=== PATIENT | female | born 1935 | race Caucasian/White ===

== ENCOUNTER 2016-03-05 17:10 | Inpatient (IN) | payer MEDICARE, MEDICAID ==
[2016-03-05] VITALS (7 sets, daily range): BP systolic 91–165; BP diastolic 66–89; PULSE 90–137; RESP 21–29; O2SAT 92–96
[~2016-03-05] VITALS: Ht 157.5 cm; Wt 78.2 kg
[~2016-03-05 17:10] MED LIST: ALBU8.5H2 INHALATION; ASCO125T PO; ATOR20TA PO; BIMA2.5D5 OD; BIOT1CAP3 PO; BRIM5DRO10 BOTH_EYES; BRIN10DR OP; CHOL100043 PO; CHRO200C PO; CYAN10008 PO; DILT120C83 PO; DILT60CA PO; FLUT12AE10 IH; FOLI1TAB18 PO; FURO-128 PO; MAGN400C PO; PARO40TA3 PO; PHEN100C11 PO; POTA10TA12 PO; RIVA20TA PO; Tumeric PO; UBID10CA4 PO
[2016-03-05 17:52] LABS: BASOPHILS % (AUTO) 0.2 % (0-3); EOSINOPHILS % (AUTO) 0.6 % (0-5); MONOCYTES % (AUTO) 10.9 % (4-12); Mean Corpuscular Hemoglobin 31.1 pg (27.0-35.0); Mean Corpuscular Volume 97.5 fL (81-100); NEUTROPHILS % (AUTO) 75.6 % (40-74); Platelet Count 210 bil/L (150-400)
--- NOTE | 2016-03-05 17:59 | ED.REPORT ---
HPI-Chest Pain 40 and Over Date of Service Mar 05, 2016 ED Provider: Oscar Dubose MD Patient is a 81 year old female on home O2 with a history of atrial fibrillation with RVR on Xarelto, asthma, coronary artery disease with prior [place] , prior CVA with seizure disorder, and hypertension who presents to the ED via EMS with increased shortness of breath today, found to be in atrial fibrillation by EMS. Patient was given 20mg of Diltazem by EMS, finding her in the 120-140s. The patient denies having any associated chest discomfort or feeling palpitations when her heart is racing. Her only symptoms increased shortness of breath. The patient states that she has had increased shortness of breath for several weeks and was started on home oxygen by her PCP recently. She states that they "marched her up and down the halls" and determined that her O2 sat was low. The patient reports having "miniscule" intermittent substernal chest pain, brief episodes. She last had an episode of chest pain this morning. Patient reports increased swelling in her legs. She reports a chronic runny nose but denies a cough, fever, abdominal pain, or vomiting. She takes 120mg of Diltiazem at home daily, in addition to Metoprolol. She has been taking all of her medications as prescribed. Patient reports having increased bloody noses with blood clots since starting the Xarelto. Patient is a Jehovah' s Witness. The patient has a large family reunion tomorrow morning and is motivated to return home tonight. Nursing Notes Stated Complaint: AFIB, RVR Chief Complaint: Dysrhythmia/Cardiac Nursing Notes Reviewed: Yes Allergies: Coded Allergies: ranitidine (Verified Allergy, Severe, 03/05/16) Scheduled Albuterol HFA (Proair HFA) 8.5 Gm Hfa.aer.ad 1 PUFFS INHALATION Q4H Atorvastatin (Lipitor) 20 Mg Tablet 20 MG PO HS Bimatoprost (Lumigan) 45 Drop/2.5 Ml Ophsoln 45 DROP OD HS Biotin (Biotin) 1 Mg Capsule 1 MG PO DAILY Brimonidine Tartrate (Alphagan P) 5 Ml Drops 5 ML BOTH_EYES BID Brinzolamide (Azopt 1% Ophthalmic Suspension) 10 Ml Drops.susp 1 DROP OP BID Cholecalciferol (Vitamin D3) (Vitamin D) 1,000 Unit Tablet 1,000 UNIT PO DAILY Diltiazem ER (Diltiazem ER) 60 Mg Cap.er.12h 60 MG PO BID Diltiazem ER (Cardizem CD) 120 Mg Cap.er.24h 120 MG PO BID Fluticasone Propionate (Flovent HFA 220 mcg) 12 Gm Aer.w.adap 1 PUFF IH BID Folic Acid (Folic Acid) 1 Mg Tablet 1 MG PO DAILY Furosemide (Lasix) 40 Mg Tablet 40 MG PO BID Paroxetine (Paroxetine) 40 Mg Tablet 40 MG PO DAILY Phenytoin Sodium Extended (Phenytoin Sodium Extended) 100 Mg Capsule 300 MG PO HS Potassium Chloride ER (Potassium Chloride ER) 10 Meq Tablet 10 MEQ PO DAILY TAKE WITH FOOD Scheduled PRN Rivaroxaban (Xarelto) 20 Mg Tablet 20 MG PO DAILY PRN PRN anticoagulation Miscellaneous Medications ([Tumeric]) 34 MCG PO Ascorbic Acid (Vitamin C) 125 Mg Tab.chew 1,000 MG PO Chromium Picolinate (Chromium Picolinate) 200 Mcg Capsule 167 MCG PO Cyanocobalamin (Vitamin B-12) (Vitamin B-12) 1,000 Mcg Tablet 1,000 MG PO Magnesium Oxide (Magnesium) 400 Mg Capsule 400 MG PO Ubidecarenone (Co Q-10) 10 Mg Capsule 100 MG PO General Time Seen by MD: 17:46 Chief Complaint Shortness of breath Hx Obtained From: Patient Arrived By: Ambulance Sudden in Onset?: No Onset Occurred: 3 days ago Symptom Duration: Waxes and wanes Location: : Substernal Quality: Painful, Stabbing Severity: Current: No pain currently Severity: Maximum: Moderate Recent Healthcare: No recent doctor visit, No recent hospitalization Similar Sx Previous: Yes Past Medical History Past Medical History Notes: Last stress test negative in August 2014 Past Medical History Seizures -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 Corotid artery stenosis Atrial Fibrillation with RVR on Xarelto [place] in 2009 per patient, with cardiac arrest Osteoarthritis Glaucoma Diverticula seen 08/2002 colonoscopy Reports: Asthma, Coronary artery disease, Hyperlipidemia, Hypertension, Stroke Reports: Depression Past Surgical History Finger surgery Reports: Hysterectomy Reports: Carpal tunnel Smoking History Former Smoker Social History Hx of Alcoholism "Caffine free" Alcohol Use: In recovery Other Social History: Good social support, , Local resident Ambulatory Status Independent Review of Systems Constitutional: Denies: Chills, Fever Respiratory: Reports: Shortness of breath, Denies: Non-productive cough, Pleuritic pain Cardiovascular: Reports: Chest pain, Denies: Palpitations GI: Denies: Abdominal pain, Vomiting Musculoskeletal: Reports: Extremity swelling Psychiatric: Reports: Anxiety Complete sys rev & neg: except as marked. Physical Exam Initial Vital Signs Vital Signs (First) Date Time Temp Pulse Resp B/P Pulse Ox O2 Delivery O2 Flow Rate FiO2 03/05/16 17:39 36.7 137 29 128/76 95 Nasal Cannula 2 Initial VS: Reviewed Head / Eyes: Atraumatic, Normocephalic, PERRL ENT: Conjunctiva normal, No scleral icterus Neck: Supple, Full range of motion Skin: Warm, Dry, No cyanosis Neurologic: Alert, Oriented, Nonfocal Psychiatric: Mood/affect normal, Behavior normal, Normal thought content General/Constitutional: Awake, Alert, No acute distress Respiratory / Chest: No respiratory distress, No rhonchi, No wheezing faint bibasilar crackles Heart Rate / Rhythm: Positive: Irreg irregular rhythm, Tachycardia Abdomen: Soft, Non-tender Lower Extremity / Pelvis / MS: No deformity 1+ bilateral lower extremity edema Upper Extremity / MS: No swelling, No edema Interpretation & Diagnostics Lab Results Interpretation Result Diagram: 03/05/16 1730 03/05/16 1730 Test 03/05/16 17:30 White Blood Count 9.1th/mm3 (3.8-10.1) Red Blood Count 4.08mil/mm3 (3.90-5.20) Hemoglobin 12.7g/dL (12.0-15.6) Hematocrit 39.8% (35.0-46.0) Mean Corpuscular Volume 97.5fL (81-100) Mean Corpuscular Hemoglobin 31.1pg (27.0-35.0) Mean Corpuscular Hemoglobin Concent 31.9% (32.0-37.0) Red Cell Distribution Width 13.5% (12.3-15.4) Platelet Count 210bil/L (150-400) Neutrophils (%) (Auto) 75.6% (40-74) Lymphocytes (%) (Auto) 12.5% (14-46) Monocytes (%) (Auto) 10.9% (4-12) Eosinophils (%) (Auto) 0.6% (0-5) Basophils (%) (Auto) 0.2% (0-3) Prothrombin Time 10.9sec (8.1-12.5) Prothromb Time International Ratio 1.02ratio Activated Partial Thromboplast Time 29.2sec (22.8-33.0) Sodium Level 137mEq/L (134-144) Potassium Level 4.2mEq/L (3.5-5.2) Chloride Level 93mEq/L (97-108) Carbon Dioxide Level 30mmol/L (18-29) Blood Urea Nitrogen 24mg/dL (8-27) Creatinine 0.65mg/dL (0.57-1.00) Estimat Glomerular Filtration Rate 125mL/min (>59) Glucose Level 125mg/dL (60-99) Calcium Level 9.2mg/dL (8.5-10.1) Magnesium Level 2.2mg/dL (1.6-2.6) Total Bilirubin 0.6mg/dL (0.0-1.2) Aspartate Amino Transf (AST/SGOT) 30U/L (0-50) Alanine Aminotransferase (ALT/SGPT) 36U/L (0-32) Alkaline Phosphatase 129U/L (25-165) Troponin T < 0.010ug/L (0.0-0.011) Pro-B-Type Natriuretic Peptide 2480pg/mL (0-738) Total Protein 6.8g/dL (6.4-8.4) Albumin 3.9g/dL (3.4-5.0) ECG Interpretation ECG Interpretation: Atrial fibrillation with RVR, Rate 127 Time: 18:30 Interpreted by: ED physician X-Ray Chest Interpretation Chest Xray Interpretation: IMPRESSION: Mild acute CHF pattern with small bilateral subpulmonic pleural effusions. Dictated by: Darshan Ellis M.D. on 03/05/2016 at 19:55 Approved by: Darshan Ellis M.D. on 03/05/2016 at 19:55 Interpretation / Wet Read by: Interpret - Radiologist Re-Eval/Medical Decision Source of Hx: Old records Summary of Info: 81-year-old female history of atrial fibrillation on xarelto, holiness, CAD, seizure disorder, CVA presenting with shortness of breath times weeks. On arrival she was found to be in atrial fibrillation with RVR 120s-140s. Given 20 mg of IV diltiazem by paramedics. Given additional 20 mg IV diltiazem here in the ER. He remained [id number]. Started on diltiazem drip. Admitted to [facility]. Time of Eval: 19:36 Re-Evaluation/Progress Note: Rechecked the patient. She was informed that because her heart rate is still this rapid, she will need to stay in the hospital overnight on a Diltiazem drip. Patient agrees that she cannot go home like this. Discussed the results of her labs, chest x-ray, and EKG. She also admits to feeling anxious and takes Paxil at home. Patient understands and agrees with this plan. All questions were addressed. Consultation : Referral / Consult Name: Hayley Julian MD Consulted With: Hospitalist Call Returned at: 19:51 Volleyball Player: Will see patient, Agrees with eval, Agrees with plan, Accepts admit Note: Spoke with Dr. Julian, hospitalist, who agrees to accept admit. Counseled Regarding: Diagnosis, Lab results, Need for follow-up, When/why to return to ED Discharge & Departure Primary Impression: Atrial fibrillation with RVR Additional Impression: Shortness of breath Disposition: ADMITTED TO HOSPITAL Discharge Condition All VS Reviewed: Yes Condition: Stable Referrals: Oscar Post MD (PCP) Crit Care Except Billable Proc Time Spent: 30-74 minutes Services Performed: Patient management by me, Time spent at bedside, Reviewing test results, Reviewing imaging, Discussing patient care, Documentation in record, Time with fam/surrogate Scribe Attestation Portions of this note were transcribed by Juhi Morfin. I, Dr. Dubose personally performed the history, physical exam and medical decision-making; I reviewed and confirmed the accuracy of the information in the transcribed note. Signed by: Ismael Lucio, 03/05/20162057 copies to: Oscar Post MD, Ben M MD Mar 05, 2016 17:59 Juhi Morfin Mar 05, 2016 18:12
[2016-03-05 18:07] LABS: INR 1.02 ratio
[2016-03-05] MEDS ORDERED: 0.9% Sodium Chloride 1,000 ML IV ONE (18:11)
[2016-03-05 18:15] LABS: TROPONIN T < 0.010 ug/L (0.0-0.011)
[2016-03-05] MEDS ORDERED: Diltiazem 5 mg/mL 5 mL Inj IVPUSH ONE (18:15)
[2016-03-05 18:25] LABS: Magnesium 2.2 mg/dL (1.6-2.6)
[2016-03-05] MEDS ORDERED: Alum-Mag Hydrox-Simeth 30 mL Suspension PO PRN (19:55)
[2016-03-05] MEDS ORDERED: Ondansetron 2 mg/mL 2 mL Inj IVPUSH PRN (19:55)
--- NOTE | 2016-03-05 19:57 | DRSVH ---
PROCEDURE: X-RAY CHEST ONE VIEW, PORTABLE ([id number]) INDICATIONS: dyspnea TECHNIQUE: One view of the chest was acquired. COMPARISON: None. FINDINGS: Surgical changes and devices: None. Lungs and pleura: Small subpulmonic bilateral pleural effusions but no pneumothorax. Lungs are mild ly edematous. Mediastinum: Mediastinal contours appear normal. Heart size is mildly enlarged. Bones and chest wall: No suspicious bony lesions. Overlying soft tissues appear unremarkable. IMPRESSION: Mild acute CHF pattern with small bilateral subpulmonic pleural effusions. Dictated by: Darshan Ellis M.D. on 03/05/2016 at 19:55 Approved by: Darshan Ellis M.D. on 03/05/2016 at 19:55
[2016-03-05] MEDS: Diltiazem Inj 125 MG in 0.9% Sodium Chloride 100 ML, Pharmacy To Mix 1 EA IV SCH (20:00)
--- NOTE | 2016-03-05 20:30 | NUR ---
Admission to [facility] Pt arrived at 2030 to PCC room 2008 on a gurney with daughter Bree at her side. Pt was on 4L O2 NC and the cardizem drip and NS had been stopped for the travel from the ED to PCC. Pt has A-Fib with a rate 120-140s upon arrival to the floor and the pt is hypertensive. Pt is AOx3 and very weak compared to baseline.
[2016-03-05 22:21] LABS: APPEARANCE,URINE HAZY (CLEAR,HAZY); COLOR,URINE AMBER (YELLOW); OCCULT BLOOD,URINE NEGATIVE (NEGATIVE); PH,URINE 6.5 (5.0-8.0); UROBILINOGEN,URINE NORMAL (NORMAL)
[2016-03-05 22:22] LABS: ICTOTEST,URINE POSITIVE (Negative)
[2016-03-06] VITALS (15 sets, daily range): BP systolic 99–162; BP diastolic 47–133; PULSE 66–134; RESP 15–38; O2SAT 90–99
[2016-03-06] MEDS ORDERED: Polyethylene Glycol (PEG) 17 Gm Powder PO PRN (00:05)
[2016-03-06] MEDS: Diltiazem Inj 125 MG in 0.9% Sodium Chloride 100 ML, Pharmacy To Mix 1 EA IV SCH ×2 (01:21→10:16)
[2016-03-06] MEDS: Albuterol 2.5 mg/3 mL Inhalation Solution NEB PRN ×3 (01:35→16:22)
[2016-03-06] MEDS: Furosemide 10 mg/mL 4 mL Inj IVPUSH SCH ×2 (04:24→21:06)
[2016-03-06] MEDS: Fluticasone 250 mCg Inhaler INHALATION SCH ×2 (07:34→21:06)
[2016-03-06] MEDS: Dorzolamide 2% 10 mL Ophthalmic Solution BOTH_EYES SCH ×2 (07:35→21:06)
[2016-03-06] MEDS: Brimonidine 0.2% 5 mL Ophthalmic Solution BOTH_EYES SCH ×2 (07:35→21:15)
[2016-03-06] MEDS: PARoxetine 20 mg Tablet PO SCH (07:36)
--- NOTE | 2016-03-06 07:38 | NUR ---
Respiratory/Cardiac Pt c/o being SOB and upon auscultation the pt's left lung had coarse crackles long term up and the pt's right lung had crackles through the lower third. Pt's RR range is from the 20s-40s and the respirations are labored, shallow, with accessory muscle use at this point. Pt has remained in the tri-pod position since admission at 2030 and on 4-6L NC with SpO2 88-98%. MD was made aware and ordered a dose of 40mg IV Lasix and pt received a funez catheter. Pt was started on cardizem drip on the floor at 15ml/hr to try and bring down the HR from the 120s-140s. Pt's HR has only decreased into the 110s-120s while on the cardizem drip.
--- NOTE | 2016-03-06 09:20 | HP ---
[address] [address] HISTORY AND PHYSICAL PATIENT: MARIAM BUENO : 1935 MR#: [id number] ADMIT: 03/05/2016 JOB ID: [id number] HISTORY OF PRESENT ILLNESS: This is an 81-year-old female presenting to the emergency department in atrial fibrillation with rapid ventricular response up into the 160s. She was stabilized with a diltiazem drip. She appears quite dyspneic, tripoding to breathe and apparently has CHF in addition. Her ability to give an accurate history is compromised by her disturbed breathing. In the emergency department, she was describing one day of shortness of breath. She had been started on home oxygen by her primary care doctor recently after an ambulatory hypoxic measurement. She is also experiencing increased swelling of her legs and a runny nose but no coughing. She is a [employer] and was expecting a large family reunion in the morning. MEDICINES: 1. Albuterol 1 puff q.4 p.r.n. 2. Atorvastatin 20 mg h.s. 3. Lumigan both eyes. 4. Biotin 1 mg a day. 5. Alphagan-P 5 mL both eyes b.i.d. 6. Vitamin D3 1000 units daily. 7. Diltiazem ER 60 mg q.12. 8. Diltiazem ER 120 mg q.12 also (total dose appears to be 180 mg). 9. Flovent HFA 220 mcg 1 puff b.i.d. 10. Folate 1 mg daily. 11. Furosemide 40 mg b.i.d. 12. Paroxetine 40 mg a day. 13. Phenytoin 100 mg 3 tablets at h.s. 14. Potassium chloride ER 10 mEq daily. 15. Xarelto 20 mg daily. ALLERGIES: RANITIDINE. PAST MEDICAL HISTORY: 1. CVA and resultant seizures in 2009. 2. Carotid artery stenosis. 3. Atrial fibrillation. 4. Cardiac arrest 2009 coincident with [place]. 5. Osteoarthritis. 6. Glaucoma. 7. Diverticula, diverticulosis on colonoscopy. 8. Asthma. 9. Coronary artery disease. 10. Hyperlipidemia. 11. Hypertension. 12. Depression. 13. Hysterectomy. 14. Finger surgery. 15. Carpal tunnel surgery. SOCIAL HISTORY: She is a former smoker with a history of alcoholism in recovery. She is accompanied by her daughter. She is Restorationism. Dr. Oscar Post is her primary care doctor and Dr. Pascal is her manager medical affairs, although she has not seen him yet and will be seeing him for a first appointment in two weeks. PHYSICAL EXAMINATION: General: Alert and oriented. Appears to be in quite marked respiratory distress. Vitals: Temperature is 36.8, pulse 102, respirations 24, blood pressure 128/89, O2 sat is 95% on 3 L nasal cannula. Pupils are equally round and reactive to light and accommodation. Extraocular muscle intact. Sclerae are pink. Not icteric. Throat looks normal. No lymph nodes are felt. Head and neck/supraclavicular: There is no thyromegaly. JVD is less than 6 cm. No carotid bruits are heard. Heart is irregularly irregular without murmur. Lungs have left-sided crackles. Abdomen obese. Bowel sounds positive on examination. No organomegaly. Breast, pelvic and rectal examination is referred to Dr. Post' office. Extremities: No ankle edema. Neuro: Cranial nerves 2-12 tested intact. Motor function is 3/5 throughout. There is no tremor. LABORATORIES: White count 9.1, hemoglobin 12.7, platelets 210. INR 1.02. Urinalysis 3-10 RBCs, greater than 50 WBCs, moderate epithelial cells, trace leukocyte esterase, negative nitrite. Sodium is 137, potassium 4.2, chloride 93, CO2 is 30, BUN is 24, creatinine 0.65, glucose 125. ALT 36, AST 30. BNP is 2480. Troponin I is 0.01. Urine culture is pending. Chest x-ray shows mild CHF pattern with small bilateral subpulmonic pleural effusions. ASSESSMENT AND PLAN: 1. Congestive heart failure. Begin Lasix and follow electrolytes. Continue home meds of potassium chloride, holding oral Lasix while on IV treatment. 2. Atrial fibrillation with rapid ventricular response. Continues on diltiazem drip and will be resuming her home diltiazem when appropriate. Continue Xarelto for stroke prevention. 3. Hyperlipidemia. Continue Lipitor. 4. Depression. Continue Paroxetine. 5. Seizure disorder. Continue phenytoin. MTDD
--- NOTE | 2016-03-06 10:19 | NUR ---
Tele/Breathing Patient continues to be in Afib but heart rate has slowed to 70s-80s. Diltiazem drip decreased to 10mg/hr. Patient breathing has been labored with visible accesory muscle use and audible wheezing. Patient started on BiPAP by RT. Patient seems to be tolerating BiPAP well, she is resting with eyes closed with daughter at the bedside.
[2016-03-06] MEDS: Budesonide 0.5 mg/2 mL Inhalation Solution NEB SCH ×2 (11:25→20:13)
[2016-03-06] MEDS: Arformoterol 15 mCg/2 mL Inhalation Solution NEB SCH ×2 (11:40→20:13)
[2016-03-06] MEDS ORDERED: Albuterol-Ipratropium 3 mL Inhalation Solution NEB SCH (12:30)
--- NOTE | 2016-03-06 16:42 | ABG ---
DateTimeAnalyzed 16:37:00 -_ pH ____7.396 - 7.350 7.450 pCO2 ___46.1__ -mmHg 35.0 45.0 pO2 ___69.3__ -mmHg 69.0 116 HCO3- ___27.7__ -mmol/L 22.0 26.0 ABE ____2.9__ -mmol/L -2.0 2.0 tHb ___11.1__ -g/dL O2Hb ___92.4__ -% COHb ____1.4__ -% MetHb ____0.8__ -% sO2 ___94.5__ -% FIO2 ___35.0__ -% CPAP ___12.0__ -cmH2O PEEP ____6.0__ -cmH2O Drawn By NB - Date/Time Notified____ 16:42:00 -_ Oxygen Device 1 ____BIPAP - Notified By NB - Notified Whom _Sara, RN - B 765 -mmHg tO2 ___14.4__ -Vol% Hugh test N/A -
--- NOTE | 2016-03-06 18:00 | NUR ---
Social Work: Initial assessment Electronic Game Developer met with patient and patient daughter, Bree Crews- [phone], to complete initial assessment, discuss discharge planning, and SW role explained. Patient confirmed that her insurance is Medicare and [facility] as secondary. Patient leyva not have VA or LTC benefits. Patient was home with spouse (spouse has problems with memory) in a single level home prior to admission. Patient does not have any steps to enter home. Patient daughter/DPOA Shelby Godinez is currently with patient's spouse while to patient is in the hospital. Patient's daughter provided SW with a copy of patient's DPOA and the patient DPOA was placed on the patient's chart. Patient has a [email or web address] worker, name Cj. SW will fax patient clinical to her [facility] worker. Patient does not have HH or SNF history. Patient does not have a re-admit score. Patient plans to discharge home with [email or web address]. Patient will transport home via POV. Electronic Game Developer will continue to follow. Myrna Santos LMSW, RYLEY Addendum: 03/06/16 at 1808 by MYRNA FUENTES Amended: Links added.
--- NOTE | 2016-03-06 18:22 | PCM.PNMED ---
Subjective Date of Service Mar 06, 2016 Subjective Patient is a 81 year old female on home O2 with a history of atrial fibrillation with RVR on Xarelto, asthma, coronary artery disease with prior [place] , prior CVA with seizure disorder, and hypertension who is admitted for treatment of respiratory distress, A-fib with RVR, acute on chronic heart failure. Hospital Day 1 Today patient stated that she was extremely short of breath, swelling in her legs takes home Lasix but increased compared to last week. History limited by distress breathing. She is [employer] and will not receive blood products and has a family reunion today. ROS negative except as mentioned above Exam Vital Signs Vital Sign - Last Date Time Temp Pulse Resp B/P Pulse Ox O2 Delivery O2 Flow Rate FiO2 03/06/16 06:20 118 23 95 Nasal Cannula 6.00 03/06/16 04:24 36.5 155/77 Intake and Output 03/05/16 03/05/16 03/06/16 Cumulative From/Thru 15:00 23:00 07:00 03/05/16 17:39 - 03/06/16 04:49 Intake Total 400 ml 550 ml 950 ml Output Total 300 ml 300 ml Balance 400 ml 250 ml 650 ml Intake Oral 550 ml 550 ml IV Total 400 ml 400 ml Output Urine Total 300 ml 300 ml Exam General: Alert, Oriented X3, Cooperative, moderate respiratory distress Head: Normocephalic, atraumatic. External ears normal. Eyes: PERRLA, EOMI. Anicteric sclerae. Mouth: Mouth Normal, Mucous Membranes Moist/[place] Neck: Neck supple with full range of motion. NO JVD, no bruits heard Chest & Lungs: conversational dyspnea, Faint left sided crackles, No wheezes, or rhonchi b/l Cardiovascular: Irregularly Irregular Rate, Normal S1, Normal S2, No Murmurs/ Rubs/Gallops Abdomen: Non-tender, Non-distended, No masses, Normoactive bowel tones, Soft Musculoskeletal: Normal Range of Motion Extremities: No cyanosis/clubbing/edema bilaterally Neurological: Grossly Neurologically Intact, Strength Normal 4/4 ext, Normal Gait, Sensation Intact, IVs and Medications Medications Reviewed: Medications were reviewed in detail Medications 1. Albuterol 1 puff q.4 p.r.n. 2. Atorvastatin 20 mg h.s. 3. Lumigan both eyes. 4. Biotin 1 mg a day. 5. Alphagan-P 5 mL both eyes b.i.d. 6. Vitamin D3 1000 units daily. 7. Diltiazem ER 60 mg q.12. 8. Diltiazem ER 120 mg q.12 also (total dose appears to be 180 mg). 9. Flovent HFA 220 mcg 1 puff b.i.d. 10. Folate 1 mg daily. 11. Furosemide 40 mg b.i.d. 12. Paroxetine 40 mg a day. 13. Phenytoin 100 mg 3 tablets at h.s. 14. Potassium chloride ER 10 mEq daily. 15. Xarelto 20 mg daily. Lab and Diagnostics Laboratory Tests Test 03/05/16 17:30 03/05/16 21:45 White Blood Count 9.1th/mm3 (3.8-10.1) Red Blood Count 4.08mil/mm3 (3.90-5.20) Hemoglobin 12.7g/dL (12.0-15.6) Hematocrit 39.8% (35.0-46.0) Mean Corpuscular Volume 97.5fL (81-100) Mean Corpuscular Hemoglobin 31.1pg (27.0-35.0) Mean Corpuscular Hemoglobin Concent 31.9% (32.0-37.0) Red Cell Distribution Width 13.5% (12.3-15.4) Platelet Count 210bil/L (150-400) Neutrophils (%) (Auto) 75.6% (40-74) Lymphocytes (%) (Auto) 12.5% (14-46) Monocytes (%) (Auto) 10.9% (4-12) Eosinophils (%) (Auto) 0.6% (0-5) Basophils (%) (Auto) 0.2% (0-3) Prothrombin Time 10.9sec (8.1-12.5) Prothromb Time International Ratio 1.02ratio Activated Partial Thromboplast Time 29.2sec (22.8-33.0) Sodium Level 137mEq/L (134-144) Potassium Level 4.2mEq/L (3.5-5.2) Chloride Level 93mEq/L (97-108) Carbon Dioxide Level 30mmol/L (18-29) Blood Urea Nitrogen 24mg/dL (8-27) Creatinine 0.65mg/dL (0.57-1.00) Estimat Glomerular Filtration Rate 125mL/min (>59) Glucose Level 125mg/dL (60-99) Calcium Level 9.2mg/dL (8.5-10.1) Magnesium Level 2.2mg/dL (1.6-2.6) Total Bilirubin 0.6mg/dL (0.0-1.2) Aspartate Amino Transf (AST/SGOT) 30U/L (0-50) Alanine Aminotransferase (ALT/SGPT) 36U/L (0-32) Alkaline Phosphatase 129U/L (25-165) Troponin T < 0.010ug/L (0.0-0.011) Pro-B-Type Natriuretic Peptide 2480pg/mL (0-738) Total Protein 6.8g/dL (6.4-8.4) Albumin 3.9g/dL (3.4-5.0) Urine Color Whit (YELLOW) Urine Appearance Hazy (CLEAR,HAZY) Urine pH 6.5 (5.0-8.0) Urine Specific [place] 1.025 (1.003-1.035) Urine Protein 30mg/dL (NEG,TRACE) Urine Glucose (UA) Negativemg/dL (NEGATIVE) Urine Ketones Tracemg/dL (NEGATIVE) Urine Occult Blood Negative (NEGATIVE) Urine Nitrite Negative (NEGATIVE) Urine Bilirubin Small (NEGATIVE) Urine Ictotest Positive (Negative) Urine Urobilinogen Normalmg/dL (NORMAL) Urine Leukocyte Esterase Trace (NEGATIVE) Urine RBC 3-10/hpf (0-2) Urine WBC >50/hpf (0-5) Urine Epithelial Cells Moderate/hpf (NONE-MOD) Urine Crystals None seen (NONE SEEN) Urine Bacteria None/hpf (NONE-FEW) Urine Hyaline Casts None/lpf (NONE) Urine Granular Casts None seen (NONE SEEN) Urine Waxy Casts None seen (NONE SEEN) Urine Red Blood Cell Casts None seen (NONE SEEN) Urine White Blood Cell Casts None seen (NONE SEEN) Urine Mucus Present (None Seen) Urine Trichomonas None seen (NONE SEEN) Urine Yeast None (NONE SEEN) Urine Culture Reflexed Indicated Microbiology 03/05/16 Urine Culture, Received Pending Result Diagram: 03/05/16 1730 03/05/16 1730 X-Rays, CTs and MRIs X-RAY CHEST ONE VIEW IMPRESSION: Mild acute CHF pattern with small bilateral subpulmonic pleural effusions. Dictated by: Darshan Ellis M.D. on 03/05/2016 at 19:55 Approved by: Darshan Ellis M.D. on 03/05/2016 at 19:5 Cardiac Echo Impressions ECHOCARDIOGRAM 01/04/16 Interpretation Summary 1) Normal left ventricular thickness, size, wall motion, and systolic function (EF 65-70%). 2) Normal right ventricular size and function. 3) Calcific mild to moderate stenosis and mild aortic regurgitation. 4) Calcific mitral valve with mild mitral inflow gradient and moderate mitral regurgitation. 5) Severely dilated left atrium. 6) Pulmonary hypertension present, estimated systolic pulmonary artery pressure of 51mmHg. 7) Compared to the Echo done 09/19/2014, systolic pulmonary pressure has decreased from 61mmHg to 51mmHg. Reading Physician:ALE Additional Diagnostics ABG DateTimeAnalyzed 16:37:00 -_ pH ____7.396 - 7.350 7.450 pCO2 ___46.1__ -mmHg 35.0 45.0 pO2 ___69.3__ -mmHg 69.0 116 HCO3- ___27.7__ -mmol/L 22.0 26.0 Assessment & Plan Patient is a 81 year old female on home O2 with a history of atrial fibrillation with RVR on Xarelto, asthma, coronary artery disease with prior [place] , prior CVA with seizure disorder, and hypertension who is admitted for treatment of respiratory distress, A-fib with RVR, acute on chronic heart failure. Hospital Day 1 1. Diastolic heart failure, acute, present on admission, active - Last Echocardiogram showed EF 65-70% - Continue Lasix 40 mg BID, Consider 40 mg TID - Continue oral potassium chloride - Cardiology consulted we appreciate their time and expertise. 2. Atrial fibrillation with rapid ventricular response, acute on chronic, present on admission, active -Continues on diltiazem drip, resume her home diltiazem when appropriate. -Continue Xarelto - Continue Tele -Cardiology consulted we appreciate their time and expertise. 3. Respiratory distress, acute, present on admission, active - ABG ordered, normal pH, CO2 retention 46.1 - Continue BiPAP - NEB long active albuterol, ipratropium, budesonide - Respiratory Viral PCR, pending 4. Hematuria, present on admission, active - 3-10 RBCs on UA - Urine color grossly red at bedside - Renal US ordered, pending 4. Hyperlipidemia. -Continue Lipitor. 5. Depression. -Continue Paroxetine. 6. Seizure disorder. -Continue phenytoin. Pain Evaluation: Adequate Pain Control VTE Mechanical Devices: Intermittant Pneumatic CD Resuscitation Status: CPR: Attempt Resuscitation Attending Statement The patient was seen and examined together with Dr. Li on 03/06/2016 and I agree with the history, exam and plan as outlined in the note above. . COLE LI DO Mar 06, 2016 07:11 Shiv Keene MD Mar 07, 2016 08:08
[2016-03-06] MEDS: Phenytoin 100 mg ER Capsule PO SCH (21:07)
[2016-03-07] VITALS (15 sets, daily range): BP systolic 103–127; BP diastolic 56–82; PULSE 19–128; RESP 15–30; O2SAT 94–99
[2016-03-07] MEDS: Diltiazem Inj 125 MG in 0.9% Sodium Chloride 100 ML, Pharmacy To Mix 1 EA IV SCH ×2 (00:09→15:42)
--- NOTE | 2016-03-07 03:32 | NUR ---
Respiratory/Afib HR 100-120's afib, increased HR non-sustained, on diltiazem gtt, Titrated gtt from 10mg/hr to 15 mg/hr, resting HR low 100's afib; on 8LPM via oxymask, sob on exertion, switched to bipap at noc, fio2 decreased from 0.35 to 0.30, sp02 maintained >92%; continued diuresing with lasix IV, funez drained with 850cc.
[2016-03-07 04:09] LABS: BASOPHILS % (AUTO) 0.1 % (0-3); EOSINOPHILS % (AUTO) 0.6 % (0-5); MONOCYTES % (AUTO) 13.4 % (4-12); Mean Corpuscular Hemoglobin 31.1 pg (27.0-35.0); Mean Corpuscular Volume 96.9 fL (81-100); NEUTROPHILS % (AUTO) 73.6 % (40-74); Platelet Count 182 bil/L (150-400)
[2016-03-07 04:43] LABS: Magnesium 1.9 mg/dL (1.6-2.6); TROPONIN T 0.01 ug/L (0.0-0.011)
[2016-03-07] MEDS: PARoxetine 20 mg Tablet PO SCH (07:36)
[2016-03-07] MEDS: Brimonidine 0.2% 5 mL Ophthalmic Solution BOTH_EYES SCH ×2 (07:36→22:19)
[2016-03-07] MEDS: Dorzolamide 2% 10 mL Ophthalmic Solution BOTH_EYES SCH ×2 (07:36→22:19)
[2016-03-07] MEDS: Furosemide 10 mg/mL 4 mL Inj IVPUSH SCH (07:37)
[2016-03-07] MEDS: Fluticasone 250 mCg Inhaler INHALATION SCH ×2 (07:37→22:19)
[2016-03-07] MEDS: Budesonide 0.5 mg/2 mL Inhalation Solution NEB SCH ×2 (08:30→20:20)
[2016-03-07] MEDS ORDERED: AMIODARONE IV ONE (09:25)
[2016-03-07] MEDS ORDERED: [UNRECOGNIZED DRUG - OTHER] IV ONE (09:25)
--- NOTE | 2016-03-07 10:00 | DRSVH ---
PROCEDURE: US RENAL SONOGRAM INDICATIONS: hematuria TECHNIQUE: Real-time scanning was performed of the kidneys and bladder, with image documentation. COMPARISON: None. FINDINGS: Kidneys: Kidneys are normal in size. Right kidney measures 9.9 cm long; left kidney measures 10.4 c m long. Right renal cortical thickness is 0.8 cm; left renal cortical thickness is 1.3 cm. Renal co rtical echotexture is mildly hyperechoic, renal cortical thinning appears present overall. No hydron ephrosis or nephrolithiasis. No suspicious solid mass lesions. Bladder: A Alejandro catheter empties the bladder lumen. Miscellaneous: No free pelvic fluid. IMPRESSION: Bladder lumen is emptied by Alejandro catheter in place. No urinary retention suspected, giv en this finding. Accurate assessment for presence or absence of bladder mass is not possible in this circumstance but no large bladder mass or calculus is suspected. No hydronephrosis or nephrolithias is found. Renal cortical thinning appears chronic. Dictated by: Darshan Ellis M.D. on 03/07/2016 at 9:59 Approved by: Darshan Ellis M.D. on 03/07/2016 at 9:59
[2016-03-07] MEDS: Amiodarone 360 mg/200 mL D5W 360 MG in IV Premix 1 EACH IV SCH ×2 (10:18→16:22)
[2016-03-07] MEDS: Arformoterol 15 mCg/2 mL Inhalation Solution NEB SCH ×2 (10:30→20:20)
[2016-03-07] MEDS: Albuterol 2.5 mg/3 mL Inhalation Solution NEB PRN (10:30)
--- NOTE | 2016-03-07 10:40 | NUR ---
Afib Patient continues to be in Afib with a rate in the 100s-120s. Amiodoarone drip was started and diltiazem drip stopped per MD orders. VSS. Will continue to monitor.
--- NOTE | 2016-03-07 16:29 | NUR ---
Diltiazem Diltiazem drip restarted per MD. Currently infusing at 5ml/hr. Amiodarone infusing at 17.8/hour. Patient continues to be in Afib with a rate in the 110s-120s.
--- NOTE | 2016-03-07 16:44 | CONS ---
[address] [address] CONSULTATION REPORT PATIENT: MARIAM BUENO : 1935 MR#: [id number] ADMIT: 03/05/2016 JOB ID: [id number] DATE OF SERVICE: 03/07/2016 CARDIOLOGY CONSULTATION: CHIEF COMPLAINT: I was asked by the hospital team, Dr. Keene, to consult on this patient given AFIB with rapid ventricular response. HISTORY OF PRESENT ILLNESS: The patient is an 81-year-old woman with past medical history significant for COPD. She also has a history of atrial fibrillation which was first diagnosed in December 2015. She tells me that she was sent home one diltiazem and on Xarelto as well. Apparently she was still having some problems with heart rates and her primary care doctor adjusted her diltiazem dose. There has also been concern about her lungs and she has had her medications adjusted for that, as well as I believe she was provided with oxygen. She has been monitoring her heart rates and they have been generally well controlled until recently. She alternately came to the ED with increased heart rates with rapid ventricular response of AFIB in the 160s. She was put on diltiazem drip, which did not ultimately control her heart rates. When I initially saw her, she was having and respiratory distress on a BiPAP machine. The initial chest x-ray showed mild acute CHF pattern with small bilateral pleural effusions. She was given diuretics without significant diuresis and without significant improvement as well. Today, after I found that her heart rates were somewhat controlled and, given the fact that she has been on Xarelto, an amiodarone drip has now been started, although her heart rates are still not optimally controlled. She is doing a little better. She is off BiPAP and she is able to speak in full sentences without significant breathing issues at this time. PAST MEDICAL HISTORY AND PROBLEM LIST: 1. History of COPD with PFTs in 2014 showing evidence for severe obstructive airways disease with a small though significant improvement after inhaled bronchodilators, with severe air trapping. There was a severe reduction in diffusion capacity as well. 2. History of CVA. 3. History of carotid artery stenosis. 4. History of atrial fibrillation first diagnosed by review of charts in December 2015. 5. Coronary disease. 6. Hyperlipidemia. 7. Hypertension. 8. Depression. MEDICATIONS AT HOME: included albuterol 1 puff q.4 p.r.n., Lipitor 20 mg q.h.s., Diltiazem ER 60 q.12, Diltiazem ER 120 q. 12, Flovent, furosemide 40 mg b.i.d., paroxetine 40 daily, phenytoin 100 mg three tablets q.h.s., and Xarelto 20 mg daily. ALLERGIES: RANITIDINE. SOCIAL HISTORY: She is a former smoker. Also history of alcoholism. REVIEW OF SYSTEMS: Constitutional: No fevers, chills, night sweats, or weight loss. GI: Denies problems with ulcers or blood in her stool. : No dysuria, no hematuria. Pulmonary: She has COPD and does not report any increased cough or upper respiratory symptoms prior to this admission. Musculoskeletal: No acute joint pain or swelling. Derm: No rashes or skin breakdown. Neuro: No chronic headaches. No focal neurologic deficits. Hematology: No easy bruising or bleeding. ENT: No sore throat. No difficulty swallowing. Ophtho: No vision changes. Psych: No acute issues. Endocrine: No heat or cold intolerance. cardiac: per HPI, denies chest pain All other systems on a 12-point review of system are negative. PHYSICAL EXAMINATION: Blood pressure is 109/70, heart rate is 111 and irregular. General: Appearing more comfortable. Speaking to me in full sentences. Head and neck: Normocephalic, atraumatic. Vascular: Carotids without obvious bruits appreciated. Heart: Irregular, without obvious murmurs, gallops, or rubs appreciated. Lungs: Decreased breath sounds throughout. I do not hear wheezes or crackles. Back: No CVA tenderness to palpation. Abdomen: Soft, nontender. Extremities: Mild edema, but warm. 1+ distal DP pulses appreciated. Skin: Without breakdown appreciated. Neuro: Alert and interactive. Gait is not tested. Psych: Appropriate mood and affect. ENT: mucous membranes moist, no erythema. Vision: grossly intact STUDIES: EKG shows AFIB. Imaging as noted showing mild CHF with pleural effusions. LABORATORIES: Show white count 7.1, H and H 10.9 and 34, platelets of 82,000. Chemistry shows sodium 137, potassium 2.9. Chloride and bicarb 99 and 32, respectively. BUN and creatinine 20 and 0.69. Troponins all negative. ProBNP 2480. Echocardiogram in December 2015 showed normal left ventricular wall thickness, size, and systolic function. Normal right ventricular size and systolic function. Mild to moderate aortic stenosis, with mild AI, mild mitral stenosis, and moderate mitral regurgitation. There is a severely dilated left atrium and pulmonary hypertension with an estimated right ventricular systolic pressure of 51. Echocardiogram performed today shows that she is in atrial fibrillation with rapid ventricular response. The degree of tricuspid regurgitation may appear more at this time. Other findings appear relatively stable, although she now has pleural effusions. CURRENT MEDICATIONS: Include nebulizers. She is now on amiodarone. She is on Lasix 40 IV push q.12, Xarelto, Paxil, phenytoin, atorvastatin. IMPRESSION: The patient came in with respiratory distress with atrial fibrillation with rapid ventricular response. I am not certain if the atrial fibrillation caused her symptoms or whether she had a respiratory issue that caused her heart rates to increase and led to her circumstances. She does not seem to be responding much to diuresis in terms of improvement of her breathing. I think rate control is the most important thing at this time. PLAN: 1. Will continue with amiodarone for now in an attempt to get her better rate control; however, given her severe COPD and decreased DLCO, this would not be a good long-term solution for her. I have added back some diltiazem to get improved rate control on her. 2. I am not certain if diuresis is benefitting her. I will talk to the to the hospitalist team to see if we believe there is any underlying COPD exacerbation that may need to be treated. One hour was spent reviewing the patient's old records (including pulmonary workup), current records, speaking with an examining the patient and discussing her care with the hospitalist team SONG
--- NOTE | 2016-03-07 17:42 | PCM.PNMED ---
Subjective Date of Service Mar 07, 2016 Subjective Keshia Cárdenas is an 81 year old female with history of asthma on chronic home O2 with a history of atrial fibrillation with RVR on Xarelto, coronary artery disease with prior [place], prior CVA with seizure disorder, and hypertension who is admitted for treatment of respiratory distress, A-fib with RVR, acute on chronic heart failure. Hospital Day 2. Overnight: The patient continued to have uncontrolled A fib with HRs in the 120s with her diltiazem drip titrated up from 10 to 15 mg/hr with marginal response. Today: The patient is off her BPAP and is down to a nasal cannula. She still notes shortness of breath but denies any chest pain, nausea, vomiting or cough. ROS is negative except as noted above. Exam Vital Signs Vital Sign - Last Date Time Temp Pulse Resp B/P Pulse Ox O2 Delivery O2 Flow Rate FiO2 03/07/16 12:20 37.0 128 28 109/70 95 Nasal Cannula 6.00 03/07/16 00:20 30 Intake and Output 03/06/16 03/06/16 03/07/16 Cumulative From/Thru 15:00 23:00 07:00 03/05/16 17:39 - 03/07/16 05:21 Intake Total 235 ml 869 ml 537 ml 2591 ml Output Total 400 ml 850 ml 1550 ml Balance 235 ml 469 ml -313 ml 1041 ml Intake Oral 750 ml 400 ml 1700 ml IV Total 235 ml 119 ml 137 ml 891 ml Output Urine Total 400 ml 850 ml 1550 ml # Bowel Movements 2 2 Exam General: In no acute distress, well-developed, well-nourished, appropriately interactive with nasal cannula on face. HEENT: Normocephalic, atraumatic. External ears without defect. Pupils equal, round, and reactive to light and accommodation. Anicteric sclerae, moist conjunctivae, and no lid lag. Oropharynx free of erythema and cobble stoning with moist mucosa. Neck: Supple with full range of motion. No jugular venous distension. No bruits. No lymphadenopathy or thyromegaly. Cardiovascular: Irregularly irregular with uncontrolled rate with no murmurs, rubs, or gallops appreciated Pulmonary: Diffusely reduced breath sounds with no crackles, wheezes, or rhonchi. Normal respiratory effort with no use of accessory muscles. Abdomen: Bowel tones present. Soft, nontender, nondistended. No hepatosplenomegaly or masses appreciated. Extremities: No clubbing, cyanosis, or lymphadenopathy appreciated. Edema of bilateral legs however L worse than R. Skin: Normal temperature, turgor, and texture; no rash, ulcers, or subcutaneous nodules appreciated. Neurological: Cranial nerves grossly intact. Normal muscle strength, tone, and bulk. Reflexes, coordination, and sensory function within normal limits. No known gait impairment. Psychiatric: Normal mood and affect. Alert and oriented to person, place, and time. IVs and Medications Medications Reviewed: Medications were reviewed in detail Lab and Diagnostics Result Diagram: 03/07/16 0358 03/07/16 0358 X-Rays, CTs and MRIs X-RAY CHEST ONE VIEW IMPRESSION: Mild acute CHF pattern with small bilateral subpulmonic pleural effusions. Dictated by: Darshan Ellis M.D. on 03/05/2016 at 19:55 Approved by: Darshan Ellis M.D. on 03/05/2016 at 19:5 Cardiac Echo Impressions ECHOCARDIOGRAM 01/04/16 Interpretation Summary 1) Normal left ventricular thickness, size, wall motion, and systolic function (EF 65-70%). 2) Normal right ventricular size and function. 3) Calcific mild to moderate stenosis and mild aortic regurgitation. 4) Calcific mitral valve with mild mitral inflow gradient and moderate mitral regurgitation. 5) Severely dilated left atrium. 6) Pulmonary hypertension present, estimated systolic pulmonary artery pressure of 51mmHg. 7) Compared to the Echo done 09/19/2014, systolic pulmonary pressure has decreased from 61mmHg to 51mmHg. Reading Physician:PM Additional Diagnostics ABG DateTimeAnalyzed 16:37:00 -_ pH ____7.396 - 7.350 7.450 pCO2 ___46.1__ -mmHg 35.0 45.0 pO2 ___69.3__ -mmHg 69.0 116 HCO3- ___27.7__ -mmol/L 22.0 26.0 Assessment & Plan Keshia Cárdenas is an 81 year old female with history of asthma on chronic home O2 with a history of atrial fibrillation with RVR on Xarelto, coronary artery disease with prior [place], prior CVA with seizure disorder, and hypertension who is admitted for treatment of respiratory distress, A-fib with RVR, acute on chronic heart failure. Hospital Day 2. 1. Diastolic heart failure, acute, present on admission, active - Last Echocardiogram showed EF 65-70% - Labs this morning notable for contraction alkalosis. On exam her lower extremities are mildly edematous but overall she is intravascularly depleted. At this point it is uncertain that any further diuresis would benefit her. Will stop Lasix for now and reassess tomorrow with plan possibly restart based on urine output and BMP. - Hold potassium chloride - Cardiology consulted we appreciate their time and expertise. 2. Atrial fibrillation with rapid ventricular response, acute on chronic, present on admission, active -Diltiazem drip not adequate to control the ventricular response, per Dr. Peoples' s recommendation stopped and changed to amiodarone this AM. -Continue Xarelto -Continue Tele -Cardiology consulted we appreciate their time and expertise. 3. Respiratory distress, acute, present on admission, active - ABG ordered, normal pH, CO2 retention 46.1 - Continue BPAP as needed - NEB long active albuterol, ipratropium, budesonide - Respiratory Viral PCR negative - In reviewing the patient's old chest x ray from 2016 she has radiographic signs of COPD with hyperinflation, flattened diaphragms, unfortunately this was only an AP film and no lateral is available. - Likely the patient has COPD but has not been officially diagnosed, which may be due to past history of smoking or the natural progression of her asthma - Would recommend spirometry outpatient - For now will treat her as a COPD exacerbation as there does not appear to be cardiac etiology to her poor rate control and thus is likely pulmonary - Will add prednisone 40 mg x 5 days - Will add azithromycin 4. Hematuria, present on admission, active - 3-10 RBCs on UA - Urine color grossly red at bedside - Renal US ordered, pending 4. Hyperlipidemia, chronic, present on admission. -Continue Lipitor. 5. Depression, chronic, present on admission. -Continue Paroxetine. 6. Seizure disorder, chronic, present on admission. -Continue phenytoin. Disposition: Unclear of time of D/C give patient's poor rate control at this time, however she would VTE Mechanical Devices: Intermittant Pneumatic CD Resuscitation Status: CPR: Attempt Resuscitation Attending Statement The patient was seen and examined together with Dr. Merino on 03/07/2016 and I agree with the history, exam and plan as outlined in the note above. . Raya Merino DO Mar 07, 2016 15:17 Shiv Keene MD Mar 07, 2016 18:09
[2016-03-07] MEDS: predniSONE 20 mg Tablet PO SCH (19:50)
[2016-03-07] MEDS: Phenytoin 100 mg ER Capsule PO SCH (22:21)
[2016-03-08] VITALS (15 sets, daily range): BP systolic 104–138; BP diastolic 59–97; PULSE 94–128; RESP 16–28; O2SAT 94–97
[2016-03-08] MEDS: Albuterol 2.5 mg/3 mL Inhalation Solution NEB PRN ×2 (04:52→10:59)
[2016-03-08] MEDS: Amiodarone 360 mg/200 mL D5W 360 MG in IV Premix 1 EACH IV SCH (05:02)
[2016-03-08] MEDS: Diltiazem Inj 125 MG in 0.9% Sodium Chloride 100 ML, Pharmacy To Mix 1 EA IV SCH ×4 (05:34→23:03)
--- NOTE | 2016-03-08 06:22 | NUR ---
resp: pt. on oxymask 6 L sats mid 90's, resp 20's. pt. required bipap at night due to rapid, shallow breathing.
[2016-03-08] MEDS: Brimonidine 0.2% 5 mL Ophthalmic Solution BOTH_EYES SCH ×2 (09:07→21:37)
[2016-03-08] MEDS: Dorzolamide 2% 10 mL Ophthalmic Solution BOTH_EYES SCH ×2 (09:07→21:36)
[2016-03-08] MEDS: predniSONE 20 mg Tablet PO SCH (09:08)
[2016-03-08] MEDS: Fluticasone 250 mCg Inhaler INHALATION SCH ×2 (09:08→21:15)
[2016-03-08] MEDS: PARoxetine 20 mg Tablet PO SCH (09:08)
--- NOTE | 2016-03-08 09:59 | NUR ---
[facility] Signed
--- NOTE | 2016-03-08 09:59 | NUR ---
Granddaughter in room this morning and is wanting to speak with EDI PROGRAMMER ANALYST concerning discharge planning and aftercare. Updated EDI PROGRAMMER ANALYST
[2016-03-08] MEDS: Budesonide 0.5 mg/2 mL Inhalation Solution NEB SCH ×2 (10:59→21:13)
[2016-03-08] MEDS: Arformoterol 15 mCg/2 mL Inhalation Solution NEB SCH ×2 (10:59→21:13)
--- NOTE | 2016-03-08 11:13 | CONS ---
[address] [address] CONSULTATION REPORT PATIENT: MARIAM BUENO : 1935 MR#: [id number] ADMIT: 03/05/2016 JOB ID: [id number] DATE OF SERVICE: 03/08/2016 CHIEF COMPLAINT: Shortness of breath. HISTORY OF PRESENT ILLNESS: This 81-year-old lady was admitted to the hospital with atrial fibrillation as well as exacerbation of her underlying COPD. She is normally sees Dr. Pascal, and has been referred to Dr. Vogel for Pulmonology care. Dr. Peoples saw her in consultation and started her on IV amiodarone for heart rate control. According to the chart, she has severe COPD with decreased DLCO too. Dr. Peoples's impression was that long-term amiodarone might not be an appropriate drug for her. Currently, the patient is complaining mainly of shortness of breath. She is denying any chest discomfort or chest pressure. She states at home she sleeps fairly flat, though at times she ends up sleeping on a recliner. I could not elucidate a history of true orthopnea or PND. Apparently, she is quite limited. She uses a walker to walk. She gets short of breath fairly easily. She can barely walk from her house to her mailbox without getting short of breath. This has been a chronic problem. PAST MEDICAL HISTORY: Significant for CVA, carotid restenosis, atrial fibrillation which was first diagnosed in December when she was started on blood thinners, depression, hypertension, dyslipidemia. There is also a history of severe COPD. There might be a reversible component because there was response to inhaled bronchodilators. In questioning her, the patient quit smoking over 40 years ago. The patient also states that she is a survivor of cardiac arrest, but she is unsure as to where she was admitted. She does not remember if she was ever advised an angiogram or if she was ever advised a defibrillator. PHYSICAL EXAMINATION: Pulse 106, blood pressure 111/68. Neck: Supple. No JVD. Chest: Left-sided crackles. Heart sounds S1, S2 are irregularly irregular, 2/6 ejection systolic murmur. No gallops. Abdomen is soft. Extremities: 2+ edema. Distal pulses are palpable. PLATE EMBOSSER: Alert and oriented. LABORATORY DATA: Was reviewed. White count is normal. Hemoglobin is around 10.9, fell from 12.7 yesterday. Creatinine is normal. Two sets of enzymes were negative. BNP was mildly elevated at 2480. Chest x-ray suggestive of mild CHF with pleural effusions. ASSESSMENT AND PLAN: This lady presents with rapid atrial fibrillation and exacerbation of chronic obstructive pulmonary disease. It is not uncommon for patients with exacerbation of underlying chronic obstructive pulmonary disease to get tachycardic. Part of her tachycardia might be physiological. The treatment for this is to aggressively treat her underlying chronic obstructive pulmonary disease. I am discontinuing her amiodarone. I have increased her diltiazem drip. Consideration can be given to treating her with IV steroids. I will leave that decision up to the hospitalist. Currently, she is getting p.o. prednisone. Continue with Xarelto. At some point, I feel she would require a stress test as well. I will try to obtain her clinic records as well from Dr. Pascal.
--- NOTE | 2016-03-08 11:18 | DRSVH ---
[facility] [address] [place] [address] Echocardiogram Report Name: MARIAM BUENO Study Date: 03/07/2016 Height: 62 in Hospital Exam Location: [facility] Weight: 177 lb Gender: Female BSA: 1.8 m2 : 1935 Age: 81 yrs BP: 128/81 mm Hg Reason For Study: Arrhythmia Ordering Physician: HOSPITALIST SVerformed By: Iesha Tabares Referring Physician: Dr. Oscar Post Interpretation Summary 1. Normal left ventricular size, wall thickness and systolic function with an estimated EF of 60-65% 2. Upper limits of normal to mildly dilated right ventricle with normal systolic function. The estimated RVSP is 52 mm Hg. 3. Moderate to severe tricuspid regurgitation. 4. Moderate mitral regurgitation Compared to the previous study of 01/04/16, the rhythm is now rapid atrial fibrillation. The tricuspid regurgitation appears more significant. The estimated RVSP is similar. Pleural effusions are present Procedure: A two-dimensional transthoracic echocardiogram with color flow and Doppler was performed. The study quality was technically adequate. Comparison is made with the echocardiogram of 01-04-16. The heart rate ranged between 102-122 bpm during the study. Left Ventricle: The left ventricle is normal in size. There is normal left ventricular wall thickness. The ejection fraction is estimated to be 60-65%. There are no obvious focal wall motion abnormalities noted but poor endocardial definition reduces the sensitivity for the detection of such. Diastolic function could not be accurately assessed due to atrial fibrillation. Right Ventricle: Upper limits of normal to mildly dilated right ventricle. The right ventricular systolic function is normal. Atria: The left atrium is severely dilated. The interatrial septum is intact with no evidence for an atrial septal defect. Mitral Valve: The mitral valve leaflets appear mildly thickened, but open well. There is moderate calcification extending into the subvalvular apparatus. There is moderate to severe mitral annular calcification. Mean gradient is 4.1 mm Hg suggestive of mild valvular stenosis. There is moderate mitral regurgitation. Aortic Valve: The aortic valve is moderately calcified. The valve is not optimally visualized. There is no hemodynamically significant valvular aortic stenosis. There is trace aortic regurgitation. Tricuspid Valve: The tricuspid valve leaflets are thin and pliable. There is moderate to severe tricuspid regurgitation. The right ventricular systolic pressure is estimated at 52 mmHg assuming a right atrial pressure of 15 mm Hg. Pulmonic Valve: The pulmonic valve is not well seen, but is grossly normal. There is trace pulmonic regurgitation. Great Vessels: The aortic root is normal size. The ascending aorta is mildly dilated at 3.6 cm. The IVC is dilated (diameter is greater than 2.1 cm) and it collapses less than 50% with a sniff. This suggests a high right atrial pressure of 15 mm Hg. Pericardium/ Pleura There is no pericardial effusion. Bilateral pleural effusions. MMode/2D Measurements & Calculations LVIDd: 4.4 cm LA dimension AoV Opening LV wilkerson. diameter/BSA LVIDs: 3.0 cm (cm/m^2): 2.4 FS: 31.9 % LA A2 area Ao root diam EPSS: 0.63 cm IVSd: 1.1 cm Aortic Jxn LVPWd: 0.92 cm LA A4 area asc Aorta LA length (vol) Diam: 3.6 cm LA vol: 108.3 ml LA vol index IVC diam: 2.3 cm LV sys. diameter/BSA (cm/m^2): 1.7 Doppler Measurements & Calculations Ao V2 max MV P1/2t TR max navid MV V2 mean : 180.6 cm/sec : 79.5 msec : 302.3 cm/sec : 83.6 cm/sec Ao max P.1 mmHg TR max PG MV mean PG Ao mean P.8 mmHg : 36.5 mmHg LVOT Max Navid PA V2 max MV V2 VTI : 86.5 cm/sec : 97.4 cm/sec : 34.1 cm sev ratio: 0.52 PA mean PG PA Accel Time MV P1/2t max navid Ao V2 mean LV V1 max PG PA V2 mean : 118.7 cm/sec : 64.0 cm/sec Ao V2 VTI: 33.7 cmLV V1 VTI: 17.4 cm MVA(P1/2t): 2.8 cm2 Reading Physician:02:41 PM
--- NOTE | 2016-03-08 14:43 | NUR ---
P: Respiratory Distress I: Pt on 6L/OM and bipap for napping. When on bipap a-fib 80-90's and respiratory rate 18 with sats stable. Taking po well. Alejandro patent and draining yellow urine. Turns self. Family at bedside. Sats 97% on bipap and 96% on 6L/OM. Pt states she still feels short of breath. Amiodarone gtt dcd and Cardizem gtt increased to 15mg/hr. VSS. E: Stable. S: Pt alert and oriented. Uses call light appropriately. Frequent rounding. Family at bedside.
--- NOTE | 2016-03-08 15:32 | PCM.CHPMED ---
Subjective Date of Service: Mar 08, 2016 Provider requesting consult: COLE LI DO Primary Physician: Admitting Physician: Hayley Julian MD Primary Care Physician: Oscar Post MD Attending Physician: Hayley Julian MD Chief Complaint: Chief Complaint: Continued oxygen requirements and SOB History of Present Illness: Ms. Cárdenas is a pleasant 81 year old woman with history of chronic respiratory failure secondary to COPD and asthma, and distant tobacco use, that presented to [facility] with symptomatic AF with RVR. Continued use of OxyMask and BPAP have been needed to maintain oxygen saturations. Pulmonary was consulted to evaluate for her acute on chronic respiratory failure. Ms. Cárdenas states that her home oxygen requirement is approx 2L continuous use. She states she completed a sleep study in December 2015, but has yet to receive the results. She admits to a distant tobacco use history, quitting approximately 40 years ago. She also reports a distant EtOH use. 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 She claims her asthma developed at this time, and that the asbestos or shipyard exposure were not the culprits, but the lack of ventilation and high heat and humidity of her work environment. 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 Denies any direct contact with asbestos, silicone, shipyard/manufacturing. She denies any recent travel history, denies any known exposure to TB. No reported travel to [place]. She notes that she was exposed to second-hand smoke throughout her childhood, and started smoking herself at a young age. She quit approximately 40 years ago, when she was diagnosed with asthma secondary to her occupational exposure. She can link the increase in heart rate to her increased SOB, which is usually accompanied with anxiety. Review of Systems: Constitutional: Reports: Weakness, Denies: Chills, Fever, Sweats ENT: Denies: Dysphagia, Membranes Dry Cardiovascular: Reports: Irregular Heart Rate, Palpitations, Rapid Heart Rate, SOB on Exertion Respiratory: Reports: SOB with Exertion, Shortness of Breath, Sputum, Wake up SOB Gastrointestinal: Denies: Abdominal Pain Neurological: Denies: Confusion, Dizziness Psychologic: Reports: Anxiety, Denies: Agitation PMH Past Medical History 1. CVA and resultant seizures in 2009. 2. Carotid artery stenosis. 3. Atrial fibrillation. 4. Cardiac arrest 2010 coincident with AL. 5. Osteoarthritis. 6. Glaucoma. 7. Diverticula, diverticulosis on colonoscopy. 8. Asthma. 9. Coronary artery disease. 10. Hyperlipidemia. 11. Hypertension. 12. Depression. 13. Hysterectomy. 14. Finger surgery. 15. Carpal tunnel surgery. Allergies: Coded Allergies: ranitidine (Verified Allergy, Severe, 03/05/16) Social History Hx Alcohol Use: NoHx Substance Use: NoHx Tobacco Use: No Smoking Status: Never Smoker Exam Vital Signs Vital Sign - Last Date Time Temp Pulse Resp B/P Pulse Ox O2 Delivery O2 Flow Rate FiO2 03/08/16 11:06 108 03/08/16 10:30 22 97 OxyMask 6.00 03/08/16 08:30 36.7 111/68 03/07/16 13:00 30 Intake and Output 03/07/16 03/07/16 03/08/16 Cumulative From/Thru 15:00 23:00 07:00 03/05/16 17:39 - 03/08/16 06:49 Intake Total 715 ml 583 ml 3889 ml Output Total 1500 ml 400 ml 3450 ml Balance -785 ml 183 ml 439 ml Intake Oral 320 ml 300 ml 2320 ml IV Total 395 ml 283 ml 1569 ml Output Urine Total 1500 ml 400 ml 3450 ml # Bowel Movements 2 General: Alert, Oriented X3, Cooperative, No Acute Distress Head: Normal, Facial Expression & Appearance (Appropriate) Eyes: EOMI, Scleral Anicteric Mouth: Mucous Membr Moist/[place] Chest & Lungs: Diminished breath sounds, Coarse breath sounds (Bases, L > R), Crackles (L > R; faint) Cardiovascular: Other (Irregular rate and rhythm) Extremities: Warm Neurological: Grossly Neurologically Intact, Cranial Nerves 2-12 Intact, Normal Speech Lab and Diagnostics Result Diagram: 03/07/16 0358 03/08/16 0307 Assessment & Plan Assessment Ms. Cárdenas is a pleasant 81 year old woman with history of chronic respiratory failure secondary to COPD and asthma, and distant tobacco use, that presented to [facility] with symptomatic AF with RVR. Continued use of OxyMask and BPAP have been needed to maintain oxygen saturations. Pulmonary was consulted to evaluate for her acute on chronic respiratory failure, and suspected acute exacerbation of COPD. At this time, based on imaging and history provided from patient, symptoms likely exacerbated by fluid overload. Recommend additional diuretics per primary team. Assessments: - Acute on chronic respiratory failure - Chronic respiratory failure secondary to COPD with asthma - COPD with asthma - Distant tobacco use - Asthma secondary to occupational exposures Plan: - Continue budesonide 0.5mg BID, fluticasone BID, arformoterol BID, Accunebs prn - Agree with addition of azithromycin 500mg x5 days; although unlikely COPD or asthma exacerbation - Agree with addition of prednisone 40mg daily x5 days; although unlikely COPD or asthma exacerbation - Recommend additional diuresis; defer order to primary team - Repeat CXR in am Thank you for this consult, we will happily follow along with you at this time. Total time: 30 minutes Problems: Pain Evaluation: Adequate Pain Control VTE Mechanical Devices: Intermittant Pneumatic CD Resuscitation Status: CPR: Attempt Resuscitation Yoli Sherwood DO Mar 08, 2016 11:41
--- NOTE | 2016-03-08 15:43 | NUR ---
took over pt care at 3pm
--- NOTE | 2016-03-08 16:06 | PCM.PNMED ---
Subjective Date of Service Mar 08, 2016 Subjective Patient seen and examined, data reviewed personally with Dr. Sherwood on and I agree with her examination and plan. 81 yo woman with advanced COPD / Asthma admitted from [facility] after presenting with A. fib/ RVR, She reported worsening LE edema and orthopnea. HR is now controlled with CCB, BNP was elevated to 2500. Her CXR shows small lung volumes with small bilat effusions and cephalization of pulm vessels Lungs Decreased BS, scattered crackles, no wheezes CV IIR, II/ MOISÉS at LLSB. No g/r Ext 2+ bilat ankle edema IMP While she has advanced chronic lung disease there is little history or clinical data to support an acute exacerbation of her COPD as the main cause for her admission. She denies increased cough, sputum, wheezing or symptoms of a URI. Rather, in addition to her dyspnea and palpitations, she has noted worsening edema and orthopnea and her echo shows mild-moderate MR and along with LVH. Evidence for a relaxation abnormality is lacking given her A. fib. REC Resume trial of diuresis while maintaining rate control. Hold on systemic steroids for now. We will follow Exam Vital Signs Vital Sign - Last Date Time Temp Pulse Resp B/P Pulse Ox O2 Delivery O2 Flow Rate FiO2 03/08/16 12:30 36.6 103 26 104/63 94 OxyMask 6.00 03/08/16 11:34 30 Intake and Output 03/07/16 03/07/16 03/08/16 Cumulative From/Thru 15:00 23:00 07:00 03/05/16 17:39 - 03/08/16 06:49 Intake Total 715 ml 583 ml 3889 ml Output Total 1500 ml 400 ml 3450 ml Balance -785 ml 183 ml 439 ml Intake Oral 320 ml 300 ml 2320 ml IV Total 395 ml 283 ml 1569 ml Output Urine Total 1500 ml 400 ml 3450 ml # Bowel Movements 2 Lab and Diagnostics Result Diagram: 03/07/16 0358 03/08/16 0307 X-Rays, CTs and MRIs X-RAY CHEST ONE VIEW IMPRESSION: Mild acute CHF pattern with small bilateral subpulmonic pleural effusions. Dictated by: Darshan Ellis M.D. on 03/05/2016 at 19:55 Approved by: Darshan Ellis M.D. on 03/05/2016 at 19:5 Cardiac Echo Impressions ECHOCARDIOGRAM 01/04/16 Interpretation Summary 1) Normal left ventricular thickness, size, wall motion, and systolic function (EF 65-70%). 2) Normal right ventricular size and function. 3) Calcific mild to moderate stenosis and mild aortic regurgitation. 4) Calcific mitral valve with mild mitral inflow gradient and moderate mitral regurgitation. 5) Severely dilated left atrium. 6) Pulmonary hypertension present, estimated systolic pulmonary artery pressure of 51mmHg. 7) Compared to the Echo done 09/19/2014, systolic pulmonary pressure has decreased from 61mmHg to 51mmHg. Reading Physician:ALE Additional Diagnostics ABG DateTimeAnalyzed 16:37:00 -_ pH ____7.396 - 7.350 7.450 pCO2 ___46.1__ -mmHg 35.0 45.0 pO2 ___69.3__ -mmHg 69.0 116 HCO3- ___27.7__ -mmol/L 22.0 26.0 Assessment & Plan Keshia MedranoJuanitaGuzman is an 81 year old female with history of asthma on chronic home O2 with a history of atrial fibrillation with RVR on Xarelto, coronary artery disease with prior MD, prior CVA with seizure disorder, and hypertension who is admitted for treatment of respiratory distress, A-fib with RVR, acute on chronic heart failure. Hospital Day 2. 1. Diastolic heart failure, acute, present on admission, active - Last Echocardiogram showed EF 65-70% - Labs this morning notable for contraction alkalosis. On exam her lower extremities are mildly edematous but overall she is intravascularly depleted. At this point it is uncertain that any further diuresis would benefit her. Will stop Lasix for now and reassess tomorrow with plan possibly restart based on urine output and BMP. - Hold potassium chloride - Cardiology consulted we appreciate their time and expertise. 2. Atrial fibrillation with rapid ventricular response, acute on chronic, present on admission, active -Diltiazem drip not adequate to control the ventricular response, per Dr. Peoples' s recommendation stopped and changed to amiodarone this AM. -Continue Xarelto -Continue Tele -Cardiology consulted we appreciate their time and expertise. 3. Respiratory distress, acute, present on admission, active - ABG ordered, normal pH, CO2 retention 46.1 - Continue BPAP as needed - NEB long active albuterol, ipratropium, budesonide - Respiratory Viral PCR negative - In reviewing the patient's old chest x ray from 2016 she has radiographic signs of COPD with hyperinflation, flattened diaphragms, unfortunately this was only an AP film and no lateral is available. - Likely the patient has COPD but has not been officially diagnosed, which may be due to past history of smoking or the natural progression of her asthma - Would recommend spirometry outpatient - For now will treat her as a COPD exacerbation as there does not appear to be cardiac etiology to her poor rate control and thus is likely pulmonary - Will add prednisone 40 mg x 5 days - Will add azithromycin 4. Hematuria, present on admission, active - 3-10 RBCs on UA - Urine color grossly red at bedside - Renal US ordered, pending 4. Hyperlipidemia, chronic, present on admission. -Continue Lipitor. 5. Depression, chronic, present on admission. -Continue Paroxetine. 6. Seizure disorder, chronic, present on admission. -Continue phenytoin. Disposition: Unclear of time of D/C give patient's poor rate control at this time, however she would VTE Mechanical Devices: Intermittant Pneumatic CD Resuscitation Status: CPR: Attempt Resuscitation Lucas Braxton MD Mar 08, 2016 16:06
--- NOTE | 2016-03-08 16:27 | PCM.PNMED ---
Subjective Date of Service Mar 08, 2016 Subjective Keshia Cárdenas is an 81 year old female with history of asthma on chronic home O2 with a history of atrial fibrillation with RVR on Xarelto, coronary artery disease with prior UT, prior CVA with seizure disorder, and hypertension who is admitted for treatment of respiratory distress, A-fib with RVR, acute on chronic heart failure. Hospital Day 3. Overnight: Per nursing note "pt. on oxymask 6 L sats mid 90's, resp 20's. pt. required bipap at night due to rapid, shallow breathing." Today: Patient is awake sitting on bed on 6 L oxymask with granddaughter at bedside. Patient stated she continues to feel short of breath, ROS is negative except as noted above. Exam Vital Signs Vital Sign - Last Date Time Temp Pulse Resp B/P Pulse Ox O2 Delivery O2 Flow Rate FiO2 03/08/16 05:24 Supplement Oxygen CPAP/BIPAP 03/08/16 04:54 36.9 111 24 138/79 97 6.00 03/07/16 13:00 30 Intake and Output 03/07/16 03/07/16 03/08/16 Cumulative From/Thru 15:00 23:00 07:00 03/05/16 17:39 - 03/08/16 05:37 Intake Total 715 ml 283 ml 3589 ml Output Total 1500 ml 3050 ml Balance -785 ml 283 ml 539 ml Intake Oral 320 ml 2020 ml IV Total 395 ml 283 ml 1569 ml Output Urine Total 1500 ml 3050 ml # Bowel Movements 2 Exam General: In no acute distress, well-developed, well-nourished, appropriately interactive with nasal cannula on face. HEENT: Normocephalic, atraumatic. External ears without defect. Pupils equal, round, and reactive to light and accommodation. Anicteric sclerae, moist conjunctivae, and no lid lag. Oropharynx free of erythema and cobble stoning with moist mucosa. Neck: Supple with full range of motion. No jugular venous distension. No bruits. No lymphadenopathy or thyromegaly. Cardiovascular: Irregularly irregular with uncontrolled rate with no murmurs, rubs, or gallops appreciated Pulmonary: Diffusely reduced breath sounds bilaterally, crackles at bases (L>R) , no wheezes, or rhonchi. Normal respiratory effort with no use of accessory muscles. Abdomen: Bowel tones present. Soft, nontender, nondistended. No hepatosplenomegaly or masses appreciated. Extremities: No clubbing, cyanosis, or lymphadenopathy appreciated. Edema of bilateral legs however L worse than R. Skin: Normal temperature, turgor, and texture; no rash, ulcers, or subcutaneous nodules appreciated. Neurological: Cranial nerves grossly intact. Normal muscle strength, tone, and bulk. Reflexes, coordination, and sensory function within normal limits. No known gait impairment. Psychiatric: Normal mood and affect. Alert and oriented to person, place, and time. IVs and Medications Medications Reviewed: Medications were reviewed in detail Lab and Diagnostics Result Diagram: 03/07/16 0358 03/08/16 0307 X-Rays, CTs and MRIs X-RAY CHEST ONE VIEW IMPRESSION: Mild acute CHF pattern with small bilateral subpulmonic pleural effusions. Dictated by: Darshan Ellis M.D. on 03/05/2016 at 19:55 Approved by: Darshan Ellis M.D. on 03/05/2016 at 19:5 Cardiac Echo Impressions ECHOCARDIOGRAM 01/04/16 Interpretation Summary 1) Normal left ventricular thickness, size, wall motion, and systolic function (EF 65-70%). 2) Normal right ventricular size and function. 3) Calcific mild to moderate stenosis and mild aortic regurgitation. 4) Calcific mitral valve with mild mitral inflow gradient and moderate mitral regurgitation. 5) Severely dilated left atrium. 6) Pulmonary hypertension present, estimated systolic pulmonary artery pressure of 51mmHg. 7) Compared to the Echo done 09/19/2014, systolic pulmonary pressure has decreased from 61mmHg to 51mmHg. Reading Physician:PM Additional Diagnostics ABG DateTimeAnalyzed 16:37:00 -_ pH ____7.396 - 7.350 7.450 pCO2 ___46.1__ -mmHg 35.0 45.0 pO2 ___69.3__ -mmHg 69.0 116 HCO3- ___27.7__ -mmol/L 22.0 26.0 US RENAL SONOGRAM IMPRESSION: Bladder lumen is emptied by Alejandro catheter in place. No urinary retention suspected, given this finding. Accurate assessment for presence or absence of bladder mass is not possible in this circumstance but no large bladder mass or calculus is suspected. No hydronephrosis or nephrolithiasis found. Renal cortical thinning appears chronic. Dictated by: Darshan Ellis M.D. on 03/07/2016 at 9:59 Approved by: Darshan Ellis M.D. on 03/07/2016 at 9:59 Assessment & Plan Keshia Cárdenas is an 81 year old female with history of asthma on chronic home O2 with a history of atrial fibrillation with RVR on Xarelto, coronary artery disease with prior UT, prior CVA with seizure disorder, and hypertension who is admitted for treatment of respiratory distress, A-fib with RVR, acute on chronic heart failure. Hospital Day 3. 1. Diastolic heart failure, acute on chronic, present on admission, active - Last Echocardiogram showed EF 65-70% - Restart Lasix 20 mg BID - Restart potassium chloride - Cardiology consulted we appreciate their time and expertise. 2. Atrial fibrillation with rapid ventricular response, acute on chronic, present on admission, active - Amiodarone drip dc'd and Cardizem gtt increased to 15mg/hr. -Continue Xarelto -Continue Tele -Cardiology consulted we appreciate their time and expertise. 3. Hypercapnic Respiratory distress, acute, present on admission, active - ABG , normal pH, CO2 retention 46.1 - Continue BPAP as needed - NEB long active albuterol, ipratropium, budesonide - Respiratory Viral PCR negative - In reviewing the patient's old chest x ray from 2016 she has radiographic signs of COPD with hyperinflation, flattened diaphragms, unfortunately this was only an AP film and no lateral is available. - Likely the patient has COPD but has not been officially diagnosed, which may be due to past history of smoking or the natural progression of her asthma - Would recommend spirometry outpatient - For now will treat her as a COPD exacerbation as there does not appear to be cardiac etiology to her poor rate control and thus is likely pulmonary - Continue prednisone 40 mg x 4/5 days - Continue azithromycin 4. Hematuria, present on admission, resolved - 3-10 RBCs on UA, likely due to catheter insertion - Urine color yellow at beside today - Renal US ordered, negative - Continue to monitor 4. Hyperlipidemia, chronic, present on admission. -Continue Lipitor. 5. Depression, chronic, present on admission. -Continue Paroxetine. 6. Seizure disorder, chronic, present on admission. -Continue phenytoin. Disposition: Unclear of time of D/C give patient's poor rate control at this time, however she would VTE Mechanical Devices: Intermittant Pneumatic CD Resuscitation Status: CPR: Attempt Resuscitation Attending Statement The patient was seen and examined together with Dr. Li on 03-08-16 and I agree with the history, exam and plan as outlined in the note above. COLE LI DO Mar 08, 2016 06:47 Marcus Gates MD Mar 09, 2016 14:20
--- NOTE | 2016-03-08 16:34 | NUR ---
Social Work: Continued discharge Planning: SW met with patient's grand daughter, Christy Livingston, at bedside to discuss discharge planning. Christy Livingston was provided with a Home Health Choice list. Christy Livingston stated that she needed to speak with the patient's DPOA and other daughter and that they would notify SW once there was a decision for home health. SW will follow up with patient and family for decision. SW will continue to follow. Plan: Grand-daughter will speak with the patient's DPOA and other daughter and that they would notify SW once there is a decision for home health. SW will follow up with patient and family for decision. SW will continue to follow. Vivien Santos LMSW, RYLEY
--- NOTE | 2016-03-08 16:35 | NUR ---
Social work Note: Continued discharge Planning Data& Assessment: SW met with pt and pt daughter at bedside to discuss discharge planning. list provided for preferences. Pt and pt daughter do not have a preference for HH agency and agreed to refer to the rotating calender. Referral sent to [facility] for PT for strengthening to help pt get back to her baseline as she is currently a 1PA, DICE SPOTTER for safe showering, and an RN for vitals and medication management. Pt and pt daughters deny any other needs at this time. SW to continue to follow if any needs arise. Plan: Anticipated discharge home via POV with [facility] RN, PT and DICE SPOTTER with resume [facility] caregiving. Pt and pt daughters deny any other needs at this time. SW to continue to follow if any needs arise. GREGORY Alba
[2016-03-08] MEDS: Furosemide 10 mg/mL 2 mL Inj IVPUSH SCH ×2 (16:55→20:30)
[2016-03-08] MEDS: Phenytoin 100 mg ER Capsule PO SCH (21:59)
[2016-03-09] VITALS (12 sets, daily range): BP systolic 106–143; BP diastolic 53–88; PULSE 81–132; RESP 17–28; O2SAT 90–98
[2016-03-09 04:11] LABS: BASOPHILS % (AUTO) 0.1 % (0-3); EOSINOPHILS % (AUTO) 0.3 % (0-5); Mean Corpuscular Hemoglobin 30.5 pg (27.0-35.0); Mean Corpuscular Volume 96.3 fL (81-100); NEUTROPHILS % (AUTO) 73.5 % (40-74); Platelet Count 208 bil/L (150-400)
[2016-03-09] MEDS: Brimonidine 0.2% 5 mL Ophthalmic Solution BOTH_EYES SCH ×2 (08:46→20:38)
[2016-03-09] MEDS: Dorzolamide 2% 10 mL Ophthalmic Solution BOTH_EYES SCH ×2 (08:47→20:38)
[2016-03-09] MEDS: Fluticasone 250 mCg Inhaler INHALATION SCH ×2 (08:49→20:37)
[2016-03-09] MEDS: Furosemide 10 mg/mL 2 mL Inj IVPUSH SCH (08:50)
[2016-03-09] MEDS: Diltiazem Inj 125 MG in 0.9% Sodium Chloride 100 ML, Pharmacy To Mix 1 EA IV SCH (08:50)
--- NOTE | 2016-03-09 10:03 | DRSVH ---
PROCEDURE: X-RAY CHEST ONE VIEW, PORTABLE ([id number]) INDICATIONS: SHORT OF BREATH TECHNIQUE: One view of the chest was acquired. COMPARISON: [facility], CR, XR CHEST 1VW (PORTABLE), 03/05/2016, 18:54. FINDINGS: Surgical changes and devices: None. Lungs and pleura: Mild edema persist and mid/basilar airspace opacities. Small pleural effusions unc hanged. No pneumothorax. Mediastinum: Mediastinal contours appear normal. Heart size is normal. Prominent mitral annular ca lcification redemonstrated. Bones and chest wall: No suspicious bony lesions. Overlying soft tissues appear unremarkable. IMPRESSION: Pulmonary edema and/or pneumonia versus atelectasis involving the lung bases and persistent small sub pulmonic effusions unchanged. Dictated by: Faustino CONTRERAS Interpreted: Claudia Jane MD on 03/09/2016 at 10:02 Transcribed by: CLARITA on 03/09/2016 at 10:02 Approved by: Claudia Jane M.D. on 03/09/2016 at 16:15
[2016-03-09] MEDS: PARoxetine 20 mg Tablet PO SCH (10:48)
[2016-03-09] MEDS ORDERED: Diltiazem CD 120 mg ER24 Capsule PO SCH (11:05)
--- NOTE | 2016-03-09 11:15 | PCM.PNMED ---
Subjective Date of Service Mar 09, 2016 Subjective Keshia Cárdenas is an 81 year old female with history of asthma on chronic home O2 with a history of atrial fibrillation with RVR on Xarelto, coronary artery disease with prior DC, prior CVA with seizure disorder, and hypertension who is admitted for treatment of respiratory distress, A-fib with RVR, acute on chronic heart failure. Hospital Day 3. Overnight: Nursing reported patient had difficulty breathing and placed patient on BiPAP and SOB resolved. Today: Resting comfortably in bed on 5 L O2 NC, denies cough, fever, chills, reports SOB with movement. ROS is negative except as noted above. Exam Vital Signs Vital Sign - Last Date Time Temp Pulse Resp B/P Pulse Ox O2 Delivery O2 Flow Rate FiO2 03/09/16 04:30 Supplement Oxygen CPAP/BIPAP 03/09/16 03:39 36.9 97 28 119/53 94 5.00 03/08/16 11:34 30 Intake and Output 03/08/16 03/08/16 03/09/16 Cumulative From/Thru 15:00 23:00 07:00 03/05/16 17:39 - 03/09/16 06:06 Intake Total 1022 ml 385 ml 5296 ml Output Total 300 ml 850 ml 4600 ml Balance 722 ml -465 ml 696 ml Intake Oral 840 ml 200 ml 3360 ml IV Total 182 ml 185 ml 1936 ml Output Urine Total 300 ml 850 ml 4600 ml # Bowel Movements 2 Exam General: In no acute distress, well-developed, well-nourished, appropriately interactive with nasal cannula on face. HEENT: Normocephalic, atraumatic. External ears without defect. Pupils equal, round, and reactive to light and accommodation. Anicteric sclerae, moist conjunctivae, and no lid lag. Oropharynx free of erythema and cobble stoning with moist mucosa. Neck: Supple with full range of motion. No jugular venous distension. No bruits. No lymphadenopathy or thyromegaly. Cardiovascular: Irregularly irregular with uncontrolled rate with no murmurs, rubs, or gallops appreciated Pulmonary: Clear to auscultation Bilaterally, no crackles, no wheezes, or rhonchi. Normal respiratory effort with no use of accessory muscles. Abdomen: Bowel tones present. Soft, nontender, nondistended. No hepatosplenomegaly or masses appreciated. Extremities: No clubbing, cyanosis, or lymphadenopathy appreciated. Trace Edema of bilateral legs, improved from yesterday Skin: Normal temperature, turgor, and texture; no rash, ulcers, or subcutaneous nodules appreciated. Neurological: Cranial nerves grossly intact. Normal muscle strength, tone, and bulk. Reflexes, coordination, and sensory function within normal limits. No known gait impairment. Psychiatric: Normal mood and affect. Alert and oriented to person, place, and time. IVs and Medications Medications Reviewed: Medications were reviewed in detail Lab and Diagnostics Result Diagram: 03/09/16 0325 03/09/16 0325 X-Rays, CTs and MRIs X-RAY CHEST ONE VIEW IMPRESSION: Mild acute CHF pattern with small bilateral subpulmonic pleural effusions. Dictated by: Darshan Ellis M.D. on 03/05/2016 at 19:55 Approved by: Darshan Ellis M.D. on 03/05/2016 at 19:5 Cardiac Echo Impressions ECHOCARDIOGRAM 01/04/16 Interpretation Summary 1) Normal left ventricular thickness, size, wall motion, and systolic function (EF 65-70%). 2) Normal right ventricular size and function. 3) Calcific mild to moderate stenosis and mild aortic regurgitation. 4) Calcific mitral valve with mild mitral inflow gradient and moderate mitral regurgitation. 5) Severely dilated left atrium. 6) Pulmonary hypertension present, estimated systolic pulmonary artery pressure of 51mmHg. 7) Compared to the Echo done 09/19/2014, systolic pulmonary pressure has decreased from 61mmHg to 51mmHg. Reading Physician:PM Additional Diagnostics ABG DateTimeAnalyzed 16:37:00 -_ pH ____7.396 - 7.350 7.450 pCO2 ___46.1__ -mmHg 35.0 45.0 pO2 ___69.3__ -mmHg 69.0 116 HCO3- ___27.7__ -mmol/L 22.0 26.0 US RENAL SONOGRAM IMPRESSION: Bladder lumen is emptied by Alejandro catheter in place. No urinary retention suspected, given this finding. Accurate assessment for presence or absence of bladder mass is not possible in this circumstance but no large bladder mass or calculus is suspected. No hydronephrosis or nephrolithiasis found. Renal cortical thinning appears chronic. Dictated by: Darshan Ellis M.D. on 03/07/2016 at 9:59 Approved by: Darshan Ellis M.D. on 03/07/2016 at 9:59 Assessment & Plan Keshia Cárdenas is an 81 year old female with history of asthma on chronic home O2 with a history of atrial fibrillation with RVR on Xarelto, coronary artery disease with prior DC, prior CVA with seizure disorder, and hypertension who is admitted for treatment of respiratory distress, A-fib with RVR, acute on chronic heart failure. Hospital Day 4. 1. Diastolic heart failure, acute on chronic, present on admission, active - Last Echocardiogram showed EF 65-70% - Restart home Lasix 20 mg BID PO - Continue home potassium chloride - Cardiology consulted we appreciate their time and expertise. 2. Atrial fibrillation with rapid ventricular response, acute on chronic, present on admission, active - D/C Cardizem gtt increased to 15mg/hr. - Start Home Diltazem ER 120 mg PO QD - Continue Xarelto - Continue Tele - Cardiology consulted we appreciate their time and expertise. 3. Hypercapnic Respiratory distress, acute, present on admission, improving - Likely the patient has COPD but has not been officially diagnosed, which may be due to past history of smoking or the natural progression of her asthma. For now will treat her as a COPD exacerbation as there does not appear to be cardiac etiology to her poor rate control and thus is likely pulmonary. In reviewing the patient's old chest x ray from 2016 she has radiographic signs of COPD with hyperinflation, flattened diaphragms, unfortunately this was only an AP film and no lateral is available. - ABG , normal pH, CO2 retention 46.1 - Continue BiPAP as needed, Taper O2 down to home dose of 2 L and monitor O2 saturation - Recommend Home CPAP for nighttime use - NEB long active albuterol, ipratropium, budesonide - Respiratory Viral PCR negative - Would recommend spirometry outpatient - Continue prednisone 40 mg x 3/5 days - Continue azithromycin Day 4/7 - PT consulted to have patient up and out of bed 4. Hematuria, present on admission, resolved - 3-10 RBCs on UA, likely due to catheter insertion - Urine color yellow at beside today - Renal US ordered, negative - Continue to monitor 4. Hyperlipidemia, chronic, present on admission. -Continue Lipitor. 5. Depression, chronic, present on admission. -Continue Paroxetine. 6. Seizure disorder, chronic, present on admission. -Continue phenytoin. Disposition: Unclear of time of D/C give patient's poor rate control at this time, however she would VTE Mechanical Devices: Intermittant Pneumatic CD Resuscitation Status: CPR: Attempt Resuscitation Attending Statement The patient was seen and examined together with Dr. Li on 03-09-16 and I agree with the history, exam and plan as outlined in the note above. COLE IL DO Mar 09, 2016 06:51 Marcus Gates MD Mar 10, 2016 14:32
[2016-03-09] MEDS: Budesonide 0.5 mg/2 mL Inhalation Solution NEB SCH ×2 (11:35→20:30)
[2016-03-09] MEDS: Arformoterol 15 mCg/2 mL Inhalation Solution NEB SCH ×2 (11:35→21:38)
--- NOTE | 2016-03-09 11:41 | PCM.PNMED ---
Subjective Date of Service Mar 09, 2016 Subjective PULMONARY PROGRESS NOTE Overnight: No acute events reported; tolerated BPAP overnight Today: Nursing reported that pt became very tachypneic and increasing SOB when attempting to eat and converse; BPAP was applied. Upon entering the room, pt requested that the BPAP be removed as she wished to visit with her friends. It was recommended she tolerate the BPAP longer to improve her respirations, but she declined, and utilized the NC instead. Admitted to SOB. Exam Vital Signs Vital Sign - Last Date Time Temp Pulse Resp B/P Pulse Ox O2 Delivery O2 Flow Rate FiO2 03/09/16 10:21 Supplement Oxygen 03/09/16 08:43 36.7 90 17 143/59 90 5.00 03/08/16 11:34 30 Intake and Output 03/08/16 03/08/16 03/09/16 Cumulative From/Thru 15:00 23:00 07:00 03/05/16 17:39 - 03/09/16 06:06 Intake Total 1022 ml 385 ml 5296 ml Output Total 300 ml 850 ml 4600 ml Balance 722 ml -465 ml 696 ml Intake Oral 840 ml 200 ml 3360 ml IV Total 182 ml 185 ml 1936 ml Output Urine Total 300 ml 850 ml 4600 ml # Bowel Movements 0 2 Exam General: Resting in bed, resting comfortably, mild distress with BPAP in place HENT: Atraumatic, sclera anicteric, mucus membranes dry Neck: Soft, trachea midline Cardiac: Regular rate/rhythm; no murmurs appreciated at time of examination Respiratory: Adequate air flow all [place], faint crackles noted L >R at bases Extremities: Mild edema noted BLLE from dorsum to mid-calf Pulses: Radial equal and bilateral Skin: Warm and dry Neuro: CNII-XII grossly intact; Facial expressions symmetric; speech normal Psych: Appropriate mood, affect, and responses to questioning; alert and oriented; agitated with BPAP Lab and Diagnostics Result Diagram: 03/09/16 0325 03/09/16 032 X-Rays, CTs and MRIs X-RAY CHEST ONE VIEW IMPRESSION: Mild acute CHF pattern with small bilateral subpulmonic pleural effusions. Dictated by: Darshan Ellis M.D. on 03/05/2016 at 19:55 Approved by: Darshan Ellis M.D. on 03/05/2016 at 19:5 Cardiac Echo Impressions ECHOCARDIOGRAM 01/04/16 Interpretation Summary 1) Normal left ventricular thickness, size, wall motion, and systolic function (EF 65-70%). 2) Normal right ventricular size and function. 3) Calcific mild to moderate stenosis and mild aortic regurgitation. 4) Calcific mitral valve with mild mitral inflow gradient and moderate mitral regurgitation. 5) Severely dilated left atrium. 6) Pulmonary hypertension present, estimated systolic pulmonary artery pressure of 51mmHg. 7) Compared to the Echo done 09/19/2014, systolic pulmonary pressure has decreased from 61mmHg to 51mmHg. Reading Physician:ALE Additional Diagnostics ABG DateTimeAnalyzed 16:37:00 -_ pH ____7.396 - 7.350 7.450 pCO2 ___46.1__ -mmHg 35.0 45.0 pO2 ___69.3__ -mmHg 69.0 116 HCO3- ___27.7__ -mmol/L 22.0 26.0 US RENAL SONOGRAM IMPRESSION: Bladder lumen is emptied by Alejandro catheter in place. No urinary retention suspected, given this finding. Accurate assessment for presence or absence of bladder mass is not possible in this circumstance but no large bladder mass or calculus is suspected. No hydronephrosis or nephrolithiasis found. Renal cortical thinning appears chronic. Dictated by: Darshan Ellis M.D. on 03/07/2016 at 9:59 Approved by: Darshan Ellis M.D. on 03/07/2016 at 9:59 Assessment & Plan PULMONARY PROGRESS NOTE Ms. Cárdenas is a pleasant 81 year old woman with history of chronic respiratory failure secondary to COPD and asthma, and distant tobacco use, that presented to [facility] with symptomatic AF with RVR. Continued use of OxyMask and BPAP have been needed to maintain oxygen saturations. Pulmonary was consulted to evaluate for her acute on chronic respiratory failure, and suspected acute exacerbation of COPD. At this time, based on imaging and history provided from patient, symptoms likely exacerbated by fluid overload. Recommend additional diuretics per primary team. Assessments: - Acute on chronic respiratory failure - Chronic respiratory failure secondary to COPD with asthma - COPD with asthma - Distant tobacco use - Asthma secondary to occupational exposures Plan: - Continue budesonide 0.5mg BID, fluticasone BID, arformoterol BID, Accunebs prn - Agree with addition of azithromycin 500mg x5 days; although unlikely COPD or asthma exacerbation - Discontinued prednisone at this time - Recommend additional diuresis; defer order to primary team - Repeat CXR in am - Continue use of BPAP prn to maintain O2 sats Thank you for this consult, we will happily follow along with you at this time. Total time: 30 minutes Pain Evaluation: Adequate Pain Control VTE Mechanical Devices: Intermittant Pneumatic CD Resuscitation Status: CPR: Attempt Resuscitation Yoli Sherwood DO Mar 09, 2016 11:41
--- NOTE | 2016-03-09 12:41 | PROG NOTE ---
[address] [address] PROGRESS NOTE PATIENT: MARIAM BUENO : 1935 MR#: [id number] ADMIT: 03/05/2016 JOB ID: [id number] CARDIOLOGY PROGRESS NOTE -- FOLLOWUP INPATIENT CONSULTATION: DATE: Wednesday, March 09, 2016. CONSULTING PHYSICIAN: Cardiology-- Derek Lake MD. PROBLEMS: 1. COPD--Chronic Obstructive Pulmonary Disease: a. Severe COPD. b. Admitted with acute exacerbation of dyspnea attributed primarily to pulmonary decompensation. 2. Atrial fibrillation. a. Chronic Atrial Fibrillation. Known since December 2015. b. RVR -- rapid ventricular response to 120-130 bpm in the setting of acute comorbidity. 3. Consider component of diastolic heart failure. SUBJECTIVE: Hospital Day-Five. HOSPITAL COURSE: I met this 81-year-old woman along with her Daughter on Cardiology rounds this morning. She was seen in Cardiology consultation yesterday regarding atrial fibrillation with rapid ventricular response. She has been in the hospital since March 05 with dyspnea. I reviewed the hospital record. She was admitted having dyspnea for several weeks; and the clinical impression is that this is primarily a COPD exacerbation, and that this is the most likely factor driving her rapid ventricular response. In the hospital she has been receiving uptitrated care for her pulmonary disease. She has also received diuresis that has resolved her edema. Amiodarone was tried but not intended to be used custodial, given her lung disease; and has now been stopped. I reviewed her symptoms with her today. She does not have chest discomfort or ischemic symptoms. In terms of symptoms suggestive of heart failure she noted significant edema that has resolved with hospital diuresis but otherwise, it is difficult to assess COPD vs. CHF. She can never sleep flat chronically, which she attributes to her lung disease. In terms of symptoms of COPD exacerbation, she did not have an acute URI, fever, chills, or sputum production. MEDICATIONS: At home, she takes diltiazem and metoprolol and Lasix "probably" 20 mg a day. OBJECTIVE: EXAMINATION: Vital signs overall stable with blood pressure 143/59 this morning, pulse oximetry 90% on 5 L nasal cannula. She is on BiPAP intermittently when she needs it because of trouble breathing. Heart rate 87, and atrial fibrillation with controlled ventricular response on bedside monitoring. Neck: Difficult to assess jugular venous pressure; but not overtly elevated. Lungs: Severely diffusely abnormal lung exam with expiratory wheezes but no rales. Cardiac: Irregularly irregular rhythm with no loud murmur. Extremities: No edema currently. DIAGNOSTIC STUDIES: CHEST X-RAY: I reviewed her chest x-ray film from admission on March 05, and on follow-up on March 09. She has cardiomegaly. She does not appear to have overt pulmonary edema or heart failure as far as pulmonary venous hypertension but there are bibasilar infiltrates that appear to have increased. These are suggestive of effusions, although atelectasis; and even pneumonia are not excluded. LABORATORY: Note troponin was not elevated twice. Creatinine 0.6, BUN 23. ASSESSMENT: I discussed the findings, impressions and management considerations with the patient, as well as with her Daughter, the Nursing staff, and with the Hospitalist Team including Dr. Gates includin. Chronic obstructive pulmonary disease exacerbation: The clinical impression is that this is primarily a chronic obstructive pulmonary disease exacerbation. Overall, it is very difficult to assess, and there may be components also of cardiac decompensation. I certainly agrees with strong efforts to maximize and optimize her pulmonary status, which appears to be the main driving factor of her symptoms of dyspnea, and her recent poor rate control of atrial fibrillation. Note, she has not had formal pulmonary care in the past, and this is her first severe pulmonary decompensation requiring hospitalization despite the severity of her chronic underlying chronic obstructive pulmonary disease. 2. Atrial fibrillation plus rapid ventricular response: This morning her rates are better controlled on diltiazem 15 mg/hour IV, and this may reflect progress in her overall status including in control of her chronic obstructive pulmonary disease. Agree with withholding beta-agatha in as much as it may exacerbate bronchospasm as we discussed. Plan now can be to re-ambulate her and transition to oral diltiazem. Goal for heart rate is under 100 BPM at rest, and under 120 (or at least well tolerated) with modest exertion. 3. Consider congestive heart failure: She has intact left ventricular function but may have diastolic dysfunction. She also has valvular heart disease including moderate mitral regurgitation or more; and tricuspid regurgitation, with moderate pulmonary hypertension including PASP of 50. Overall, there may be a factor of heart failure and it will be helpful to monitor her fluid status and achieve a net diuresis including with standing doses of Lasix. COMMENT: Although the history and physical do not suggest overt heart failure, the chest x-ray really is suggestive of pleural effusions and appears to have worsened since admission. Would continue to evaluate--including decubitus chest films; andultrasound or CT. If they demonstrate substantial pleural effusions these can be treated more aggressively with ongoing diuresis, and even thoracentesis, if needed. RECOMMENDATIONS: 1. Your plan for aggressive optimal pulmonary care including pulmonary consultation for dopeman management; and optimization of medical therapy. 2. Re-ambulate and monitor heart rate control, including during a clements walk. 3. Switch to oral diltiazem from IV. 4. Ongoing diuresis. 5. Monitor chest x-ray including for pleural effusions that may be contributing as noted above. MTDD
--- NOTE | 2016-03-09 16:05 | NUR ---
O2/Alejandro Patient up to BSC and up with PT and able to maintain SPO2 in the mid-upper 90s on 5L NC. Alejandro DC'd and patient urinated small amount immediately afterward.
[2016-03-09] MEDS: Phenytoin 100 mg ER Capsule PO SCH (20:39)
[2016-03-09] MEDS: Diltiazem CD 120 mg ER24 Capsule PO SCH (20:40)
[2016-03-10] VITALS (11 sets, daily range): BP systolic 99–134; BP diastolic 52–91; PULSE 102–132; RESP 17–31; O2SAT 93–97
--- NOTE | 2016-03-10 04:43 | NUR ---
Afib Pt remains in Afib RVR with rate of 120-140. Resident MD paged during change of shift time and order received to give Diltiazem XR dose 1 hour earlier than scheduled and to not restarted Diltiazem gtt and that the DAY MD team will adjust her PO dose in the morning.
[2016-03-10 04:44] LABS: BASOPHILS % (AUTO) 0.2 % (0-3); EOSINOPHILS % (AUTO) 0.7 % (0-5); MONOCYTES % (AUTO) 12.4 % (4-12); Mean Corpuscular Hemoglobin 31.2 pg (27.0-35.0); Platelet Count 254 bil/L (150-400)
[2016-03-10] MEDS: PARoxetine 20 mg Tablet PO SCH (08:37)
[2016-03-10] MEDS: Diltiazem CD 120 mg ER24 Capsule PO SCH (08:37)
[2016-03-10] MEDS: Brimonidine 0.2% 5 mL Ophthalmic Solution BOTH_EYES SCH ×2 (08:38→21:39)
[2016-03-10] MEDS: Fluticasone 250 mCg Inhaler INHALATION SCH ×2 (08:38→21:39)
[2016-03-10] MEDS: Dorzolamide 2% 10 mL Ophthalmic Solution BOTH_EYES SCH ×2 (08:39→21:41)
[2016-03-10] MEDS: Budesonide 0.5 mg/2 mL Inhalation Solution NEB SCH (09:23)
[2016-03-10] MEDS: Arformoterol 15 mCg/2 mL Inhalation Solution NEB SCH ×2 (09:23→22:44)
--- NOTE | 2016-03-10 09:48 | DRSVH ---
PROCEDURE: X-RAY CHEST ONE VIEW, PORTABLE ([id number]) INDICATIONS: SHORT OF BREATH TECHNIQUE: One view of the chest was acquired. COMPARISON: [facility], CR, XR CHEST 1VW (PORTABLE), 03/09/2016, 5:25. FINDINGS: Surgical changes and devices: None. Lungs and pleura: Mild edema persist and mid/basilar airspace opacities. Small pleural effusions unc hanged. No pneumothorax. Mediastinum: Mediastinal contours appear normal. Heart size is normal. Prominent mitral annular ca lcification redemonstrated. Bones and chest wall: No suspicious bony lesions. Overlying soft tissues appear unremarkable. IMPRESSION: Pulmonary edema and/or pneumonia versus atelectasis involving the lung bases similar to prior examina tion. Small basilar pleural effusions redemonstrated Dictated by: Faustino Prater RRA Interpreted: Terrie Venegas MD on 03/10/2016 at 9:47 Transcribed by: ALEC on 03/10/2016 at 9:47 Approved by: Terrie Venegas MD, PhD on 03/10/2016 at 16:56
--- NOTE | 2016-03-10 09:56 | PCM.PNMED ---
Subjective Date of Service Mar 10, 2016 Subjective PULMONARY PROGRESS NOTE Overnight: Patient states that she had a good night, tolerated BPAP. Increased HR, maintained 100s-130s. Dilt gtt not initiated. No acute events reported. Today: HR remained elevated in room at 130bpm. Denied any associated SOB, was tolerating 5LNC well at time of interview. States she feels less 'swollen,' and has no other complaints. Reported no difficulties with ambulation, but does note a mild increase in mobility, likely secondary to increased work of breathing and hospital-stay associated deconditioning. Exam Vital Signs Vital Sign - Last Date Time Temp Pulse Resp B/P Pulse Ox O2 Delivery O2 Flow Rate FiO2 03/10/16 08:15 Supplement Oxygen 03/10/16 08:15 36.6 123 18 132/91 95 5.00 03/10/16 01:05 30 Intake and Output 03/09/16 03/09/16 03/10/16 Cumulative From/Thru 15:00 23:00 07:00 03/05/16 17:39 - 03/10/16 06:20 Intake Total 1325 ml 770 ml 7391 ml Output Total 800 ml 1250 ml 6650 ml Balance 525 ml -480 ml 741 ml Intake Oral 1200 ml 770 ml 5330 ml IV Total 125 ml 2061 ml Output Urine Total 800 ml 1250 ml 6650 ml # Bowel Movements 0 2 Exam General: Resting in bed, resting comfortably, no acute distress; tolerating 5L NC well with sats 96 HENT: Atraumatic, sclera anicteric, mucus membranes moist Neck: Soft, trachea midline Cardiac: Irregular rate/rhythm; no murmurs appreciated at time of examination Respiratory: Adequate air flow all [place], faint crackles noted L >R at bases Extremities: No edema BLLE Pulses: Radial equal and bilateral Skin: Warm and dry Neuro: CNII-XII grossly intact; Facial expressions symmetric; speech normal Psych: Appropriate mood, affect, and responses to questioning; alert and oriented Lab and Diagnostics Result Diagram: 03/10/16 0336 03/10/16 033 X-Rays, CTs and MRIs X-RAY CHEST ONE VIEW IMPRESSION: Mild acute CHF pattern with small bilateral subpulmonic pleural effusions. Dictated by: Darshan Ellis M.D. on 03/05/2016 at 19:55 Approved by: Darshan Ellis M.D. on 03/05/2016 at 19:5 Cardiac Echo Impressions ECHOCARDIOGRAM 01/04/16 Interpretation Summary 1) Normal left ventricular thickness, size, wall motion, and systolic function (EF 65-70%). 2) Normal right ventricular size and function. 3) Calcific mild to moderate stenosis and mild aortic regurgitation. 4) Calcific mitral valve with mild mitral inflow gradient and moderate mitral regurgitation. 5) Severely dilated left atrium. 6) Pulmonary hypertension present, estimated systolic pulmonary artery pressure of 51mmHg. 7) Compared to the Echo done 09/19/2014, systolic pulmonary pressure has decreased from 61mmHg to 51mmHg. Reading Physician:ALE Additional Diagnostics ABG DateTimeAnalyzed 16:37:00 -_ pH ____7.396 - 7.350 7.450 pCO2 ___46.1__ -mmHg 35.0 45.0 pO2 ___69.3__ -mmHg 69.0 116 HCO3- ___27.7__ -mmol/L 22.0 26.0 US RENAL SONOGRAM IMPRESSION: Bladder lumen is emptied by Alejandro catheter in place. No urinary retention suspected, given this finding. Accurate assessment for presence or absence of bladder mass is not possible in this circumstance but no large bladder mass or calculus is suspected. No hydronephrosis or nephrolithiasis found. Renal cortical thinning appears chronic. Dictated by: Darshan Ellis M.D. on 03/07/2016 at 9:59 Approved by: Darshan Ellis M.D. on 03/07/2016 at 9:59 Assessment & Plan PULMONARY PROGRESS NOTE Ms. Cárdenas is a pleasant 81 year old woman with history of chronic respiratory failure secondary to COPD and asthma, and distant tobacco use, that presented to [facility] with symptomatic AF with RVR. Initially, continued use of OxyMask and BPAP were needed to maintain oxygen saturations. Pulmonary was consulted to evaluate for her acute on chronic respiratory failure, and suspected acute exacerbation of COPD. At this time, based on imaging and history provided from patient, symptoms likely exacerbated by fluid overload. Recommend additional diuretics per primary team. 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 Please do not hesitate to contact us with any questions or concerns if at any time you feel as if the patient is decompensating. Total time: 30 minutes Pain Evaluation: Adequate Pain Control VTE Mechanical Devices: Intermittant Pneumatic CD Resuscitation Status: CPR: Attempt Resuscitation Yoli Sherwood DO Mar 10, 2016 09:02
[2016-03-10] MEDS ORDERED: Diltiazem CD 120 mg ER24 Capsule PO ONE (10:20)
--- NOTE | 2016-03-10 10:27 | PROG NOTE ---
[address] [address] PROGRESS NOTE PATIENT: MARIAM BUENO : 1935 MR#: [id number] ADMIT: 03/05/2016 JOB ID: [id number] DATE: 03/10/2016 SUBJECTIVE: The patient feels much better. Her shortness of breath has improved. Her edema has improved as well. She denies any chest discomfort. Her heart rate has been running anywhere from 100-130. She is not complaining of any palpitations. OBJECTIVE: Pulse 114, blood pressure 130/91. Chest: A few basilar crackles. Heart sounds: S1, S2 irregularly irregular. No gallops. Abdomen: Soft. Extremities: Negative for CCE. Telemetry shows heart rate at times goes up to 136. Chest x-ray was reviewed. Labs reviewed. ASSESSMENT AND PLAN: The patient is improving from a COPD exacerbation. I would wait for a few days before introducing any beta blockers for her underlying cardiac disease. For now I would recommend increasing her Cardizem from 360-480 mg a day. She can be stopped up with some short-acting Cardizem as well. If her heart rate is not controlled, consider adding digoxin as well. Once she is stable from the viewpoint of her COPD exacerbation, beta blockers at small doses can be reintroduced. The plan was discussed with Dr. Gates and his team.
--- NOTE | 2016-03-10 13:35 | NUR ---
Increased heart rate Heart rate at rest at 120s and A-fib. With activity heart rate increased to 140-150 ranges. Patient felt tired following activity- transfer from bed to bedside commode- oxygen saturation remained 93-94% on 5l NC at the time. Walked in the room when patient was sleeping following her activity and heart rate was 95-115 and continued a-fib. MD aware about increased heart rate- will consult with attending frozen pie maker regarding medication changes to control heart rate- continue assessment.
--- NOTE | 2016-03-10 17:35 | NUR ---
Social Work Note: Readiness for Discharge Data& Assessment: Per MD in morning rounds. Pt is getting closer to being medically ready to discharge home with [facility], RN, and PUFF IRON OPERATOR via POV with resume [facility] caregiving. SW met with pt and pt daughter at bedside to confirm discharge plan and assess for any unmet needs. Pt daughter confirmed discharge plan and denies any other needs at this time. SW to continue to follow if any other needs arise. Plan: Anticipated discharge home with [facility] PT, RN, and PUFF IRON OPERATOR via POV with resume [facility] caregiving. Pt daughter confirmed discharge plan and denies any other needs at this time.SW to continue to follow if any other needs arise. GREGORY Alba
--- NOTE | 2016-03-10 18:31 | PCM.PNMED ---
Subjective Date of Service Mar 10, 2016 Subjective Keshia Cárdenas is an 81 year old female with history of asthma on chronic home O2 with a history of atrial fibrillation with RVR on Xarelto, coronary artery disease with prior ME, prior CVA with seizure disorder, and hypertension who is admitted for treatment of respiratory distress, A-fib with RVR, acute on chronic heart failure. Hospital Day 5. Overnight: Patient stated that she had anxiety and shortness of breath overnight , improved with BPAP Today: Patient stated that her heart rate increases with stress and movement up and out of bed. Patient denies dizziness, nausea, vomiting, chest pain, diarrhea , vomiting. ROS is negative except as noted above. Exam Vital Signs Vital Sign - Last Date Time Temp Pulse Resp B/P Pulse Ox O2 Delivery O2 Flow Rate FiO2 03/10/16 06:31 125 03/10/16 02:55 36.6 26 115/70 97 BiPAP 03/10/16 01:05 30 03/09/16 21:38 5.00 Intake and Output 03/09/16 03/09/16 03/10/16 Cumulative From/Thru 15:00 23:00 07:00 03/05/16 17:39 - 03/10/16 06:20 Intake Total 1325 ml 770 ml 7391 ml Output Total 800 ml 1250 ml 6650 ml Balance 525 ml -480 ml 741 ml Intake Oral 1200 ml 770 ml 5330 ml IV Total 125 ml 2061 ml Output Urine Total 800 ml 1250 ml 6650 ml # Bowel Movements 0 2 Exam General: In no acute distress, well-developed, well-nourished, appropriately interactive with nasal cannula on face. HEENT: Normocephalic, atraumatic. External ears without defect. Pupils equal, round, and reactive to light and accommodation. Anicteric sclerae, moist conjunctivae, and no lid lag. Oropharynx free of erythema and cobble stoning with moist mucosa. Neck: Supple with full range of motion. No jugular venous distension. No bruits. No lymphadenopathy or thyromegaly. Cardiovascular: Irregularly irregular with uncontrolled rate with no murmurs, rubs, or gallops appreciated Pulmonary: Clear to auscultation Bilaterally, no crackles, no wheezes, or rhonchi. Normal respiratory effort with no use of accessory muscles. Abdomen: Bowel tones present. Soft, nontender, nondistended. No hepatosplenomegaly or masses appreciated. Extremities: No clubbing, cyanosis, or lymphadenopathy appreciated. No Edema of bilateral legs, improved from yesterday Skin: Normal temperature, turgor, and texture; no rash, ulcers, or subcutaneous nodules appreciated. Neurological: Cranial nerves grossly intact. Normal muscle strength, tone, and bulk. Reflexes, coordination, and sensory function within normal limits. No known gait impairment. Psychiatric: Normal mood and affect. Alert and oriented to person, place, and time. IVs and Medications Medications Reviewed: Medications were reviewed in detail Lab and Diagnostics Result Diagram: 03/10/16 0336 03/10/16 0336 X-Rays, CTs and MRIs X-RAY CHEST ONE VIEW IMPRESSION: Mild acute CHF pattern with small bilateral subpulmonic pleural effusions. Dictated by: Darshan Ellis M.D. on 03/05/2016 at 19:55 Approved by: Darshan Ellis M.D. on 03/05/2016 at 19:5 Cardiac Echo Impressions ECHOCARDIOGRAM 01/04/16 Interpretation Summary 1) Normal left ventricular thickness, size, wall motion, and systolic function (EF 65-70%). 2) Normal right ventricular size and function. 3) Calcific mild to moderate stenosis and mild aortic regurgitation. 4) Calcific mitral valve with mild mitral inflow gradient and moderate mitral regurgitation. 5) Severely dilated left atrium. 6) Pulmonary hypertension present, estimated systolic pulmonary artery pressure of 51mmHg. 7) Compared to the Echo done 09/19/2014, systolic pulmonary pressure has decreased from 61mmHg to 51mmHg. Reading Physician:PM Additional Diagnostics ABG DateTimeAnalyzed 16:37:00 -_ pH ____7.396 - 7.350 7.450 pCO2 ___46.1__ -mmHg 35.0 45.0 pO2 ___69.3__ -mmHg 69.0 116 HCO3- ___27.7__ -mmol/L 22.0 26.0 US RENAL SONOGRAM IMPRESSION: Bladder lumen is emptied by Alejandro catheter in place. No urinary retention suspected, given this finding. Accurate assessment for presence or absence of bladder mass is not possible in this circumstance but no large bladder mass or calculus is suspected. No hydronephrosis or nephrolithiasis found. Renal cortical thinning appears chronic. Dictated by: Darshan Ellis M.D. on 03/07/2016 at 9:59 Approved by: Darshan Ellis M.D. on 03/07/2016 at 9:59 Assessment & Plan eKshia Cárdenas is an 81 year old female with history of asthma on chronic home O2 with a history of atrial fibrillation with RVR on Xarelto, coronary artery disease with prior ME, prior CVA with seizure disorder, and hypertension who is admitted for treatment of respiratory distress, A-fib with RVR, acute on chronic heart failure. Hospital Day 5. 1. Diastolic heart failure, acute on chronic, present on admission, improving - Last Echocardiogram showed EF 65-70% - Continue Lasix 40 mg increase to from BID to TID PO - Continue home potassium chloride - Cardiology consulted we appreciate their time and expertise. 2. Atrial fibrillation with rapid ventricular response, acute on chronic, present on admission, active - D/C Cardizem gtt increased to 15mg/hr. - Continue Home Diltazem ER 180 mg PO BID - Start Digoxin low dose for uncontrolled heart rate - Continue Xarelto - Continue Tele - Cardiology consulted we appreciate their time and expertise. 3. Hypercapnic Respiratory distress, acute, present on admission, Resolved - Likely the patient has COPD but has not been officially diagnosed, which may be due to past history of smoking or the natural progression of her asthma. For now will treat her as a COPD exacerbation as there does not appear to be cardiac etiology to her poor rate control and thus is likely pulmonary. In reviewing the patient's old chest x ray from 2016 she has radiographic signs of COPD with hyperinflation, flattened diaphragms, unfortunately this was only an AP film and no lateral is available. - ABG , normal pH, CO2 retention 46.1 - Continue BiPAP as needed, Taper O2 down to home dose of 2 L and monitor O2 saturation - Recommend Home CPAP for nighttime use - NEB long active albuterol, ipratropium, budesonide - Respiratory Viral PCR negative - Would recommend spirometry outpatient - Continue prednisone 40 mg x 3/5 days - Continue azithromycin, discontinue tomorrow - PT consulted to have patient up and out of bed 4. Hematuria, present on admission, resolved - 3-10 RBCs on UA, likely due to catheter insertion - Urine color yellow at beside today - Renal US ordered, negative - Continue to monitor 4. Hyperlipidemia, chronic, present on admission. -Continue Lipitor. 5. Depression, chronic, present on admission. -Continue Paroxetine. 6. Seizure disorder, chronic, present on admission. -Continue phenytoin. CODE STATUS: FULL CODE discussed with patient and family Disposition: likely discharge to home tomorrow upon adequate rate control of heart rate. VTE Mechanical Devices: Intermittant Pneumatic CD Resuscitation Status: CPR: Attempt Resuscitation Attending Statement The patient was seen and examined together with Dr. Li on 03-10-16 and I agree with the history, exam and plan as outlined in the note above. COLE LI DO Mar 10, 2016 07:42 Marcus Gates MD Mar 11, 2016 13:45
[2016-03-10] MEDS: Phenytoin 100 mg ER Capsule PO SCH (21:40)
[2016-03-10] MEDS ORDERED: Budesonide 0.5 mg/2 mL Inhalation Solution ONE (22:39)
[2016-03-11] VITALS (12 sets, daily range): BP systolic 95–122; BP diastolic 52–83; PULSE 100–153; RESP 18–23; O2SAT 95–98
--- NOTE | 2016-03-11 02:58 | NUR ---
Cardiac/Activity Resting HR from 100-120's afib, with any activity HR upto 130-140s afib nonsustained, given diltiazem as ordered, BP stable; on 5LPM via oxymask, sp02 >92%, some exertional dyspnea at times, up to BSC with SBA, fairly tolerated transfers.
[2016-03-11] MEDS: PARoxetine 20 mg Tablet PO SCH (08:53)
[2016-03-11] MEDS: Diltiazem CD 180 mg ER24 Capsule PO SCH ×2 (08:55→20:47)
[2016-03-11] MEDS: Dorzolamide 2% 10 mL Ophthalmic Solution BOTH_EYES SCH ×2 (08:56→21:16)
[2016-03-11] MEDS: Fluticasone 250 mCg Inhaler INHALATION SCH ×2 (08:56→20:47)
[2016-03-11] MEDS: Brimonidine 0.2% 5 mL Ophthalmic Solution BOTH_EYES SCH ×2 (08:56→20:47)
[2016-03-11] MEDS: Arformoterol 15 mCg/2 mL Inhalation Solution NEB SCH ×2 (10:48→23:33)
--- NOTE | 2016-03-11 15:40 | NUR ---
Social Work: Readiness for Discharge D: Pt discussed in am rounds. Pt is not medically stable for discharge at this time but is anticipate to discharge home possibly tomorrow pending rate control. Pt lives at home with her spouse. Pt has dementia. Pt has in-home caregiving and [facility] for RN, PT, PRECISION LENS CENTERER AND EDGER. t/c to pt's [facility] ([phone]) to discuss caregiver coverage for pt at time of discharge; no answer. Left message notifying of anticipated discharge and request to confirm caregivers availability. EMR reviewed; pt has been up to [facility] and appears to tolerate this much activity. PT evaluated pt on the with recommendations for discharge home with resumed HH. Pt has not been since since due to rate control issues. A: Pt who lives at home with spouse and caregivers. P: Anticipate pt to discharge home via POV and resume in-home caregiving and [facility]: RN, PT. BACK ROLL LATHE OPERATOR to continue to follow and assist if needs arise. GREGORY Hastings
--- NOTE | 2016-03-11 16:49 | PCM.PNMED ---
Subjective Date of Service Mar 11, 2016 Subjective Keshia Cárdenas is an 81 year old female with history of asthma on chronic home O2 with a history of atrial fibrillation with RVR on Xarelto, coronary artery disease with prior ND, prior CVA with seizure disorder, and hypertension who is admitted for treatment of respiratory distress, A-fib with RVR, acute on chronic heart failure. Hospital Day 5. Overnight: Nursing reported "resting HR from 100-120's afib, with any activity HR upto 130-140s afib nonsustained, given diltiazem as ordered, BP stable; on 5LPM via oxymask, sp02 >92%, some exertional dyspnea at times, up to BSC with SBA, fairly tolerated transfers." Jacque Veras RN Date: 02:58 Today: Patient reported that she is feeling better, she continues to have shortness of breath and rapid heart rate with moving. Patient denies productive cough, fever, chills, dizziness, change in vision, diarrhea, nausea, vomiting. ROS is negative except as noted above. Exam Vital Signs Vital Sign - Last Date Time Temp Pulse Resp B/P Pulse Ox O2 Delivery O2 Flow Rate FiO2 03/11/16 05:38 119 03/11/16 04:17 36.7 19 108/75 98 Nasal Cannula 4.00 03/10/16 01:05 30 Intake and Output 03/10/16 03/10/16 03/11/16 Cumulative From/Thru 15:00 23:00 07:00 03/05/16 17:39 - 03/11/16 04:23 Intake Total 1450 ml 8842 ml Output Total 1175 ml 7825 ml Balance 275 ml 1017 ml Intake Oral 1450 ml 6780 ml IV Total 2062 ml Output Urine Total 1175 ml 7825 ml # Voids 5 5 # Bowel Movements 1 3 Exam General: In no acute distress, sitting in chair eating breakfast, well-developed , well-nourished, appropriately interactive with nasal cannula on face. HEENT: Normocephalic, atraumatic. External ears without defect. Pupils equal, round, and reactive to light and accommodation. Anicteric sclerae, moist conjunctivae, and no lid lag. Oropharynx free of erythema and cobble stoning with moist mucosa. Neck: Supple with full range of motion. No jugular venous distension. No bruits. No lymphadenopathy or thyromegaly. Cardiovascular: Irregularly irregular with control rate with no murmurs, rubs, or gallops appreciated Pulmonary: Clear to auscultation Bilaterally, no crackles, no wheezes, or rhonchi. Normal respiratory effort with no use of accessory muscles. Abdomen: Bowel tones present. Soft, nontender, nondistended. No hepatosplenomegaly or masses appreciated. Extremities: No clubbing, cyanosis, or lymphadenopathy appreciated. No Edema of bilateral legs, improved from yesterday Skin: Normal temperature, turgor, and texture; no rash, ulcers, or subcutaneous nodules appreciated. Neurological: Cranial nerves grossly intact. Normal muscle strength, tone, and bulk. Reflexes, coordination, and sensory function within normal limits. No known gait impairment. Psychiatric: Normal mood and affect. Alert and oriented to person, place, and time. IVs and Medications Medications Reviewed: Medications were reviewed in detail Lab and Diagnostics Result Diagram: 03/10/16 0336 03/10/16 0336 X-Rays, CTs and MRIs X-RAY CHEST ONE VIEW IMPRESSION: Mild acute CHF pattern with small bilateral subpulmonic pleural effusions. Dictated by: Darshan Ellis M.D. on 03/05/2016 at 19:55 Approved by: Darshan Ellis M.D. on 03/05/2016 at 19:5 Cardiac Echo Impressions ECHOCARDIOGRAM 01/04/16 Interpretation Summary 1) Normal left ventricular thickness, size, wall motion, and systolic function (EF 65-70%). 2) Normal right ventricular size and function. 3) Calcific mild to moderate stenosis and mild aortic regurgitation. 4) Calcific mitral valve with mild mitral inflow gradient and moderate mitral regurgitation. 5) Severely dilated left atrium. 6) Pulmonary hypertension present, estimated systolic pulmonary artery pressure of 51mmHg. 7) Compared to the Echo done 09/19/2014, systolic pulmonary pressure has decreased from 61mmHg to 51mmHg. Reading Physician:PM Additional Diagnostics ABG DateTimeAnalyzed 16:37:00 -_ pH ____7.396 - 7.350 7.450 pCO2 ___46.1__ -mmHg 35.0 45.0 pO2 ___69.3__ -mmHg 69.0 116 HCO3- ___27.7__ -mmol/L 22.0 26.0 US RENAL SONOGRAM IMPRESSION: Bladder lumen is emptied by Alejandro catheter in place. No urinary retention suspected, given this finding. Accurate assessment for presence or absence of bladder mass is not possible in this circumstance but no large bladder mass or calculus is suspected. No hydronephrosis or nephrolithiasis found. Renal cortical thinning appears chronic. Dictated by: Darshan Ellis M.D. on 03/07/2016 at 9:59 Approved by: Darshan Ellis M.D. on 03/07/2016 at 9:59 Assessment & Plan /Keshia Cárdenas is an 81 year old female with history of asthma on chronic home O2 with a history of atrial fibrillation with RVR on Xarelto, coronary artery disease with prior ND, prior CVA with seizure disorder, and hypertension who is admitted for treatment of respiratory distress, A-fib with RVR, acute on chronic heart failure. Hospital Day 5. 1. Atrial fibrillation with rapid ventricular response, acute on chronic, present on admission, active - Continue Diltazem ER 180 mg PO BID, increased to 210 mg BID today - Continue Digoxin low dose for uncontrolled heart rate, consider titrating if Diltiazem reaches maximal dose of 480 mg - Continue Xarelto - Continue Tele - Cardiology consulted we appreciate their time and expertise. 2. Diastolic heart failure, acute on chronic, present on admission, improving - Last Echocardiogram showed EF 65-70% - Continue Lasix 40 mg TID PO - Continue home potassium chloride - Cardiology consulted we appreciate their time and expertise. 3. Hypercapnic Respiratory distress, acute, present on admission, Resolved - Likely the patient has COPD but has not been officially diagnosed, which may be due to past history of smoking or the natural progression of her asthma. For now will treat her as a COPD exacerbation as there does not appear to be cardiac etiology to her poor rate control and thus is likely pulmonary. In reviewing the patient's old chest x ray from 2016 she has radiographic signs of COPD with hyperinflation, flattened diaphragms, unfortunately this was only an AP film and no lateral is available. - ABG , normal pH, CO2 retention 46.1 - Continue BiPAP as needed, Taper O2 down to home dose of 2 L and monitor O2 saturation - NEB long active albuterol, ipratropium, budesonide - Respiratory Viral PCR negative - Would recommend spirometry outpatient - Continue prednisone 40 mg x 3/5 days - discontinued azithromycin - PT consulted to have patient up and out of bed 4. Hematuria, present on admission, resolved - 3-10 RBCs on UA, likely due to catheter insertion - Urine color yellow at beside today - Renal US ordered, negative - Continue to monitor 4. Hyperlipidemia, chronic, present on admission. -Continue Lipitor. 5. Depression, chronic, present on admission. -Continue Paroxetine. 6. Seizure disorder, chronic, present on admission. -Continue phenytoin. PRN: Senna Tums chew CODE STATUS: FULL CODE discussed with patient and family Disposition: likely discharge to home tomorrow upon adequate rate control of heart rate. VTE Mechanical Devices: Intermittant Pneumatic CD Resuscitation Status: CPR: Attempt Resuscitation Attending Statement The patient was seen and examined together with Resident/House-staff on 03/11/16 and I agree with the history, exam and plan as outlined in the note above. COLE LI DO Mar 11, 2016 06:27 Tito Bauer Mar 12, 2016 17:17
--- NOTE | 2016-03-11 18:14 | NUR ---
SOB pt stating being SOB and her lungs feel heavy. Pt SpO2 95%, RR 26, HR 110s-120s. Per daughter pt needing to be back on bibap when that happens. Respiratory therapist called for pt to be put back on Bipap. After being on Bibap for about 30min pt stating feeling better and wanting bibap off. Pt back on 2.5L NC SpO2 95%. Ongoing care.
[2016-03-11] MEDS: Phenytoin 100 mg ER Capsule PO SCH (20:48)
[2016-03-12] VITALS (11 sets, daily range): BP systolic 111–151; BP diastolic 70–89; PULSE 96–121; RESP 18–24; O2SAT 92–99
[2016-03-12 02:52] LABS: BASOPHILS % (AUTO) 0.2 % (0-3); EOSINOPHILS % (AUTO) 1.3 % (0-5); Mean Corpuscular Volume 96.3 fL (81-100); NEUTROPHILS % (AUTO) 74.4 % (40-74); Platelet Count 237 bil/L (150-400)
[2016-03-12 03:08] LABS: INR 1.03 ratio
[2016-03-12] MEDS ORDERED: Diltiazem CD 240 mg ER24 Capsule PO SCH (08:30)
[2016-03-12] MEDS: PARoxetine 20 mg Tablet PO SCH (09:52)
[2016-03-12] MEDS: Dorzolamide 2% 10 mL Ophthalmic Solution BOTH_EYES SCH ×2 (09:53→21:58)
[2016-03-12] MEDS: Brimonidine 0.2% 5 mL Ophthalmic Solution BOTH_EYES SCH ×2 (09:54→21:41)
[2016-03-12] MEDS: Fluticasone 250 mCg Inhaler INHALATION SCH ×2 (09:54→21:41)
[2016-03-12] MEDS: Arformoterol 15 mCg/2 mL Inhalation Solution NEB SCH (10:16)
--- NOTE | 2016-03-12 12:43 | PROG NOTE ---
[address] [address] PROGRESS NOTE PATIENT: MARIAM BUENO : 1935 MR#: [id number] ADMIT: 03/05/2016 JOB ID: [id number] DATE: 03/12/2016 SUBJECTIVE: The patient is a very pleasant 81-year-old female with a long history of COPD who developed symptoms of atrial fibrillation in December of this year. Ever since that time she has been aware of significant worsening in her symptoms of exertional dyspnea and orthopnea. She has been in the hospital now for one week and is on a combination of high dose diltiazem and digoxin without adequate rate control and, as I am talking with her, her resting heart rate is in the 110-130 range persistently. She also presented with pronounced lower extremity edema, which was a new symptom for her, and has evidence of bilateral pleural effusions, which she has had previously. She has diuresed fairly aggressively since she has been in the hospital and her edema has resolved, though she continues to be on oxygen and her dyspnea and orthopnea are only modestly improved. She has had no complaints of anginal chest discomfort. PHYSICAL EXAMINATION: She is sitting in a chair, wearing oxygen, in no acute distress. The jugular veins are not identified in the sitting position. Her lower extremities show some wrinkling consistent with resolution of recent edema. Currently there is no significant dependent leg edema noted. Lung monroy demonstrate decreased breath sounds at both lung bases with evidence of egophony and her expiratory pattern in her mid and upper lung monroy is notable for the absence of wheezing. Cardiac auscultation is notable for an irregular rapid rhythm. Interestingly I do not hear a significant murmur either of aortic stenosis or mitral regurgitation, which we know she has. LABORATORY: Her laboratory evaluation shows a fairly unremarkable CBC. Chemistries are fairly unremarkable as well, with a normal creatinine and BUN, fairly normal electrolytes, blood sugar borderline elevated. Troponin levels have been normal. BNP elevated at 2480 on admission. Her chest x-ray shows a prominent mitral annular calcification on her cardiac silhouette. She also has evidence of significant atrial enlargement and bilateral pleural effusions. This patient's echocardiograms are reviewed. In reviewing her echocardiogram from the and comparing it with her previous echocardiograms, there is clear evidence that the patient has 3 to 4+ mitral regurgitation in addition to mild nonrheumatic mitral stenosis. She also has mild aortic stenosis noted. Left ventricle is relatively small and hyperdynamic and she has evidence of moderate pulmonary hypertension and elevated central venous pressure as well. ASSESSMENT: The patient is significantly symptomatic with atrial fibrillation. Given her valvular heart disease and severe atrial enlargement the likelihood of her getting back to and maintaining normal sinus rhythm is remote. Her valvular heart disease is complex and given her lung disease she is not likely a candidate for any type of valvular intervention. It is most reasonable to continue to be aggressive with managing her rate control. It is apparent to me that she seemed to tolerate metoprolol as an outpatient, which was started in December; but, given her history of wheezing, I think it is also reasonable to continue to avoid adding beta agatha therapy and instead I have recommended that we change her diltiazem medication to verapamil which can sometimes be a bit more effective at AV ranjan blockade than diltiazem. I will have her diltiazem discontinued after her dose tonight and will start her up on verapamil at a dose of 120 mg every 8 hours tomorrow morning. This can be increased again to 480 mg a day if necessary. She will need to have her digoxin level watched closely. I appreciate the opportunity of seeing her and will follow up with her clinical course over the weekend.
--- NOTE | 2016-03-12 18:01 | NUR ---
Afib/activity/incontinent Cardiac: Pt denies CP, Tele afib 110-130 Resp: Pt denies SOB at this time, SpO2 high 90s on 2.5L nc. GI/: Pt denies n/v. Pt has been incontinent of urine multiple times today, although does get up to the BSC at times. Neuro: A&OX3, [place]. Pt worked with PT and got up to chair for lunch.
--- NOTE | 2016-03-12 19:44 | PCM.PNMED ---
Subjective Date of Service Mar 12, 2016 Subjective Keshia Cárdenas is an 81 year old female with history of asthma on chronic home O2 with a history of atrial fibrillation with RVR on Xarelto, coronary artery disease with prior ID, prior CVA with seizure disorder, and hypertension who is admitted for treatment of respiratory distress, A-fib with RVR, acute on chronic heart failure. Hospital Day 6. Overnight: patient reported she continued to feel short of breath BIPAP used PRN for SOB one time, patient reported she slept the rest of the night Today: Patient reports that she is feeling well, denies cough, fever, chills, dizziness. Patient stated that every time she sat up her heart rate went up. ROS is negative except as noted above. Exam Vital Signs Vital Sign - Last Date Time Temp Pulse Resp B/P Pulse Ox O2 Delivery O2 Flow Rate FiO2 03/12/16 05:54 119 03/12/16 03:30 36.9 22 151/89 96 Nasal Cannula 2.50 03/11/16 17:43 30 Intake and Output 03/11/16 03/11/16 03/12/16 Cumulative From/Thru 15:00 23:00 07:00 03/05/16 17:39 - 03/12/16 06:37 Intake Total 480 ml 625 ml 19085 ml Output Total 975 ml 9300 ml Balance -495 ml 625 ml 1307 ml Intake Oral 480 ml 625 ml 8545 ml IV Total 2062 ml Output Urine Total 975 ml 9300 ml # Voids 2 7 # Bowel Movements 1 4 Exam General: In no acute distress, sitting in chair eating breakfast, well-developed , well-nourished, appropriately interactive with nasal cannula on face. HEENT: Normocephalic, atraumatic. External ears without defect. Pupils equal, round, and reactive to light and accommodation. Anicteric sclerae, moist conjunctivae, and no lid lag. Oropharynx free of erythema and cobble stoning with moist mucosa. Neck: Supple with full range of motion. No jugular venous distension. No bruits. No lymphadenopathy or thyromegaly. Cardiovascular: Irregularly irregular with control rate with no murmurs, rubs, or gallops appreciated, Pulmonary: Clear to auscultation Bilaterally, no crackles, no wheezes, or rhonchi. Normal respiratory effort with no use of accessory muscles. Abdomen: Bowel tones present. Soft, nontender, nondistended. No hepatosplenomegaly or masses appreciated. Extremities: No clubbing, cyanosis, or lymphadenopathy appreciated. No Edema of bilateral legs, improved from yesterday Skin: Normal temperature, turgor, and texture; no rash, ulcers, or subcutaneous nodules appreciated. Neurological: Cranial nerves grossly intact. Normal muscle strength, tone, and bulk. Reflexes, coordination, and sensory function within normal limits. No known gait impairment. Psychiatric: Normal mood and affect. Alert and oriented to person, place, and time. IVs and Medications Medications Reviewed: Medications were reviewed in detail Lab and Diagnostics Result Diagram: 03/12/16 0230 03/12/16 0230 X-Rays, CTs and MRIs X-RAY CHEST ONE VIEW IMPRESSION: Mild acute CHF pattern with small bilateral subpulmonic pleural effusions. Dictated by: Darshan Ellis M.D. on 03/05/2016 at 19:55 Approved by: Darshan Ellis M.D. on 03/05/2016 at 19:5 Cardiac Echo Impressions ECHOCARDIOGRAM 01/04/16 Interpretation Summary 1) Normal left ventricular thickness, size, wall motion, and systolic function (EF 65-70%). 2) Normal right ventricular size and function. 3) Calcific mild to moderate stenosis and mild aortic regurgitation. 4) Calcific mitral valve with mild mitral inflow gradient and moderate mitral regurgitation. 5) Severely dilated left atrium. 6) Pulmonary hypertension present, estimated systolic pulmonary artery pressure of 51mmHg. 7) Compared to the Echo done 09/19/2014, systolic pulmonary pressure has decreased from 61mmHg to 51mmHg. Reading Physician:PM Additional Diagnostics ABG DateTimeAnalyzed 16:37:00 -_ pH ____7.396 - 7.350 7.450 pCO2 ___46.1__ -mmHg 35.0 45.0 pO2 ___69.3__ -mmHg 69.0 116 HCO3- ___27.7__ -mmol/L 22.0 26.0 US RENAL SONOGRAM IMPRESSION: Bladder lumen is emptied by Alejandro catheter in place. No urinary retention suspected, given this finding. Accurate assessment for presence or absence of bladder mass is not possible in this circumstance but no large bladder mass or calculus is suspected. No hydronephrosis or nephrolithiasis found. Renal cortical thinning appears chronic. Dictated by: Darshan Ellis M.D. on 03/07/2016 at 9:59 Approved by: Darshan Ellis M.D. on 03/07/2016 at 9:59 Assessment & Plan Keshia Cárdenas is an 81 year old female with history of asthma on chronic home O2 with a history of atrial fibrillation with RVR on Xarelto, coronary artery disease with prior ID, prior CVA with seizure disorder, and hypertension who is admitted for treatment of respiratory distress, A-fib with RVR, acute on chronic heart failure. Hospital Day 6. 1. Atrial fibrillation with rapid ventricular response, acute on chronic, present on admission, active - Continue Diltazem ER 180 mg PO BID, increased to 210 mg BID today, patient reached maximal therapy on Diltiazem, case discussed with cardiology, patient will need alternate medication, per cardiology this will likely be Verapamil once diltiazem has been stopped for greater than 24 hours, we will reassess tomorrow and await Cardiology recommendations before changing/starting rate control medication. - Continue Digoxin low dose for uncontrolled heart rate - Digoxin level ordered, 0.6 - Continue Xarelto - Continue Tele - Cardiology consulted we appreciate their time and expertise. 2. Diastolic heart failure, acute on chronic, present on admission, improving - Last Echocardiogram showed EF 65-70% - Continue Lasix 40 mg TID PO - Continue home potassium chloride - Cardiology consulted we appreciate their time and expertise. 3. Hypercapnic Respiratory distress, acute, present on admission, Resolved - Likely the patient has COPD but has not been officially diagnosed, which may be due to past history of smoking or the natural progression of her asthma. For now will treat her as a COPD exacerbation as there does not appear to be cardiac etiology to her poor rate control and thus is likely pulmonary. In reviewing the patient's old chest x ray from 2016 she has radiographic signs of COPD with hyperinflation, flattened diaphragms, unfortunately this was only an AP film and no lateral is available. - ABG , normal pH, CO2 retention 46.1 - Continue BiPAP as needed, Taper O2 down to home dose of 2 L and monitor O2 saturation - D/C NEB long active albuterol, ipratropium, budesonide - Respiratory Viral PCR negative - Would recommend spirometry outpatient - Continue prednisone 40 mg stop at 5/5 days - discontinued azithromycin - PT consulted to have patient up and out of bed 4. Hematuria, present on admission, resolved - 3-10 RBCs on UA, likely due to catheter insertion - Urine color yellow at beside today - Renal US ordered, negative - Continue to monitor 4. Hyperlipidemia, chronic, present on admission. -Continue Lipitor. 5. Depression, chronic, present on admission. -Continue Paroxetine. 6. Seizure disorder, chronic, present on admission. -Continue phenytoin. PRN: Tawana baird CODE STATUS: FULL CODE discussed with patient and family Disposition: Patient will likely need 24-48 hours to reassess rate control, likely discharge to home once rate controlled VTE Mechanical Devices: Intermittant Pneumatic CD Resuscitation Status: CPR: Attempt Resuscitation Attending Statement The patient was seen and examined together with Resident/House-staff on 03/12/16 and I agree with the history, exam and plan as outlined in the note above. COLE LI DO Mar 12, 2016 06:54 Tito Bauer Mar 13, 2016 17:14
[2016-03-12] MEDS: Albuterol 2.5 mg/3 mL Inhalation Solution NEB PRN (19:47)
[2016-03-12] MEDS: Phenytoin 100 mg ER Capsule PO SCH (21:42)
[2016-03-13] VITALS (8 sets, daily range): BP systolic 113–128; BP diastolic 64–89; PULSE 106–124; RESP 20–31; O2SAT 95–97
[2016-03-13 03:21] LABS: BASOPHILS % (AUTO) 0.2 % (0-3); EOSINOPHILS % (AUTO) 1.5 % (0-5); MONOCYTES % (AUTO) 11.3 % (4-12); Mean Corpuscular Hemoglobin 30.9 pg (27.0-35.0); Mean Corpuscular Volume 96.2 fL (81-100); NEUTROPHILS % (AUTO) 73.7 % (40-74); Platelet Count 243 bil/L (150-400)
[2016-03-13 03:32] LABS: INR 1.06 ratio
--- NOTE | 2016-03-13 06:20 | NUR ---
Cardiac Patient remains in afib, bp stable, MP30 in place for close monitoring. Patient denies any chest discomfort. PO Lasix administered. Plan for Verapamil administration today. Addendum: 03/13/16 at 0630 by HUONG ESCOBEDO RN K 3.2 on AM labs, notified. No Mg draw since 03/07, notified.
[2016-03-13] MEDS ORDERED: Ipratropium 0.02% 0.5 mg/2.5 mL Inhalation Solution NEB PRN (06:35)
[2016-03-13] MEDS ORDERED: Potassium Chloride Inj 20 MEQ in Dextrose 5% 250 ML IV ONE (06:35)
[2016-03-13] MEDS ORDERED: Potassium Chloride 20 mEq/15 mL 15mL Oral Soln PO ONE (06:35)
[2016-03-13] MEDS: Verapamil SR 180 mg ER12 Tablet PO SCH ×2 (08:03→21:55)
[2016-03-13] MEDS: PARoxetine 20 mg Tablet PO SCH (08:03)
[2016-03-13] MEDS: Brimonidine 0.2% 5 mL Ophthalmic Solution BOTH_EYES SCH ×2 (08:04→21:56)
[2016-03-13] MEDS: Dorzolamide 2% 10 mL Ophthalmic Solution BOTH_EYES SCH ×2 (08:05→21:56)
[2016-03-13] MEDS: Fluticasone 250 mCg Inhaler INHALATION SCH ×2 (08:05→21:56)
--- NOTE | 2016-03-13 11:58 | PROG NOTE ---
[address] [address] PROGRESS NOTE PATIENT: MARIAM BUENO : 1935 MR#: [id number] ADMIT: 03/05/2016 JOB ID: [id number] DATE: 03/13/2016 SUBJECTIVE: The patient is resting comfortably in bed today. She had a reasonable night, without significant problems. She continues to be in moderately rapid atrial fibrillation with heart rates in the 120 range at rest and increasing promptly with any activity. I had ordered 120 mg of immediate release verapamil q.8 hours yesterday but this morning find that somehow that has been changed to 180 mg of long-acting verapamil b.i.d. I had wanted to use immediate-acting verapamil in case the combination of verapamil and her previous diltiazem would be additive and cause problems. At this point, however, she seems to be getting along fine with heart rates in the 100-110 range. She is not having any anginal chest discomfort or dyspnea. OBJECTIVE: Her examination is notable for the absence of significant jugular venous distention. Heart rate is moderately rapid and irregular, without significant murmurs. She has diminished breath sounds diffusely without obvious wheezing on exam. Distal extremities are warm and well perfused. IMPRESSION: It will take probably three or four doses of the verapamil before we have a good understanding of how well her rate will be controlled. She is clinically doing well at this point in time and I anticipate she will require another 48 hours of hospitalization to optimize her medical care. I will plan to see her back again tomorrow for followup.
--- NOTE | 2016-03-13 18:43 | NUR ---
AFib/Anxiety over discharge Cardiac: Pt denies CP, Tele afib 110-130s. Pt reports she had some chest tightness last night before falling asleep, resolved as of AM assessment. HR up to 130s-140 when up with PT. pt reports she feels SOB when her HR is elevated. Pt also expressed reluctance to be discharged tomorrow due to worries about her heart rate control. 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 Resp: Pt denies SOB, SpO2 high 90s on 2L nc. GI/: Pt denies n/v. No stool yesterday, discussed bowel meds with pt, pt declined. Neuro: A&OX3, [place]
--- NOTE | 2016-03-13 19:43 | PCM.PNMED ---
Subjective Date of Service Mar 13, 2016 Subjective Keshia Cárdenas is an 81 year old female with history of asthma on chronic home O2 with a history of atrial fibrillation with RVR on Xarelto, coronary artery disease with prior [place], prior CVA with seizure disorder, and hypertension who is admitted for treatment of respiratory distress, A-fib with RVR, acute on chronic heart failure. Hospital Day 7. Overnight: no events reported Today: Patient reports that she is feeling well, denies cough, fever, chills, dizziness. Patient stated that she still experiences high heart rate. ROS is negative except as noted above. Exam Vital Signs Vital Sign - Last Date Time Temp Pulse Resp B/P Pulse Ox O2 Delivery O2 Flow Rate FiO2 03/13/16 04:55 108 03/13/16 04:13 36.7 20 128/68 97 Nasal Cannula 2.00 03/11/16 17:43 30 Intake and Output 03/12/16 03/12/16 03/13/16 Cumulative From/Thru 15:00 23:00 07:00 03/05/16 17:39 - 03/13/16 06:24 Intake Total 640 ml 300 ml 91907 ml Output Total 300 ml 9600 ml Balance 340 ml 300 ml 1947 ml Intake Oral 640 ml 300 ml 9485 ml IV Total 2062 ml Output Urine Total 300 ml 9600 ml # Voids 4 3 14 # Bowel Movements 4 Lab and Diagnostics Result Diagram: 03/13/16 0255 03/13/16 0255 X-Rays, CTs and MRIs X-RAY CHEST ONE VIEW IMPRESSION: Mild acute CHF pattern with small bilateral subpulmonic pleural effusions. Dictated by: Darshan Ellis M.D. on 03/05/2016 at 19:55 Approved by: Darshan Ellis M.D. on 03/05/2016 at 19:5 Cardiac Echo Impressions ECHOCARDIOGRAM 01/04/16 Interpretation Summary 1) Normal left ventricular thickness, size, wall motion, and systolic function (EF 65-70%). 2) Normal right ventricular size and function. 3) Calcific mild to moderate stenosis and mild aortic regurgitation. 4) Calcific mitral valve with mild mitral inflow gradient and moderate mitral regurgitation. 5) Severely dilated left atrium. 6) Pulmonary hypertension present, estimated systolic pulmonary artery pressure of 51mmHg. 7) Compared to the Echo done 09/19/2014, systolic pulmonary pressure has decreased from 61mmHg to 51mmHg. Reading Physician:ALE Additional Diagnostics ABG DateTimeAnalyzed 16:37:00 -_ pH ____7.396 - 7.350 7.450 pCO2 ___46.1__ -mmHg 35.0 45.0 pO2 ___69.3__ -mmHg 69.0 116 HCO3- ___27.7__ -mmol/L 22.0 26.0 US RENAL SONOGRAM IMPRESSION: Bladder lumen is emptied by Alejandro catheter in place. No urinary retention suspected, given this finding. Accurate assessment for presence or absence of bladder mass is not possible in this circumstance but no large bladder mass or calculus is suspected. No hydronephrosis or nephrolithiasis found. Renal cortical thinning appears chronic. Dictated by: Darshan Ellis M.D. on 03/07/2016 at 9:59 Approved by: Darshan Ellis M.D. on 03/07/2016 at 9:59 Assessment & Plan Keshia MedranoSariThomas is an 81 year old female with history of asthma on chronic home O2 with a history of atrial fibrillation with RVR on Xarelto, coronary artery disease with prior [place], prior CVA with seizure disorder, and hypertension who is admitted for treatment of respiratory distress, A-fib with RVR, acute on chronic heart failure. Hospital Day 7. 1. Atrial fibrillation with rapid ventricular response, acute on chronic, present on admission, active - Continue Diltazem ER 180 mg PO BID, increased to 210 mg BID today, patient reached maximal therapy on Diltiazem, case discussed with cardiology, patient will need alternate medication, per cardiology titration of Verapamil will require and additional 48 hours - Continue Digoxin low dose for uncontrolled heart rate - Digoxin level ordered, 0.6 - Continue Xarelto - Continue Tele - Cardiology consulted we appreciate their time and expertise. 2. Diastolic heart failure, acute on chronic, present on admission, improving - Last Echocardiogram showed EF 65-70% - Continue Lasix 40 mg TID PO - Continue home potassium chloride - Cardiology consulted we appreciate their time and expertise. 3. Hypercapnic Respiratory distress, acute, present on admission, Resolved - Likely the patient has COPD but has not been officially diagnosed, which may be due to past history of smoking or the natural progression of her asthma. For now will treat her as a COPD exacerbation as there does not appear to be cardiac etiology to her poor rate control and thus is likely pulmonary. In reviewing the patient's old chest x ray from 2016 she has radiographic signs of COPD with hyperinflation, flattened diaphragms, unfortunately this was only an AP film and no lateral is available. - ABG , normal pH, CO2 retention 46.1 - Continue BiPAP as needed, Taper O2 down to home dose of 2 L and monitor O2 saturation - D/C NEB long active albuterol, ipratropium, budesonide - Respiratory Viral PCR negative - Would recommend spirometry outpatient - Continue prednisone 40 mg stop at 5/5 days - discontinued azithromycin - PT consulted to have patient up and out of bed 4. Hematuria, present on admission, resolved - 3-10 RBCs on UA, likely due to catheter insertion - Urine color yellow at beside today - Renal US ordered, negative - Continue to monitor 4. Hyperlipidemia, chronic, present on admission. -Continue Lipitor. 5. Depression, chronic, present on admission. -Continue Paroxetine. 6. Seizure disorder, chronic, present on admission. -Continue phenytoin. PRN: Senna Tums chew CODE STATUS: FULL CODE discussed with patient and family Disposition: Patient will likely need 24-48 hours to reassess rate control, likely discharge to home once rate controlled VTE Mechanical Devices: Intermittant Pneumatic CD Resuscitation Status: CPR: Attempt Resuscitation Attending Statement The patient was seen and examined together with Resident/House-staff on 03/13/16 and I agree with the history, exam and plan as outlined in the note above. COLE LI DO Mar 13, 2016 06:42 Tito Bauer Mar 14, 2016 17:00
[2016-03-13] MEDS: Phenytoin 100 mg ER Capsule PO SCH (21:55)
[2016-03-14] VITALS (9 sets, daily range): BP systolic 95–120; BP diastolic 65–92; PULSE 97–132; RESP 20–24; O2SAT 95–97
[2016-03-14 03:03] LABS: Mean Corpuscular Hemoglobin 30.9 pg (27.0-35.0); Mean Corpuscular Volume 95.9 fL (81-100)
[2016-03-14 03:11] LABS: INR 1.02 ratio
--- NOTE | 2016-03-14 06:31 | NUR ---
Cardiac Rhythm Pt's cardiac rhythm continues to be A-Fib 100s-130s. Pt's Verapamil SR was increased 03/13/2016 to 180mg BID. Will continue to monitor pt's cardiac rhythm.
[2016-03-14] MEDS: Verapamil SR 180 mg ER12 Tablet PO SCH (07:52)
[2016-03-14] MEDS: Fluticasone 250 mCg Inhaler INHALATION SCH ×2 (07:53→20:26)
[2016-03-14] MEDS: PARoxetine 20 mg Tablet PO SCH (07:53)
[2016-03-14] MEDS: Dorzolamide 2% 10 mL Ophthalmic Solution BOTH_EYES SCH ×2 (07:53→20:27)
[2016-03-14] MEDS: Brimonidine 0.2% 5 mL Ophthalmic Solution BOTH_EYES SCH ×2 (07:55→20:27)
--- NOTE | 2016-03-14 10:20 | PROG NOTE ---
[address] [address] PROGRESS NOTE PATIENT: MARIAM BUENO : 1935 MR#: [id number] ADMIT: 03/05/2016 JOB ID: [id number] DATE: 03/14/2016 The patient's telemetry continues to show fairly rapid tachycardia though her heart rate this morning while at rest is slightly improved. Her clinical history and exam was otherwise unchanged. I am going to recommend that we increase her verapamil to 240 mg b.i.d. She needs to remain in the hospital an additional 24 hours at least to review her clinical response. She also needs to be ambulatory and stable before she is discharged home.
--- NOTE | 2016-03-14 12:12 | NUR ---
[facility] signed
--- NOTE | 2016-03-14 12:27 | PCM.PNMED ---
Subjective Date of Service Mar 14, 2016 Subjective denies any new issues/complaints Exam Vital Signs Vital Sign - Last Date Time Temp Pulse Resp B/P Pulse Ox O2 Delivery O2 Flow Rate FiO2 03/14/16 12:18 103 03/14/16 12:12 36.7 20 120/74 96 Nasal Cannula 2.00 03/11/16 17:43 30 Intake and Output 03/13/16 03/13/16 03/14/16 Cumulative From/Thru 15:00 23:00 07:00 03/05/16 17:39 - 03/14/16 05:36 Intake Total 400 ml 100 ml 09942 ml Output Total 9600 ml Balance 400 ml 100 ml 2447 ml Intake Oral 400 ml 100 ml 9985 ml IV Total 2062 ml Output Urine Total 9600 ml # Voids 5 1 20 # Bowel Movements 0 0 4 General: Alert, Cooperative, No Acute Distress Eyes: Scleral Anicteric Mouth: Mucous Membr Moist/[place] Neck: Supple Chest & Lungs: Chest Wall Normal, Clear to auscultation & percussion Cardiovascular: Other (tachy, irreg) Abdomen: Non-tender, Non-distended, Normoactive bowel tones, Soft Extremities: No cyanosis/clubbing/edma bilat Neurological: Grossly Neurologically Intact, Normal Speech IVs and Medications Medications Reviewed: Medications were reviewed in detail Lab and Diagnostics Result Diagram: 03/14/1622403/14/16 022 X-Rays, CTs and MRIs X-RAY CHEST ONE VIEW IMPRESSION: Mild acute CHF pattern with small bilateral subpulmonic pleural effusions. Dictated by: Darshan Ellis M.D. on 03/05/2016 at 19:55 Approved by: Darshan Ellis M.D. on 03/05/2016 at 19:5 Cardiac Echo Impressions ECHOCARDIOGRAM 01/04/16 Interpretation Summary 1) Normal left ventricular thickness, size, wall motion, and systolic function (EF 65-70%). 2) Normal right ventricular size and function. 3) Calcific mild to moderate stenosis and mild aortic regurgitation. 4) Calcific mitral valve with mild mitral inflow gradient and moderate mitral regurgitation. 5) Severely dilated left atrium. 6) Pulmonary hypertension present, estimated systolic pulmonary artery pressure of 51mmHg. 7) Compared to the Echo done 09/19/2014, systolic pulmonary pressure has decreased from 61mmHg to 51mmHg. Reading Physician:PM Additional Diagnostics ABG DateTimeAnalyzed 16:37:00 -_ pH ____7.396 - 7.350 7.450 pCO2 ___46.1__ -mmHg 35.0 45.0 pO2 ___69.3__ -mmHg 69.0 116 HCO3- ___27.7__ -mmol/L 22.0 26.0 US RENAL SONOGRAM IMPRESSION: Bladder lumen is emptied by Alejandro catheter in place. No urinary retention suspected, given this finding. Accurate assessment for presence or absence of bladder mass is not possible in this circumstance but no large bladder mass or calculus is suspected. No hydronephrosis or nephrolithiasis found. Renal cortical thinning appears chronic. Dictated by: Darshan Ellis M.D. on 03/07/2016 at 9:59 Approved by: Darshan Ellis M.D. on 03/07/2016 at 9:59 Assessment & Plan 81 year old female with history of asthma on chronic home O2 with a history of atrial fibrillation with RVR on Xarelto, coronary artery disease with prior [place], prior CVA with seizure disorder, and hypertension who is admitted for treatment of respiratory distress, A-fib with RVR, acute on chronic heart failure. 1. Atrial fibrillation with rapid ventricular response, acute on chronic, present on admission, ongoing - appreciate cardiology consult. will f/u w/ recs - increase verapamil to 240 mg b.i.d - Continue Digoxin - Continue Xarelto - Continue Tele 2. Diastolic heart failure, acute on chronic, present on admission, improving - Last Echocardiogram showed EF 65-70% - Continue Lasix 40 mg TID PO - Continue home potassium chloride 3. Hypercapnic Respiratory distress, acute, present on admission, Resolved - Likely the patient has COPD but has not been officially diagnosed, which may be due to past history of smoking or the natural progression of her asthma. - Continue BiPAP as needed - Respiratory Viral PCR negative - discontinued azithromycin 03/11/16 4. Hematuria, present on admission, resolved - 3-10 RBCs on UA, likely due to catheter insertion - Renal US ordered, negativ 4. Hyperlipidemia, chronic, present on admission. - Continue Lipitor. 5. Depression, chronic, present on admission. stable - Continue Paroxetine. 6. Seizure disorder, chronic, present on admission. stable - Continue phenytoin. Disposition: Patient will likely need 24-48 hours to reassess rate control. discharge to home once rate controlled VTE Mechanical Devices: Intermittant Pneumatic CD Resuscitation Status: CPR: Attempt Resuscitation Time spent 35 min Tito Bauer Mar 14, 2016 12:27
--- NOTE | 2016-03-14 16:45 | NUR ---
Afib/Anxiety Cardiac: pt denies CP. Tele: A-Fib 100s-130s Resp: pt denies SOB at rest, reports that she feels she has to breath "shallow and fast", SPO2 97% on 2L NC. Pt remains anxious about her heart rate and whether it will get controlled or not. Spent time discussing pt condition and concerns with her and family at bedside. GI/: pt denies N/V/D. pt is incontinent of urine at times Neuro: AOx3, [place], pt is mildly anxious r/t heart rate.
[2016-03-14] MEDS: Verapamil SR 240 mg ER12 Tablet PO SCH (20:26)
[2016-03-14] MEDS: Phenytoin 100 mg ER Capsule PO SCH (20:26)
[2016-03-15] VITALS (8 sets, daily range): BP systolic 110–137; BP diastolic 60–86; PULSE 94–120; RESP 18–25; O2SAT 96–98
[2016-03-15 03:53] LABS: INR 1.05 ratio
--- NOTE | 2016-03-15 05:09 | NUR ---
Cardiac Rhythm/Respiratory Pt's cardiac rhythm continues to be A-Fib with the new dose of verapamil 240mg BID. Per report from day shift pt's Tele was A-Fib 90s-120s. This evening the pt's Tele was A-Fib 100s-150s. Pt still on baseline O2 2L NC with SpO2 95%-98%.
[2016-03-15] MEDS: Verapamil SR 240 mg ER12 Tablet PO SCH ×2 (08:34→22:51)
[2016-03-15] MEDS: PARoxetine 20 mg Tablet PO SCH (08:34)
[2016-03-15] MEDS: Brimonidine 0.2% 5 mL Ophthalmic Solution BOTH_EYES SCH ×2 (08:35→22:11)
[2016-03-15] MEDS: Fluticasone 250 mCg Inhaler INHALATION SCH ×2 (08:35→22:51)
[2016-03-15] MEDS: Dorzolamide 2% 10 mL Ophthalmic Solution BOTH_EYES SCH ×2 (08:35→22:50)
--- NOTE | 2016-03-15 09:38 | PCM.PNCARD ---
Subjective Date of service Mar 15, 2016 Chief Complaint SOB Constitutional: Denies: Fever Cardiovascular: Denies: Chest Pain Respiratory: Reports: SOB with Exertion, Shortness of Breath Neurological: Denies: Confusion Exam Vital Signs Vital Sign - Last Date Time Temp Pulse Resp B/P Pulse Ox O2 Delivery O2 Flow Rate FiO2 03/15/16 07:58 36.8 106 20 137/70 98 Nasal Cannula 2.00 03/11/16 17:43 30 Intake and Output 03/14/16 03/14/16 03/15/16 Cumulative From/Thru 15:00 23:00 07:00 03/05/16 17:39 - 03/15/16 05:26 Intake Total 1150 ml 670 ml 80014 ml Output Total 450 ml 91395 ml Balance 1150 ml 220 ml 3817 ml Intake Oral 1150 ml 670 ml 71002 ml IV Total 2062 ml Output Urine Total 450 ml 38513 ml # Voids 6 2 28 # Bowel Movements 0 4 General: Pleasant Cooperative Chest: Hyperresonant to percussion End exp wheeze w/ forced expiration Increased A-P diameter Cardiac: Irregularly irregular rhythm Abdomen: Soft, non-distended, non-tender Extremities: Warm w/o deformities,erythema noted Psychological: Affect & interaction appropriate Lab and Diagnostics Labs CBC Test 03/13/16 02:55 03/14/16 02:25 Neutrophils (%) (Auto) 73.7% (40-74) Lymphocytes (%) (Auto) 12.9% (14-46) Monocytes (%) (Auto) 11.3% (4-12) Eosinophils (%) (Auto) 1.5% (0-5) Basophils (%) (Auto) 0.2% (0-3) White Blood Count 8.5th/mm3 (3.8-10.1) Red Blood Count 3.92mil/mm3 (3.90-5.20) Hemoglobin 12.1g/dL (12.0-15.6) Hematocrit 37.6% (35.0-46.0) Mean Corpuscular Volume 95.9fL (81-100) Mean Corpuscular Hemoglobin 30.9pg (27.0-35.0) Mean Corpuscular Hemoglobin Concent 32.2% (32.0-37.0) Red Cell Distribution Width 13.3% (12.3-15.4) Platelet Count 246bil/L (150-400) CMP Test 03/05/16 17:30 03/07/16 03:58 03/13/16 02:55 03/14/16 02:25 Pro-B-Type Natriuretic Peptide 2480pg/mL Troponin T 0.010ug/L Total Bilirubin 0.4mg/dL Aspartate Amino Transf (AST/SGOT) 13U/L Alanine Aminotransferase (ALT/SGPT) 18U/L Alkaline Phosphatase 89U/L Total Protein 5.4g/dL Albumin 3.1g/dL Sodium Level 140mEq/L Potassium Level 4.0mEq/L Chloride Level 99mEq/L Carbon Dioxide Level 30mmol/L Blood Urea Nitrogen 12mg/dL Creatinine 0.56mg/dL Estimat Glomerular Filtration Rate 149mL/min Glucose Level 107mg/dL Calcium Level 8.7mg/dL Test 03/15/16 03:20 Magnesium Level 1.4mg/dL Result Diagram: 03/14/1622403/14/16224 Assessment & Plan Problems: (1) Atrial fibrillation with RVR Plan: Her HR is still not adequately controlled although he just received her 2nd dose of Verapamil. We will continue to monitor this and consider adding metoprolol tartrate 25 mg BID for additional rate control. I have discussed the case with the resident. Status: Acute ICD Code: I48.91 Pain Evaluation: Adequate Pain Control VTE Mechanical Devices: Intermittant Pneumatic CD Resuscitation Status: CPR: Attempt Resuscitation Time spent 20 minutes Leo Maya MD Mar 15, 2016 09:38
--- NOTE | 2016-03-15 10:12 | NUR ---
Magnesium 1.4 Magnesium 1.4 this morning. Notified doctors about hypomagnesemia during multi-disciplinary meeting. Pt. in A. Fib RVR 100 to 130s. Doctors are aware of this as well. Addendum: 03/15/16 at 1817 by JESSICA KUHN RN 2 g IV Magnesium was given as ordered. Pt. was pain free. She denied palpitation.
[2016-03-15] MEDS ORDERED: Magnesium Chloride SR 64 mg ER24 Tablet PO ONE (11:00)
[2016-03-15] MEDS ORDERED: Magnesium Sulf 2 Gm/50mL Water 2 GM in IV Premix 1 EACH IV ONE (11:05)
--- NOTE | 2016-03-15 11:30 | NUR ---
NUTRITION ASSESSMENT Assess: 81 YO F admitted for afib with RVR, diastolic HF. Pt with good PO intake. PMHX: Glaucoma, diverticulosis, asthma, CAD, HLD, HTN, depression, CVA, seizures, cartoid artery stenosis, afib, cardiac arrest, OA. DIET: General. PO intake: mostly 50-100%. LABS: Cr 0.56, Glu 107, Mg 1.4, (03/13): Alb 3.1 MEDICATIONS: Reviewed. Folic acid, D3, Lasix, Xarelto. GI: 1 BM 03/11. SKIN: No issues noted. WEIGHT: 82.0 kg, BMI 33.1 kg/mg2, Admit wt: 78.4 kg. ESTIMATED NEEDS: BMI Calories: 0560-0358 kcal/day (20-22 kcal/kg BW) Protein: 60-75 g/day (1.2-1.5 g/kg IBW) NUTRITION DIAGNOSIS: 1) No diagnosis at this time. INTERVENTION: 1) No intervention at this time. MONITOR/EVALUATE: PO intake, labs, diet tolerance, GI/nutrition status. Follow per low nutrition risk guidelines.
--- NOTE | 2016-03-15 11:31 | PCM.PNMED ---
Subjective Date of Service Mar 15, 2016 Subjective Keshia Cárdenas is an 81 year old female with history of asthma on chronic home O2 with a history of atrial fibrillation with RVR on Xarelto, coronary artery disease with prior [place], prior CVA with seizure disorder, and hypertension who is admitted for treatment of respiratory distress, A-fib with RVR, acute on chronic heart failure. Hospital Day 7. Overnight: no events reported Today: Patient reports that she is feeling well, denies cough, fever, chills, dizziness. Patient stated that she still experiences high heart rate, but feels like it is better than yesterday. ROS is negative except as noted above. Exam Vital Signs Vital Sign - Last Date Time Temp Pulse Resp B/P Pulse Ox O2 Delivery O2 Flow Rate FiO2 03/15/16 04:08 37.2 94 24 110/72 97 Nasal Cannula 2.00 03/11/16 17:43 30 Intake and Output 03/14/16 03/14/16 03/15/16 Cumulative From/Thru 15:00 23:00 07:00 03/05/16 17:39 - 03/15/16 05:26 Intake Total 1150 ml 670 ml 79123 ml Output Total 450 ml 73649 ml Balance 1150 ml 220 ml 3817 ml Intake Oral 1150 ml 670 ml 77986 ml IV Total 2062 ml Output Urine Total 450 ml 69626 ml # Voids 6 2 28 # Bowel Movements 0 4 Exam General: In no acute distress, sitting in chair eating breakfast, well-developed , well-nourished, appropriately interactive with nasal cannula on face. HEENT: Normocephalic, atraumatic. External ears without defect. Pupils equal, round, and reactive to light and accommodation. Anicteric sclerae, moist conjunctivae, and no lid lag. Oropharynx free of erythema and cobble stoning with moist mucosa. Neck: Supple with full range of motion. No jugular venous distension. No bruits. No lymphadenopathy or thyromegaly. Cardiovascular: Irregularly irregular with control rate with no murmurs, rubs, or gallops appreciated, Pulmonary: Clear to auscultation Bilaterally, no crackles, no wheezes, or rhonchi. Normal respiratory effort with no use of accessory muscles. Abdomen: Bowel tones present. Soft, nontender, nondistended. No hepatosplenomegaly or masses appreciated. Extremities: No clubbing, cyanosis, or lymphadenopathy appreciated. No Edema of bilateral legs, improved from yesterday Skin: Normal temperature, turgor, and texture; no rash, ulcers, or subcutaneous nodules appreciated. Neurological: Cranial nerves grossly intact. Normal muscle strength, tone, and bulk. Reflexes, coordination, and sensory function within normal limits. No known gait impairment. Psychiatric: Normal mood and affect. Alert and oriented to person, place, and time. Lab and Diagnostics Result Diagram: 03/14/1622403/14/16224 X-Rays, CTs and MRIs X-RAY CHEST ONE VIEW IMPRESSION: Mild acute CHF pattern with small bilateral subpulmonic pleural effusions. Dictated by: Darshan Ellis M.D. on 03/05/2016 at 19:55 Approved by: Darshan Ellis M.D. on 03/05/2016 at 19:5 Cardiac Echo Impressions ECHOCARDIOGRAM 01/04/16 Interpretation Summary 1) Normal left ventricular thickness, size, wall motion, and systolic function (EF 65-70%). 2) Normal right ventricular size and function. 3) Calcific mild to moderate stenosis and mild aortic regurgitation. 4) Calcific mitral valve with mild mitral inflow gradient and moderate mitral regurgitation. 5) Severely dilated left atrium. 6) Pulmonary hypertension present, estimated systolic pulmonary artery pressure of 51mmHg. 7) Compared to the Echo done 09/19/2014, systolic pulmonary pressure has decreased from 61mmHg to 51mmHg. Reading Physician:PM Additional Diagnostics ABG DateTimeAnalyzed 16:37:00 -_ pH ____7.396 - 7.350 7.450 pCO2 ___46.1__ -mmHg 35.0 45.0 pO2 ___69.3__ -mmHg 69.0 116 HCO3- ___27.7__ -mmol/L 22.0 26.0 US RENAL SONOGRAM IMPRESSION: Bladder lumen is emptied by Alejandro catheter in place. No urinary retention suspected, given this finding. Accurate assessment for presence or absence of bladder mass is not possible in this circumstance but no large bladder mass or calculus is suspected. No hydronephrosis or nephrolithiasis found. Renal cortical thinning appears chronic. Dictated by: Darsahn Ellis M.D. on 03/07/2016 at 9:59 Approved by: Darshan Ellis M.D. on 03/07/2016 at 9:59 Assessment & Plan 81 year old female with history of asthma on chronic home O2 with a history of atrial fibrillation with RVR on Xarelto, coronary artery disease with prior [place], prior CVA with seizure disorder, and hypertension who is admitted for treatment of respiratory distress, A-fib with RVR, acute on chronic heart failure. 1. Atrial fibrillation with rapid ventricular response, acute on chronic, present on admission, improving - appreciate cardiology consult. will f/u w/ recs - increase verapamil to 240 mg b.i.d, monitor response today -Per cardiology if patient HR still uncontrolled consider reintroducing metoprolol at low dose - Continue Digoxin - Continue Xarelto - Continue Tele 2. Diastolic heart failure, acute on chronic, present on admission, improving - Last Echocardiogram showed EF 65-70% - Continue Lasix 40 mg TID PO - Continue home potassium chloride 3. Hypercapnic Respiratory distress, acute, present on admission, Resolved - Likely the patient has COPD but has not been officially diagnosed, which may be due to past history of smoking or the natural progression of her asthma. - Continue BiPAP as needed - Respiratory Viral PCR negative - discontinued azithromycin 03/11/16 4. Hematuria, present on admission, resolved - 3-10 RBCs on UA, likely due to catheter insertion - Renal US ordered, negative 5. Hyperlipidemia, chronic, present on admission. - Continue Lipitor. 6. Depression, chronic, present on admission. stable - Continue Paroxetine. 7. Seizure disorder, chronic, present on admission. stable - Continue phenytoin. Disposition: Patient will likely need 24-48 hours to reassess rate control. discharge to home once rate controlled VTE Mechanical Devices: Intermittant Pneumatic CD Resuscitation Status: CPR: Attempt Resuscitation Attending Statement The patient was seen and examined together with Dr. Li on and I agree with the history, exam and plan as outlined in the note above. . COLE LI DO Mar 15, 2016 06:54 Shiv Keene MD Mar 18, 2016 07:48
[2016-03-15] MEDS: Phenytoin 100 mg ER Capsule PO SCH (22:52)
[2016-03-16] VITALS (8 sets, daily range): BP systolic 102–118; BP diastolic 46–68; PULSE 78–121; RESP 16–26; O2SAT 95–96
[2016-03-16 03:28] LABS: Mean Corpuscular Hemoglobin 30.5 pg (27.0-35.0); Mean Corpuscular Volume 95.8 fL (81-100)
--- NOTE | 2016-03-16 06:05 | NUR ---
Respiratory/Telemetry Patient repositioned q2hrs for comfort and skin integrity with the inability to lie flat. Tele: AFIB HR 114. Denies chest pain, resp distress, and discomfort. No n/v/d or gi upset reported or observed. SPO2 96% on 1L/min via nasal cannula.
--- NOTE | 2016-03-16 09:17 | NUR ---
[facility] Signed 9AM
[2016-03-16] MEDS: Fluticasone 250 mCg Inhaler INHALATION SCH ×2 (09:38→20:39)
[2016-03-16] MEDS: PARoxetine 20 mg Tablet PO SCH (09:39)
[2016-03-16] MEDS: Dorzolamide 2% 10 mL Ophthalmic Solution BOTH_EYES SCH ×2 (09:41→20:39)
[2016-03-16] MEDS: Verapamil SR 240 mg ER12 Tablet PO SCH ×2 (09:41→20:39)
[2016-03-16] MEDS: Brimonidine 0.2% 5 mL Ophthalmic Solution BOTH_EYES SCH ×2 (09:42→20:39)
--- NOTE | 2016-03-16 09:43 | PCM.PNCARD ---
Subjective Date of service Mar 16, 2016 Chief Complaint SOB Cardiovascular: Reports: Irregular Heart Rate, Rapid Heart Rate Exam Vital Signs Vital Sign - Last Date Time Temp Pulse Resp B/P Pulse Ox O2 Delivery O2 Flow Rate FiO2 03/16/16 09:32 36.5 117 26 102/59 96 Nasal Cannula 1.00 03/11/16 17:43 30 Intake and Output 03/15/16 03/15/16 03/16/16 Cumulative From/Thru 15:00 23:00 07:00 03/05/16 17:39 - 03/16/16 04:50 Intake Total 668 ml 1120 ml 60146 ml Output Total 60474 ml Balance 668 ml 1120 ml 5605 ml Intake Oral 618 ml 1120 ml 20854 ml IV Total 50 ml 2112 ml Output Urine Total 36811 ml # Voids 3 3 34 # Bowel Movements 4 General: Pleasant Cooperative Neurological: Alert & oriented Psychological: Affect & interaction appropriate Lab and Diagnostics Result Diagram: 03/16/16 0300 03/16/16 0300 Assessment & Plan Problems: (1) Atrial fibrillation with RVR Plan: HR is still elevated. Will start metoprolol tartrate 25 mg BID today. Continue to monitor. Status: Acute ICD Code: I48.91 Pain Evaluation: Adequate Pain Control VTE Mechanical Devices: Intermittant Pneumatic CD Resuscitation Status: CPR: Attempt Resuscitation Time spent 15 min. Leo Maya MD Mar 16, 2016 09:43
--- NOTE | 2016-03-16 18:07 | PCM.PNMED ---
Subjective Date of Service Mar 16, 2016 Subjective Keshia Cárdenas is an 81 year old female with history of asthma on chronic home O2 with a history of atrial fibrillation with RVR on Xarelto, coronary artery disease with prior VT, prior CVA with seizure disorder, and hypertension who is admitted for treatment of respiratory distress, A-fib with RVR, acute on chronic heart failure. Hospital Day 9. Overnight: no events reported Today: Patient reports that she is feeling well, denies cough, fever, chills, dizziness. Patient stated that she still experiences high heart rate, but feels like it is better than yesterday. ROS is negative except as noted above. Exam Vital Signs Vital Sign - Last Date Time Temp Pulse Resp B/P Pulse Ox O2 Delivery O2 Flow Rate FiO2 03/16/16 03:55 36.8 106 20 118/68 95 Nasal Cannula 1.00 03/11/16 17:43 30 Intake and Output 03/15/16 03/15/16 03/16/16 Cumulative From/Thru 15:00 23:00 07:00 03/05/16 17:39 - 03/16/16 04:50 Intake Total 668 ml 1120 ml 63751 ml Output Total 10363 ml Balance 668 ml 1120 ml 5605 ml Intake Oral 618 ml 1120 ml 46293 ml IV Total 50 ml 2112 ml Output Urine Total 64856 ml # Voids 3 3 34 # Bowel Movements 4 Exam General: In no acute distress, sitting in chair eating breakfast, well-developed , well-nourished, appropriately interactive with nasal cannula on face. HEENT: Normocephalic, atraumatic. External ears without defect. Pupils equal, round, and reactive to light and accommodation. Anicteric sclerae, moist conjunctivae, and no lid lag. Oropharynx free of erythema and cobble stoning with moist mucosa. Neck: Supple with full range of motion. No jugular venous distension. No bruits. No lymphadenopathy or thyromegaly. Cardiovascular: Irregularly irregular with control rate with no murmurs, rubs, or gallops appreciated, Pulmonary: Clear to auscultation Bilaterally, no crackles, no wheezes, or rhonchi. Normal respiratory effort with no use of accessory muscles. Abdomen: Bowel tones present. Soft, nontender, nondistended. No hepatosplenomegaly or masses appreciated. Extremities: No clubbing, cyanosis, or lymphadenopathy appreciated. No Edema of bilateral legs, improved from yesterday Skin: Normal temperature, turgor, and texture; no rash, ulcers, or subcutaneous nodules appreciated. Neurological: Cranial nerves grossly intact. Normal muscle strength, tone, and bulk. Reflexes, coordination, and sensory function within normal limits. No known gait impairment. Psychiatric: Normal mood and affect. Alert and oriented to person, place, and time. IVs and Medications Medications Reviewed: Medications were reviewed in detail Lab and Diagnostics Result Diagram: 03/16/16 0300 03/16/16 0300 X-Rays, CTs and MRIs X-RAY CHEST ONE VIEW IMPRESSION: Mild acute CHF pattern with small bilateral subpulmonic pleural effusions. Dictated by: Darshan Ellis M.D. on 03/05/2016 at 19:55 Approved by: Darshan Ellis M.D. on 03/05/2016 at 19:5 Cardiac Echo Impressions ECHOCARDIOGRAM 01/04/16 Interpretation Summary 1) Normal left ventricular thickness, size, wall motion, and systolic function (EF 65-70%). 2) Normal right ventricular size and function. 3) Calcific mild to moderate stenosis and mild aortic regurgitation. 4) Calcific mitral valve with mild mitral inflow gradient and moderate mitral regurgitation. 5) Severely dilated left atrium. 6) Pulmonary hypertension present, estimated systolic pulmonary artery pressure of 51mmHg. 7) Compared to the Echo done 09/19/2014, systolic pulmonary pressure has decreased from 61mmHg to 51mmHg. Reading Physician:PM Additional Diagnostics ABG DateTimeAnalyzed 16:37:00 -_ pH ____7.396 - 7.350 7.450 pCO2 ___46.1__ -mmHg 35.0 45.0 pO2 ___69.3__ -mmHg 69.0 116 HCO3- ___27.7__ -mmol/L 22.0 26.0 US RENAL SONOGRAM IMPRESSION: Bladder lumen is emptied by Alejandro catheter in place. No urinary retention suspected, given this finding. Accurate assessment for presence or absence of bladder mass is not possible in this circumstance but no large bladder mass or calculus is suspected. No hydronephrosis or nephrolithiasis found. Renal cortical thinning appears chronic. Dictated by: Darshan Ellis M.D. on 03/07/2016 at 9:59 Approved by: Darshan Ellis M.D. on 03/07/2016 at 9:59 Assessment & Plan 81 year old female with history of asthma on chronic home O2 with a history of atrial fibrillation with RVR on Xarelto, coronary artery disease with prior VT, prior CVA with seizure disorder, and hypertension who is admitted for treatment of respiratory distress, A-fib with RVR, acute on chronic heart failure. Hospital Day 9 1. Atrial fibrillation with rapid ventricular response, acute on chronic, present on admission, improving - appreciate cardiology consult. will f/u w/ recs - increase verapamil to 240 mg b.i.d, HR remains tachycardic with rate of - Per cardiology started 25 mg Metoprolol in the morning - Patient HR controlled with metoprolol, however her blood pressure remained 110 -115 / 40-50, patient may need cardioversion, she has been anticoagulated on Xarelto for 2-3 months prior to hospitalization,we will await recommendations of cardiology - Continue Digoxin - Continue Xarelto - Continue Tele 2. Diastolic heart failure, acute on chronic, present on admission, improving - Last Echocardiogram showed EF 65-70% - Continue Lasix 40 mg TID PO - Continue home potassium chloride 3. Hypercapnic Respiratory distress, acute, present on admission, Resolved - Likely the patient has COPD but has not been officially diagnosed, which may be due to past history of smoking or the natural progression of her asthma. - Continue BiPAP as needed - Respiratory Viral PCR negative - discontinued azithromycin 03/11/16 4. Hematuria, present on admission, resolved - 3-10 RBCs on UA, likely due to catheter insertion - Renal US ordered, negative 4. Hyperlipidemia, chronic, present on admission. - Continue Lipitor. 5. Depression, chronic, present on admission. stable - Continue Paroxetine. 6. Seizure disorder, chronic, present on admission. stable - Continue phenytoin. GI: Scheduled bowel regimen Resp: Incentive spirometry DVT prophylaxis: SCD's CODE STATUS: FULL CODE Disposition: Patient will likely need 24-48 hours to reassess rate control. discharge to home once rate controlled VTE Mechanical Devices: Intermittant Pneumatic CD Resuscitation Status: CPR: Attempt Resuscitation Attending Statement The patient was seen and examined together with Dr. Li on 03/16/2016 and I agree with the history, exam and plan as outlined in the note above. . COLE LI DO Mar 16, 2016 06:41 Shiv Keene MD Mar 18, 2016 07:48
--- NOTE | 2016-03-16 19:20 | NUR ---
Shift Notation Patient HR decreased to Afib 70-90. Pt denies chest pain, SOB, N/V. Pt on bedrest until HR is controlled and she can work with PT. Pt SaO2 mid 90's on 1L O2 NC. She has been pleasant and cooperative with cares, Alert and oriented x 3. Moves all extremities.
[2016-03-16] MEDS: Phenytoin 100 mg ER Capsule PO SCH (20:41)
[2016-03-17 03:04] VITALS: BP 99/56; PULSE 96; RESP 20; O2SAT 95
[2016-03-17 03:29] LABS: Mean Corpuscular Hemoglobin 30.7 pg (27.0-35.0); Mean Corpuscular Volume 97.5 fL (81-100)
[2016-03-17 03:45] LABS: INR 1.01 ratio
--- NOTE | 2016-03-17 05:39 | NUR ---
Tele Tele: A-Fib, 1 L O2 per NC, A&O x3 . Using call light appropriately, Saline Lock Slight reddening medial rt buttock . NO C/O Pain
[2016-03-17 09:30] VITALS: PULSE 99
[2016-03-17] MEDS: Fluticasone 250 mCg Inhaler INHALATION SCH (09:47)
[2016-03-17] MEDS: Verapamil SR 240 mg ER12 Tablet PO SCH (09:47)
[2016-03-17] MEDS: PARoxetine 20 mg Tablet PO SCH (09:47)
[2016-03-17] MEDS: Brimonidine 0.2% 5 mL Ophthalmic Solution BOTH_EYES SCH (09:48)
[2016-03-17] MEDS: Dorzolamide 2% 10 mL Ophthalmic Solution BOTH_EYES SCH (09:48)
[2016-03-17 09:55] VITALS: BP 105/74; PULSE 89; RESP 16; O2SAT 95
[2016-03-17 10:01] VITALS: PULSE 92; RESP 16; O2SAT 96
--- NOTE | 2016-03-17 10:38 | PCM.PNCARD ---
Subjective Date of service Mar 17, 2016 Chief Complaint SOB Constitutional: Denies: Fever, Sweats Cardiovascular: Reports: Irregular Heart Rate Neurological: Denies: Confusion, Dizziness Exam Vital Signs Vital Sign - Last Date Time Temp Pulse Resp B/P Pulse Ox O2 Delivery O2 Flow Rate FiO2 03/17/16 10:01 92 16 96 Nasal Cannula 1.00 03/17/16 09:55 36.4 105/74 03/11/16 17:43 30 Intake and Output 03/16/16 03/16/16 03/17/16 Cumulative From/Thru 15:00 23:00 07:00 03/05/16 17:39 - 03/17/16 04:45 Intake Total 400 ml 700 ml 80460 ml Output Total 2 ml 66995 ml Balance 400 ml 698 ml 6703 ml Intake Oral 400 ml 700 ml 35298 ml IV Total 2112 ml Output Urine Total 2 ml 05476 ml # Voids 3 37 # Bowel Movements 0 4 General: Pleasant Cooperative Cardiac: Irregularly irregular rhythm Neurological: Alert & oriented Psychological: Affect & interaction appropriate Lab and Diagnostics Result Diagram: 03/17/1631403/17/16314 Assessment & Plan Problems: (1) Atrial fibrillation with RVR Plan: Afib with RVR is improving. I will go ahead and increase her metoprolol to 50 mg BID. If it stays the same or improves, then she may go home from a cardiology perspective. 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 (within 2 weeks). I have messaged our office to arrange follow up with Dr. Pascal. Status: Acute ICD Code: I48.91 Pain Evaluation: Adequate Pain Control VTE Mechanical Devices: Intermittant Pneumatic CD Resuscitation Status: CPR: Attempt Resuscitation Time spent 15 minutes copies to: Lolita Pascal MD, Oscar J MD Mar 17, 2016 10:38
[2016-03-17 12:24] VITALS: BP 101/66; PULSE 75; RESP 16; O2SAT 94
[2016-03-17 13:16] VITALS: PULSE 75
--- NOTE | 2016-03-17 13:44 | PCM.DIMED ---
COLE LI DO 03/17/16 1344: Discharge Instructions Date of Service Mar 17, 2016 Dates of Hospitalization Mar 05, 2016 at 20:02 Discharge Diagnosis Discharge Diagnosis 1. Atrial fibrillation with rapid ventricular response, acute on chronic, present on admission, improving 2. Diastolic heart failure, acute on chronic, present on admission, improving 3. Hypercapnic Respiratory distress, acute, present on admission, Resolved 4. Hematuria, present on admission, resolved 4. Hyperlipidemia, chronic, present on admission. 5. Depression, chronic, present on admission. stable 6. Seizure disorder, chronic, present on admission. stable Activity Limited until seen by PCP, Home Health Phyical Therapy Call your provider Fever or Chills, Shortness of breath, Bleeding, Chest pain, Vomitting, Excessive diarrhea, Weakness (unilateral), Other Patient Instructions 1. Atrial fibrillation with rapid ventricular response, acute on chronic, present on admission, improving -Continue verapamil to 240 mg b.i.d, NSR - Continue 50 mg Metoprolol in the morning - Continue Digoxin - Continue Xarelto - Continue Tele 2. Diastolic heart failure, acute on chronic, present on admission, improving - Last Echocardiogram showed EF 65-70% - Resume home Lasix dose 40 once daily - Continue home potassium chloride 3. Hypercapnic Respiratory distress, acute, present on admission, Resolved - Continue BiPAP as needed - Respiratory Viral PCR negative - discontinued azithromycin 03/11/16 4. Hematuria, present on admission, resolved - 3-10 RBCs on UA, likely due to catheter insertion - Renal US ordered, negative 4. Hyperlipidemia, chronic, present on admission. - Continue Lipitor. 5. Depression, chronic, present on admission. stable - Continue Paroxetine. 6. Seizure disorder, chronic, present on admission. stable - Continue phenytoin. Follow-up plan Follow up with Dr. Vargas at next scheduled appointment Follow up with PCP in one week Follow-up with PCP in: 1 week Shiv Keene MD 03/18/16 0749: Discharge Instructions Attending's Statement The patient was seen and examined together with Dr. Li on 03/17/2016 and I agree with the history, exam and plan as outlined in the note above. . COLE LI DO Mar 17, 2016 13:44 Shiv Keene MD Mar 18, 2016 07:49
[2016-03-17] MEDS ORDERED: VERA240T PO (13:48)
[2016-03-17] MEDS ORDERED: METO50TA3 PO (13:48)
[2016-03-17] MEDS ORDERED: LAN125 PO (13:48)
[2016-03-17] MEDS ORDERED: RIVA20TA PO (13:48)
[2016-03-17] MEDS ORDERED: ATRINH INH (13:50)
--- NOTE | 2016-03-17 15:20 | NUR ---
Social Work Note: Discharge Data& Assessment: Per pt is medically ready for discharge. Keshia Cárdenas is a 81 year old female admitted on 03/05/2016 for AFIB with RVR. Per pt is medically improved and ready to discharge home via POV with [facility], RN and [employer]ENOVATOR MACHINE [employer]PERATOR. PT has cleared pt to go home with . AURELIO spoke with Iesha at [facility] regarding pt discharge home. AUREILO also faxed clinicals and F2F to Iesha, [facility]ia[facility] per her request. AURELIO also faxed DC paperwork to her [facility] CM Cj Cash. AURELIO met with pt at bedside to confirm discharge plan and assess for any unmet needs. Pt son in law is transporting pt home today. Pt denies any other needs. No other discharge needs identified. Plan: Per pt is medically improved and ready to discharge home via POV with [facility], RN and RENOVATOR MACHINE OPERATOR and resume [facility] caregiving. Pt son in law is transporting pt home today. Pt denies any other needs. No other discharge needs identified. GREGORY Alba
--- NOTE | 2016-03-17 15:59 | NUR ---
Discharge Pt discharged to her home, for transportation via POV by her son-in-law. Pt's IV's dc'd intact. Telemetry removed and tech notified. Pt's belongings were gathered for transport home. Pt's discharge instructions, follow up appointments and new medications were reviewed. All questions answered and pt voiced understanding. Pt was escorted off unit to vehicle by [facility].
--- NOTE | 2016-03-17 19:25 | PCM.DC.MED ---
Discharge Summary Date of Service Mar 17, 2016 Dates of Hospitalization Date of Hospital Admission Mar 05, 2016 at 20:02 Date of Discharge: Mar 17, 2016 Providers: Admitting Physician: Hayley Julian MD Primary Care Physician: Oscar Post MD Attending Physician: Hayley Julian MD Diagnosis at Time of Discharge Diagnosis at Time of Discharge 1. Atrial fibrillation with rapid ventricular response, acute on chronic, present on admission, improving 2. Diastolic heart failure, acute on chronic, present on admission, improving 3. Hypercapnic Respiratory distress, acute, present on admission, Resolved 4. Hematuria, present on admission, resolved 4. Hyperlipidemia, chronic, present on admission. 5. Depression, chronic, present on admission. stable 6. Seizure disorder, chronic, present on admission. stable Consultations cardiology Procedures XRay, CTs & MRIs X-RAY CHEST ONE VIEW IMPRESSION: Mild acute CHF pattern with small bilateral subpulmonic pleural effusions. Dictated by: Darshan Ellis M.D. on 03/05/2016 at 19:55 Approved by: Darshan Ellis M.D. on 03/05/2016 at 19:5 Cardiac Echo Impression ECHOCARDIOGRAM 01/04/16 Interpretation Summary 1) Normal left ventricular thickness, size, wall motion, and systolic function (EF 65-70%). 2) Normal right ventricular size and function. 3) Calcific mild to moderate stenosis and mild aortic regurgitation. 4) Calcific mitral valve with mild mitral inflow gradient and moderate mitral regurgitation. 5) Severely dilated left atrium. 6) Pulmonary hypertension present, estimated systolic pulmonary artery pressure of 51mmHg. 7) Compared to the Echo done 09/19/2014, systolic pulmonary pressure has decreased from 61mmHg to 51mmHg. Reading Physician:ALE Other Diagnostics ABG DateTimeAnalyzed 16:37:00 -_ pH ____7.396 - 7.350 7.450 pCO2 ___46.1__ -mmHg 35.0 45.0 pO2 ___69.3__ -mmHg 69.0 116 HCO3- ___27.7__ -mmol/L 22.0 26.0 US RENAL SONOGRAM IMPRESSION: Bladder lumen is emptied by Alejandro catheter in place. No urinary retention suspected, given this finding. Accurate assessment for presence or absence of bladder mass is not possible in this circumstance but no large bladder mass or calculus is suspected. No hydronephrosis or nephrolithiasis found. Renal cortical thinning appears chronic. Dictated by: Darshan Ellis M.D. on 03/07/2016 at 9:59 Approved by: Darshan Ellis M.D. on 03/07/2016 at 9:59 Brief History Copied from H&P "Ms. Cárdenas is a pleasant 81 year old woman with history of chronic respiratory failure secondary to COPD and asthma, and distant tobacco use, that presented to [facility] with symptomatic AF with RVR. Continued use of OxyMask and BPAP have been needed to maintain oxygen saturations. Pulmonary was consulted to evaluate for her acute on chronic respiratory failure. Ms. Gloria Guzman states that her home oxygen requirement is approx 2L continuous use. She states she completed a sleep study in December 2015, but has yet to receive the results. She admits to a distant tobacco use history, quitting approximately 40 years ago. She also reports a distant EtOH use. 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 She claims her asthma developed at this time, and that the asbestos or shipyard exposure were not the culprits, but the lack of ventilation and high heat and humidity of her work environment. 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 Denies any direct contact with asbestos, silicone, shipyard/manufacturing. She denies any recent travel history , denies any known exposure to TB. No reported travel to [place]. She notes that she was exposed to second-hand smoke throughout her childhood, and started smoking herself at a young age. She quit approximately 40 years ago, when she was diagnosed with asthma secondary to her occupational exposure." Hospital Course 1. Atrial fibrillation with rapid ventricular response, acute on chronic, present on admission, improving - appreciate cardiology consult. will f/u w/ recs - Initially rate controlled on Diltiazem drip maximum does 15 ml/min. Dose convened to oral dose. Patient A-fib with RVR refractory to oral Diltazem. Decision was made by cardiology to discontinue Diltiazem and titrate Verapamil over 24-48 hours - Titrated verapamil to 240 mg b.i.d, HR remained tachycardic with rate of 115- 130 - Per cardiology started 50 mg Metoprolol in the morning, Patient converted to NSR and remained so during PT. Continue at discharge - Patient HR controlled with metoprolol, however her blood pressure remained 110 -115 / 40-50, decreased lasix dose to 40 in morning, blood pressure improved at time of discharge 101/66 - Continue Digoxin - Continue Xarelto - Continue Tele 2. Diastolic heart failure, acute on chronic, present on admission, improving - Last Echocardiogram showed EF 65-70% - Continue Lasix 40 mg QD - Continue home potassium chloride 3. Hypercapnic Respiratory distress, acute, present on admission, Resolved - Likely the patient has COPD but has not been officially diagnosed, which may be due to past history of smoking or the natural progression of her asthma. - Continue BiPAP as needed - Respiratory Viral PCR negative - discontinued azithromycin 03/11/16 4. Hematuria, present on admission, resolved - 3-10 RBCs on UA, likely due to catheter insertion - Renal US ordered, negative 4. Hyperlipidemia, chronic, present on admission. - Continue Lipitor. 5. Depression, chronic, present on admission. stable - Continue Paroxetine. 6. Seizure disorder, chronic, present on admission. stable - Continue phenytoin. Exam Vital Signs (Last) Date Time Temp Pulse Resp B/P Pulse Ox O2 Delivery O2 Flow Rate FiO2 03/17/16 13:16 75 03/17/16 12:24 36.8 16 101/66 94 Nasal Cannula 1.00 03/11/16 17:43 30 Test 03/05/16 17:30 03/05/16 21:45 03/07/16 03:58 03/12/16 16:44 Activated Partial Thromboplast Time 29.2sec (22.8-33.0) Pro-B-Type Natriuretic Peptide 2480pg/mL (0-738) Urine Color Whit (YELLOW) Urine Appearance Hazy (CLEAR,HAZY) Urine pH 6.5 (5.0-8.0) Urine Specific [place] 1.025 (1.003-1.035) Urine Protein 30mg/dL (NEG,TRACE) Urine Glucose (UA) Negativemg/dL (NEGATIVE) Urine Ketones Tracemg/dL (NEGATIVE) Urine Occult Blood Negative (NEGATIVE) Urine Nitrite Negative (NEGATIVE) Urine Bilirubin Small (NEGATIVE) Urine Ictotest Positive (Negative) Urine Urobilinogen Normalmg/dL (NORMAL) Urine Leukocyte Esterase Trace (NEGATIVE) Urine RBC 3-10/hpf (0-2) Urine WBC >50/hpf (0-5) Urine Epithelial Cells Moderate/hpf (NONE-MOD) Urine Crystals None seen (NONE SEEN) Urine Bacteria None/hpf (NONE-FEW) Urine Hyaline Casts None/lpf (NONE) Urine Granular Casts None seen (NONE SEEN) Urine Waxy Casts None seen (NONE SEEN) Urine Red Blood Cell Casts None seen (NONE SEEN) Urine White Blood Cell Casts None seen (NONE SEEN) Urine Mucus Present (None Seen) Urine Trichomonas None seen (NONE SEEN) Urine Yeast None (NONE SEEN) Urine Culture Reflexed Indicated Troponin T 0.010ug/L (0.0-0.011) Digoxin Level 0.6nG/mL (0.9-2.0) Test 03/13/16 02:55 03/16/16 08:05 03/17/16 03:15 Neutrophils (%) (Auto) 73.7% (40-74) Lymphocytes (%) (Auto) 12.9% (14-46) Monocytes (%) (Auto) 11.3% (4-12) Eosinophils (%) (Auto) 1.5% (0-5) Basophils (%) (Auto) 0.2% (0-3) Total Bilirubin 0.4mg/dL (0.0-1.2) Aspartate Amino Transf (AST/SGOT) 13U/L (0-50) Alanine Aminotransferase (ALT/SGPT) 18U/L (0-32) Alkaline Phosphatase 89U/L (25-165) Total Protein 5.4g/dL (6.4-8.4) Albumin 3.1g/dL (3.4-5.0) Magnesium Level 1.8mg/dL (1.6-2.6) White Blood Count 7.1th/mm3 (3.8-10.1) Red Blood Count 3.94mil/mm3 (3.90-5.20) Hemoglobin 12.1g/dL (12.0-15.6) Hematocrit 38.4% (35.0-46.0) Mean Corpuscular Volume 97.5fL (81-100) Mean Corpuscular Hemoglobin 30.7pg (27.0-35.0) Mean Corpuscular Hemoglobin Concent 31.5% (32.0-37.0) Red Cell Distribution Width 13.3% (12.3-15.4) Platelet Count 234bil/L (150-400) Prothrombin Time 10.8sec (8.1-12.5) Prothromb Time International Ratio 1.01ratio Sodium Level 137mEq/L (134-144) Potassium Level 3.7mEq/L (3.5-5.2) Chloride Level 96mEq/L (97-108) Carbon Dioxide Level 31mmol/L (18-29) Blood Urea Nitrogen 18mg/dL (8-27) Creatinine 0.67mg/dL (0.57-1.00) Estimat Glomerular Filtration Rate 121mL/min (>59) Glucose Level 159mg/dL (60-99) Calcium Level 8.7mg/dL (8.5-10.1) Discharge Medications Discharge Medications Atorvastatin (Lipitor) 20 Mg Tablet 20 MG PO HS (Reported) Bimatoprost (Lumigan) 45 Drop/2.5 Ml Ophsoln 45 DROP OD HS (Reported) Biotin (Biotin) 1 Mg Capsule 1 MG PO DAILY (Reported) Brimonidine Tartrate (Alphagan P) 5 Ml Drops 5 ML BOTH_EYES BID (Reported) Brinzolamide (Azopt 1% Ophthalmic Suspension) 10 Ml Drops.susp 1 DROP OP BID ( Reported) Cholecalciferol (Vitamin D3) (Vitamin D) 1,000 Unit Tablet 1,000 UNIT PO DAILY ( Reported) Digoxin (Lanoxin) 0.125 Mg Tablet 0.125 MG PO DAILY@12 Prescribed by: COLE BALDERRAMA DO Fluticasone Propionate (Flovent HFA 220 mcg) 12 Gm Aer.w.adap 1 PUFF IH BID ( Reported) Folic Acid (Folic Acid) 1 Mg Tablet 1 MG PO DAILY (Reported) Furosemide (Lasix) 40 Mg Tablet 40 MG PO BID (Reported) Ipratropium [place] (Atrovent HFA) 200 Puff/12.9 Gm Inhaler 2 PUFF INH QID Prescribed by: COLE BALDERRAMA, Metoprolol Tartrate (Metoprolol Tartrate) 50 Mg Tablet 50 MG PO BID Prescribed by: COLE BALDERRAMA, Paroxetine (Paroxetine) 40 Mg Tablet 40 MG PO DAILY (Reported) Phenytoin Sodium Extended (Phenytoin Sodium Extended) 100 Mg Capsule 300 MG PO HS Prescribed by: STEPHAN ROSENBERG, Potassium Chloride ER (Potassium Chloride ER) 10 Meq Tablet 10 MEQ PO DAILY ( Reported) TAKE WITH FOOD Verapamil ER (Calan SR) 240 Mg Tablet 240 MG PO BID Prescribed by: COLE BALDERRAMA, As needed Rivaroxaban (Xarelto) 20 Mg Tablet 20 MG PO DAILY PRN PRN anticoagulation Prescribed by: COLE BALDERRAMA DO Miscellaneous Medications ([Tumeric]) 34 MCG PO (Reported) Ascorbic Acid (Vitamin C) 125 Mg Tab.chew 1,000 MG PO (Reported) Chromium Picolinate (Chromium Picolinate) 200 Mcg Capsule 167 MCG PO (Reported) Cyanocobalamin (Vitamin B-12) (Vitamin B-12) 1,000 Mcg Tablet 1,000 MG PO ( Reported) Magnesium Oxide (Magnesium) 400 Mg Capsule 400 MG PO (Reported) Ubidecarenone (Co Q-10) 10 Mg Capsule 100 MG PO (Reported) Followup Plan Follow-up plan Follow up with Dr. Vargas at next scheduled appointment Follow up with PCP in one week Discharge Activity: Limited until seen by PCP, Home Health Phyical Therapy Patient Instructions 1. Atrial fibrillation with rapid ventricular response, acute on chronic, present on admission, improving -Continue verapamil to 240 mg b.i.d, NSR - Continue 50 mg Metoprolol in the morning - Continue Digoxin - Continue Xarelto - Continue Tele 2. Diastolic heart failure, acute on chronic, present on admission, improving - Last Echocardiogram showed EF 65-70% - Resume home Lasix dose 40 once daily - Continue home potassium chloride 3. Hypercapnic Respiratory distress, acute, present on admission, Resolved - Continue BiPAP as needed - Respiratory Viral PCR negative - discontinued azithromycin 03/11/16 4. Hematuria, present on admission, resolved - 3-10 RBCs on UA, likely due to catheter insertion - Renal US ordered, negative 4. Hyperlipidemia, chronic, present on admission. - Continue Lipitor. 5. Depression, chronic, present on admission. stable - Continue Paroxetine. 6. Seizure disorder, chronic, present on admission. stable - Continue phenytoin. Follow-up with PCP in: 1 week Time spent Greater than 30 minutes was spent in preparation of discharge with greater than 50% of that time dedicated to patient counseling and coordination of care. . Attending Statement The patient was seen and examined together with Dr. Balderrama on 03/17/2016 and I agree with the history, exam and plan as outlined in the note above. . copies to: Oscar Post MD, AARON J DO Mar 17, 2016 19:25 Shiv Keene MD Mar 18, 2016 07:50
[2016-04-13] MEDS ORDERED: UBID1CAP52 PO (14:56)
[2016-04-13] MEDS ORDERED: ALBU8.5H2 INHALATION (14:56)
[2016-04-13] MEDS ORDERED: FLUT12AE8 IH (14:56)
[2016-04-30] MEDS ORDERED: VERA240T97 PO (19:40)
[2016-04-30] MEDS ORDERED: FURO40TA4 PO (19:40)
[2016-04-30] MEDS ORDERED: BUDE90AE IH (19:40)
== END 2016-03-17 14:50 | disposition home health service (06) | DRG 308 ==
LOC: EDUNIT# 17:10 → SED 17:10 → EDBD 17:10 → PCC 20:02
PROVIDERS: ADMIT Urology; ATTEND Family Medicine
PROC: 4A033R1 Measurement of Arterial Saturation, Peripheral, Percutaneous Approach (ICD-10-PCS; principal; 2016-03-06)
PROC: 5A09357 Assistance with Respiratory Ventilation, Less than 24 Consecutive Hours, Continuous Positive Airway Pressure (ICD-10-PCS; 2016-03-06)
DX: I48.2 Chronic atrial fibrillation (principal); J96.22 Acute and chronic respiratory failure with hypercapnia; I50.33 Acute on chronic diastolic (congestive) heart failure; J44.1 Chronic obstructive pulmonary disease with (acute) exacerbation; Z79.01 Long term (current) use of anticoagulants; I25.2 Old myocardial infarction; I25.10 Atherosclerotic heart disease of native coronary artery without angina pectoris; I10 Essential (primary) hypertension; G40.909 Epilepsy, unspecified, not intractable, without status epilepticus; Z87.891 Personal history of nicotine dependence; F10.21 Alcohol dependence, in remission; R31.9 Hematuria, unspecified; F32.9 Major depressive disorder, single episode, unspecified; E78.5 Hyperlipidemia, unspecified; Z57.5 Occupational exposure to toxic agents in other industries; Z86.73 Personal history of transient ischemic attack (TIA), and cerebral infarction without residual deficits; J68.3 Other acute and subacute respiratory conditions due to chemicals, gases, fumes and vapors

== ENCOUNTER 2016-03-22 11:31 | Inpatient (IN) | payer MEDICARE, MEDICAID ==
[2016-03-22] VITALS (13 sets, daily range): BP systolic 119–138; BP diastolic 43–93; PULSE 59–130; RESP 19–29; O2SAT 90–99
[~2016-03-22] VITALS: Ht 157.5 cm; Wt 74.9 kg
[~2016-03-22 11:31] MED LIST changes: -ALBU8.5H2 INHALATION; +ATRINH INH; -DILT120C83 PO; -DILT60CA PO; +LAN125 PO; +METO50TA3 PO; +VERA240T PO
--- NOTE | 2016-03-22 11:57 | ED.REPORT ---
HPI-General Illness Date of Service Mar 22, 2016 ED Provider: Yohan Parker MD This is an 81 year old female with a history of atrial fibrillation with RVR on Xarelto, asthma, CHF, coronary artery disease with prior MT, prior CVA with seizure disorder, and hypertension brought to the ED by EMS complaining of shortness of breath that worsened 2 days ago. Reports bilateral lower extremity swelling. Denies nausea, vomiting, abdominal pain, constipation, diarrhea, numbness, weakness, or dizziness. Pt recently admitted to the hospital on 03/05- with atrial fibrillation, CHF, and hypercapnic respiratory distress. During hospitalization she had an echo with ejection fraction fo 65-70%. Nursing Notes Stated Complaint: SHORTNESS OF BREATH Nursing Notes Reviewed: Yes Allergies: Coded Allergies: ranitidine (Verified Allergy, Severe, 03/22/16) Scheduled Atorvastatin (Lipitor) 20 Mg Tablet 20 MG PO HS Bimatoprost (Lumigan) 45 Drop/2.5 Ml Ophsoln 45 DROP OD HS Biotin (Biotin) 1 Mg Capsule 1 MG PO DAILY Brimonidine Tartrate (Alphagan P) 5 Ml Drops 5 ML BOTH_EYES BID Brinzolamide (Azopt 1% Ophthalmic Suspension) 10 Ml Drops.susp 1 DROP OP BID Cholecalciferol (Vitamin D3) (Vitamin D) 1,000 Unit Tablet 1,000 UNIT PO DAILY Chromium Picolinate (Chromium Picolinate) 200 Mcg Capsule 200 MCG PO DAILY Digoxin (Lanoxin) 0.125 Mg Tablet 0.125 MG PO DAILY@12 Folic Acid (Folic Acid) 1 Mg Tablet 1 MG PO DAILY Furosemide (Lasix) 40 Mg Tablet 40 MG PO BID Ipratropium [place] (Atrovent HFA) 200 Puff/12.9 Gm Inhaler 2 PUFF INH BID Metoprolol Tartrate (Metoprolol Tartrate) 50 Mg Tablet 50 MG PO BID Paroxetine (Paroxetine) 40 Mg Tablet 40 MG PO DAILY Phenytoin Sodium Extended (Phenytoin Sodium Extended) 100 Mg Capsule 300 MG PO HS Potassium Chloride ER (Potassium Chloride ER) 10 Meq Tablet 10 MEQ PO DAILY TAKE WITH FOOD Rivaroxaban (Xarelto) 20 Mg Tablet 20 MG PO DAILY Verapamil ER (Calan SR) 240 Mg Tablet 240 MG PO BID Miscellaneous Medications Cyanocobalamin (Vitamin B-12) (B-12) 1,000 Mcg/Ml Drops 1,000 MCG SL Magnesium Oxide (Magnesium) 400 Mg Capsule 400 MG PO General Time Seen by MD: 11:57 Chief Complaint Other Hx Obtained From: Patient Arrived By: Ambulance Sudden in Onset?: Yes Onset Occurred: 2 days ago Symptom Duration: Since onset Pertinent Negative: Pt denies other symptoms Recent Healthcare: No recent doctor visit, No recent hospitalization Similar Sx Previous: No Past Medical History Past Medical History Notes: Last stress test negative in August 2014 Past Medical History Seizures -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 Corotid artery stenosis Atrial Fibrillation with RVR on Xarelto MT in 2009 per patient, with cardiac arrest Osteoarthritis Glaucoma Diverticula seen 08/2002 colonoscopy Reports: Asthma, Coronary artery disease, Hyperlipidemia, Hypertension, Stroke Reports: Depression Past Surgical History Finger surgery Reports: Hysterectomy Reports: Carpal tunnel Smoking History Never Smoker Social History Hx of 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 Physical Exam Vital Signs Vital Signs Date Time Temp Pulse Resp B/P Pulse Ox O2 Delivery O2 Flow Rate FiO2 03/22/16 13:52 97 21 95 Nasal Cannula 3 03/22/16 13:43 101 20 135/66 96 Nasal Cannula 3 03/22/16 12:47 23 120/76 95 Nasal Cannula 3 03/22/16 12:00 37.2 114 19 137/62 99 Room Air Initial VS: Reviewed General/Constitutional: Well-developed, Well-nourished Head / Eyes: Atraumatic, Normocephalic, PERRL ENT: Mucous membranes moist, Conjunctiva normal, No scleral icterus Neck: Supple, Non-tender, Full range of motion Skin: Warm, Dry, No cyanosis Neurologic: Alert, Oriented, Nonfocal Psychiatric: Mood/affect normal, Behavior normal, Normal thought content Diminished Breath Sounds: Positive: Decreased bilateral Wheezing / Retractions: Positive: Wheezing expiratory O2 sats 95% on baseline requirement of 2 liters Cardiovascular: Regular rhythm Heart Rate / Rhythm: Positive: Tachycardia (borderline ) Lower Ext Edema: Positive: Bilateral 1+, Knee, Pitting Interpretation & Diagnostics Lab Results Interpretation Result Diagram: 03/22/16 1213 03/22/16 1213 Test 03/22/16 12:13 03/22/16 14:00 White Blood Count 6.5th/mm3 (3.8-10.1) Red Blood Count 4.38mil/mm3 (3.90-5.20) Hemoglobin 13.5g/dL (12.0-15.6) Hematocrit 41.7% (35.0-46.0) Mean Corpuscular Volume 95.2fL (81-100) Mean Corpuscular Hemoglobin 30.8pg (27.0-35.0) Mean Corpuscular Hemoglobin Concent 32.4% (32.0-37.0) Red Cell Distribution Width 13.2% (12.3-15.4) Platelet Count 165bil/L (150-400) Neutrophils (%) (Auto) 73.0% (40-74) Lymphocytes (%) (Auto) 11.6% (14-46) Monocytes (%) (Auto) 14.7% (4-12) Eosinophils (%) (Auto) 0.2% (0-5) Basophils (%) (Auto) 0.2% (0-3) Sodium Level 137mEq/L (134-144) Potassium Level 3.6mEq/L (3.5-5.2) Chloride Level 91mEq/L (97-108) Carbon Dioxide Level 30mmol/L (18-29) Blood Urea Nitrogen 19mg/dL (8-27) Creatinine 0.62mg/dL (0.57-1.00) Estimat Glomerular Filtration Rate 132mL/min (>59) Glucose Level 113mg/dL (60-99) Calcium Level 9.3mg/dL (8.5-10.1) Magnesium Level 1.5mg/dL (1.6-2.6) Total Bilirubin 0.4mg/dL (0.0-1.2) Aspartate Amino Transf (AST/SGOT) 25U/L (0-50) Alanine Aminotransferase (ALT/SGPT) 21U/L (0-32) Alkaline Phosphatase 127U/L (25-165) Troponin T 0.010ug/L (0.0-0.011) Pro-B-Type Natriuretic Peptide 4759pg/mL (0-738) Total Protein 7.4g/dL (6.4-8.4) Albumin 4.4g/dL (3.4-5.0) Urine Color Straw (YELLOW) Urine Appearance Hazy (CLEAR,HAZY) Urine pH 7.0 (5.0-8.0) Urine Specific [place] 1.015 (1.003-1.035) Urine Protein Negativemg/dL (NEG,TRACE) Urine Glucose (UA) Negativemg/dL (NEGATIVE) Urine Ketones Negativemg/dL (NEGATIVE) Urine Occult Blood Trace (NEGATIVE) Urine Nitrite Negative (NEGATIVE) Urine Bilirubin Negative (NEGATIVE) Urine Urobilinogen Normalmg/dL (NORMAL) Urine Leukocyte Esterase Negative (NEGATIVE) Urine RBC 0-2/hpf (0-2) Urine WBC 0-5/hpf (0-5) Urine Epithelial Cells Occasional/hpf (NONE-MOD) Urine Crystals None seen (NONE SEEN) Urine Bacteria None/hpf (NONE-FEW) Urine Hyaline Casts None/lpf (NONE) Urine Granular Casts None seen (NONE SEEN) Urine Waxy Casts None seen (NONE SEEN) Urine Red Blood Cell Casts None seen (NONE SEEN) Urine White Blood Cell Casts None seen (NONE SEEN) Urine Mucus None seen (None Seen) Urine Trichomonas None seen (NONE SEEN) Urine Yeast None (NONE SEEN) Urinalysis Comment None Urine Culture Reflexed Not indicated ECG Interpretation Time: 14:44 Rhythm Strip Interpretation : Rhythm Strip Interpretation: A-FIB at a rate of 107 Re-Eval/Medical Decision Med Decision/Clinical Course This is an 81 year old female with a history of atrial fibrillation with RVR on Xarelto, asthma, CHF, coronary artery disease with prior MT, prior CVA with seizure disorder, and hypertension brought to the ED by EMS complaining of shortness of breath that worsened 2 days ago. Reports bilateral lower extremity swelling and wheezing. On examination the patient has prolonged expiratory phase and scattered wheezing as well as mild bibasilar crackles and pitting edema of the bilateral lower extremities. EKG was obtained and repeated by myself as documented above. Chest x-ray demonstrated resolving bibasilar pleural effusions and/or pneumonia versus atelectasis. CBC unremarkable CO2 30 Renal fxn normal Troponin negative BNP 4759 Given DuoNeb 125 mg methylprednisolone 40 IV Lasix Overall presentation most consistent with simultaneous exacerbation of underlying COPD as well as exacerbation of congestive heart failure given lower extremity edema and chest x-rays above demonstrating bilateral pleural effusions setting of elevated BNP. I am reassured against acute coronary ischemia at this time given EKG findings and negative troponin. Given presentation consistent with COPD exacerbation the patient was treated with DuoNeb as well as 125 mg of methylprednisolone. The patient reported symptom improvement. Additionally we administered 40 mg of IV Lasix. The patient will require admission for further management. Of note the patient was intermittently in atrial fibrillation with RVR rates up into the 130s spell often improving back into the 80s. Rate control agents were not immediately administered. Patient was transferred in stable condition. Consultation : Consulted With: Hospitalist Call Returned at: 14:44 Counseled Regarding: Diagnosis, Lab results, Need for follow-up, Need for admission Discharge & Departure Primary Impression: CHF exacerbation Additional Impressions: COPD exacerbation Hypercapnia Atrial fibrillation with rapid ventricular response Elevated brain natriuretic peptide (BNP) level Respiratory distress Disposition: ADMITTED TO HOSPITAL Discharge Condition All VS Reviewed: Yes Condition: Stable Referrals: Oscar Post MD (PCP) Crit Care Except Billable Proc Time Spent: 105-134 minutes Services Performed: Patient management by me, Time spent at bedside, Reviewing test results, Reviewing imaging, Discussing patient care, Documentation in record Scribe Attestation Portions of this note were transcribed by Chente Reyes. I, Dr. Parker personally performed the history, physical exam and medical decision-making; I reviewed and confirmed the accuracy of the information in the transcribed note. Signed by: ricci Villafuerte. 03/22/2016, 13:30. Yohan Parker MD Mar 22, 2016 11:57 CHENTE REYES Mar 22, 2016 12:37
[2016-03-22 12:18] LABS: BASOPHILS % (AUTO) 0.2 % (0-3); EOSINOPHILS % (AUTO) 0.2 % (0-5); MONOCYTES % (AUTO) 14.7 % (4-12); Mean Corpuscular Hemoglobin 30.8 pg (27.0-35.0); Mean Corpuscular Volume 95.2 fL (81-100); Platelet Count 165 bil/L (150-400)
[2016-03-22 12:31] LABS: TROPONIN T 0.01 ug/L (0.0-0.011)
[2016-03-22] MEDS ORDERED: Ondansetron 2 mg/mL 2 mL Inj IVPUSH PRN ×2 (13:15→14:50)
[2016-03-22] MEDS ORDERED: Furosemide 10 mg/mL 4 mL Inj IVPUSH ONE (13:15)
[2016-03-22] MEDS ORDERED: MethylprednisoLONE Sodium Succinate 62.5 mg/mL 2 mL Inj IVPUSH ONE (13:15)
[2016-03-22] MEDS ORDERED: Albuterol-Ipratropium 3 mL Inhalation Solution NEB ONE (13:15)
[2016-03-22] MEDS ORDERED: Alum-Mag Hydrox-Simeth 30 mL Suspension PO PRN ×2 (13:15→14:50)
--- NOTE | 2016-03-22 13:52 | DRSVH ---
PROCEDURE: X-RAY CHEST ONE VIEW, PORTABLE ([id number]) INDICATIONS: SOB TECHNIQUE: One view of the chest was acquired. COMPARISON: [facility], CR, XR CHEST 1VW (PORTABLE), 03/10/2016, 5:35. FINDINGS: Surgical changes and devices: None. Lungs and pleura: Resolving pleural effusions and mid/basilar airspace opacities. No pneumothorax. Mediastinum: Mediastinal contours appear normal. Heart size is normal. Mitral annular calcificatio n redemonstrated. Bones and chest wall: No suspicious bony lesions. Overlying soft tissues appear unremarkable. IMPRESSION: Resolving bibasilar pleural effusions and/or pneumonia versus atelectasis. Dictated by: Faustino Prater RRA Interpreted: Griselda Howell MD on 03/22/2016 at 13:51 Transcribed by: JAXSON on 03/22/2016 at 13:52 Approved by: Griselda Howell M.D. on 03/22/2016 at 16:26
[2016-03-22 14:18] LABS: APPEARANCE,URINE HAZY (CLEAR,HAZY); COLOR,URINE STRAW (YELLOW)
[2016-03-22 14:19] LABS: OCCULT BLOOD,URINE TRACE (NEGATIVE); UROBILINOGEN,URINE NORMAL (NORMAL)
[2016-03-22] MEDS ORDERED: Polyethylene Glycol (PEG) 17 Gm Powder PO PRN (14:50)
[2016-03-22] MEDS ORDERED: Magnesium Sulf 2 Gm/50mL Water 2 GM in IV Premix 1 EACH IV ONE ×2 (15:30→19:30)
[2016-03-22] MEDS ORDERED: Diltiazem Inj 125 MG in 0.9% Sodium Chloride 100 ML, Pharmacy To Mix 1 EA IV SCH (15:45)
--- NOTE | 2016-03-22 16:17 | PCM.HPMED ---
Subjective Date of Service Mar 22, 2016 Primary Provider: Admitting Physician: Kenn Domingo MD Primary Care Physician: Oscar Post MD Attending Physician: Kenn Domingo MD Admit Status: From the Emergency Department Chief Complaint: Shortness of breath Tachycardia History of Present Illness: Ms. Cárdenas is a pleasant 81 year old woman with history of chronic respiratory failure secondary to COPD and asthma, and distant tobacco use, that presented to [facility] with shortness of breath and symptomatic AF with RVR. Patient recently discharge from [facility] after treatment of similar symptoms . Patient stated that once she got home symptoms quickly returned and have not gotten any better. Patient stated that she picked up her prescriptions after discharge but has not been able to obtain a nebulizer, and has not yet procured a CPAP machine. She stated that her granddaughter has been taking care of her and noticed that her leg edema, shortness of breath, and productive cough has worsened over the past two days, culminating in increased shorteners of breath prompting a call for EMS. Upon arrival of EMS gave patient a treatment of DuoNeb. Ms. Cárdenas states that her home oxygen requirement is approx 2L continuous use. She stated that She needs to sleep in a lounge chair because she cannot tolerate laying flat. She reports recent sick contacts in her family who became ill shortly after she was discharged from the hospital.She admits to a distant tobacco use history, quitting approximately 40 years ago. She also reports a distant EtOH use. 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 She claims her asthma developed at this time, and that the asbestos or shipyard exposure were not the culprits, but the lack of ventilation and high heat and humidity of her work environment. 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 Denies any direct contact with asbestos, silicone, shipyard/manufacturing. She states she completed a sleep study in December 2015 , but has yet to receive the results. In ED patient given 125 mg Methylprednisone, Duoneb treatment, 40 mg Lasix IV, CXR showed increased cephalization of flow compared to CXR at last discharged and resolving bibasilar pleural effusions Dr. 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 Review of Systems: Negative except for mentioned above Allergies Coded Allergies: ranitidine (Verified Allergy, Severe, 03/22/16) Home Medications Atorvastatin (Lipitor) 20 Mg Tablet 20 MG PO HS Bimatoprost (Lumigan) 45 Drop/2.5 Ml Ophsoln 45 DROP OD HS Biotin (Biotin) 1 Mg Capsule 1 MG PO DAILY Brimonidine Tartrate (Alphagan P) 5 Ml Drops 5 ML BOTH_EYES BID Brinzolamide (Azopt 1% Ophthalmic Suspension) 10 Ml Drops.susp 1 DROP OP BID Cholecalciferol (Vitamin D3) (Vitamin D) 1,000 Unit Tablet 1,000 UNIT PO DAILY Digoxin (Lanoxin) 0.125 Mg Tablet 0.125 MG PO DAILY@12 Folic Acid (Folic Acid) 1 Mg Tablet 1 MG PO DAILY Furosemide (Lasix) 40 Mg Tablet 40 MG PO BID Ipratropium [place] (Atrovent HFA) 200 Puff/12.9 Gm Inhaler 2 PUFF INH QID Metoprolol Tartrate (Metoprolol Tartrate) 50 Mg Tablet 50 MG PO BID Paroxetine (Paroxetine) 40 Mg Tablet 40 MG PO DAILY Phenytoin Sodium Extended (Phenytoin Sodium Extended) 100 Mg Capsule 300 MG PO HS Potassium Chloride ER (Potassium Chloride ER) 10 Meq Tablet 10 MEQ PO DAILY TAKE WITH FOOD Verapamil ER (Calan SR) 240 Mg Tablet 240 MG PO BID Rivaroxaban (Xarelto) 20 Mg Tablet 20 MG PO DAILY PRN PRN anticoagulation Ascorbic Acid (Vitamin C) 125 Mg Tab.chew 1,000 MG PO Magnesium Oxide (Magnesium) 400 Mg Capsule 400 MG PO PMH Last stress test negative in August 2014 Seizures -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 Corotid artery stenosis Atrial Fibrillation with RVR on Xarelto DE in 2009 per patient, with cardiac arrest Osteoarthritis Glaucoma Diverticula seen 08/2002 colonoscopy Asthma Coronary artery disease Hyperlipidemia Hypertension Stroke Depression Surgical History Finger surgery Hysterectomy Carpal tunnel Family History Daughter alive and well No reported family history of cancer Social History Hx Alcohol Use: No Hx Substance Use: No Hx Tobacco Use: No Smoking Status: Never Smoker Exam Vital Signs Vital Sign - Last Date Time Temp Pulse Resp B/P Pulse Ox O2 Delivery O2 Flow Rate FiO2 03/22/16 15:23 114 22 126/92 90 Nasal Cannula 1 03/22/16 12:00 37.2 Exam General: Alert, Oriented X3, Cooperative, respiratory distress Head: Normocephalic, atraumatic. External ears normal. Eyes: PERRLA, EOMI. Anicteric sclerae. Mouth: Mouth Normal, Mucous Membranes Moist/[place] Neck: Neck supple with full range of motion. NO JVD, no bruits heard Chest & Lungs: conversational dyspnea, crackles at bases, end expiratory wheezes all lung monroy b/l, or no rhonchi b/l Cardiovascular: Irregularly Irregular rhythm, Rate 90-130, Normal S1, Normal S2, No Murmurs/Rubs/Gallops Abdomen: Non-tender, Non-distended, No masses, Normoactive bowel tones, Soft Musculoskeletal: Normal Range of Motion, strength 4/4 all extremities Extremities: mild pitting edema bilaterally to ankles, no cyanosis/clubbing Neurological: Grossly Neurologically Intact, Strength Normal 4/4 ext, Normal Gait, Sensation Intact, PSYCH: Normal mood and affect, good insight and judgement Lab and Diagnostics Result Diagram: 03/22/16 1213 03/22/16 1213 X-Rays, CTs and MRIs CHEST X-RAY IMPRESSION: Resolving bibasilar pleural effusions and/or pneumonia versus atelectasis. Dictated by: Faustino Prater RRA Interpreted: Griselda Howell MD on 03/22/2016 at 13:51 Transcribed by: JAXSON on 03/22/2016 at 13:52 Assessment & Plan Keshia MedranoThomas is an 81 year old female with history of asthma on chronic home O2 with a history of atrial fibrillation with RVR on Xarelto, coronary artery disease with prior [place], prior CVA with seizure disorder, and hypertension who is admitted for treatment of acute on chronic heart failure due to A-fib with RVR, Acute on chronic COPD exacerbation. 1. Diastolic heart failure, acute on chronic, present on admission, active - Likely related to uncontrolled atrial fibrillation. - Last Echocardiogram showed EF 65-70% - CXR on admit shows increased cephalization of flow compared to last CXR at discharge, with improved pleural bibasilar effusions - Start Lasix 40 mg BID PO - Start potassium chloride PO QD - Cardiology consulted we appreciate their time and expertise. 2. Atrial fibrillation with rapid ventricular response, acute on chronic, present on admission, active - per last hospitalization patient required max dose of diltiazem, reasoned poorly to oral Diltiazem with Metoprolol and required Verapamil, Metoprolol, Digoxin to control HR which patient has appeared to fail on outpatient basis, patient may require ablation. - Start Diltiazem drip @ 5 mg/kg/hr titrate to heart rate less than 110 - Replete Magnesium, recheck mag level in AM, replete with goal of >2 - Due to COPD Amiodarone is contraindicated - Continue Home dose of Verapamil -Continue home dose of Digoxin -Continue Metoprolol tartrate 50 mg TID -Continue Xarelto -Continue Tele -Cardiology consulted we appreciate their time and expertise. 3. Acute on chronic COPD exacerbation, present on admission, active - Patient has long standing history of COPD, she has been afebrile at this time antibiotics are not indicated. - Continue 2-5 L O2 via NC as needed - NEB ipratropium, budesonide - Respiratory Viral PCR ordered - Sputum cultures ordered - Would recommend spirometry outpatient - Procalcitonin and lactic ordered r/o infectious etiology 4. Hypertension, chronic, stable -Continue Metoprolol tartrate 50 mg TID -Continue to monitor 5. Hyperlipidemia, chronic, present on admission. -Continue Lipitor. 6. Depression, chronic, present on admission. -Continue Paroxetine. 7. Seizure disorder, chronic, present on admission. -Continue phenytoin. DVT prophylaxis: Xarelto 20 mg GI prophylaxis: not indicated CODE STATUS: FULL CODE, PATIENT WILL NOT RECEIVE BLOOD PRODUCTS DUE TO [employer] Patient admitted under inpatient status with stay likely greater than two nights to control symptoms of acute on chronic diastolic heart failure and A-fib Pain Evaluation: Adequate Pain Control Resuscitation Status: CPR: Attempt Resuscitation Time spent 60 minutes Attending Statement patient seen and examined with Dr Balderrama .I agree with the history,exam, impression and plan as outlined above copies to: Oscar Post MD, AARON J DO Mar 22, 2016 16:17 Aurelio Reid MD Mar 22, 2016 18:57
[2016-03-22] MEDS ORDERED: ATRINH INH (16:38)
[2016-03-22] MEDS ORDERED: RIVA20TA PO (16:44)
--- NOTE | 2016-03-22 16:47 | NUR ---
Admit Pt admitted to floor at 1610. Per tele, pt afib 113-130s. RR 28. Placed on 2LNC (on 2-3L at home per pt). BP and temp stable. Son in law at bedside. Per son and law, pt can be forgetful and unable to sometimes advocate for herself. A&Ox3. paged at 1640. Addendum: 03/22/16 at 1835 by LEANDRO SOLIZ RN 1700 states that pt will need cardizem drip. To transfer to [facility]. Report called to [facility] nurse Sravan Velasquez. Pt placed on droplet precautions pending PCR respiratory results. Pt transferred to [facility] by ELDER at 1820. PCR respiratory and sputum sent to lab. Pt stable on transfer.
[2016-03-22] MEDS ORDERED: CHRO200C PO (17:02)
[2016-03-22] MEDS ORDERED: CYAN-2 SL (17:06)
[2016-03-22] MEDS ORDERED: Glucose 40% Oral Gel 15 Gm Tube PO PRN (18:05)
--- NOTE | 2016-03-22 18:37 | NUR ---
Transfer to PCC Pt transferred to PCC from [facility] at 18:30. Report received from Philippe FRIEDMAN. Vitals stable and pt's tray delivered to room.
[2016-03-22] MEDS ORDERED: 0.9% Sodium Chloride 250 ML ONE (20:16)
[2016-03-22] MEDS: Budesonide 0.5 mg/2 mL Inhalation Solution NEB SCH ×2 (20:30→21:58)
[2016-03-22] MEDS ORDERED: Verapamil SR 240 mg ER12 Tablet PO SCH (20:30)
[2016-03-22] MEDS: Phenytoin 100 mg ER Capsule PO SCH (21:39)
[2016-03-22] MEDS: Ipratropium 0.02% 0.5 mg/2.5 mL Inhalation Solution NEB SCH (21:58)
[2016-03-22] MEDS: Insulin LISPRO 300 Unit/3 mL Inj SUBQ SCH (22:00)
[2016-03-23] VITALS (13 sets, daily range): BP systolic 126–143; BP diastolic 56–86; PULSE 56–122; RESP 21–26; O2SAT 91–99
[2016-03-23 03:04] LABS: BASOPHILS % (AUTO) 0.3 % (0-3); EOSINOPHILS % (AUTO) 0 % (0-5); MONOCYTES % (AUTO) 12.7 % (4-12); Mean Corpuscular Hemoglobin 30.8 pg (27.0-35.0); NEUTROPHILS % (AUTO) 71.6 % (40-74); Platelet Count 159 bil/L (150-400)
--- NOTE | 2016-03-23 05:36 | NUR ---
Admit Note Pt transferred from MOC unit to [facility] via wheelchair around 1829. No c/o chest pain, Tele Afib with RVR with HR 110-130s. IV Cardizem drip started at 2028. IV Cardizem drip stopped around 2329, HR decreased to the 50-60s. IV Mag Jay 2 GMs administered. Tele Afib with PVCs HR at rest now with IV Cardizem off maintaining around 80-90s. HR jumps up to the 120-140s with activity, like standing at bedside to use BSC, returns back to baseline at rest. Pt A&O X3, moves all extremities, up with SBA to BSC. Pt c/o SOB with activity, O2 sats on 3L 94-96%, Pt will desat with activity or talking down to 87-88%, O2 increased to 4L NC, sats 97-98%. Pt oriented to room, bed, TV, Telephone and call light system. VS stable and afebrile.
[2016-03-23] MEDS: Ipratropium 0.02% 0.5 mg/2.5 mL Inhalation Solution NEB SCH ×4 (05:41→20:31)
--- NOTE | 2016-03-23 07:01 | NUR ---
Cardizem IV Drip Tele AFib with occ PVCs, HR trending back up to 100 to low 110s at rest. 0700 IV Cardizem drip restarted at 5mg/hour.
[2016-03-23] MEDS: Insulin LISPRO 300 Unit/3 mL Inj SUBQ SCH ×4 (08:00→23:25)
[2016-03-23] MEDS: PARoxetine 20 mg Tablet PO SCH (08:09)
[2016-03-23] MEDS ORDERED: Influenza (Adult) Vaccine 0.5 mL Syringe IM ONE (08:30)
[2016-03-23] MEDS: Polyethylene Glycol (PEG) 17 Gm Powder PO SCH (10:00)
--- NOTE | 2016-03-23 11:44 | NUR ---
Case Management: [facility] delivered and signed. Original placed in chart. Copy left at bedside. Elida Jay RN
--- NOTE | 2016-03-23 11:47 | PCM.PNMED ---
Subjective Date of Service Mar 23, 2016 Subjective Keshia Cárdenas is an 81 year old female with history of asthma on chronic home O2 with a history of atrial fibrillation with RVR on Xarelto, coronary artery disease with prior [place], prior CVA with seizure disorder, and hypertension who is admitted for treatment of acute on chronic heart failure,A- fib with RVR. Hospital Day 2 Overnight: no events reported Today: Patient stated that she is feeling a bit better and she has been told that she has "the common cold." Patient noted that she has been constipated for a few days and feels short of breath. Patient denies fever, chills, diarrhea, dysuria, syncope. ROS is negative except as noted above. Exam Vital Signs Vital Sign - Last Date Time Temp Pulse Resp B/P Pulse Ox O2 Delivery O2 Flow Rate FiO2 03/23/16 05:41 96 21 99 Nasal Cannula 4.00 03/23/16 03:18 36.4 138/67 Intake and Output 03/22/16 03/22/16 03/23/16 Cumulative From/Thru 15:00 23:00 07:00 03/22/16 12:00 - 03/23/16 06:19 Intake Total 326 ml 326 ml Output Total 300 ml 325 ml 600 ml 1225 ml Balance -300 ml -325 ml -274 ml -899 ml Intake Oral 300 ml 300 ml IV Total 26 ml 26 ml Output Urine Total 300 ml 325 ml 600 ml 1225 ml # Voids 3 3 Exam General: Alert, Oriented X3, Cooperative, respiratory distress Head: Normocephalic, atraumatic. External ears normal. Eyes: PERRLA, EOMI. Anicteric sclerae. Mouth: Mouth Normal, Mucous Membranes Moist/[place] Neck: Neck supple with full range of motion. NO JVD, no bruits heard Chest & Lungs: scant crackles at bases, end expiratory wheezes all lung monroy b/l improved from yesterday, or no rhonchi b/l Cardiovascular: Irregularly Irregular rhythm, Rate 90-115, Normal S1, Normal S2, No Murmurs/Rubs/Gallops Abdomen: Non-tender, Non-distended, No masses, Normoactive bowel tones, Soft Musculoskeletal: Normal Range of Motion, strength 4/4 all extremities Extremities: mild pitting edema bilaterally to ankles, no cyanosis/clubbing Neurological: Grossly Neurologically Intact, Strength Normal 4/4 ext, Normal Gait, Sensation Intact, PSYCH: Normal mood and affect, good insight and judgement IVs and Medications Medications Reviewed: Medications were reviewed in detail Lab and Diagnostics Result Diagram: 03/23/1621903/23/16219 X-Rays, CTs and MRIs CHEST X-RAY IMPRESSION: Resolving bibasilar pleural effusions and/or pneumonia versus atelectasis. Dictated by: Faustino Prater RRA Interpreted: Griselda Howell MD on 03/22/2016 at 13:51 Transcribed by: JAXSON on 03/22/2016 at 13:52 Assessment & Plan Keshia Cárdenas is an 81 year old female with history of asthma on chronic home O2 with a history of atrial fibrillation with RVR on Xarelto, coronary artery disease with prior [place], prior CVA with seizure disorder, and hypertension who is admitted for treatment of acute on chronic heart failure,A- fib with RVR. Hospital Day 2 1. Atrial fibrillation with rapid ventricular response, acute on chronic, present on admission, active -RVR precipitated by RSV infection - per last hospitalization patient required max dose of diltiazem, home medications Metoprolol and required Verapamil, Metoprolol, Digoxin to control HR , exacerbation of A-fib likely due to RSV+ - Continue Diltiazem drip @ 10 mg/kg/hr titrate to heart rate less than 110, Discontinue 03/23/16 restart home medications - Due to COPD Amiodarone is contraindicated -Restart home dose of Verapamil 03/23/16 -Continue home dose of Digoxin -Continue Metoprolol tartrate 50 mg TID -Continue Xarelto -Continue Tele -Cardiology consulted we appreciate their time and expertise. 2. RSV+ pulmonary infection -Treatment as below 3.Acute on chronic COPD exacerbation due to RSV +, present on admission, active - Patient has long standing history of COPD, she has been afebrile at this time antibiotics are not indicated. - Respiratory Viral PCR ordered, RSV + - Continue 2-5 L O2 via NC as needed - NEB ipratropium, budesonide - Sputum cultures ordered, pending - Would recommend spirometry outpatient - Procalcitonin and lactic ordered, negative 4.Hypomagnesemia, acute, present on admission, stable - Replete magnesium, replete with goal of >2 - Continue home magnesium replacement - Magnesium 2.2 03/23/16 -Continue to monitor 5.Diastolic heart failure, acute on chronic, present on admission, stable - Likely related to rapid atrial fibrillation - Last Echocardiogram showed EF 65-70% - CXR on admit shows increased cephalization of flow compared to last CXR at discharge, with improved pleural bibasilar effusions - Continue Lasix 40 mg BID PO - Continue potassium chloride PO QD - Cardiology consulted we appreciate their time and expertise. 6. Hypertension, chronic, stable -Continue Metoprolol tartrate 50 mg TID -Continue to monitor 7. Hyperlipidemia, chronic, present on admission. -Continue Lipitor. 8. Depression, chronic, present on admission. -Continue Paroxetine. 9. Seizure disorder, chronic, present on admission. -Continue phenytoin. DVT prophylaxis: Xarelto 20 mg GI prophylaxis: not indicated CODE STATUS: FULL CODE, PATIENT WILL NOT RECEIVE BLOOD PRODUCTS DUE TO [employer] BELIEFS Patient admitted under inpatient status with stay likely greater than two nights to control symptoms of acute on chronic diastolic heart failure and A-fib Resuscitation Status: CPR: Attempt Resuscitation Attending Statement patient seen and examined with Dr Li .I agree with the history,exam, impression and plan as outlined above COLE LI DO Mar 23, 2016 06:41 Aurelio Reid MD Mar 23, 2016 18:09
[2016-03-23] MEDS: Budesonide 0.5 mg/2 mL Inhalation Solution NEB SCH ×2 (12:35→20:31)
--- NOTE | 2016-03-23 16:49 | NUR ---
Blood Glucose Checked her BG this AM before breakfast and it was 103. No insulin was given per sliding scale orders. Around lunch time went to take her BG and she questioned why it needed to be checked again since she was not a diabetic. Explained that even though she is not a diabetic one of her blood sugars was high the other day and per protocol an insulin sliding scale was ordered. She requested that this information be confirmed with Dr. Balderrama who ordered it as she said, "This makes me nervous." Checked with him and he said the same thing. Notified him that she didn't want her BG checked or insulin administered. He said that was fine and he would make a note of it. Notified her of this info and her BG was not taken per her request. Care continue.
--- NOTE | 2016-03-23 17:14 | NUR ---
spiritual care: pt request pt received visit from [facility] visitor and requested contact with . relayed
[2016-03-23] MEDS: Verapamil SR 240 mg ER12 Tablet PO SCH (21:34)
[2016-03-23] MEDS: Phenytoin 100 mg ER Capsule PO SCH (21:36)
[2016-03-23] MEDS: Brimonidine 0.1% 5 mL Ophthalmic Solution BOTH_EYES SCH (23:27)
[2016-03-23] MEDS: Dorzolamide 2% 10 mL Ophthalmic Solution BOTH_EYES SCH (23:50)
[2016-03-24] VITALS (11 sets, daily range): BP systolic 122–166; BP diastolic 67–90; PULSE 77–112; RESP 18–24; O2SAT 91–98
[2016-03-24 02:43] LABS: BASOPHILS % (AUTO) 0.3 % (0-3); EOSINOPHILS % (AUTO) 0.6 % (0-5); MONOCYTES % (AUTO) 11.8 % (4-12); Mean Corpuscular Hemoglobin 30.3 pg (27.0-35.0); Mean Corpuscular Volume 94.9 fL (81-100); NEUTROPHILS % (AUTO) 76.9 % (40-74); Platelet Count 153 bil/L (150-400)
[2016-03-24] MEDS: Ipratropium 0.02% 0.5 mg/2.5 mL Inhalation Solution NEB SCH ×4 (05:13→21:06)
--- NOTE | 2016-03-24 05:38 | NUR ---
Afib/HR: P: Upon initial assessment, the pt was on 5 mg/hour of Cardizem in AFib with a HR in the 110s-130s; occasionally hitting the 140s. I: Dr. Evans notified that the 80 mg dose of Verapamil was not administered. MD instructed to proceed with the 240 mg dose as scheduled and to continue with the Cardizem gtt for 4 hours. E: HR improved to the 90s-100s. Blood pressure remained stable. Cardizem gtt was turned off approximately 2.5 hours after Verapamil dose secondary to completion of bag. Pt has remained stable this am, however, HR is noted to be in the 110-120s while awake and moving this am.
[2016-03-24] MEDS ORDERED: KCl 40 mEq/D5W 500 mL 40 MEQ in IV Premix 500 EACH IV ONE (06:50)
[2016-03-24] MEDS ORDERED: Potassium Chloride 20 mEq SR Tablet PO ONE (07:25)
[2016-03-24] MEDS: Insulin LISPRO 300 Unit/3 mL Inj SUBQ SCH ×4 (08:00→22:00)
[2016-03-24] MEDS: Brimonidine 0.1% 5 mL Ophthalmic Solution BOTH_EYES SCH ×2 (08:25→21:55)
[2016-03-24] MEDS: Dorzolamide 2% 10 mL Ophthalmic Solution BOTH_EYES SCH ×2 (08:26→21:58)
[2016-03-24] MEDS: Verapamil SR 240 mg ER12 Tablet PO SCH ×2 (08:28→21:56)
[2016-03-24] MEDS: PARoxetine 20 mg Tablet PO SCH (08:29)
[2016-03-24] MEDS: Polyethylene Glycol (PEG) 17 Gm Powder PO SCH (08:29)
[2016-03-24] MEDS: Budesonide 0.5 mg/2 mL Inhalation Solution NEB SCH ×2 (08:30→21:07)
[2016-03-24] MEDS ORDERED: Magnesium Sulf 2 Gm/50mL Water 2 GM in IV Premix 1 EACH IV ONE ×2 (10:50→12:05)
[2016-03-24] MEDS ORDERED: Influenza (Adult) Vaccine 0.5 mL Syringe IM ONE (11:20)
--- NOTE | 2016-03-24 12:40 | NUR ---
Social Work Note/DCP Assessment: D&A: Reviewed chart. Pt. is a 81yr old female admitted to [facility] with CHF/COPD exacerbation. Pt. resides at home with her spouse in [place]. PRIVACY ATTORNEY received phone call from pt.'s NADIYA/AFSANEH Corona Jeffery ph# [phone]. Cj reports that he is very concerned about pt. discharging home when medically cleared. Cj reports that pt. has been in the hospital approximately 3x in last 45dys. Cj was in process of accessing caregiver hours and then again pt. hospitalized. Per Cj, family would like to see pt. go to SNF if she meets criteria for short stay after this hospitalization. Cj reports both family and himself concerned about pt. "bouncing" right back to hospital. PRIVACY ATTORNEY paged MD for PT evaluation. Cj aware pt. will need to qualify under Medicare guidelines or get accepted under [facility] which is often difficult. Pt. uses 2liters 02 at baseline. PCP listed is Dr. Oscar Post. P: PRIVACY ATTORNEY will attempt to visit pt. today to find out if she is agreeable to short SNF stay. If so will get first/second choice. Pt.most likely would benefit from short SNF stay under Medicare given he readmits to acute care. GREGORY Jessica
--- NOTE | 2016-03-24 13:45 | NUR ---
SOB/Weak/Daughter called Patient stating SOB and weak while transferring from BSC to bed, has to sit on edge of bed to catch breath. HR now in the 60's per MP30 and monitor car operator still Afib. Notified Patient's daughter Bree phoned. Called back, concerned for Mom would like to talk to SW regarding care after hospital. Notified SW
--- NOTE | 2016-03-24 14:20 | PCM.PNMED ---
Subjective Date of Service Mar 24, 2016 Subjective Keshia Cárdenas is an 81 year old female with history of asthma on chronic home O2 with a history of atrial fibrillation with RVR on Xarelto, coronary artery disease with prior [place], prior CVA with seizure disorder, and hypertension who is admitted for treatment of acute on chronic heart failure,A- fib with RVR. Hospital Day 2 Overnight: no acute events reported overnight. Today: Patient stated that she has been sleeping poorly and is having low energy. Patient stated that this afternoon she is feeling short of breath. Patient denies dizziness, chest pain, chest pressure, fever, chills. ROS is negative except as noted above. Exam Vital Signs Vital Sign - Last Date Time Temp Pulse Resp B/P Pulse Ox O2 Delivery O2 Flow Rate FiO2 03/24/16 05:14 102 24 91 Nasal Cannula 4.00 03/24/16 02:26 37.1 135/87 Intake and Output 03/23/16 03/23/16 03/24/16 Cumulative From/Thru 15:00 23:00 07:00 03/22/16 12:00 - 03/24/16 05:12 Intake Total 647 ml 494 ml 1608 ml Output Total 550 ml 375 ml 2150 ml Balance 97 ml 119 ml -542 ml Intake Oral 490 ml 400 ml 1190 ml IV Total 157 ml 94 ml 418 ml Output Urine Total 550 ml 375 ml 2150 ml # Voids 1 4 # Bowel Movements 0 0 Exam General: Alert, Oriented X3, Cooperative, respiratory distress Head: Normocephalic, atraumatic. External ears normal. Eyes: PERRLA, EOMI. Anicteric sclerae. Mouth: Mouth Normal, Mucous Membranes Moist/[place] Neck: Neck supple with full range of motion. NO JVD, no bruits heard Chest & Lungs: scant crackles at bases improved, end expiratory wheezes all lung [place] b/l improved from yesterday, or no rhonchi b/l Cardiovascular: Irregularly Irregular rhythm, Rate 75-100, Normal S1, Normal S2, No Murmurs/Rubs/Gallops Abdomen: Non-tender, Non-distended, No masses, Normoactive bowel tones, Soft Musculoskeletal: Normal Range of Motion, strength 4/4 all extremities Extremities: mild pitting edema bilaterally to ankles, no cyanosis/clubbing Neurological: Grossly Neurologically Intact, Strength Normal 4/4 ext, Normal Gait, Sensation Intact, PSYCH: Normal mood and affect, good insight and judgment IVs and Medications Medications Reviewed: Medications were reviewed in detail Lab and Diagnostics Result Diagram: 03/24/1621903/24/16219 X-Rays, CTs and MRIs CHEST X-RAY IMPRESSION: Small effusions and bibasilar space opacities redemonstrated similar to the last examination. Dictated by: Faustino Prater RRA Interpreted: Griselda Howell MD on 03/24/2016 at 14:40 Transcribed by: JAXSON on 03/24/2016 at 14:42 Approved by: Griselda Howell M.D. on 03/24/2016 at 15:23 Assessment & Plan Keshia Cárdenas is an 81 year old female with history of asthma on chronic home O2 with a history of atrial fibrillation with RVR on Xarelto, coronary artery disease with prior [place], prior CVA with seizure disorder, and hypertension who is admitted for treatment of acute on chronic heart failure,A- fib with RVR. Hospital Day 3 1. Atrial fibrillation with rapid ventricular response, acute on chronic, present on admission, active -RVR precipitated by RSV infection - per last hospitalization patient required max dose of diltiazem, home medications Metoprolol and required Verapamil, Metoprolol, Digoxin to control HR , exacerbation of A-fib likely due to RSV+ - Continue Diltiazem drip @ 10 mg/kg/hr titrate to heart rate less than 110, Discontinue 03/23/16 restart home medications - Due to COPD Amiodarone is contraindicated - Continue home dose of Verapamil 03/23/16 -Continue home dose of Digoxin -Continue Metoprolol tartrate 75 mg TID, increased from 50 mg TID for better HR control -Continue Xarelto -Continue Tele -Cardiology consulted we appreciate their time and expertise. 2. RSV+ pulmonary infection -Treatment as below 3.Acute on chronic COPD exacerbation due to RSV +, present on admission, active - Patient has long standing history of COPD, she has been afebrile at this time antibiotics are not indicated. - Respiratory Viral PCR ordered, RSV + - Continue 2-5 L O2 via NC as needed - NEB ipratropium, budesonide - Start Prednisone 40 mg PO QD for 5 days 03/24/16 - Sputum cultures ordered, pending - Would recommend spirometry outpatient - Procalcitonin and lactic ordered, negative - Repeat CXR ordered, pending 4.Hypomagnesemia, acute, present on admission, stable - Replete magnesium, replete with goal of >2 - Continue home magnesium replacement - Magnesium 1.6 03/24/16 2 g Magnesium IV given x1 -Continue to monitor 5. Hypokalemia, not present on admission, acute - potassium 3.3 03/24/16 - 40 meq IV K riders given - 40 meq PO potassium riders given - Recheck BMP in AM 5.Diastolic heart failure, acute on chronic, present on admission, stable - Likely related to rapid atrial fibrillation - Last Echocardiogram showed EF 65-70% - CXR on admit shows increased cephalization of flow compared to last CXR at discharge, with improved pleural bibasilar effusions - Continue Lasix 40 mg BID PO - Continue potassium chloride PO QD - Cardiology consulted we appreciate their time and expertise. 6. Hypertension, chronic, stable -Continue Metoprolol tartrate 50 mg TID -Continue to monitor 7. Hyperlipidemia, chronic, present on admission. -Continue Lipitor. 8. Depression, chronic, present on admission. -Continue Paroxetine. 9. Seizure disorder, chronic, present on admission. -Continue phenytoin. DVT prophylaxis: Xarelto 20 mg GI prophylaxis: not indicated CODE STATUS: FULL CODE, PATIENT WILL NOT RECEIVE BLOOD PRODUCTS DUE TO ORTHODOX BELIEFS disposition:possible discharge in 1-2 days , PT eval requested Resuscitation Status: CPR: Attempt Resuscitation Attending Statement patient seen and examined with Dr Li .I agree with the history,exam, impression and plan as outlined above COLE LI DO Mar 24, 2016 06:49 Aurelio Reid MD Mar 24, 2016 20:09
--- NOTE | 2016-03-24 14:43 | DRSVH ---
PROCEDURE: X-RAY CHEST ONE VIEW ([id number]) INDICATIONS: dyspnea TECHNIQUE: One view of the chest was acquired. COMPARISON: [facility], CR, XR CHEST 1VW (PORTABLE), 03/10/2016, 5:35. [facility], CR, XR CHEST 1VW (PORTABLE), 03/09/2016, 5:25. [facility], CR, XR CHEST 1VW (MANJULA BLE), 03/22/2016, 12:07. FINDINGS: Surgical changes and devices: None. Lungs and pleura: Small bibasilar pleural effusions present and persistent bibasilar airspace opaciti es. Lungs otherwise are clear. No pneumothorax. Mediastinum: Mediastinal contours appear normal. Heart size is normal. Prominent mitral annular ca lcification redemonstrated. Bones and chest wall: No suspicious bony lesions. Overlying soft tissues appear unremarkable. IMPRESSION: Small effusions and bibasilar space opacities redemonstrated similar to the last examina tion. Dictated by: Faustino Prater A Interpreted: Griselda Howell MD on 03/24/2016 at 14:40 Transcribed by: JAXSON on 03/24/2016 at 14:42 Approved by: Griselda Howell M.D. on 03/24/2016 at 15:23
[2016-03-24] MEDS: predniSONE 20 mg Tablet PO SCH (15:46)
[2016-03-24 18:50] LABS: Magnesium 2.2 mg/dL (1.6-2.6)
[2016-03-24] MEDS: Phenytoin 100 mg ER Capsule PO SCH (21:57)
[2016-03-25] VITALS (9 sets, daily range): BP systolic 116–143; BP diastolic 47–72; PULSE 64–104; RESP 16–26; O2SAT 92–98
--- NOTE | 2016-03-25 00:13 | NUR ---
Insulin refusal Pt refused HS Sub Q sliding scale insulin stated, "I've never taken insulin and I will not start now." No s/sx of hypo/hyperglycemia noted at this time. Educated on risks and benefits. VSS.
[2016-03-25 03:35] LABS: Mean Corpuscular Hemoglobin 30.4 pg (27.0-35.0); Mean Corpuscular Volume 94.2 fL (81-100)
--- NOTE | 2016-03-25 06:32 | NUR ---
Incont Pt voided only in brief, which saturated the pad and allowed the staff to only change her once. Will continue to encourage BSC usage to prevent skin breakdown.
[2016-03-25] MEDS: Insulin LISPRO 300 Unit/3 mL Inj SUBQ SCH ×4 (08:00→22:00)
[2016-03-25] MEDS: Polyethylene Glycol (PEG) 17 Gm Powder PO SCH (08:30)
[2016-03-25] MEDS: Ipratropium 0.02% 0.5 mg/2.5 mL Inhalation Solution NEB SCH ×3 (08:30→20:40)
--- NOTE | 2016-03-25 09:24 | NUR ---
NAWAF Signed verbal consent active precautions [id number]
[2016-03-25] MEDS: PARoxetine 20 mg Tablet PO SCH (09:27)
[2016-03-25] MEDS: Verapamil SR 240 mg ER12 Tablet PO SCH ×2 (09:27→20:28)
[2016-03-25] MEDS: predniSONE 20 mg Tablet PO SCH (09:56)
[2016-03-25] MEDS: Dorzolamide 2% 10 mL Ophthalmic Solution BOTH_EYES SCH ×2 (09:57→20:00)
[2016-03-25] MEDS: Brimonidine 0.1% 5 mL Ophthalmic Solution BOTH_EYES SCH ×2 (09:57→19:59)
[2016-03-25] MEDS ORDERED: Furosemide 10 mg/mL 2 mL Inj IVPUSH ONE (10:20)
[2016-03-25] MEDS: Budesonide 0.5 mg/2 mL Inhalation Solution NEB SCH ×2 (10:47→20:40)
--- NOTE | 2016-03-25 11:53 | NUR ---
Faxed H&P to Cj @ [facility] per [facility]
--- NOTE | 2016-03-25 13:11 | PCM.PNMED ---
Subjective Date of Service Mar 25, 2016 Subjective Keshia Cárdenas is an 81 year old female with history of asthma on chronic home O2 with a history of atrial fibrillation with RVR on Xarelto, coronary artery disease with prior [place], prior CVA with seizure disorder, and hypertension who is admitted for treatment of acute on chronic heart failure,A- fib with RVR. Hospital Day 3 Overnight: No acute events reported overnight. Today: Patient stated that she was not sleeping well overnight and is extremely tired. She stated that she is coughing but less so than yesterday. Patient denies fever, chills, diarrhea, dysuria. ROS is negative except as noted above. Exam Vital Signs Vital Sign - Last Date Time Temp Pulse Resp B/P Pulse Ox O2 Delivery O2 Flow Rate FiO2 03/25/16 03:30 36.5 64 24 116/53 95 Nasal Cannula 3.00 Intake and Output 03/24/16 03/24/16 03/25/16 Cumulative From/Thru 15:00 23:00 07:00 03/22/16 12:00 - 03/25/16 06:31 Intake Total 480 ml 960 ml 500 ml 3548 ml Output Total 1375 ml 3525 ml Balance 480 ml -415 ml 500 ml 23 ml Intake Oral 960 ml 500 ml 2650 ml IV Total 480 ml 898 ml Output Urine Total 1375 ml 3525 ml # Voids 1 5 # Bowel Movements 2 2 Exam General: Alert, Oriented X3, Cooperative, fatigued Head: Normocephalic, atraumatic. External ears normal. Eyes: PERRLA, EOMI. Anicteric sclerae. Mouth: Mouth Normal, Mucous Membranes Moist/[place] Neck: Neck supple with full range of motion. NO JVD, no bruits heard Chest & Lungs: scant crackles at bases improved, end expiratory wheezes all lung [place] b/l, or no rhonchi b/l Cardiovascular: Irregularly Irregular rhythm, Rate 75-100, Normal S1, Normal S2, No Murmurs/Rubs/Gallops Abdomen: Non-tender, Non-distended, No masses, Normoactive bowel tones, Soft Musculoskeletal: Normal Range of Motion, strength 4/4 all extremities Extremities: trace edema of ankles bilaterally, no cyanosis/clubbing Neurological: Grossly Neurologically Intact, Strength Normal 4/4 ext, Normal Gait, Sensation Intact, PSYCH: Normal mood and affect, good insight and judgment IVs and Medications Medications Reviewed: Medications were reviewed in detail Lab and Diagnostics Result Diagram: 03/25/16 0300 03/25/16 0300 X-Rays, CTs and MRIs CHEST X-RAY IMPRESSION: Small effusions and bibasilar space opacities redemonstrated similar to the last examination. Dictated by: Faustino Prater RRA Interpreted: Griselda Howell MD on 03/24/2016 at 14:40 Transcribed by: JAXSON on 03/24/2016 at 14:42 Approved by: Griselda Howell M.D. on 03/24/2016 at 15:23 Assessment & Plan Keshia Cárdenas is an 81 year old female with history of asthma on chronic home O2 with a history of atrial fibrillation with RVR on Xarelto, coronary artery disease with prior [place], prior CVA with seizure disorder, and hypertension who is admitted for treatment of acute on chronic heart failure,A- fib with RVR. Hospital Day 3 1.Acute on chronic COPD exacerbation due to RSV +, present on admission, active - Patient has long standing history of COPD, she has been afebrile at this time antibiotics are not indicated. - Respiratory Viral PCR ordered, RSV + - Continue 2-5 L O2 via NC as needed - NEB ipratropium, budesonide - Start Prednisone 40 mg PO QD for 5 days 03/24/16 - Sputum cultures ordered, pending - Would recommend spirometry outpatient - Procalcitonin and lactic ordered, negative - Repeat CXR ordered, no interval change - Consider trilogy consult. 2. Atrial fibrillation with rapid ventricular response, acute on chronic, present on admission, rate controlled now -RVR precipitated by RSV infection - per last hospitalization patient required max dose of diltiazem, home medications Metoprolol and required Verapamil, Metoprolol, Digoxin to control HR , exacerbation of A-fib likely due to RSV+ - Continue Diltiazem drip @ 10 mg/kg/hr titrate to heart rate less than 110, Discontinue 03/23/16 restart home medications - Due to COPD Amiodarone is contraindicated - Continue home dose of Verapamil 03/23/16 -Continue home dose of Digoxin -Continue Metoprolol tartrate 75 mg TID, increased from 50 mg TID for better HR control -Continue Xarelto -Continue Tele -Cardiology consulted we appreciate their time and expertise. 3. RSV+ pulmonary infection -Treatment as above 4.Hypomagnesemia, acute, present on admission, stable - Replete magnesium, replete with goal of >2 - Continue home magnesium replacement - Magnesium 1.6 03/24/16 2 g Magnesium IV given x1 -Continue to monitor 5. Hypokalemia, not present on admission, acute - potassium 3.3 03/24/16 - 40 meq IV K riders given - 40 meq PO potassium riders given - Recheck BMP in AM 5.Diastolic heart failure, acute on chronic, present on admission, stable - Likely related to rapid atrial fibrillation - Last Echocardiogram showed EF 65-70% - CXR on admit shows increased cephalization of flow compared to last CXR at discharge, with improved pleural bibasilar effusions - Continue Lasix 40 mg BID PO, given one time 20 mg IV lasix 03/25/16 - Continue potassium chloride PO QD - Cardiology consulted we appreciate their time and expertise. AV ranjan ablation was discussed with cardiology due to patient recurrent uncontrolled atrial fibrillation. Etiology mostly likley related to decompensated pulmonary status inducing atrial tachycardia. At this time patient is likely not a good candidate for AV ranjan ablation. Continue with medical management. 6. Hypertension, chronic, stable -Continue Metoprolol tartrate 50 mg TID -Continue to monitor 7. Hyperlipidemia, chronic, present on admission. -Continue Lipitor. 8. Depression, chronic, present on admission. -Continue Paroxetine. 9. Seizure disorder, chronic, present on admission. -Continue phenytoin. DVT prophylaxis: Xarelto 20 mg GI prophylaxis: not indicated PRN: Tessalon PRN CODE STATUS: FULL CODE, PATIENT WILL NOT RECEIVE BLOOD PRODUCTS DUE TO JEHOVAH'S WITNESS BELIEFS disposition: Possible discharge tomorrow to SNF Resuscitation Status: CPR: Attempt Resuscitation Attending Statement patient seen and examined with Dr Li .I agree with the history,exam, impression and plan as outlined above COLE LI DO Mar 25, 2016 06:52 Aurelio Reid MD Mar 25, 2016 18:27
--- NOTE | 2016-03-25 13:13 | CONS ---
[address] [address] CONSULTATION REPORT PATIENT: MARIAM BUENO : 1935 MR#: [id number] ADMIT: 03/22/2016 JOB ID: [id number] DATE OF SERVICE: 03/25/2016 I was asked by the hospital team to consult on this patient given the repeat admission with atrial fibrillation with right rapid ventricular response. HISTORY OF PRESENT ILLNESS: The patient is an 81-year-old woman who has a history of significant COPD. She was recently admitted. She has had a number of admissions actually with atrial fibrillation with rapid ventricular response. Her most recent admission was in February. At that time she was she was treated for a COPD exacerbation and she was treated initially with calcium channel agatha and a beta agatha was ultimately added. There is a report of possible cardioversion, although I do not really see any nursing notes or EKGs to support that. She was discharged home and was apparently doing relatively well, but did not feel well at home and returned with increased shortness of breath. When she was seen in the ER she was found to be in atrial fibrillation with rapid ventricular response. She said she was taking her medications. She was brought into the hospital and put initially on a diltiazem drip, but has now been transitioned back to oral medications. Respiratory syncytial virus has been identified by PCR and therefore she is being monitored here with droplet protection given this finding. Her heart rates have shown better control with the current medications. SUBJECTIVE: Today when I speak with her she denies any acute symptoms but says she is very fatigued and she is falling asleep sitting up. I asked if she wanted to lie back but she said no. She denies any other specific symptoms other than fatigue. PAST MEDICAL HISTORY/PROBLEM LIST: 1. History of COPD with evidence of severe obstructive findings, as well as severe reduction in DLCO on PFT in 2014. 2. History of CVA. 3. History of carotid artery stenosis. 4. History of atrial fibrillation. 5. Coronary disease. 6. History of hyperlipidemia and hypertension. CURRENT MEDICATIONS: In-house include digoxin 0.125 daily, Pulmicort, ipratropium, brimonidine, Trusopt ophthalmic solution, prednisone 40 daily, potassium 10 mEq a day, Lasix 40 mg b.i.d., magnesium oxide, verapamil HCl 240 b.i.d., Paxil 40 mg daily, metoprolol tartrate 50 b.i.d., Xarelto, Lipitor. ALLERGIES: RANITIDINE. SOCIAL HISTORY: Former smoker. Also history of alcoholism. REVIEW OF SYSTEMS: Overall health: She does report significant fatigue. Cardiac: No chest pain. Cannot discern if she is having orthopnea. No presyncope or syncope. Pulmonary: History of lung disease with increased shortness of breath, her reason for coming in. She is being treated for this. Ophtho: No vision changes. ENT: Difficulty swallowing, sore throat. Endocrine: No heat or cold intolerance. Derm: No skin rash or skin breakdown. Heme: No easy bruising or bleeding. Endocrine: No heat or cold intolerance. GI: No blood in her stool. : No dysuria or hematuria. Psych: No acute issues. All other review of systems on a 12-point review of systems are negative. PHYSICAL EXAMINATION: Blood pressure 118/47, heart rate 68, sats are 98% on 6 L. General: Appearing very fatigued but able to speak to me in full sentences. Head and neck: Normocephalic, atraumatic. Neck: grossly normal. Vascular: No carotid bruits appreciated. Heart: Irregular. Somewhat distant sounds. No obvious murmurs, gallops, or rubs appreciated. Lungs: Somewhat decreased breath sounds throughout. No obvious crackles appreciated. Abdomen: Soft, nontender, nondistended. Back: No CVA tenderness to palpation. Extremities: Warm. I do not appreciate significant edema; 1 to 2+ distal pulses. Skin: Without breakdown appreciated. Neuro: Fatigued, but interactive when woken up. Gait not tested. Psych: Appropriate mood and affect. ENT: mucous membranes moist. Vision: grossly intact Telemetry showed atrial fibrillation. The rate has certainly come down with the current medications. IMAGING: Shows a chest x-ray yesterday showing small effusions and bibasilar space opacities. LABORATORY: Show white count 3.7, H and H 3.82, and 11.6, platelets 174,000. Chemistry: Sodium 134, potassium 4, BUN and creatinine 18 and 0.45. IMPRESSION: The patient is an 81-year-old woman who has significant chronic obstructive pulmonary disease. She has had a number of admissions with increased shortness of breath and associated atrial fibrillation. It was felt the last time that she was having a chronic obstructive pulmonary disease exacerbation. Currently she is also being treated for respiratory syncytial virus. Her heart rates have come down with the current medications. Of course increased heart rates in her might be physiologic as well given her known lung disease. PLAN/RECOMMENDATION: 1. I would continue current medications as we seem to have a better handle on her heart rates at this time. Continue with Xarelto as well. 2. Should things become a significant problem with her in terms of rate control she could be considered for other measures such as AV node ablation and pacing, but this would be a more extreme option, and only if she is refractory to medical management. I spent 55 minutes reviewing her records, speaking with an examining the patient SONG
[2016-03-25] MEDS ORDERED: Furosemide 10 mg/mL 2 mL Inj IVPUSH SCH (16:05)
--- NOTE | 2016-03-25 16:09 | NUR ---
Activity Pt tolerating activity from BSC to bed without SOB or weakness. Family at bedside with pt. Care continues.
--- NOTE | 2016-03-25 20:21 | NUR ---
Blood sugar evening/Xeralto Unable to get blood sugar for dinner, patient already eating. Pt stated she did not need or want her blood sugar checked. Stated she is not diabetic. Educated patient on prednisone increasing blood sugars. Pt understands, stated she eats healthy. Care continues. Unable to give Xarelto dose as medication had not arrived from pharmacy in time before shift report. This RN did call pharmacy to notify of missing tablet for order. Pharmacy to send up to [facility].
[2016-03-25] MEDS: Phenytoin 100 mg ER Capsule PO SCH (20:28)
[2016-03-26] VITALS (13 sets, daily range): BP systolic 113–134; BP diastolic 53–80; PULSE 68–111; RESP 18–22; O2SAT 94–100
[2016-03-26 02:39] LABS: Mean Corpuscular Hemoglobin 30.9 pg (27.0-35.0); Mean Corpuscular Volume 94.6 fL (81-100)
[2016-03-26] MEDS: Ipratropium 0.02% 0.5 mg/2.5 mL Inhalation Solution NEB SCH ×3 (05:39→21:18)
--- NOTE | 2016-03-26 06:07 | NUR ---
Tele Tele Afib 90s to 110s baseline HR at the beginning of the shift, after HS meds administered, HR slowly decreased to the 60-80s. HR increases to the 90s with activity this morning, then back down to baseline 60-80s at rest. VS stable and afebrile. Pt declined her HS Melatonin tonight.
[2016-03-26] MEDS: Insulin LISPRO 300 Unit/3 mL Inj SUBQ SCH ×4 (08:00→22:00)
[2016-03-26] MEDS: Polyethylene Glycol (PEG) 17 Gm Powder PO SCH (08:30)
[2016-03-26] MEDS: Verapamil SR 240 mg ER12 Tablet PO SCH (09:51)
[2016-03-26] MEDS: PARoxetine 20 mg Tablet PO SCH (09:52)
[2016-03-26] MEDS: Dorzolamide 2% 10 mL Ophthalmic Solution BOTH_EYES SCH (09:55)
[2016-03-26] MEDS: predniSONE 20 mg Tablet PO SCH (09:55)
[2016-03-26] MEDS: Brimonidine 0.1% 5 mL Ophthalmic Solution BOTH_EYES SCH (09:55)
--- NOTE | 2016-03-26 11:00 | NUR ---
Gave access and faxed facesheet to [facility] and Stacey Tierney in hopes of finding a [facility] bed. Physical Therapy is recommending home with home health.
[2016-03-26] MEDS: Budesonide 0.5 mg/2 mL Inhalation Solution NEB SCH ×2 (11:15→21:18)
--- NOTE | 2016-03-26 11:49 | PCM.DIMED ---
Discharge Instructions Date of Service Mar 26, 2016 Dates of Hospitalization Mar 22, 2016 at 14:55 Discharge Diagnosis Discharge Diagnosis Keshia Cárdenas is an 81 year old female with history of asthma on chronic home O2 with a history of atrial fibrillation with RVR on Xarelto, coronary artery disease with prior [place], prior CVA with seizure disorder, and hypertension who is admitted for treatment of acute on chronic heart failure,A- fib with RVR. 1.Acute on chronic COPD exacerbation due to RSV +, present on admission, active 2. Atrial fibrillation with rapid ventricular response, acute on chronic, present on admission, rate controlled now 3. RSV+ pulmonary infection 5. Hypokalemia, not present on admission, acute 5.Diastolic heart failure, acute on chronic, present on admission, stable 6. Hypertension, chronic, stable 7. Hyperlipidemia, chronic, present on admission. 8. Depression, chronic, present on admission. 9. Seizure disorder, chronic, present on admission. Diet Heart Healthy Activity Limited until seen by PCP, Home Health Phyical Therapy Call your provider Fever or Chills, Shortness of breath, Bleeding, Chest pain, Vomitting, Excessive diarrhea, Weakness (unilateral) Patient Instructions Keshia Cárdenas is an 81 year old female with history of asthma on chronic home O2 with a history of atrial fibrillation with RVR on Xarelto, coronary artery disease with prior [place], prior CVA with seizure disorder, and hypertension who is admitted for treatment of acute on chronic heart failure,A- fib with RVR. 1.Acute on chronic COPD exacerbation due to RSV +, present on admission, active - Continue 2-5 L O2 via NC as needed - NEB ipratropium, budesonide - Start Prednisone 40 mg PO QD for 5 days stop 03/28/16 2. Atrial fibrillation with rapid ventricular response, acute on chronic, present on admission, rate controlled now -Continue home dose of Verapamil 03/23/16 -Continue home dose of Digoxin -Continue Metoprolol tartrate 75 mg TID -Continue Xarelto 3.Hypomagnesemia, acute, present on admission, stable - Continue home magnesium replacement 4. Hypokalemia, not present on admission, acute - continue home potassium replace 5.Diastolic heart failure, acute on chronic, present on admission, stable - Last Echocardiogram showed EF 65-70% - Continue Lasix 40 mg BID PO, given one time 20 mg IV lasix 03/25/16 - Continue potassium chloride PO QD 6. Hypertension, chronic, stable -Continue Metoprolol tartrate 75 mg TID 7. Hyperlipidemia, chronic, present on admission. -Continue Lipitor. 8. Depression, chronic, present on admission. -Continue Paroxetine. 9. Seizure disorder, chronic, present on admission. -Continue phenytoin. Follow-up plan Follow up with PCP in one week Follow-up Provider: Myla Post MD Follow-up with PCP in: 1 week COLE LI DO Mar 26, 2016 11:49
[2016-03-26] MEDS ORDERED: BUDE90AE IH (11:53)
--- NOTE | 2016-03-26 11:53 | NUR ---
Activity Pt tolerating movement from bed to BSC, with slight increase in heart rate. Pt maintained SPO2 at 92% with movement on 3.5L NC. Pt able to get up from BSC without help and ambulate back to bed unassisted. This RN was SBA as needed, none needed. Care continues.
--- NOTE | 2016-03-26 12:48 | NUR ---
Social Work: Discharge D: Pt discussed in am rounds. Pt is medically stable for discharge home today with HH. Pt was able to ambulate 90 feet SBA; pt is not skillable for rehab stay under Medicare. PHARMACY TECHNOLOGIST met with pt at bedside to discuss this. 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 Pt states she would feel better going to a skilled rehab to stay for a short period of time. Pt has [facility] medicaid. PHARMACY TECHNOLOGIST is inquiring with local facilities ([facility], [facility], and [facility]) if they have a [facility] bed available and what the pt's share of cost would be. PHARMACY TECHNOLOGIST reviewed this option with the pt who states that she probably doesn't have the financial ability to pay her share of cost but would like to know what this amount would be if a facility can accept her. Pt states that she will not be leaving tonight if a facility cannot be located and has chosen to appeal her discharge. UR RN has been notified. [facility] provided referrals to [facility], [facility], and [facility]. A: Pt who is ambulating I P: Pt currently appealing discharge and hoping a SNF is able to accept her under her [facility] and that share of cost is something that she can afford. PHARMACY TECHNOLOGIST to continue to work on locating placement for pt under DSHS. GREGORY Hastings
--- NOTE | 2016-03-26 13:04 | NUR ---
Blood sugar Patient refused blood sugar check this am. Pt eating breakfast, stated she did not have diabetes, did not need her blood sugar checked this morning.
--- NOTE | 2016-03-26 14:20 | NUR ---
Tele DC'd Tele DC'd at approximately 1440 per MD order, eyewear manufacturing tech notified. Care continues.
--- NOTE | 2016-03-26 14:24 | PCM.PNMED ---
Subjective Date of Service Mar 26, 2016 Subjective Keshia Cárdenas is an 81 year old female with history of asthma on chronic home O2 with a history of atrial fibrillation with RVR on Xarelto, coronary artery disease with prior [place], prior CVA with seizure disorder, and hypertension who is admitted for treatment of acute on chronic heart failure,A- fib with RVR. Hospital Day 4 Overnight: No acute events reported overnight. Today: Patient stated she is feeling weak today and does not want to return home with home health and has a dry cough. Patient denies fever, chills, nausea , vomiting, diarrhea, chest pain, chest pressure. ROS is negative except as noted above. Exam Vital Signs Vital Sign - Last Date Time Temp Pulse Resp B/P Pulse Ox O2 Delivery O2 Flow Rate FiO2 03/26/16 05:39 95 Nasal Cannula 3.00 03/26/16 04:45 70 03/26/16 03:54 36.7 21 124/53 Intake and Output 03/25/16 03/25/16 03/26/16 Cumulative From/Thru 15:00 23:00 07:00 03/22/16 12:00 - 03/26/16 06:33 Intake Total 880 ml 368 ml 4796 ml Output Total 1300 ml 600 ml 5425 ml Balance -420 ml -232 ml -629 ml Intake Oral 880 ml 368 ml 3898 ml IV Total 898 ml Output Urine Total 900 ml 600 ml 5025 ml Urine/Stool Mix 400 ml 400 ml # Voids 1 6 # Bowel Movements 2 4 Exam General: Alert, Oriented X3, Cooperative, fatigued Head: Normocephalic, atraumatic. External ears normal. Eyes: PERRLA, EOMI. Anicteric sclerae. Mouth: Mouth Normal, Mucous Membranes Moist/[place] Neck: Neck supple with full range of motion. NO JVD, no bruits heard, no lymph node palpable Chest & Lungs: scant coarse breath sounds at bases improved, no rhonchi, wheezes b/l Cardiovascular: Irregularly Irregular rhythm, Rate 70-98, Normal S1, Normal S2 , No Murmurs/Rubs/Gallops Abdomen: Non-tender, Non-distended, No masses, Normoactive bowel tones, Soft Musculoskeletal: Normal Range of Motion, strength 4/4 all extremities Extremities no cyanosis/clubbing, no edema Neurological: Grossly Neurologically Intact, Strength Normal 4/4 ext, Normal Gait, Sensation Intact, PSYCH: Normal mood and affect, good insight and judgment IVs and Medications Medications Reviewed: Medications were reviewed in detail Lab and Diagnostics Result Diagram: 03/26/1621403/26/16214 X-Rays, CTs and MRIs CHEST X-RAY IMPRESSION: Small effusions and bibasilar space opacities redemonstrated similar to the last examination. Dictated by: Faustino Prater RRA Interpreted: Griselda Howell MD on 03/24/2016 at 14:40 Transcribed by: JAXSON on 03/24/2016 at 14:42 Approved by: Griselda Howell M.D. on 03/24/2016 at 15:23 Assessment & Plan Keshia Cárdenas is an 81 year old female with history of asthma on chronic home O2 with a history of atrial fibrillation with RVR on Xarelto, coronary artery disease with prior TN, prior CVA with seizure disorder, and hypertension who is admitted for treatment of acute on chronic heart failure,A- fib with RVR. Hospital Day 4 1.Acute on chronic COPD exacerbation due to RSV +, present on admission, active - Patient has long standing history of COPD, she has been afebrile at this time antibiotics are not indicated. - Respiratory Viral PCR ordered, RSV + - Continue 2-5 L O2 via NC as needed - NEB ipratropium, budesonide - Start Prednisone 40 mg PO QD for 5 days stop on 03/28/16 - Sputum cultures ordered, pending - Procalcitonin and lactic ordered, negative - Repeat CXR ordered, no interval change - Would recommend PFT outpatient 2. Atrial fibrillation with rapid ventricular response, acute on chronic, present on admission, rate controlled now -RVR precipitated by RSV infection - per last hospitalization patient required max dose of diltiazem, home medications Metoprolol and required Verapamil, Metoprolol, Digoxin to control HR , exacerbation of A-fib likely due to RSV+ - Due to COPD Amiodarone is contraindicated - Continue home dose of Verapamil 03/23/16 - Continue home dose of Digoxin - Continue Metoprolol tartrate 50 mg TID - Continue Xarelto - Discontinue Tele - Cardiology consulted we appreciate their time and expertise. 3. RSV+ pulmonary infection -Treatment as above 4.Hypomagnesemia, acute, present on admission, stable - Replete magnesium, replete with goal of >2 - Continue home magnesium replacement - Magnesium 1.6 03/24/16 2 g Magnesium IV given x1 -Continue to monitor 5. Hypokalemia, not present on admission, acute - potassium 3.6 03/26/16 - continue to monitor 5.Diastolic heart failure, acute on chronic, present on admission, stable - Likely related to rapid atrial fibrillation - Last Echocardiogram showed EF 65-70% - CXR on admit shows increased cephalization of flow compared to last CXR at discharge, with improved pleural bibasilar effusions - Continue Lasix 40 mg BID PO, - Continue potassium chloride PO QD - Cardiology consulted we appreciate their time and expertise. AV ranjan ablation was discussed with cardiology due to patient recurrent uncontrolled atrial fibrillation. Etiology mostly likley related to decompensated pulmonary status inducing atrial tachycardia. At this time patient is likely not a good candidate for AV ranjan ablation. Continue with medical management. 6. Hypertension, chronic, stable -Continue Metoprolol tartrate 50 mg TID -Continue to monitor 7. Hyperlipidemia, chronic, present on admission. -Continue Lipitor. 8. Depression, chronic, present on admission. -Continue Paroxetine. 9. Seizure disorder, chronic, present on admission. -Continue phenytoin. DVT prophylaxis: Xarelto 20 mg GI prophylaxis: not indicated PRN: Tessalon PRN CODE STATUS: FULL CODE, PATIENT WILL NOT RECEIVE BLOOD PRODUCTS DUE TO UATSDIN BELIEFS disposition: Patient has appealed discharge and is requesting a review. Patient will likely stay 24-48 hours pending review of discharge planning Resuscitation Status: CPR: Attempt Resuscitation Attending Statement patient seen and examined with Dr Li .I agree with the history,exam, impression and plan as outlined above COLE LI DO Mar 26, 2016 06:46 Aurelio Reid MD Mar 26, 2016 14:44
--- NOTE | 2016-03-26 15:32 | NUR ---
faxed clinicals to [facility] ref# [id number],
--- NOTE | 2016-03-26 16:43 | PCM.DC.MED ---
Discharge Summary Date of Service Mar 26, 2016 Dates of Hospitalization Date of Hospital Admission Mar 22, 2016 at 14:55 Date of Discharge: Mar 26, 2016 Providers: Admitting Physician: Kenn Domingo MD Primary Care Physician: Oscar Post MD Attending Physician: Kenn Domingo MD Diagnosis at Time of Discharge Diagnosis at Time of Discharge Keshia Cárdenas is an 81 year old female with history of asthma on chronic home O2 with a history of atrial fibrillation with RVR on Xarelto, coronary artery disease with prior [place], prior CVA with seizure disorder, and hypertension who is admitted for treatment of acute on chronic heart failure,A- fib with RVR. 1.Acute on chronic COPD exacerbation due to RSV +, present on admission, active 2. Atrial fibrillation with rapid ventricular response, acute on chronic, present on admission, rate controlled now 3. RSV+ pulmonary infection 5. Hypokalemia, not present on admission, acute 5.Diastolic heart failure, acute on chronic, present on admission, stable 6. Hypertension, chronic, stable 7. Hyperlipidemia, chronic, present on admission. 8. Depression, chronic, present on admission. 9. Seizure disorder, chronic, present on admission. Consultations cardiology Procedures XRay, CTs & MRIs CHEST X-RAY IMPRESSION: Small effusions and bibasilar space opacities redemonstrated similar to the last examination. Dictated by: Faustino Prater RRA Interpreted: Griselda Howell MD on 03/24/2016 at 14:40 Transcribed by: JAXSON on 03/24/2016 at 14:42 Approved by: Griselad Howell M.D. on 03/24/2016 at 15:23 Brief History Copied from Admit H&P "Ms. Cárdenas is a pleasant 81 year old woman with history of chronic respiratory failure secondary to COPD and asthma, and distant tobacco use, that presented to [facility] with shortness of breath and symptomatic AF with RVR. Patient recently discharge from [facility] after treatment of similar symptoms . Patient stated that once she got home symptoms quickly returned and have not gotten any better. Patient stated that she picked up her prescriptions after discharge but has not been able to obtain a nebulizer, and has not yet procured a CPAP machine. She stated that her granddaughter has been taking care of her and noticed that her leg edema, shortness of breath, and productive cough has worsened over the past two days, culminating in increased shorteners of breath prompting a call for EMS. Upon arrival of EMS gave patient a treatment of [place]. Ms. Cárdenas states that her home oxygen requirement is approx 2L continuous use. She stated that She needs to sleep in a lounge chair because she cannot tolerate laying flat. She reports recent sick contacts in her family who became ill shortly after she was discharged from the hospital.She admits to a distant tobacco use history, quitting approximately 40 years ago. She also reports a distant EtOH use. 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 She claims her asthma developed at this time, and that the asbestos or shipyard exposure were not the culprits, but the lack of ventilation and high heat and humidity of her work environment. 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 Denies any direct contact with asbestos, silicone, shipyard/manufacturing. She states she completed a sleep study in December 2015 , but has yet to receive the results." Hospital Course Keshia Cárdenas is an 81 year old female with history of asthma on chronic home O2 with a history of atrial fibrillation with RVR on Xarelto, coronary artery disease with prior [place], prior CVA with seizure disorder, and hypertension who is admitted for treatment of acute on chronic heart failure,A- fib with RVR. 1.Acute on chronic COPD exacerbation due to RSV +, present on admission, active, improved - Patient has long standing history of COPD, - Respiratory Viral PCR ordered, RSV + - Continued 2-5 L O2 via NC as needed - Continued Neb ipratropium and budesonide - Started Prednisone 40 mg PO QD for 5 days stop on 03/28/16, patient will need two more days of treatment - Sputum cultures ordered, negative - Procalcitonin and lactic ordered, negative - Repeat CXR ordered, no interval change - Recommend PFT outpatient 2. Atrial fibrillation with rapid ventricular response, acute on chronic, present on admission, rate controlled now -RVR precipitated by RSV infection - Continued home dose of Verapamil 03/23/16 - Continued home dose of Digoxin - Continued Metoprolol tartrate 50 mg TID - Continued Xarelto - Discontinue Tele at discharge 3. RSV+ pulmonary infection -Treatment as above 4.Hypomagnesemia, acute, present on admission, stable - Repleted magnesium, replete with goal of >2 - Continued home magnesium replacement 5. Hypokalemia, not present on admission, acute - potassium 3.6 03/26/16 6.Diastolic heart failure, acute on chronic, present on admission, stable - Likely related to rapid atrial fibrillation - Last Echocardiogram showed EF 65-70% - CXR on admit shows increased cephalization of flow compared to last CXR at discharge, with improved pleural bibasilar effusions - Continued Lasix 40 mg BID PO, - Continued potassium chloride PO QD 6. Hypertension, chronic, stable7 -Continued Metoprolol tartrate 50 mg TID 8. Hyperlipidemia, chronic, present on admission. -Continued Lipitor. 9. Depression, chronic, present on admission. -Continued Paroxetine. 10. Seizure disorder, chronic, present on admission. -Continued phenytoin. Disposition: Likely discharge to home with home health per PT recommendations, patient medically ready for discharge, will need to follow up in one week with PCP and continue two more days of steroid therapy. Exam Vital Signs (Last) Date Time Temp Pulse Resp B/P Pulse Ox O2 Delivery O2 Flow Rate FiO2 03/26/16 16:11 36.6 75 18 113/59 96 Nasal Cannula 3.00 Exam General: Alert, Oriented X3, Cooperative, fatigued Head: Normocephalic, atraumatic. External ears normal. Eyes: PERRLA, EOMI. Anicteric sclerae. Mouth: Mouth Normal, Mucous Membranes Moist/[place] Neck: Neck supple with full range of motion. NO JVD, no bruits heard, no lymph node palpable Chest & Lungs: scant coarse breath sounds at bases improved, no rhonchi, wheezes b/l Cardiovascular: Irregularly Irregular rhythm, Rate 70-98, Normal S1, Normal S2 , No Murmurs/Rubs/Gallops Abdomen: Non-tender, Non-distended, No masses, Normoactive bowel tones, Soft Musculoskeletal: Normal Range of Motion, strength 4/4 all extremities Extremities no cyanosis/clubbing, no edema Neurological: Grossly Neurologically Intact, Strength Normal 4/4 ext, Normal Gait, Sensation Intact, PSYCH: Normal mood and affect, good insight and judgment Test 03/22/16 12:13 03/22/16 14:00 03/22/16 16:45 03/24/16 02:20 Total Bilirubin 0.4mg/dL (0.0-1.2) Aspartate Amino Transf (AST/SGOT) 25U/L (0-50) Alanine Aminotransferase (ALT/SGPT) 21U/L (0-32) Alkaline Phosphatase 127U/L (25-165) Troponin T 0.010ug/L (0.0-0.011) Pro-B-Type Natriuretic Peptide 4759pg/mL (0-738) Total Protein 7.4g/dL (6.4-8.4) Albumin 4.4g/dL (3.4-5.0) Urine Color Straw (YELLOW) Urine Appearance Hazy (CLEAR,HAZY) Urine pH 7.0 (5.0-8.0) Urine Specific [place] 1.015 (1.003-1.035) Urine Protein Negativemg/dL (NEG,TRACE) Urine Glucose (UA) Negativemg/dL (NEGATIVE) Urine Ketones Negativemg/dL (NEGATIVE) Urine Occult Blood Trace (NEGATIVE) Urine Nitrite Negative (NEGATIVE) Urine Bilirubin Negative (NEGATIVE) Urine Urobilinogen Normalmg/dL (NORMAL) Urine Leukocyte Esterase Negative (NEGATIVE) Urine RBC 0-2/hpf (0-2) Urine WBC 0-5/hpf (0-5) Urine Epithelial Cells Occasional/hpf (NONE-MOD) Urine Crystals None seen (NONE SEEN) Urine Bacteria None/hpf (NONE-FEW) Urine Hyaline Casts None/lpf (NONE) Urine Granular Casts None seen (NONE SEEN) Urine Waxy Casts None seen (NONE SEEN) Urine Red Blood Cell Casts None seen (NONE SEEN) Urine White Blood Cell Casts None seen (NONE SEEN) Urine Mucus None seen (None Seen) Urine Trichomonas None seen (NONE SEEN) Urine Yeast None (NONE SEEN) Urinalysis Comment None Urine Culture Reflexed Not indicated Lactic Acid Level 1.2mmol/L (0.4-2.0) Procalcitonin < 0.05ng/mL (See Comment) Neutrophils (%) (Auto) 76.9% (40-74) Lymphocytes (%) (Auto) 10.2% (14-46) Monocytes (%) (Auto) 11.8% (4-12) Eosinophils (%) (Auto) 0.6% (0-5) Basophils (%) (Auto) 0.3% (0-3) Test 03/25/16 03:00 03/26/16 02:15 Magnesium Level 2.0mg/dL (1.6-2.6) White Blood Count 4.6th/mm3 (3.8-10.1) Red Blood Count 3.72mil/mm3 (3.90-5.20) Hemoglobin 11.5g/dL (12.0-15.6) Hematocrit 35.2% (35.0-46.0) Mean Corpuscular Volume 94.6fL (81-100) Mean Corpuscular Hemoglobin 30.9pg (27.0-35.0) Mean Corpuscular Hemoglobin Concent 32.7% (32.0-37.0) Red Cell Distribution Width 12.8% (12.3-15.4) Platelet Count 170bil/L (150-400) Sodium Level 136mEq/L (134-144) Potassium Level 3.6mEq/L (3.5-5.2) Chloride Level 92mEq/L (97-108) Carbon Dioxide Level 32mmol/L (18-29) Blood Urea Nitrogen 20mg/dL (8-27) Creatinine 0.53mg/dL (0.57-1.00) Estimat Glomerular Filtration Rate 159mL/min (>59) Glucose Level 135mg/dL (60-99) Calcium Level 8.3mg/dL (8.5-10.1) Discharge Medications Discharge Medications Atorvastatin (Lipitor) 20 Mg Tablet 20 MG PO HS (Reported) Bimatoprost (Lumigan) 45 Drop/2.5 Ml Ophsoln 45 DROP OD HS (Reported) Biotin (Biotin) 1 Mg Capsule 1 MG PO DAILY (Reported) Brimonidine Tartrate (Alphagan P) 5 Ml Drops 5 ML BOTH_EYES BID (Reported) Brinzolamide (Azopt 1% Ophthalmic Suspension) 10 Ml Drops.susp 1 DROP OP BID ( Reported) Budesonide (Pulmicort Flexhaler) 1 Puff/90 Mcg Aerp 1 PUFF IH BID Prescribed by: COLE BALDERRAMA DO Cholecalciferol (Vitamin D3) (Vitamin D) 1,000 Unit Tablet 1,000 UNIT PO DAILY ( Reported) Chromium Picolinate (Chromium Picolinate) 200 Mcg Capsule 200 MCG PO DAILY ( Reported) Digoxin (Lanoxin) 0.125 Mg Tablet 0.125 MG PO DAILY@12 Prescribed by: COLE BALDERRAMA DO Folic Acid (Folic Acid) 1 Mg Tablet 1 MG PO DAILY (Reported) Furosemide (Lasix) 40 Mg Tablet 40 MG PO BID (Reported) Ipratropium [place] (Atrovent HFA) 200 Puff/12.9 Gm Inhaler 2 PUFF INH BID ( Reported) Metoprolol Tartrate (Metoprolol Tartrate) 50 Mg Tablet 50 MG PO BID Prescribed by: COLE BALDERRAMA DO Paroxetine (Paroxetine) 40 Mg Tablet 40 MG PO DAILY (Reported) Phenytoin Sodium Extended (Phenytoin Sodium Extended) 100 Mg Capsule 300 MG PO HS Prescribed by: STEPHAN ROSENBERG DO Potassium Chloride ER (Potassium Chloride ER) 10 Meq Tablet 10 MEQ PO DAILY ( Reported) TAKE WITH FOOD Rivaroxaban (Xarelto) 20 Mg Tablet 20 MG PO DAILY (Reported) Verapamil ER (Calan SR) 240 Mg Tablet 240 MG PO BID Prescribed by: COLE BALDERRAMA DO Miscellaneous Medications Cyanocobalamin (Vitamin B-12) (B-12) 1,000 Mcg/Ml Drops 1,000 MCG SL (Reported) Magnesium Oxide (Magnesium) 400 Mg Capsule 400 MG PO (Reported) Followup Plan Disposition: Home with home health PT Follow-up plan Follow up with PCP in one week Discharge Diet: Heart Healthy Discharge Activity: Limited until seen by PCP, Home Health Phyical Therapy Patient Instructions Keshia MedranoKiko is an 81 year old female with history of asthma on chronic home O2 with a history of atrial fibrillation with RVR on Xarelto, coronary artery disease with prior MN, prior CVA with seizure disorder, and hypertension who is admitted for treatment of acute on chronic heart failure,A- fib with RVR. 1.Acute on chronic COPD exacerbation due to RSV +, present on admission, active - Continue 2-5 L O2 via NC as needed - NEB ipratropium, budesonide - Start Prednisone 40 mg PO QD for 5 days stop 03/28/16 2. Atrial fibrillation with rapid ventricular response, acute on chronic, present on admission, rate controlled now -Continue home dose of Verapamil 03/23/16 -Continue home dose of Digoxin -Continue Metoprolol tartrate 75 mg TID -Continue Xarelto 3.Hypomagnesemia, acute, present on admission, stable - Continue home magnesium replacement 4. Hypokalemia, not present on admission, acute - continue home potassium replace 5.Diastolic heart failure, acute on chronic, present on admission, stable - Last Echocardiogram showed EF 65-70% - Continue Lasix 40 mg BID PO, given one time 20 mg IV lasix 03/25/16 - Continue potassium chloride PO QD 6. Hypertension, chronic, stable -Continue Metoprolol tartrate 75 mg TID 7. Hyperlipidemia, chronic, present on admission. -Continue Lipitor. 8. Depression, chronic, present on admission. -Continue Paroxetine. 9. Seizure disorder, chronic, present on admission. -Continue phenytoin. Follow-up Provider: Myla Post MD Follow-up with PCP in: 1 week Time spent > 35 minutes coordinating discharge Attending Statement patient seen and examined with Dr Balderrama on day of discharge .I agree with the discharge summary and plan as outlined above patient progressively improving,medically optimized for discharge,HR controlled now ,dyspnea markedly improved COLE BALDERRAMA DO Mar 26, 2016 16:37 Aurelio Reid MD Mar 26, 2016 16:50
--- NOTE | 2016-03-26 18:28 | NUR ---
Improvement/Encouragement Pt visiting with friends, laughing and joking, appropriate conversations. This RN encouraging socialization. Care continues.
[2016-03-27] VITALS (10 sets, daily range): BP systolic 106–135; BP diastolic 56–84; PULSE 56–88; RESP 14–20; O2SAT 93–100
[2016-03-27] MEDS: Brimonidine 0.1% 5 mL Ophthalmic Solution BOTH_EYES SCH ×3 (00:18→21:45)
[2016-03-27] MEDS: Verapamil SR 240 mg ER12 Tablet PO SCH ×3 (00:21→21:46)
[2016-03-27] MEDS: Phenytoin 100 mg ER Capsule PO SCH ×2 (00:25→21:45)
[2016-03-27] MEDS: Dorzolamide 2% 10 mL Ophthalmic Solution BOTH_EYES SCH ×3 (00:27→21:45)
[2016-03-27] MEDS: Ipratropium 0.02% 0.5 mg/2.5 mL Inhalation Solution NEB SCH ×4 (04:20→19:52)
--- NOTE | 2016-03-27 05:08 | NUR ---
Arrival to Room 1005 Patient arrived to room 1005 at 2155 via hospital bed. She was accompanied by [facility] staff. Patient stated that she feels depressed and does not know how Medicare will pay for additional hospital stay and she is concerned about taking care of her . Patient is SL in right forearm. VSS. PM medications administered. Patient requesting to use bsc. Call light within reach. Patient resting comfortably.
--- NOTE | 2016-03-27 05:31 | PROG NOTE ---
[address] [address] PROGRESS NOTE PATIENT: MARIAM BUENO : 1935 MR#: [id number] ADMIT: 03/22/2016 JOB ID: [id number] DATE: 03/26/2016 CHIEF COMPLAINT: AFib with RVR. SUBJECTIVE: The patient is an 81-year-old woman with significant COPD. She has no shortness of breath, found to have an AFib with RVR. She has RSV and is being monitored here with proper protection. She says she is very tired and otherwise he denies any awareness of palpitations and chest pain or orthopnea. CURRENT MEDICATIONS: 1. Lipitor 20 mg daily. 2. Metoprolol tartrate 50 mg twice a day. 3. Verapamil 240 mg twice a day. 4. Digoxin 0.125 mg daily. 5. Phenytoin 300 mg q.h.s. 6. Lasix 40 mg twice a day. 7. KCl 10 mEq daily. 8. Prednisone 40 mg daily. 9. Xarelto 20 mg daily. 10. Lispro sliding scale insulin. 11. Paxil 40 mg daily. 12. Magnesium oxide 400 mg daily. 13. Various inhalers. PHYSICAL EXAMINATION: Vital signs: Temperature 36.7, blood pressure 113/59 up to 134/79, pulse 68 up to 101 q beats per minute. She is saturating 94- 100% on April 3-3.5 L on supplemental oxygen. A very pleasant woman sitting upright in bed, in no apparent distress. Eyes: No scleral icterus. Heart is irregularly irregular. Normal S1, S2. No murmurs. Lungs: Decreased breath sounds. No crackles. Abdomen. Soft, positive bowel sounds. No hepatosplenomegaly. Extremities: No clubbing, cyanosis or edema. Skin: No rashes or lesions. LABORATORIES: Reviewed showed normal white count, normal hematocrit and normal kidney function. Telemetry showed ongoing AFib mostly with controlled rate. ASSESSMENT AND PLAN: An 81-year-old woman with chronic obstruction pulmonary disease, has acute decompensated heart failure attributed to paroxysmal atrial fibrillation. Continue current medication and rate control. Continue Xarelto. Rate control control remains sub par. We will continue Verapamil at max dose. We will keep metoprolol as it is because of her chronic obstruction pulmonary disease and then increase her digoxin from 0.125 to 0.25 mg daily. Most recent digoxin level was low at 0.6. Dr. Wiley's and Dr. Peoples's notes were reviewed as well as Dr. Lui's notes and I appreciate their expertise. Their impression was that she was unlikely to achieve sinus rhythm due to valvular heart disease and left atrial enlargement. The patient is quite close to being discharged and can follow up as an outpatient. Thank you for the opportunity to evaluate this patient. SONG
[2016-03-27 06:45] LABS: Mean Corpuscular Hemoglobin 30.7 pg (27.0-35.0); Mean Corpuscular Volume 96.2 fL (81-100)
[2016-03-27] MEDS: Budesonide 0.5 mg/2 mL Inhalation Solution NEB SCH ×2 (07:47→19:52)
[2016-03-27] MEDS: Insulin LISPRO 300 Unit/3 mL Inj SUBQ SCH ×4 (08:00→23:18)
[2016-03-27] MEDS: predniSONE 20 mg Tablet PO SCH (08:21)
[2016-03-27] MEDS: PARoxetine 20 mg Tablet PO SCH (08:22)
[2016-03-27] MEDS: Polyethylene Glycol (PEG) 17 Gm Powder PO SCH (08:23)
[2016-03-27] MEDS ORDERED: Potassium Chloride 20 mEq SR Tablet PO ONE (11:10)
--- NOTE | 2016-03-27 11:13 | PCM.PNMED ---
Subjective Date of Service Mar 27, 2016 Subjective No complaints, says she doesn't want to go home Exam Vital Signs Vital Sign - Last Date Time Temp Pulse Resp B/P Pulse Ox O2 Delivery O2 Flow Rate FiO2 03/27/16 08:30 Supplement Oxygen 03/27/16 08:26 36.5 78 14 112/61 98 3.00 Intake and Output 03/26/16 03/26/16 03/27/16 Cumulative From/Thru 15:00 23:00 07:00 03/22/16 12:00 - 03/27/16 03:10 Intake Total 510 ml 5306 ml Output Total 550 ml 5975 ml Balance -40 ml -669 ml Intake Oral 510 ml 4408 ml IV Total 898 ml Output Urine Total 550 ml 5575 ml Urine/Stool Mix 400 ml # Voids 6 # Bowel Movements 4 Exam Sleeping but arouses to voice Heart: sl irregular Lungs: clear ant/lat Abd: soft, NT No pedal edema IVs and Medications Medications Reviewed: Medications were reviewed in detail Lab and Diagnostics Result Diagram: 03/27/1651103/27/16 0512 X-Rays, CTs and MRIs CHEST X-RAY IMPRESSION: Small effusions and bibasilar space opacities redemonstrated similar to the last examination. Dictated by: Faustino Prater RRA Interpreted: Griselda Howell MD on 03/24/2016 at 14:40 Transcribed by: JAXSON on 03/24/2016 at 14:42 Approved by: Griselda Howell M.D. on 03/24/2016 at 15:23 Assessment & Plan Keshia MedranoSariThomas is an 81 year old female with history of asthma on chronic home O2 with a history of atrial fibrillation with RVR on Xarelto, coronary artery disease with prior [place], prior CVA with seizure disorder, and hypertension who was admitted for treatment of acute on chronic heart failure,A -fib with RVR. She has since been discharged (on Mar 26) but is appealing her discharge. 1.Acute on chronic COPD exacerbation due to RSV +, present on admission, active, improved - Patient has long standing history of COPD, - Respiratory Viral PCR ordered, RSV + - Continued 2-5 L O2 via NC as needed (currently at 2 L which is her usual at home) - Continued Neb ipratropium and budesonide - Started Prednisone 40 mg PO QD for 5 days stop on 03/28/16 - Sputum cultures ordered, negative - Procalcitonin and lactic ordered, negative - Repeat CXR ordered, no interval change - Recommend PFT outpatient 2. Atrial fibrillation with rapid ventricular response, acute on chronic, present on admission, rate controlled now -RVR precipitated by RSV infection - Continued home dose of Verapamil 03/23/16 - Digoxin dose increased Feb 3 from .125 to .25 daily - Continued Metoprolol tartrate 50 mg TID - Continued Xarelto - Discontinue Tele at discharge 3. RSV+ pulmonary infection -Treatment as above 4.Hypomagnesemia, acute, present on admission, stable - Repleted magnesium, replete with goal of >2 - Continued home magnesium replacement 5. Hypokalemia, not present on admission, acute - potassium 3.6 03/26/16 but 3.4 Feb 4 - will give extra 20 meq and then tomorrow begin 20 daily instead of 10 6.Diastolic heart failure, acute on chronic, present on admission, stable - Likely related to rapid atrial fibrillation - Last Echocardiogram showed EF 65-70% - CXR on admit shows increased cephalization of flow compared to last CXR at discharge, with improved pleural bibasilar effusions - Continued Lasix 40 mg BID PO, - Continued potassium chloride PO QD 6. Hypertension, chronic, stable7 -Continued Metoprolol tartrate 50 mg TID 8. Hyperlipidemia, chronic, present on admission. -Continued Lipitor. 9. Depression, chronic, present on admission. -Continued Paroxetine. 10. Seizure disorder, chronic, present on admission. -Continued phenytoin. Disposition: Likely discharge to home with home health per PT recommendations, patient medically ready for discharge, will need to follow up in one week with PCP and continue two more days of steroid therapy. Resuscitation Status: CPR: Attempt Resuscitation Dominique Wheat MD Mar 27, 2016 11:13
[2016-03-27] MEDS ORDERED: DIGO125T73 PO (11:17)
[2016-03-27] MEDS ORDERED: POTA10TA12 PO (11:17)
--- NOTE | 2016-03-27 16:49 | NUR ---
Mentation patient is alert and oriented, able to make needs known. stable vital signs. stable blood sugars r/t patient is on prednisone scheduled. patient received PO medications as ordered whole with water with out swallowing difficulty. patient used bed side commode this shift with stand by assist. stable mood. call light with in reach for safety and verbalize the use of call light. family at bed side. continuous droplet precautions r/t RSV positive. [place] on right foot and followed by director of radio services. continue to monitor vital signs, mentation, pain, bruising/bleeding r/t patient is on blood thinner, and safety.
--- NOTE | 2016-03-27 18:17 | NUR ---
Received verbal orders from psychiatric nurse practitioner for on Telemetry to monitor A-Fib. cardiac technologist aware. hospitalist aware.
[2016-03-28] VITALS (14 sets, daily range): BP systolic 117–134; BP diastolic 57–76; PULSE 62–97; RESP 18–22; O2SAT 91–100
[2016-03-28] MEDS: Ipratropium 0.02% 0.5 mg/2.5 mL Inhalation Solution NEB SCH ×4 (01:50→21:36)
--- NOTE | 2016-03-28 04:36 | NUR ---
Cough Reports increase in cough through evening, scant sputum with strong loose, cough. Lungs clear, O2 via NC for sats > 92%. Remains on droplet precautions. Hourly rounding ongoing.
[2016-03-28] MEDS: Insulin LISPRO 300 Unit/3 mL Inj SUBQ SCH ×4 (08:00→21:29)
--- NOTE | 2016-03-28 08:02 | PCM.PNMED ---
Subjective Date of Service Mar 28, 2016 Subjective Feels worse, in particular c/o cough, initially had lessened in hospital but now worse and frequent, chest feels congested, hasn't coughed up any phlegm Exam Vital Signs Vital Sign - Last Date Time Temp Pulse Resp B/P Pulse Ox O2 Delivery O2 Flow Rate FiO2 03/28/16 06:24 36.4 62 18 130/76 97 Nasal Cannula 3.00 03/27/16 12:25 98 Intake and Output 03/27/16 03/27/16 03/28/16 Cumulative From/Thru 15:00 23:00 07:00 03/22/16 12:00 - 03/28/16 06:24 Intake Total 437 ml 700 ml 375 ml 6818 ml Output Total 600 ml 600 ml 7175 ml Balance 437 ml 100 ml -225 ml -357 ml Intake Oral 437 ml 700 ml 375 ml 5920 ml IV Total 898 ml Output Urine Total 600 ml 600 ml 6775 ml Urine/Stool Mix 400 ml # Voids 2 2 10 # Bowel Movements 0 4 Exam Gen: Arouses to voice then alert and appropriate, NAD Heart: Irreg Lungs: Initially some upper airway rhonchi and cough sounds tight but then lungs clear with DB Abd: Soft, NT Extrem: No pedal edema IVs and Medications Medications Reviewed: Medications were reviewed in detail Lab and Diagnostics Result Diagram: 03/27/1651103/27/16 0512 X-Rays, CTs and MRIs CHEST X-RAY IMPRESSION: Small effusions and bibasilar space opacities redemonstrated similar to the last examination. Dictated by: Faustino Prater RRA Interpreted: Griselda Howell MD on 03/24/2016 at 14:40 Transcribed by: JAXSON on 03/24/2016 at 14:42 Approved by: Griselda Hwoell M.D. on 03/24/2016 at 15:23 Assessment & Plan Keshia MedranoSariThomas is an 81 year old female with history of asthma on chronic home O2 with a history of atrial fibrillation with RVR on Xarelto, coronary artery disease with prior [place], prior CVA with seizure disorder, and hypertension who was admitted for treatment of acute on chronic heart failure,A -fib with RVR. She has since been discharged (on Mar 26) but is appealing her discharge. 1.Acute on chronic COPD exacerbation due to RSV +, present on admission, active, improved - Patient has long standing history of COPD, - Respiratory Viral PCR ordered, RSV + - Continue O2 via NC as needed (currently at 2 L which is her usual at home) - Continue Neb ipratropium and budesonide - Started Prednisone 40 mg PO QD for 5 days through 03/28/16 - Sputum cultures ordered, negative - Procalcitonin and lactic ordered, negative - Repeat CXR ordered on 03/24, no interval change - Recommend PFT outpatient 3. RSV+ pulmonary infection -Treatment as above - Worsening cough & chest congestion (after initially improving), could have a superimposed bacterial infection - Will repeat CXR - Azithromycin po since also COPD, add CTX (or oral Ceph) if CXR shows worsening /new infiltrate Addendum: CXR IMPRESSION: 1. Patchy lingular airspace opacity may reflect early pneumonia. 2. Small bilateral subpulmonic pleural effusions are unchanged, of uncertain etiology. Will add oral cefuroxime 2. Atrial fibrillation with rapid ventricular response, acute on chronic, present on admission, rate controlled now -RVR precipitated by RSV infection - Continued home dose of Verapamil 03/23/16 - Digoxin dose increased Feb 3 from .125 to .25 daily - Continued Metoprolol tartrate 50 mg TID - Continued Xarelto - Discontinue Tele at discharge 4.Hypomagnesemia, acute, present on admission, stable - Repleted magnesium, replete with goal of >2 - Continued home magnesium replacement 5. Hypokalemia, not present on admission, acute - potassium 3.6 03/26/16 but 3.4 Feb 4 - will give extra 20 meq and then Feb 5 begin 20 daily instead of 10 - repeat lab 2/6 am 6.Diastolic heart failure, acute on chronic, present on admission, stable - Likely related to rapid atrial fibrillation - Last Echocardiogram showed EF 65-70% - CXR on admit shows increased cephalization of flow compared to last CXR at discharge, with improved pleural bibasilar effusions - Continued Lasix 40 mg BID PO, - Continued potassium chloride PO QD (but increased dose as noted above) 6. Hypertension, chronic, stable -Continued Metoprolol tartrate 50 mg TID 8. Hyperlipidemia, chronic, present on admission. -Continued Lipitor. 9. Depression, chronic, present on admission. -Continued Paroxetine. 10. Seizure disorder, chronic, present on admission. -Continued phenytoin. Disposition: Unclear. Pt discharged two days ago but has refused to go. If she qualifies for a SNF she would be interested. Resuscitation Status: CPR: Attempt Resuscitation Dominique Wheat MD Mar 28, 2016 08:02
[2016-03-28] MEDS: Polyethylene Glycol (PEG) 17 Gm Powder PO SCH (08:30)
[2016-03-28] MEDS: Dorzolamide 2% 10 mL Ophthalmic Solution BOTH_EYES SCH ×2 (09:31→21:27)
[2016-03-28] MEDS: Brimonidine 0.1% 5 mL Ophthalmic Solution BOTH_EYES SCH ×2 (09:31→21:27)
[2016-03-28] MEDS: Verapamil SR 240 mg ER12 Tablet PO SCH ×2 (09:32→21:27)
[2016-03-28] MEDS: PARoxetine 20 mg Tablet PO SCH (09:33)
[2016-03-28] MEDS: predniSONE 20 mg Tablet PO SCH (09:33)
[2016-03-28] MEDS: Budesonide 0.5 mg/2 mL Inhalation Solution NEB SCH ×2 (09:39→21:36)
--- NOTE | 2016-03-28 09:47 | DRSVH ---
PROCEDURE: X-RAY CHEST, TWO VIEWS ([id number]) INDICATIONS: 81 year-old female with worsening cough. TECHNIQUE: 2 views of the chest were acquired. COMPARISON: [facility], CR, XR CHEST 1VW, 03/24/2016, 14:10. [facility], CR, XR CHEST 1VW (PORTABLE), 03/22/2016, 12:07. [facility], CR, XR CHEST 1VW (PORTABLE), 02/21, 5:35. FINDINGS: Surgical changes and devices: None. Lungs and pleura: Small subpulmonic bilateral pleural effusions are unchanged. There is persistent pa tchy lingular airspace opacity seen. There is linear right lower lung atelectasis. Mediastinum: Mediastinal contours are normal. Heart size is upper normal, with senescent mitral ritchie ve annular calcification. There is aortic atherosclerosis. Bones and chest wall: No suspicious bony abnormalities. Soft tissues appear unremarkable. IMPRESSION: 1. Patchy lingular airspace opacity may reflect early pneumonia. 2. Small bilateral subpulmonic pleural effusions are unchanged, of uncertain etiology. Dictated by: Ramon Suazo M.D. on 03/28/2016 at 9:44 Approved by: Ramon Suazo M.D. on 03/28/2016 at 9:46
--- NOTE | 2016-03-28 12:57 | NUR ---
Patient is now discharged from PT for lack of participation. Patient is routinely up with NSG however continues to decline any skilled PT services.
--- NOTE | 2016-03-28 16:34 | NUR ---
Respiratory Lungs sound fairly clear, able to ambulate a little but gets a bit dyspneic, on 2.5L Oxygen(her home dose). Has productive cough, eating and drinking OK
--- NOTE | 2016-03-28 21:12 | NUR ---
med held [facility] held at HS for low HR, see record.
[2016-03-28] MEDS: Phenytoin 100 mg ER Capsule PO SCH (21:27)
[2016-03-29] VITALS (9 sets, daily range): BP systolic 97–140; BP diastolic 59–78; PULSE 56–77; RESP 16–20; O2SAT 92–99
--- NOTE | 2016-03-29 05:19 | NUR ---
Diarrhea pt had bout of diarrhea in evening. Appearance is with mucous and strong smelling, sample sent to rule out c-diff. Enteric precautions added until results are available. No further episodes of diarrhea. Hourly rounding ongoing.
[2016-03-29 05:29] LABS: Mean Corpuscular Hemoglobin 30.4 pg (27.0-35.0); Mean Corpuscular Volume 96.1 fL (81-100)
[2016-03-29] MEDS: Ipratropium 0.02% 0.5 mg/2.5 mL Inhalation Solution NEB SCH ×2 (05:41→11:27)
[2016-03-29] MEDS ORDERED: Potassium Chloride 20 mEq SR Tablet PO SCH (08:00)
[2016-03-29] MEDS: Insulin LISPRO 300 Unit/3 mL Inj SUBQ SCH ×2 (08:00→12:00)
[2016-03-29] MEDS: Budesonide 0.5 mg/2 mL Inhalation Solution NEB SCH (08:25)
[2016-03-29] MEDS: Polyethylene Glycol (PEG) 17 Gm Powder PO SCH (08:30)
[2016-03-29] MEDS: Dorzolamide 2% 10 mL Ophthalmic Solution BOTH_EYES SCH (09:23)
[2016-03-29] MEDS: Brimonidine 0.1% 5 mL Ophthalmic Solution BOTH_EYES SCH (09:23)
[2016-03-29] MEDS: Verapamil SR 240 mg ER12 Tablet PO SCH (09:24)
[2016-03-29] MEDS: PARoxetine 20 mg Tablet PO SCH (09:24)
--- NOTE | 2016-03-29 12:42 | PCM.PNMED ---
Subjective Date of Service Mar 29, 2016 Subjective Patient had diarrhea yesterday, c.diff was sent denied further diarrhea, nausea, vomiting eating well with good appetite Patient thinks that she cannot go home because she has to take care of her at home In the process of appealing her stay Exam Vital Signs Vital Sign - Last Date Time Temp Pulse Resp B/P Pulse Ox O2 Delivery O2 Flow Rate FiO2 03/29/16 11:27 64 20 99 Nasal Cannula 3.00 03/29/16 09:33 36.4 97/59 03/27/16 12:25 98 Intake and Output 03/28/16 03/28/16 03/29/16 Cumulative From/Thru 15:00 23:00 07:00 03/22/16 12:00 - 03/29/16 06:08 Intake Total 620 ml 450 ml 7888 ml Output Total 500 ml 653 ml 8328 ml Balance 120 ml -203 ml -440 ml Intake Oral 620 ml 450 ml 6990 ml IV Total 898 ml Output Urine Total 100 ml 650 ml 7525 ml Urine/Stool Mix 400 ml 3 ml 803 ml # Voids 10 # Bowel Movements 1 5 Exam NAD, comfortably laying down on the bed no JVD, MMM, no LAD RRR, nl s1, s2 no mrg CTAB, no w,c S,ND,NT,normoactive BS+ warm, no edema, pulses 2/2 IVs and Medications Medications Reviewed: Medications were reviewed in detail Lab and Diagnostics Result Diagram: 03/29/16 0505 03/29/16 0505 X-Rays, CTs and MRIs CHEST X-RAY IMPRESSION: Small effusions and bibasilar space opacities redemonstrated similar to the last examination. Dictated by: Faustino Prater RRA Interpreted: Griselda Howell MD on 03/24/2016 at 14:40 Transcribed by: JAXSON on 03/24/2016 at 14:42 Approved by: Griselda Howell M.D. on 03/24/2016 at 15:23 Assessment & Plan Keshia Cárdenas is an 81 year old female with history of asthma on chronic home O2 with a history of atrial fibrillation with RVR on Xarelto, coronary artery disease with prior [place], prior CVA with seizure disorder, and hypertension who was admitted for treatment of acute on chronic heart failure,A -fib with RVR. She has since been discharged (on Feb 3) but is appealing her discharge. #new onset diarrhea, developed 03/28, HD stable, afebrile, wbc stable, exams benign, hold off on abx for infectious colitis, will follow up c.diff stool study 1.Acute on chronic COPD exacerbation due to RSV +, present on admission, active, improved - Patient has long standing history of COPD, - Respiratory Viral PCR ordered, RSV + - Continue O2 via NC as needed (currently at 2 L which is her usual at home) - Continue Neb ipratropium and budesonide - Started Prednisone 40 mg PO QD for 5 days through 03/28/16 - Sputum cultures ordered, negative - Procalcitonin and lactic ordered, negative - Repeat CXR ordered on 03/24, no interval change - Recommend PFT outpatient 3. RSV+ pulmonary infection -Treatment as above - Worsening cough & chest congestion (after initially improving), could have a superimposed bacterial infection - Will repeat CXR - Azithromycin po since also COPD, add CTX (or oral Ceph) if CXR shows worsening /new infiltrate Addendum: CXR IMPRESSION: 1. Patchy lingular airspace opacity may reflect early pneumonia. 2. Small bilateral subpulmonic pleural effusions are unchanged, of uncertain etiology. Will add oral cefuroxime 2. Atrial fibrillation with rapid ventricular response, acute on chronic, present on admission, rate controlled now -RVR precipitated by RSV infection - Continued home dose of Verapamil 03/23/16 - Digoxin dose increased Feb 3 from .125 to .25 daily - Continued Metoprolol tartrate 50 mg TID - Continued Xarelto - Discontinue Tele at discharge 4.Hypomagnesemia, acute, present on admission, stable - Repleted magnesium, replete with goal of >2 - Continued home magnesium replacement 5. Hypokalemia, not present on admission, acute - potassium 3.6 03/26/16 but 3.4 Feb 4 - will give extra 20 meq and then Feb 5 begin 20 daily instead of 10 - repeat lab 2/6 am 6.Diastolic heart failure, acute on chronic, present on admission, stable - Likely related to rapid atrial fibrillation - Last Echocardiogram showed EF 65-70% - CXR on admit shows increased cephalization of flow compared to last CXR at discharge, with improved pleural bibasilar effusions - Continued Lasix 40 mg BID PO, - Continued potassium chloride PO QD (but increased dose as noted above) 6. Hypertension, chronic, stable -Continued Metoprolol tartrate 50 mg TID 8. Hyperlipidemia, chronic, present on admission. -Continued Lipitor. 9. Depression, chronic, present on admission. -Continued Paroxetine. 10. Seizure disorder, chronic, present on admission. -Continued phenytoin. Disposition:in the process of appealing discharge, medically cleared, vs SNF Resuscitation Status: CPR: Attempt Resuscitation Time spent 35 minutes Carol Bone MD Mar 29, 2016 12:42
--- NOTE | 2016-03-29 14:44 | PCM.DIMED ---
Discharge Instructions Date of Service Mar 29, 2016 Dates of Hospitalization Mar 22, 2016 at 14:55 Discharge Diagnosis Discharge Diagnosis Keshia Cárdenas is an 81 year old female with history of asthma on chronic home O2 with a history of atrial fibrillation with RVR on Xarelto, coronary artery disease with prior [place], prior CVA with seizure disorder, and hypertension who is admitted for treatment of acute on chronic heart failure,A- fib with RVR. 1.Acute on chronic COPD exacerbation due to RSV +, present on admission, active 2. Atrial fibrillation with rapid ventricular response, acute on chronic, present on admission, rate controlled now 3. RSV+ pulmonary infection 5. Hypokalemia, not present on admission, acute 5.Diastolic heart failure, acute on chronic, present on admission, stable 6. Hypertension, chronic, stable 7. Hyperlipidemia, chronic, present on admission. 8. Depression, chronic, present on admission. 9. Seizure disorder, chronic, present on admission. Medication Instructions Please continue digoxin 250mcg daily Please take potassium Chloride 20meq daily Please note that your furosemide, water decreased to 40mg once a day upon discharge, this can be adjusted by your doctor later in the clinic Diet Heart Healthy Activity Limited until seen by PCP, Home Health Phyical Therapy Call your provider Fever or Chills, Shortness of breath, Bleeding, Chest pain, Vomitting, Excessive diarrhea, Weakness (unilateral) Patient Instructions You were hospitalized with heart failure and irregular heart rhythms. Please follow medicine instruction as above Follow-up plan Follow up with PCP in one week Follow-up Provider: Myla Post MD Follow-up with PCP in: 1 week Follow-up in: 2 weeks Carol Bone MD Mar 29, 2016 14:44
[2016-03-29] MEDS ORDERED: FURO-128 PO (14:47)
[2016-03-29] MEDS ORDERED: DIGO125T73 PO (14:51)
[2016-03-29] MEDS ORDERED: POTA10TA12 PO (14:51)
--- NOTE | 2016-03-29 15:01 | NUR ---
Social Work Discharge: Order for discharge acknowledged. Patient appealed discharge and Medicare states patient able to discharge today or risk having to cover expense for hospitalization stay. Patient signed form. Patient resides in [facility] with spouse. No Medicaid bed available at this time. AURELIO spoke to C of rep Brittanie who states no Medicaid bed at this time but patient can discharge home and await Medicaid bed. Patient has been declining PT services and therapy declined patient of services on 03/28. Previous recommendations for home with C. AURELIO contacted and spoke with patient daughters Shelby and Bree who were advised. Patient in agreement to discharge today with [facility], per choice. Access provided. HHC to be initiated 24-48hrs following discharge. AURELIO contacted [employer] rep Cj, who is out of office due to snow. AURELIO spoke to Cristina via [employer] who was advised of discharge. Per rep patient obtains 55/month and [facility] Cj notes reflect that home assessment to be conducted for additional hours at home. AURELIO UR specialist arranged transport for pick at 3pm via [facility]. No other needs identified. PLAN: Home with [facility] and [employer] caregiver support at home. Family aware that patient can be placed on Medicaid wait list until Medicaid bed available. Morris JENKINS
--- NOTE | 2016-03-29 15:48 | NUR ---
discharged home per [facility], pt eating/drinking, no respiratory distress or SOB, on 2L Oxygen which is her home dose, lungs clear, able to ambulate short distances with steady gait. Has f/u appt scheduled with Dr Soria for Friday 03/31
[2016-04-13] MEDS ORDERED: UBID1CAP52 PO (14:56)
[2016-04-13] MEDS ORDERED: ALBU8.5H2 INHALATION (14:56)
[2016-04-13] MEDS ORDERED: FLUT12AE8 IH (14:56)
[2016-04-30] MEDS ORDERED: BUDE90AE IH (19:40)
[2016-04-30] MEDS ORDERED: FURO40TA4 PO (19:40)
[2016-04-30] MEDS ORDERED: VERA240T97 PO (19:40)
== END 2016-03-29 15:15 | disposition home health service (06) | DRG 190 ==
LOC: EDBD 11:31 → SED 11:31 → OBSVTOIN 14:55 → MOC 14:55 → PCC 17:17 → OSC 03-26 21:27
PROVIDERS: ADMIT Internal Medicine; ATTEND Internal Medicine
DX: J44.1 Chronic obstructive pulmonary disease with (acute) exacerbation (principal); I50.33 Acute on chronic diastolic (congestive) heart failure; J96.10 Chronic respiratory failure, unspecified whether with hypoxia or hypercapnia; B97.4 Respiratory syncytial virus as the cause of diseases classified elsewhere; J06.9 Acute upper respiratory infection, unspecified; E83.42 Hypomagnesemia; J45.909 Unspecified asthma, uncomplicated; G40.909 Epilepsy, unspecified, not intractable, without status epilepticus; I25.10 Atherosclerotic heart disease of native coronary artery without angina pectoris; E78.5 Hyperlipidemia, unspecified; I48.2 Chronic atrial fibrillation; E87.6 Hypokalemia; F32.9 Major depressive disorder, single episode, unspecified; Z86.73 Personal history of transient ischemic attack (TIA), and cerebral infarction without residual deficits; I25.2 Old myocardial infarction; Z79.01 Long term (current) use of anticoagulants; Z99.81 Dependence on supplemental oxygen

== ENCOUNTER 2016-04-14 00:15 | Day surgery (SDC) | payer MEDICARE, MEDICAID ==
[~2016-04-14] VITALS: Ht 157.5 cm; Wt 73.0 kg
[~2016-04-14 00:15] MED LIST changes: +ALBU8.5H2 INHALATION; -ASCO125T PO; +BUDE90AE IH; +CYAN-2 SL; -CYAN10008 PO; -FLUT12AE10 IH; +FLUT12AE8 IH; -LAN125 PO; -Tumeric PO; -UBID10CA4 PO; +UBID1CAP52 PO
[2016-04-14 13:28] VITALS: BP 147/77; PULSE 81; RESP 17; O2SAT 100
[2016-04-14] MEDS ORDERED: Methohexital 10 mg/mL 50 mL Inj ONE (13:54)
[2016-04-14] MEDS ORDERED: Atropine 1 mg/10 mL (Code) Syringe ONE (13:54)
[2016-04-14] MEDS ORDERED: 0.9% Sodium Chloride 500 ML ONE (13:54)
--- NOTE | 2016-04-14 15:11 | NUR ---
Pt discharged to home via wheelchair, accompanied by family. Pt's cardioversion cancelled by Dr. Pascal, pt and family given all discharge instructions, follow up appt. Pt's IV discontinued intact, VSS, pt had no further questions at time of d/c.
[2016-04-30] MEDS ORDERED: VERA240T97 PO (19:40)
[2016-04-30] MEDS ORDERED: BUDE90AE IH (19:40)
[2016-04-30] MEDS ORDERED: FURO40TA4 PO (19:40)
== END 2016-04-14 23:59 | disposition home or self-care (01) ==
LOC: SOUO 00:15
PROVIDERS: ATTEND Internal Medicine Cardiovascular Disease
DX: I48.1 Persistent atrial fibrillation (principal); Z53.9 Procedure and treatment not carried out, unspecified reason

== ENCOUNTER → 2016-05-03 | Day surgery (SDC) | payer MEDICARE, MEDICAID ==
[~2016-05-03] VITALS: Ht 157.5 cm; Wt 75.0 kg
[2016-05-03] VITALS (8 sets, daily range): BP systolic 66–95; BP diastolic 39–64; PULSE 71–123; RESP 16–24; O2SAT 94–98
[~2016-05-03] MED LIST changes: +0.9% Sodium Chloride 250 ML ONE; +Ascorbic Acid PO; +Dexamethasone 4 mg/mL Inj IVPUSH PRN; +EPHEDrine Sulfate 50 mg/mL Inj IVPUSH PRN; +EPINEPHrine 0.1 mg/mL 10 mL Syringe ONE; +FERR-74 PO; +FLUT12AE10 IH; -FURO-128 PO; +FURO40TA4 PO; +HYDROmorphone 1 mg/mL Inj IVPUSH PRN; +Lactated Ringer's 1,000 ML IV SCH; +Lactated Ringer's 500 ML IV PRN; +MetoCLOpramide 5 mg/mL 2 mL Inj IVPUSH PRN; +Ondansetron 2 mg/mL 2 mL Inj IVPUSH PRN; +PANT40TA3 PO; +POLY17PO6 PO; +Phenylephrine 10,000 mCg/mL Inj IVPUSH PRN; +Propofol 10,000 mCg/mL 20 mL Inj ONE; +SPIR25TA3 PO; -VERA240T PO; +VERA240T97 PO; +fentaNYL-PF 50 mCg/mL 2 mL Inj IVPUSH PRN; +fentaNYL-PF 50 mCg/mL 2 mL Inj ONE
--- NOTE | 2016-05-03 12:32 | PCM.HPANE ---
Patient Data Surgeon Admitting Provider: Attending Provider:Lolita Pascal MD Primary Care Physician:Oscar Post MD Other Provider:Fabiola Roldaningham Anesthesia Reason for Visit Persistent Atrial Fibrillation Ht/WT & BMI Body Mass Index Allergies Coded Allergies: ranitidine (Verified Allergy, Severe, 03/22/16) Past Anesthesia History Anesthesia History: Denies:: Abnormal Airway, Anesthesia Reactions, Difficult Intubation, Fam Anesthesia Reaction, Fam Malignant Hypertherm, Malignant Hyperthermia Diabetes History Hx Diabetes?: No MRSA MRSA: No Medications Active Scripts Potassium Chloride ER 10 Meq Tasjie82 Meq PO DAILY 30 Days Ref 0 TAKE WITH FOOD Prov:Carol Bone MD 03/29/16 Metoprolol Tartrate 50 Mg Nvgqih46 Mg PO BID #30 TABLET Prov:COLE LI DO 03/17/16 Phenytoin Sodium Extended 100 Mg [id number] Mg PO HS #90 CAPSULE Prov:Vish Dey DO 01/05/16 Reported Medications Budesonide (Pulmicort Flexhaler)1 Puff/90 Mcg Aerp2 Puff IH BID #1 INHALER Ref 0 04/30/16 Furosemide 40 Mg Hrcqwi17 Mg PO DAILY 04/30/16 Verapamil ER 240 Mg Vica443 Mg PO DAILY Ref 0 04/30/16 Fluticasone Propionate (Flovent HFA 110 mcg)12 Gm Aer.w.adap1 Puff IH BID #12 GM Ref 0 04/13/16 Ubidecarenone/Vit E Acetate (Co Q-10 100 mg Softgel)1 Each Capsule1 Each PO 04/13/16 Albuterol HFA (Proair HFA)8.5 Gm Hfa.aer.ad2 Puffs INHALATION Q2H PRN For Shortness of Breath #1 INHALER 04/13/16 Cyanocobalamin (Vitamin B-12) (B-12)1,000 Mcg/Ml Drops1,000 Mcg SL 03/22/16 Chromium Picolinate 200 Mcg Plbtwjf341 Mcg PO DAILY 03/22/16 Rivaroxaban (Xarelto)20 Mg Onyjgo39 Mg PO DAILY 03/22/16 Ipratropium [place] (Atrovent HFA)200 Puff/12.9 Gm Inhaler2 Puff INH QID #1 INH Ref 0 03/22/16 Brimonidine Tartrate (Alphagan P)5 Ml Drops1 Drop BOTH_EYES BID 01/04/16 Atorvastatin (Lipitor)20 Mg Bjvxcx50 Mg PO HS Ref 0 01/04/16 Magnesium Oxide (Magnesium)400 Mg Tkodbjo119 Mg PO 01/04/16 Bimatoprost (Lumigan)45 Drop/2.5 Ml Ophsoln1 Drop OD HS #1 BOTTLE 09/19/14 Brinzolamide (Azopt 1% Ophthalmic Suspension)10 Ml Drops.susp1 Drop OP BID #1 BOTTLE Ref 0 09/19/14 Paroxetine 40 Mg Bnzbhr41 Mg PO DAILY 30 Days Ref 0 09/19/14 Cholecalciferol (Vitamin D3) (Vitamin D)1,000 Unit Tablet1,000 Unit PO DAILY #1 BOTTLE Ref 0 09/19/14 Folic Acid 1 Mg Tablet1 Mg PO DAILY 30 Days 09/19/14 Biotin 1 Mg Capsule1 Mg PO DAILY 09/19/14 Discontinued Scripts Furosemide (Lasix)40 Mg Awdwyi47 Mg PO DAILY 30 Days Ref 0 Prov:Caorl Bone MD 03/29/16 Budesonide (Pulmicort Flexhaler)1 Puff/90 Mcg Aerp1 Puff IH BID #1 INHALER Ref 0 Prov:COLE LI DO 03/26/16 Verapamil ER (Calan SR)240 Mg Ibqklh207 Mg PO BID #60 Prov:COLE LI DO 03/17/16 History History of ENT Problems?: Yes HEENT History: Positive for:: Hearing Problem Denies:: Abnormal Airway Cataracts Difficult Intubation Dysphagia Sinus Problem Hx of Heart Problems?: Yes Cardiovascular History: Positive for:: Heart Murmur Hypertension Irregular Heartbeat (A-Fib) Denies:: AICD Atrial Fibrillation Cardiac Surgery Chest Pain Congestive Heart Failure Edema Pacemaker Thrombophlebitis Valvular Heart Disease Other History/Comments Recently admitted to CCU for CHF, Discanrged 03/29/2016, history of cardiac arrest / CVA, now currenly in atrial fibulation, here today for cardioversion, no previous interventions Hx of Respiratory Problem?: Yes Respiratory History: Positive for:: Asthma Dyspnea Pneumonia (as a child) Denies:: COPD Chest Surgery Cough Emphysema Hemoptysis Tuberculosis Other History/Comment Stable asthma, last use of MDI this am, for SOB getting ready to come for the procedure. ROS negative Hx Neurologic Problems?: Yes Neurological History: Positive for:: CVA (2009) Seizures (Currently on seizure medication. Last seizure 5 yrs ago.) Denies:: Alzheimer's Disease Dementia Dizziness Headaches Parkinson's Disease Other History/Comments CVA with no residual, fully recovered Hx of GI Problems?: Yes Gastrointestinal History: Positive for:: Gastroesphageal Reflux (resolved) Denies:: Cirrhosis Diverticulitis Gastrointestinal Bleeding Heartburn Hepatitis Hiatal Hernia Rectal Bleeding Other History/Comment Denies reflux Hx of Problems?: No Genitourinary History: Denies:: HX of Hemodialysis Kidney Stones Urinary Tract Infection HX of Peritoneal Dialysis: No Female Hx: Denies:: Currently Endometriosis Pelvic Inflammatory Problems with Breasts? Hx Musculoskeletal Problems?: Yes Musculoskeletal History: Denies:: Back Injury Joint Replacement Musculoskeletal Trauma Hx of Psycho/Social Problems?: Yes Psycho Social History: Positive for:: Hx Depression (paxil) Denies:: Anxiety Bipolar Disorder Suicide Attempt Hx Surgeries?: Yes (HYSTERECTOMY,IRRIDECTOMY,MARTITA CARPAL TUNNEL) Hx Any Other Health Problems?: No Other History: Positive for:: Hospitalization (CVA in 2009, "Fluid in lungs" 2010) Denies:: Cancer Endocrine Disease Thyroid Disease History Blood Transfusions: Denies:: Blood Transfuse Reaction Blood Transfusions Hx Diabetes: No Hx Alcohol Use: NoHx Substance Use: No Smoking Status: Never Smoker Have You Smoked inLast 12 mo: No Stop/Bang Treated for Sleep Apnea?: No Do You Have a CPAP Machine?: No Risk Assessment Category Category 1A: Patient has history of documented sleep apnea, and HAS NOT received any narcotic, sedative or anesthesia administration during this stay. Category 1B: Patient has history of documented sleep apnea, and HAS received any narcotic , sedative or anesthesia administration during this stay Category 2: Patient has SUSPECTED Obstructive Sleep Apnea, and HAS received any narcotic , sedative or anesthesia administration during this stay. Category 3: Patient has SUSPECTED Obstructive Sleep Apnea and HAS NOT received narcotic, sedative or anesthesia administration during this stay. Category 4: Outpatient in Procedural Areas with known sleep apnea or who screen positive for High Risk via the STOP/BANG questionnaire. Exam Exam General Appearance: Alert, Oriented X3, Cooperative HEENT/AIRWAY: MP 2 Lungs: Clear to Auscultation Heart: Exam Unremarkable Plan Impression Patient chart reviewed, patient interviewed and anesthestic plan with risks, benefits, and alternatives discussed, and informed consent obtained. ASA Physical Status: ASA3 Severe Disease Anesthetic Plan: GA Bene/Risks/Altern/Consents: Yes HP Complete Prior to Induction: Yes Vish Mares MD May 03, 2016 12:32
--- NOTE | 2016-05-03 12:34 | NUR ---
Admitted as an outpatient for an elective cardioversion today with anesthesia. Family is at bedside - pt is in an atrial fib rates in the 120's. Pt BP is a bit low on admit - patient takes 80mg of lasix daily - pt took today.
--- NOTE | 2016-05-03 13:02 | PCM.PROC ---
Procedure Note Date of Service: May 03, 2016 Pre Procedure Diagnosis: Persistent Atrial Fibrillation Post Procedure Diagnosis: Persistent Atrial fibrillation Procedure: DC Cardioversion Provider and Stone Polisher: Dr. Lolita Pascal Indication for Procedure: Heart failure, difficult to rate control AF Findings: Successful cardioversion from Atrial fibrillation to Sinus rhythm Procedural Analgesia: See Anesthesia report Procedure Details: After patient received deep sedation with anesthesia, patient underwent DC cardioversion with 200J of synchronized energy. The rhythm successfully converted from atrial fibrillation to sinus rhythm. Post Procedure Plan: Follow up with cardiology in 1 week copies to: Oscar Post MD,Lolita Morgan MD May 03, 2016 13:02
--- NOTE | 2016-05-03 13:23 | PCM.ANEP1 ---
Post Anesthesia Phase 1 PACU Phase 1 Assessment Date of Service: May 03, 2016 Vital Signs Vital Signs Date Time Temp Pulse Resp B/P Pulse Ox O2 Delivery O2 Flow Rate FiO2 05/03/16 12:28 36.6 122 16 95/64 98 Nasal Cannula 2.00 Anesthetic Administered: GA Level of Alertness: Sleepy, easy to arouse WEINBERG's with Equal Strength: Yes Pain: No Nausea or Vomiting: No Oxygen Delivery: Nasal Cannula Lungs: Clear to Auscultation Summary Awake alert and oriented x 3 Vish Mares MD May 03, 2016 13:23
--- NOTE | 2016-05-03 13:24 | PCM.ANEP2 ---
Post Anesthesia Evaluation ASA/CMS Post Anesthesia VS in Patient's Normal Range?: Yes Resp Stable; Airway Patent?: Yes CV Function & Hydration Stable: Yes Mental Status Recovered?: Yes Pain control Satisfactory?: Yes N/V Control Satisfactory?: Yes Vish Mares MD May 03, 2016 13:24
--- NOTE | 2016-05-03 14:00 | NUR ---
Successful Cardioversion using anesthesia today. SBP remains in the 70's as it was prior to Cardioversion. Pt does not feel symptomatic pre/post procedure, but arrived and discharged in a wheelchair due to COPD. Medication adjusted per Dr Pascal Stopping Diltazem 240mg PO, but keeping Metorprolol 50mg BID. Medication changes reviewed with patient and patient's daughter, "Bree" who manages her medications at home. Patient has a follow up with Dr Pascal next Tuesday in [facility]. Advised patient family to trend BP and discuss BP medications and BP results with Dr Pascal next Tuesday. Any concerns, or questions please contact Dr Pascal, or seek Emergency help if indicated. NSR at time of D/C - taking in PO liquids without difficulty or nausea.
== END | disposition home or self-care (01) ==
LOC: SOUO 00:22
PROVIDERS: ATTEND Internal Medicine Cardiovascular Disease
DX: I48.1 Persistent atrial fibrillation (principal); I08.0 Rheumatic disorders of both mitral and aortic valves; I50.30 Unspecified diastolic (congestive) heart failure; J45.909 Unspecified asthma, uncomplicated; J44.9 Chronic obstructive pulmonary disease, unspecified; Z86.73 Personal history of transient ischemic attack (TIA), and cerebral infarction without residual deficits; I27.2 Other secondary pulmonary hypertension; Z87.891 Personal history of nicotine dependence; Z79.01 Long term (current) use of anticoagulants; I10 Essential (primary) hypertension
CPT/HCPCS: 92960; 93005; J0171; J2310; J3010; J7050

== ENCOUNTER 2016-07-06 20:45 | Inpatient (IN) | payer MEDICARE, MEDICAID ==
[~2016-07-06] VITALS: Ht 157.5 cm; Wt 74.3 kg
[~2016-07-06 20:45] MED LIST changes: -0.9% Sodium Chloride 250 ML ONE; -Ascorbic Acid PO; -BIOT1CAP3 PO; -CHRO200C PO; -Dexamethasone 4 mg/mL Inj IVPUSH PRN; -EPHEDrine Sulfate 50 mg/mL Inj IVPUSH PRN; -EPINEPHrine 0.1 mg/mL 10 mL Syringe ONE; -FERR-74 PO; -FLUT12AE10 IH; -HYDROmorphone 1 mg/mL Inj IVPUSH PRN; -Lactated Ringer's 1,000 ML IV SCH; -Lactated Ringer's 500 ML IV PRN; -MAGN400C PO; -MetoCLOpramide 5 mg/mL 2 mL Inj IVPUSH PRN; -Ondansetron 2 mg/mL 2 mL Inj IVPUSH PRN; -PANT40TA3 PO; -POLY17PO6 PO; -Phenylephrine 10,000 mCg/mL Inj IVPUSH PRN; -Propofol 10,000 mCg/mL 20 mL Inj ONE; -SPIR25TA3 PO; -fentaNYL-PF 50 mCg/mL 2 mL Inj IVPUSH PRN; -fentaNYL-PF 50 mCg/mL 2 mL Inj ONE
[2016-07-06 20:47] VITALS: BP 144/39; PULSE 93; RESP 20; O2SAT 97
[2016-07-06 22:04] LABS: BASOPHILS % (AUTO) 0.2 % (0-3); EOSINOPHILS % (AUTO) 0.7 % (0-5); MONOCYTES % (AUTO) 12.7 % (4-12); Mean Corpuscular Hemoglobin 28.9 pg (27.0-35.0); Mean Corpuscular Volume 96.1 fL (81-100); NEUTROPHILS % (AUTO) 74.6 % (40-74); Platelet Count 284 bil/L (150-400)
--- NOTE | 2016-07-06 22:13 | ED.REPORT ---
HPI-General Illness Date of Service July 06, 2016 ED Provider: Sly Francois MD An 81 year old female with an extensive medical history including seizures, CAD , hypertension, CHF, COPD, and atrial fibrillation on Xarelto s/p cardioversion (05/03/16) presents to the ED via EMS accompanied by her daughters with shortness of breath onset yesterday. Associated symptoms include "hot flashes," pallor, and dyspnea with exertion. The patient denies hematochezia, hematuria, hematemesis, hemoptysis, melena, or other symptoms. She was recently diagnosed with CHF and took 40mg Lasix today. She increased her home O2 from 2L to 3L today. EMS found the patient with a BP of 171/75, a heart rate of 100, a respiration rate of 27, and a pulse ox of 97% on 3L O2. Nursing Notes Stated Complaint: SOB Chief Complaint: Respiratory Distress Nursing Notes Reviewed: Yes Allergies: Coded Allergies: ranitidine (Verified Allergy, Severe, 05/03/16) Scheduled Atorvastatin (Lipitor) 20 Mg Tablet 20 MG PO HS Bimatoprost (Lumigan) 45 Drop/2.5 Ml Ophsoln 1 DROP OD HS Brimonidine Tartrate (Alphagan P) 5 Ml Drops 1 DROP BOTH_EYES BID 0.2% Brinzolamide (Azopt 1% Ophthalmic Suspension) 10 Ml Drops.susp 1 DROP OP BID Cyanocobalamin (Vitamin B-12) (B-12) 1,000 Mcg/Ml Drops 1,000 MCG SL QAM Fluticasone Propionate (Flovent HFA 220 mcg) 12 Gm Aer.w.adap 1 PUFF IH BID Folic Acid (Folic Acid) 1 Mg Tablet 1 MG PO QAM Furosemide (Furosemide) 40 Mg Tablet 40 MG PO QAM Metoprolol Tartrate (Metoprolol Tartrate) 50 Mg Tablet 25 MG PO BID Paroxetine (Paroxetine) 40 Mg Tablet 40 MG PO QAM Phenytoin Sodium Extended (Phenytoin Sodium Extended) 100 Mg Capsule 300 MG PO HS Potassium Chloride ER (Potassium Chloride ER) 10 Meq Tablet 20 MEQ PO DAILY TAKE WITH FOOD Rivaroxaban (Xarelto) 20 Mg Tablet 20 MG PO DAILY Spironolactone (Spironolactone) 25 Mg Tablet 25 MG PO QAM Scheduled PRN Albuterol HFA (Proair HFA) 8.5 Gm Hfa.aer.ad 2 PUFFS INHALATION Q2H PRN PRN For Shortness of Breath General Time Seen by MD: 22:05 Chief Complaint Breathing problem Hx Obtained From: Patient Arrived By: Ambulance Sudden in Onset?: No Onset Occurred: Yesterday Symptom Duration: Since onset Severity: Current: No pain currently Severity: Maximum: No pain Pertinent Negative: Relieved by nothing Context Related History: Reports Asthma, Reports COPD, Reports Coronary artery disease Recent Healthcare: No recent doctor visit Past Medical History Past Medical History Notes: Last stress test negative in August 2014 Past Medical History Seizures -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 Carotid artery stenosis Atrial Fibrillation with RVR on Xarelto PR in 2009 per patient, with cardiac arrest Osteoarthritis Glaucoma Diverticula seen 08/2002 colonoscopy Asthma Hypertension GERD CHF COPD Reports: Asthma, Coronary artery disease, Hyperlipidemia, Hypertension, Stroke Reports: Depression Past Surgical History Finger surgery Iridectomy Bilateral carpal tunnel Cardioversion 05/07 Reports: Hysterectomy Reports: Carpal tunnel Smoking History Never Smoker Social History Hx of Alcoholism "Caffine free" Alcohol Use: In recovery Other Social History: Good social support, , Local resident Ambulatory Status Independent Review of Systems + "hot flashes," pallor Full Review of Systems Constitutional: Denies: Fever Respiratory: Reports: Dyspnea on exertion, Shortness of breath, Denies: Hemoptysis, Non-productive cough GI: Denies: Diarrhea, Hematemesis, Hematochezia, Melena, Vomiting Female: Denies: Hematuria Complete sys rev & neg: except as marked. Physical Exam Vital Signs Vital Signs Date Time Temp Pulse Resp B/P Pulse Ox O2 Delivery O2 Flow Rate FiO2 07/06/16 23:54 81 20 131/43 99 Room Air 07/06/16 22:29 93 16 145/48 97 Room Air 07/06/16 20:47 36.9 93 20 144/39 97 Nasal Cannula 3 Initial VS: Reviewed, Vital signs normal Head / Eyes: Atraumatic, Normocephalic ENT: Conjunctiva normal, No scleral icterus Respiratory: Breath sounds normal, Clear to auscultation, No respiratory distress Cardiovascular: Regular rate & rhythm, Heart sounds normal Abdomen / GI: Soft, Non-tender Skin: Warm, Dry, No cyanosis Neurologic: Alert, Oriented, Nonfocal Psychiatric: Mood/affect normal, Behavior normal, Normal thought content General/Constitutional: Awake, Alert Appearance / Presentation: Positive: Pale Neck: Supple, Full range of motion, No JVD Lower Extremity / Pelvis / MS: Inspection NL, No edema Rectum / Perineum: Atraumatic, No gross blood Soft brown guaiac stool positive stool present Interpretation & Diagnostics Lab Results Interpretation Result Diagram: 07/06/16211407/06/162114 Test 07/06/16 21:15 White Blood Count 5.7th/mm3 (3.8-10.1) Red Blood Count 2.28mil/mm3 (3.90-5.20) Hemoglobin 6.6g/dL (12.0-15.6) Hematocrit 21.9% (35.0-46.0) Mean Corpuscular Volume 96.1fL (81-100) Mean Corpuscular Hemoglobin 28.9pg (27.0-35.0) Mean Corpuscular Hemoglobin Concent 30.1% (32.0-37.0) Red Cell Distribution Width 14.6% (12.3-15.4) Platelet Count 284bil/L (150-400) Neutrophils (%) (Auto) 74.6% (40-74) Lymphocytes (%) (Auto) 11.6% (14-46) Monocytes (%) (Auto) 12.7% (4-12) Eosinophils (%) (Auto) 0.7% (0-5) Basophils (%) (Auto) 0.2% (0-3) Band Neutrophils % 0% (1-5) Hold Purple Top Tube Received (Received) Prothrombin Time 9.8sec (8.1-12.5) Prothromb Time International Ratio 0.92ratio Hold Blue Top Tube Received (Received) Sodium Level 136mEq/L (134-144) Potassium Level 3.6mEq/L (3.5-5.2) Chloride Level 95mEq/L (97-108) Carbon Dioxide Level 29mmol/L (18-29) Blood Urea Nitrogen 19mg/dL (8-27) Creatinine 0.50mg/dL (0.57-1.00) Estimat Glomerular Filtration Rate 170mL/min (>59) Glucose Level 109mg/dL (60-99) Calcium Level 8.8mg/dL (8.5-10.1) Total Bilirubin 0.2mg/dL (0.0-1.2) Aspartate Amino Transf (AST/SGOT) 11U/L (0-50) Alanine Aminotransferase (ALT/SGPT) 6U/L (0-32) Alkaline Phosphatase 104U/L (25-165) Troponin T 0.010ug/L (0.0-0.011) Pro-B-Type Natriuretic Peptide 1763pg/mL (0-738) Total Protein 6.1g/dL (6.4-8.4) Albumin 3.5g/dL (3.4-5.0) Hold [employer] Top Tube Received (Received) Hold Cook Top Tube Received (Received) Lab Results Interpretation: Severe anemia ECG Interpretation ECG Interpretation: Sinus rhythm rate 83 Probable left atrial enlargement Low voltage, precordial leads Time: 21:57 Interpreted by: ED physician X-Ray Chest Interpretation Chest Xray Interpretation: Bibasilar pleural effusions, scarring, and possible airspace disease unchanged from previous 07/02/16 View: Portable, 1 view Interpretation / Wet Read by: Wet read ED physician Re-Eval/Medical Decision Med Decision/Clinical Course 81-year-old female with atrial fibrillation on Xarelto presents with gradually worsening exercise intolerance and dyspnea on exertion. She is found to have hemoglobin of 6.6 and guaiac positive stool without visible blood. She is Religion and declines any transfusions. Her case was discussed with Dr. García who will see her in the morning. Her case was discussed with who recommended iron infusion and Procrit, and will see her in the morning. Her case was discussed with Dr. Myers who will admit her to the hospitalist service for further evaluation and treatment. Time of Eval: 23:20 Patient Status: Condition improved Re-Evaluation/Progress Note: Discussed with patient lab and x-ray results, diagnosis, and plan for admit. Patient agrees with plan for care and all questions were addressed. Consultation #1: Referral / Consult Name: Abran Myers MD Consulted With: Hospitalist Call Returned at: 23:05 Video Effects Editor: Agrees with eval, Agrees with plan Note: Discussed patient's case. Consultation #2: Referral / Consult Name: Tarsha García MD Call Returned at: 23:09 Video Effects Editor: Will see patient (Tomorrow Morning), Agrees with eval, Agrees with plan Note: GI: Will consult Consultation #3: Referral / Consult Name: Zoraida Schmitt MD Consulted With: [facility] Call Returned at: 23:12 Video Effects Editor: Will see patient (Tomorrow), Agrees with eval, Agrees with plan Note: Recommends iron infusion He will manage Procrit starting tomorrow. Consultation #4: Referral / Consult Name: Abran Myers MD Consulted With: Hospitalist Call Returned at: 23:16 Video Effects Editor: Agrees with eval, Agrees with plan, Accepts admit Note: Discussed consults. Counseled Regarding: Diagnosis, Lab results, Need for admission Discharge & Departure Primary Impression: GI bleed GI bleed type/associated pathology: unspecified gastrointestinal hemorrhage type Qualified Code: K92.2 - Gastrointestinal hemorrhage, unspecified Additional Impression: Anemia Anemia type: other cause Other causes of anemia: other cause, not classified Qualified Code: D64.89 - Other specified anemias Disposition: ADMITTED TO HOSPITAL Discharge Condition All VS Reviewed: Yes Condition: Improved Referrals: Oscar Post MD (PCP) Scribe Attestation Portions of this note were transcribed by Shamika Mane. I, Dr. Francois, personally performed the history, physical exam, and medical decision-making; I reviewed and confirmed the accuracy of the information in the transcribed note. Signed by: Ismael Molina, 07/07/2016, 01:55 copies to: Oscar Post MD, Howard L MD July 06, 2016 22:13 SHAMIKA MANE July 06, 2016 22:25
[2016-07-06 22:16] LABS: TROPONIN T 0.01 ug/L (0.0-0.011)
[2016-07-06] MEDS ORDERED: SPIR25TA3 PO (22:18)
[2016-07-06 22:29] VITALS: BP 145/48; PULSE 93; RESP 16; O2SAT 97
[2016-07-06] MEDS ORDERED: Pantoprazole 4 mg/mL 10 mL Inj IVPUSH ONE (22:30)
[2016-07-06 22:58] LABS: INR 0.92 ratio
[2016-07-06] MEDS ORDERED: [UNRECOGNIZED DRUG - OTHER] IV ONE (23:15)
[2016-07-06] MEDS ORDERED: SODIUM CHLORIDE 0.9% IV ONE ×2 (23:15→23:55)
[2016-07-06] MEDS ORDERED: FLUT12AE10 IH (23:24)
[2016-07-06] MEDS ORDERED: METO50TA3 PO (23:29)
[2016-07-06 23:54] VITALS: BP 131/43; PULSE 81; RESP 20; O2SAT 99
[2016-07-06] MEDS ORDERED: SODIUM FERRIC GLUCONATE COMPLEX IV ONE (23:55)
[2016-07-07] VITALS (15 sets, daily range): BP systolic 119–173; BP diastolic 43–77; PULSE 63–92; RESP 18–24; O2SAT 94–99
[2016-07-07] MEDS ORDERED: Ondansetron 2 mg/mL 2 mL Inj IVPUSH PRN (00:30)
[2016-07-07] MEDS ORDERED: Alum-Mag Hydrox-Simeth 30 mL Suspension PO PRN (00:30)
[2016-07-07] MEDS ORDERED: Polyethylene Glycol (PEG) 17 Gm Powder PO PRN (00:30)
--- NOTE | 2016-07-07 01:45 | PCM.HPMED ---
Subjective Date of Service July 07, 2016 Primary Provider: Admitting Physician: Abran Myers MD Primary Care Physician: Oscar Post MD Attending Physician: Abran Myers MD Admit Status: From the Emergency Department, [facility] Telemetry Chief Complaint: Shortness of breath History of Present Illness: An 81 year old female with an extensive medical history including seizures, CAD , hypertension, CHF, COPD, and atrial fibrillation on Xarelto s/p cardioversion (05/03/16) presents to the ED via EMS accompanied by her daughters with shortness of breath onset yesterday. Associated symptoms include "hot flashes," pallor, and dyspnea with exertion. The patient denies hematochezia, hematuria, hematemesis, hemoptysis, melena, or other symptoms. She was recently diagnosed with CHF and takes 40mg Lasix daily. She increased her home O2 from 2L to 3L today. EMS found the patient with a BP of 171/75, a heart rate of 100, a respiration rate of 27, and a pulse ox of 97% on 3L O2. In ED, vitals T36.9, P93, R20, BP144/39, 97% on 3L. Soft brown guaiac stool positive stool present in ED. Patient admitted to hospital for further treatment and management. Review of Systems: Constitutional: Denies: Fever Respiratory: Reports: Dyspnea on exertion, Shortness of breath, Denies: Hemoptysis, Non-productive cough GI: Denies: Diarrhea, Hematemesis, Hematochezia, Melena, Vomiting Female: Denies: Hematuria Complete sys rev & neg: except as marked. Allergies Coded Allergies: ranitidine (Verified Allergy, Severe, 05/03/16) Home Medications Atorvastatin (Lipitor) 20 Mg Tablet 20 MG PO HS Bimatoprost (Lumigan) 45 Drop/2.5 Ml Ophsoln 1 DROP OD HS Brimonidine Tartrate (Alphagan P) 5 Ml Drops 1 DROP BOTH_EYES BID 0.2% Brinzolamide (Azopt 1% Ophthalmic Suspension) 10 Ml Drops.susp 1 DROP OP BID Cyanocobalamin (Vitamin B-12) (B-12) 1,000 Mcg/Ml Drops 1,000 MCG SL QAM Fluticasone Propionate (Flovent HFA 220 mcg) 12 Gm Aer.w.adap 1 PUFF IH BID Folic Acid (Folic Acid) 1 Mg Tablet 1 MG PO QAM Furosemide (Furosemide) 40 Mg Tablet 40 MG PO QAM Metoprolol Tartrate (Metoprolol Tartrate) 50 Mg Tablet 25 MG PO BID Paroxetine (Paroxetine) 40 Mg Tablet 40 MG PO QAM Phenytoin Sodium Extended (Phenytoin Sodium Extended) 100 Mg Capsule 300 MG PO HS Potassium Chloride ER (Potassium Chloride ER) 10 Meq Tablet 20 MEQ PO DAILY TAKE WITH FOOD Rivaroxaban (Xarelto) 20 Mg Tablet 20 MG PO DAILY Spironolactone (Spironolactone) 25 Mg Tablet 25 MG PO QAM Scheduled PRN Albuterol HFA (Proair HFA) 8.5 Gm Hfa.aer.ad 2 PUFFS INHALATION Q2H PRN PRN For Shortness of Breath PMH Seizures -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 Carotid artery stenosis Atrial Fibrillation with RVR on Xarelto [place] in 2009 per patient, with cardiac arrest Osteoarthritis Glaucoma Diverticula seen 08/2002 colonoscopy Asthma Hypertension GERD CHF COPD Hyperlipidemia Depression Surgical History Finger surgery Iridectomy Bilateral carpal tunnel Cardioversion 05/07 Reports: Hysterectomy Reports: Carpal tunnel Family History Mother with multiple strokes Father with DM2, of pancreatic cancer Social History Hx Alcohol Use: No Hx Substance Use: No Hx Tobacco Use: No Smoking Status: Never Smoker Living Arrangement: with Family (with , local resident. Daughter currently live in care aide.) Exam Vital Signs Vital Sign - Last Date Time Temp Pulse Resp B/P Pulse Ox O2 Delivery O2 Flow Rate FiO2 07/07/16 00:18 80 20 131/43 99 Nasal Cannula 2 07/06/16 20:47 36.9 Exam GEN: Awake, alert, and in no acute distress, very pale elderly female in mild respiratory distress HEENT: Atraumatic, Normocephalic, no sclera icterus, pale conjunctiva, moist mucous membranes Neck: Supple with full ROM, no JVD Respiratory: Breath sounds normal, Bibasilar crackles Cardiovascular: Regular rate & rhythm, Heart sounds normal Abdomen / GI: Soft, Non-tender Skin: Warm, Dry, pale Neurologic: Alert, Oriented, Nonfocal Psychiatric: Mood/affect normal, Behavior normal, Normal thought content Extremity: No edema Lab and Diagnostics Result Diagram: 07/06/16211407/06/162114 X-Rays, CTs and MRIs Bibasilar pleural effusions, scarring, and possible airspace disease unchanged from previous 07/02/16 View: Portable, 1 view Interpretation / Wet Read by: Wet read ED physician 12-lead ECG Sinus rhythm rate 83 Probable left atrial enlargement Low voltage, precordial leads Time: 21:57 Interpreted by: ED physician Assessment & Plan An 81 year old female with an extensive medical history including seizures, CAD , hypertension, CHF, COPD, and atrial fibrillation on Xarelto s/p cardioversion (05/03/16) presents to the ED via EMS accompanied by her daughters with shortness of breath onset yesterday. Associated symptoms include "hot flashes," pallor, and dyspnea with exertion. The patient denies hematochezia, hematuria, hematemesis, hemoptysis, melena, or other symptoms. She was recently diagnosed with CHF and took 40mg Lasix today. She increased her home O2 from 2L to 3L today. EMS found the patient with a BP of 171/75, a hear GI bleed, present on admission. Acute. Unclear if upper or lower source. Suspect this is a lower GI and slow bleed given stable vital signs - guaic positive - Dr. Chavez to see patient in am, will hold off on bowel prep until patient seen Symptomatic Anemia, present on admission. Acute. - hemoglobin 6.6, hematocrit 21.9, patient not tachypneic or tachycardic, most likely due to gradual blood loss - patient Mormonism, declining blood transfusion - iron IV ordered and initiated tonight - Dr. Schmitt to see patient in am with plans for Procrit injection Dyspnea on exertion, present on admission. Acute. - most likely due to above, cannot rule our asthma/CHF exacerbation, although no obvious signs or symptoms appreciated on physical exam - DuNeb Q4H - Albuterol Q2H PRN Chronic conditions: Chronic Atrial fibrillation - hold Xarelto until seen by Dr. Child (GI) Seizure - continue phenytoin (patient recently tried to decrease from current dose, did not tolerate) Chronic diastolic or preserved EF heart failure - continue furosemide Hypertension - continue metoprolol, spironolactone Hyperlipidemia - continue atorvastatin Asthma - as above Depression - continue paroxetine Glaucoma - continue Lumigan, Alphagan, Axopt Acetaminophen-fever/headache/mild/moderate pain Antiemetics, as needed Bowel regimen, as needed. Patient status: Patient was admitted under inpatient status with expected length of stay greater than two midnights due to severity of presenting symptoms , risk of adverse event, and complexity of treatment plan. Pain Evaluation: Adequate Pain Control GI Prophylaxis: Not indicated VTE Prophylaxis: Other (on Xarelto) Resuscitation Status: CPR: Attempt Resuscitation Attending Statement The patient was seen and examined together with Dr. Lynn on 07/06 and I agree with the history, exam and plan as outlined in the note above. Judah Lynn DO July 07, 2016 00:30 Abran Myers MD July 07, 2016 02:58 Abran Myers MD July 07, 2016 02:58
[2016-07-07] MEDS ORDERED: Albuterol 2.5 mg/3 mL Inhalation Solution NEB PRN (01:57)
[2016-07-07] MEDS: Phenytoin 100 mg ER Capsule PO SCH ×2 (02:26→21:26)
[2016-07-07] MEDS: 0.9% NaCl + KCl 20 mEq/L 1,000 ML IV SCH ×2 (02:56→17:42)
[2016-07-07] MEDS: Albuterol-Ipratropium 3 mL Inhalation Solution NEB SCH ×6 (04:01→20:38)
--- NOTE | 2016-07-07 04:09 | NUR ---
Admit Pt admitted to [facility] Rm 1027 from the ER at 0110. Pt moved to bed with slider board. Pt is alert/oriented x4, moves all extremities, generalized weakness due to anemia/sob. Pt is on 2L via NC with O2 sats 96%. Pt has to sit up completely and cannot lay flat due to difficulty breathing. Pt also gets hot flashes with SOB. RT administered nebulizer treatment. Iron infusion completed, IVF fluids NS20K at 80 ml/hr. Pt is a Jehovah Witness and does not want blood products. Med rec completed in ER. Pt is on tele 1st degree HB with PACs, MD notified. BP high on arrival 173/74 and pt given metoprol per eMAR. On reassessment, BP down to 151/61. Pt is NPO and educated on diet. Skin on coccyx is darkened with redness blanching, Mepilex placed on coccyx and encouraging pt to turn. Pt heels blanching pink, dry, floating on pillow. Pt oriented to room and call light. Daughters staying overnight. Addendum: 07/07/16 at 0636 by CHRISTIANO TALBERT RN Urine output Pt has not voided yet since arrival to [facility], bladder scan 286 ml, pt reports no discomfort.
[2016-07-07] MEDS: Brimonidine 0.2% 5 mL Ophthalmic Solution BOTH_EYES SCH ×2 (05:02→21:24)
[2016-07-07] MEDS: Dorzolamide 2% 10 mL Ophthalmic Solution BOTH_EYES SCH ×2 (05:29→21:24)
[2016-07-07 07:44] LABS: BASOPHILS % (AUTO) 0.5 % (0-3); EOSINOPHILS % (AUTO) 0.5 % (0-5); MONOCYTES % (AUTO) 13.1 % (4-12); Mean Corpuscular Hemoglobin 29.2 pg (27.0-35.0); Mean Corpuscular Volume 96.3 fL (81-100); NEUTROPHILS % (AUTO) 66.4 % (40-74); Platelet Count 275 bil/L (150-400)
[2016-07-07] MEDS: Potassium Chloride 20 mEq SR Tablet PO SCH ×2 (08:00→17:37)
[2016-07-07] MEDS ORDERED: Magnesium Chloride SR 64 mg ER24 Tablet PO SCH (08:30)
[2016-07-07] MEDS ORDERED: Pantoprazole 4 mg/mL 10 mL Inj IVPUSH SCH (08:31)
--- NOTE | 2016-07-07 08:41 | DRSVH ---
PROCEDURE: X-RAY CHEST ONE VIEW, PORTABLE ([id number]) INDICATIONS: SHORT OF BREATH TECHNIQUE: One view of the chest was acquired. COMPARISON: [facility], CR, XR CHEST 2VW, 07/02/2016, 16:00. [facility], CR , XR CHEST 1VW (PORTABLE), 03/22/2016, 12:07. FINDINGS: Surgical changes and devices: None. Lungs and pleura: There are persistent small bilateral pleural effusions with bibasilar consolidatio n or compressive atelectasis. Mediastinum: Mediastinal contours appear unchanged. Heart size is at the upper limits of normal. Bones and chest wall: No suspicious bony lesions. Overlying soft tissues appear unremarkable. IMPRESSION: 1. Persistent small bilateral pleural effusions with bibasilar consolidation or compressive atelecta sis. Dictated by: Chad Christensen M.D. on 07/07/2016 at 8:39 Approved by: Chad Christensen M.D. on 07/07/2016 at 8:40
--- NOTE | 2016-07-07 10:13 | PCM.CHPMED ---
Subjective Date of Service: July 07, 2016 Primary Physician: Admitting Physician: Abran Myers MD Primary Care Physician: Oscar Post MD Attending Physician: Abran Myers MD Chief Complaint: Chief Complaint: SOB and weakness History of Present Illness: GI consult note 81-year-old female with history of A. fib S/P cardioversion in April currently on Xeralto, CAD, CHF, COPD, and hypertension who presented to the ED via EMS due to ongoing weakness and shortness of breath. Patient states that this is been developing a last couple weeks but got acutely worse 2 days ago. At that time the patient's daughter called EMS but the patient refused to go to the emergency department. The following day the patient again found herself to be very weak and short of breath with hot flashes, and extreme dizziness on standing. Patient states that EMT checked her orthostatics and she was found to be positive at that time. Patient denies any epigastric pain, nausea, vomiting, chest pain, abdominal pain, hematochezia, melena, emesis or hematemesis, or syncope. Patient does state that she is dizzy when she stands up, and she does have shortness of breath. After patient was admitted to the hospital she is given an iron infusion as well as fluids which greatly improved her weakness but has not helped her shortness of breath. Her vitals are stable in the emergency department except for some mild tachycardia of 100. Hemoglobin was obtained found to be 6.6. Today the patient states that she is doing better overall. She is lying in bed and has not been up walking around. She denies any ongoing diarrhea or nausea/ vomiting. She states that her stools have been a little bit darker but formed and not tarry. Patient states last colonoscopy was more than 10 years ago and she also had an EGD in 2012 which records indicate was done by Dr. Green with biopsies. Per report, there were ulcerated nodules in the distal esophagus as well as antral gastritis and superficial ulcerations. Patient had a chest x- ray which shows some basilar consolidations. Her hemoglobin this morning after fluid resuscitation dropped from 6.6 to 6.3. Patient is a Christianity and defers blood transfusion. Review of Systems: see HPI PMH Past Medical History Seizures -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 Carotid artery stenosis Atrial Fibrillation with RVR on Xarelto [place] in 2010 per patient, with cardiac arrest Osteoarthritis Glaucoma Diverticula seen 08/2002 colonoscopy Asthma Hypertension GERD CHF COPD Hyperlipidemia Depression Hx Any Other Health Problems?: YesHx Diabetes: No Surgical History Finger surgery Iridectomy Bilateral carpal tunnel Cardioversion 05/07 Reports: Hysterectomy Reports: Carpal tunnel Home Medications Atorvastatin (Lipitor) 20 Mg Tablet 20 MG PO HS Bimatoprost (Lumigan) 45 Drop/2.5 Ml Ophsoln 1 DROP OD HS Brimonidine Tartrate (Alphagan P) 5 Ml Drops 1 DROP BOTH_EYES BID 0.2% Brinzolamide (Azopt 1% Ophthalmic Suspension) 10 Ml Drops.susp 1 DROP OP BID Cyanocobalamin (Vitamin B-12) (B-12) 1,000 Mcg/Ml Drops 1,000 MCG SL QAM Fluticasone Propionate (Flovent HFA 220 mcg) 12 Gm Aer.w.adap 1 PUFF IH BID Folic Acid (Folic Acid) 1 Mg Tablet 1 MG PO QAM Furosemide (Furosemide) 40 Mg Tablet 40 MG PO QAM Metoprolol Tartrate (Metoprolol Tartrate) 50 Mg Tablet 25 MG PO BID Paroxetine (Paroxetine) 40 Mg Tablet 40 MG PO QAM Phenytoin Sodium Extended (Phenytoin Sodium Extended) 100 Mg Capsule 300 MG PO HS Potassium Chloride ER (Potassium Chloride ER) 10 Meq Tablet 20 MEQ PO DAILY TAKE WITH FOOD Rivaroxaban (Xarelto) 20 Mg Tablet 20 MG PO DAILY Spironolactone (Spironolactone) 25 Mg Tablet 25 MG PO QAM Albuterol HFA (Proair HFA) 8.5 Gm Hfa.aer.ad 2 PUFFS INHALATION Q2H PRN PRN For Shortness of Breath Allergies: Coded Allergies: ranitidine (Verified Allergy, Severe, 05/03/16) Family History Family History Mother with multiple strokes Father with DM2, of pancreatic cancer Social History Hx Alcohol Use: NoHx Substance Use: NoHx Tobacco Use: No Smoking Status: Never Smoker Living Arrangement: with Family (with , local resident. Daughter currently live in client care manager.) Exam Vital Signs Vital Sign - Last Date Time Temp Pulse Resp B/P Pulse Ox O2 Delivery O2 Flow Rate FiO2 07/07/16 07:45 36.7 67 18 172/64 95 2.00 07/07/16 06:37 Nasal Cannula Intake and Output 07/06/16 07/06/16 07/07/16 Cumulative From/Thru 15:00 23:00 07:00 07/06/16 20:47 - 07/07/16 05:42 Intake Total 478 ml 478 ml Output Total 0 ml 0 ml Balance 478 ml 478 ml Intake Oral 0 ml 0 ml IV Total 478 ml 478 ml Output Urine Total 0 ml 0 ml # Voids 0 0 # Bowel Movements 0 0 General: Alert, Oriented X3, Cooperative Head: Normal Eyes: PERRLA Neck: Supple Chest & Lungs: Other (decreased breath sounds in the bases bilaterally ) Cardiovascular: Exam Unremarkable, Regular Rate/Rhythm Abdomen: Non-tender, Non-distended, Normoactive bowel tones Musculoskeletal: Unremarkable Extremities: No cyanosis/clubbing/edma bilat Neurological: Grossly Neurologically Intact Lab and Diagnostics Result Diagram: 07/07/1672407/07/16724 Assessment & Plan Assessment 81-year-old female with ongoing severe anemia is symptomatic with shortness of breath and weakness. Patient does have a history of GI bleed although does not seem to be acute hemorrhage and a low Hemoccult is positive all other symptoms and signs of acute GI blood loss negative. This patient was on several toe on admission, and with low hemoglobin, as well as significant comorbidities, we do not recommend that the patient undergo endoscopy at this time. Animal Care Worker been consulted and patient will tentatively receive Procrit injection as she will not receive blood transfusions due to moravian reasons. Once hemoglobin is improved and patient is stable to undergo anesthesia we will consider EGD and colonoscopy for evaluation of ongoing, likely chronic GI bleed. This does not appear to be an acute GI bleed and a decrease in her hematocrit this morning is likely due to fluid resuscitation. At this time recommend that IV fluids be stopped except those riders completely necessary to maintain electrolytes. Additional imaging could be done with an upper GI series barium study with follow-up barium enema. Also agree that Xarelto should be discontinued for the moment. Pt should also follow-up with GI once hgb is improved for EGD/ colonoscopy. We will continue to follow along with you while she is here. Thank you for allowing us to participate in care of this patient. Problems: Pain Evaluation: Adequate Pain Control GI Prophylaxis: Not indicated VTE Prophylaxis: Other (on Xarelto) Resuscitation Status: CPR: Attempt Resuscitation Attending Statement Pt seen and examined will defer endoscopy in light of current H/H and would recommend upper GI barium and if negative barium enema. Endoscopy once H/H improved, as there is risk of bleeding with endoscopy and with her current H/H there is no buffer if there should be bleeding as a result of endoscopy recommend holding anticoagulants recommend PPI daily follow hematology recs Blaine Hernandez DO July 07, 2016 10:13 Tarsha García MD July 07, 2016 16:34
[2016-07-07] MEDS: Pantoprazole Inj 80 MG in 0.9% Sodium Chloride 80 ML IV SCH ×2 (12:27→21:33)
[2016-07-07] MEDS: PARoxetine 20 mg Tablet PO SCH ×2 (12:29→17:36)
[2016-07-07] MEDS: Fluticasone 250 mCg Inhaler INHALATION SCH ×2 (12:48→21:23)
--- NOTE | 2016-07-07 15:43 | NUR ---
Social Work-initial assessment: Data:See initial assessment. Pt is a 81 y/o female who was admitted on 07/06/16 for GI bleed per H&P. Pt's insurance is [facility] and [facility] and PCP is Oscar Post MD. EMR reviewed. AURELIO met with pt and daughter Bree [phone] at bedside to discuss discharge planning, AURELIO role explained. Pt is alert and oriented x3. Pt resides at home with her Zac and daughter Shelby who is her caregiver. Pt has a single level home with a few stairs to enter. Pt uses either a fww or cane at baseline and does not drive. Pt states she is currently open with [facility] RN, OT, and PT and has been to [facility] in the past. Pt has no fdc care insurance or VA benefits. Pt's daughter is her [facility] caregiver and her CM Is Brain Jeffery, updated clinicals faxed. AURELIO informed Brenton Verma with [facility] or pt's admission and provided him with access. Pt uses home O2 through [employer]. Pt's daughter confirms she will provide transport home at discharge.AURELIO provided phone number and plan on white in room. SW will continue to follow. Assessment:Pt who has NADIYA and HH. Plan:Pt to discharge home when medically stable via POV. Pt's daughter to continue with [facility] caregiving. Pt will need resume HH orders through [facility] for RN,OT, and PT. AURELIO will continue to follow. GREGORY Andrew Addendum: 07/07/16 at 1549 by ANDRZEJ FUENTES Amended: Links added.
[2016-07-07 17:32] LABS: BASOPHILS % (AUTO) 0.4 % (0-3); EOSINOPHILS % (AUTO) 0.2 % (0-5); MONOCYTES % (AUTO) 12.6 % (4-12); Mean Corpuscular Hemoglobin 28.4 pg (27.0-35.0); Mean Corpuscular Volume 96.2 fL (81-100); NEUTROPHILS % (AUTO) 75.6 % (40-74); Platelet Count 287 bil/L (150-400)
--- NOTE | 2016-07-07 18:23 | NUR ---
Respiratory Pt with O2 needs at baseline; wearing 2L NC; receiving neb tx and inhalers. At ~1530, pt sitting forward in bed post neb tx and stating that she is feeling more SOB than usual. cake puncher made aware and assisting with giving medications that were due from this AM but not given d/t NPO status. cake puncher spoke with re: GIBRAN Gibbs but MD not wanting to give that at this time. XR Upper GI Barium postponed until tomorrow AM, morning medications including diuretics given. While present to give medications, pt now stating improved breathing pattern but still not at baseline. On reassessment, pt continuing to improve. Care continues.
[2016-07-07] MEDS ORDERED: Phenytoin 100 mg ER Capsule PO SCH (21:00)
--- NOTE | 2016-07-07 23:01 | CONS ---
[address] [address] CONSULTATION REPORT PATIENT: MARIAM BUENO : 1935 MR#: [id number] ADMIT: 07/06/2016 JOB ID: [id number] INPATIENT HEMATOLOGY CONSULTATION DATE OF SERVICE: 07/07/2016 REQUESTING PROVIDER: Sly Francois MD REASON FOR REFERRAL: Profound anemia in a Jehovah Witness, elderly woman. HISTORY OF PRESENT ILLNESS: The patient is pleasant 81-year-old Jehovah Witness female with comorbid conditions including O2 dependent COPD, CHF, paroxysmal atrial fibrillation on anticoagulation therapy with Xarelto and history of cardiac arrest and stroke, who was brought to [facility] ED last night after experiencing progressive weakness and exertional dyspnea over the past few weeks. Her exertional dyspnea worsened quite a bit over the past few days. She also has been experiencing intermittent hot flashes. She has noticed darkening of stool color lately but without hematochezia and without black stools. The patient was recently admitted to hospital in early March with acute COPD exacerbation. Due to RSV pneumonia. She was in atrial fibrillation, and underwent cardioversion on May 03. She has been in normal sinus rhythm since then. At ED last night, hemoglobin was down to 6.6 as compared to 11.6 three months ago. Leukocyte count and platelet count are normal. Differential was normal except mild monocytosis. She was given 250 mg IV Ferrlecit last night and felt transiently better. Hemoglobin this morning dropped to 6.3 with hydration, and this evening a little improved at 6.7. Iron studies have not been done so far. Given that IV iron has already been infused, it is important to check the first blood sample at ED for ferritin and transferrin saturation. I will request lab to do that. The patient had a positive guaiac test on stool last night in the ED. PAST MEDICAL HISTORY: 1. History of major cardiac arrest and stroke in 2009 requiring several months rehabilitation, but she eventually recovered. 2. Paroxysmal atrial fibrillation since February 2016, on anticoagulation therapy with Xarelto. 3. Osteoarthritis. 4. Severe O2 dependent COPD. 5. Hypertension. 6. Congestive heart failure. 7. Dyslipidemia. 8. Chronic depression. 9. Glaucoma. PAST SURGICAL HISTORY: 1. Iridectomy. 2. Bilateral carpal tunnel surgery. 3. Cardioversion in April 2016. 4. Hysterectomy. SOCIAL HISTORY: She lives in [place] with her . Her daughter also lives with them and is the main care provider. Records indicate she is a lifetime nonsmoker. HOME MEDICATIONS: Reviewed. OBJECTIVE: Elderly woman appears dyspneic at rest. She is tachypneic. Awake, alert, oriented times three. Hemodynamically stable. Blood pressure 145/73, heart rate 78, temperature afebrile. On exam, there is no palpable adenopathy in cervical, supraclavicular, or axillary areas. Abdomen is soft and nontender without palpable mass or hepatosplenomegaly. DATA: EGD in November 2012 showed ulcerated nodule in distal esophagus, but per her daughter's report, a followup EGD at [facility] was negative in that aspect. There was also antral gastritis with superficial erosions. Colonoscopy in October 2011 showed polyps, diverticulosis, and internal hemorrhoids. IMPRESSION/RECOMMENDATIONS: Profound normocytic anemia in an elderly woman with severe oxygen dependent chronic obstructive pulmonary disease and congestive heart failure. Hemoglobin on admission last night was 6.6 and this evening it is 6.7. She was given 250 mg IV iron. I will place order for anemia workup tomorrow morning including ferritin, iron studies, B12, folate, reticulocyte count, direct Eufemia test, and LDH. We will also check the initial blood sample from the emergency department for ferritin and transferrin saturation. Hopefully, this is purely iron deficiency and can be fully treated with intravenous or oral iron supplementation. Also after reviewing her laboratory results tomorrow morning, would consider one dose Procrit while she is in hospital to promote erythropoiesis. Also recommend inpatient or outpatient gastroenterology consultation for repeat esophagogastroduodenoscopy. I will follow up with this patient in hospital tomorrow evening.
[2016-07-08] VITALS (13 sets, daily range): BP systolic 123–168; BP diastolic 51–93; PULSE 68–90; RESP 18–24; O2SAT 94–100
--- NOTE | 2016-07-08 04:34 | NUR ---
B/P MD sent notification of elevated b/p in the 160's. Waiting for possible interventions.
[2016-07-08] MEDS: Albuterol-Ipratropium 3 mL Inhalation Solution NEB SCH ×6 (04:49→22:42)
[2016-07-08] MEDS: 0.9% NaCl + KCl 20 mEq/L 1,000 ML IV SCH (06:00)
[2016-07-08] MEDS: Pantoprazole Inj 80 MG in 0.9% Sodium Chloride 80 ML IV SCH (06:28)
--- NOTE | 2016-07-08 06:39 | NUR ---
NOC PT has been up in chair most of the night for comfort. Remains on 2lNC which is what she uses at home. PT does have dyspnea with minimal exertion. PT denies any pain. B/P hypertensive as prior note mentioned. HR on tele shows 1st degree block with PAC's. No s/s noted. PT NPO since MN for barium swallow today. Denies any pain. Afebrile. WIll CTM.
[2016-07-08 06:41] LABS: BASOPHILS % (AUTO) 0.2 % (0-3); EOSINOPHILS % (AUTO) 0.2 % (0-5); MONOCYTES % (AUTO) 12.6 % (4-12); Mean Corpuscular Hemoglobin 28.5 pg (27.0-35.0); Mean Corpuscular Volume 95.5 fL (81-100); NEUTROPHILS % (AUTO) 76.2 % (40-74); Platelet Count 333 bil/L (150-400)
[2016-07-08 07:58] LABS: Magnesium 1.7 mg/dL (1.6-2.6); Phosphorus 3.4 mg/dL (2.5-4.9); Unsaturated Iron Binding 252.8 ug/dL
--- NOTE | 2016-07-08 09:58 | PCM.PNMED ---
Subjective Date of Service July 08, 2016 Subjective GI progress note Overnight Patient did well. Did not get her barium swallow yesterday. Plan for 10 AM this morning. Exam Vital Signs Vital Sign - Last Date Time Temp Pulse Resp B/P Pulse Ox O2 Delivery O2 Flow Rate FiO2 07/08/16 08:04 36.6 88 22 153/93 100 Nasal Cannula 2.00 Intake and Output 07/07/16 07/07/16 07/08/16 Cumulative From/Thru 15:00 23:00 07:00 07/06/16 20:47 - 07/08/16 06:22 Intake Total 1513 ml 1826 ml 3817 ml Output Total 400 ml 600 ml 1000 ml Balance 1113 ml 1226 ml 2817 ml Intake Oral 600 ml 820 ml 1420 ml IV Total 913 ml 1006 ml 2397 ml Output Urine Total 400 ml 600 ml 1000 ml # Voids 0 # Bowel Movements 1 1 Exam General: Alert, Oriented X3, Cooperative Head: Normal Eyes: PERRLA Neck: Supple Chest & Lungs: decreased breath sounds in the bases bilaterally Cardiovascular: Exam Unremarkable, Regular Rate/Rhythm Abdomen: Non-tender, Non-distended, Normoactive bowel tones Musculoskeletal: Unremarkable Extremities: No cyanosis/clubbing/edma bilat Neurological: Grossly Neurologically Intact IVs and Medications Medications Reviewed: Medications were reviewed in detail Lab and Diagnostics Result Diagram: 07/08/16 0555 07/08/16 0555 X-Rays, CTs and MRIs Bibasilar pleural effusions, scarring, and possible airspace disease unchanged from previous 07/02/16 View: Portable, 1 view Interpretation / Wet Read by: Wet read ED physician 12-lead ECG Sinus rhythm rate 83 Probable left atrial enlargement Low voltage, precordial leads Time: 21:57 Interpreted by: ED physician Assessment & Plan 81-year-old female who presented with severe symptomatic anemia shortness of breath and weakness. Patient improved with iron supplementation, at least transiently. This morning patient's feeling better. Review of labs show hemoglobin at his recovering with an increased reticulocyte count. Hematology are assisting with the anemia. From a GI standpoint this patient is to undergo barium swallow today to rule out any large and obvious causes of blood loss. Head barium swallow with upper GI series is negative then recommend having a barium enema, although if the patient continues to improve this should not keep the patient in the hospital. Currently, PPI drip could probably be discontinued. We agreed that the patient should be off the relative for the time being, at least until she is recovered from her anemia. Patient should also go home on PPI at least once daily. Patient should follow-up with GI within 2 weeks of discharge. Thank you for allowing asked to participate in the care of this patient GI Prophylaxis: Not indicated VTE Prophylaxis: Other (on Xarelto) VTE Mechanical Devices: Intermittant Pneumatic CD Resuscitation Status: CPR: Attempt Resuscitation Attending Statement pt seen and examined with resident physician agree with his note above would have Hematology continue to follow with recs to increase H/H Blaine Hernandez DO July 08, 2016 09:58 Tarsha García MD July 11, 2016 10:08
--- NOTE | 2016-07-08 11:46 | PCM.PNMED ---
Subjective Date of Service July 08, 2016 Subjective h/h trending up without any red or black stools had one BM yesterday, zack denied abdominal pain, c/o SOB, using accessory muscle while speaking, denied cough, Exam Vital Signs Vital Sign - Last Date Time Temp Pulse Resp B/P Pulse Ox O2 Delivery O2 Flow Rate FiO2 07/08/16 08:04 36.6 88 22 153/93 100 Nasal Cannula 2.00 Intake and Output 07/07/16 07/07/16 07/08/16 Cumulative From/Thru 15:00 23:00 07:00 07/06/16 20:47 - 07/08/16 06:22 Intake Total 1513 ml 1826 ml 3817 ml Output Total 400 ml 600 ml 1000 ml Balance 1113 ml 1226 ml 2817 ml Intake Oral 600 ml 820 ml 1420 ml IV Total 913 ml 1006 ml 2397 ml Output Urine Total 400 ml 600 ml 1000 ml # Voids 0 # Bowel Movements 1 1 Exam Elderly frail lady, comfortably laying down on the bed Using accessory muscle, speaking in full sentences NAD, comfortably laying down on the bed no JVD, MMM, no LAD RRR, nl s1, s2 no mrg decreased BS at bases, mild crackles, no wheezing S,ND,NT,normoactive BS+ warm, no edema, pulses 2/2 [address]ing in place IVs and Medications Medications Reviewed: Medications were reviewed in detail Lab and Diagnostics Result Diagram: 07/08/16 0555 07/08/16 0555 X-Rays, CTs and MRIs Bibasilar pleural effusions, scarring, and possible airspace disease unchanged from previous 07/02/16 View: Portable, 1 view Interpretation / Wet Read by: Wet read ED physician 12-lead ECG Sinus rhythm rate 83 Probable left atrial enlargement Low voltage, precordial leads Time: 21:57 Interpreted by: ED physician Assessment & Plan An 81 year old female with an extensive medical history including seizures, CAD , hypertension, CHF, COPD, and atrial fibrillation on Xarelto s/p cardioversion (05/03/16) presents to the ED via EMS accompanied by her daughters with shortness of breath onset yesterday. Associated symptoms include "hot flashes," pallor, and dyspnea with exertion. The patient denies hematochezia, hematuria, hematemesis, hemoptysis, melena, or other symptoms. She was recently diagnosed with CHF and took 40mg Lasix today. She increased her home O2 from 2L to 3L today. EMS found the patient with a BP of 171/75, a hear presumed GI bleed, present on admission. no active bleeding, likely chronic small bleeding based on hx, -h/h stable, no episode of acute bleeding noticed -appreciate GI input, Barium swallow today, possible barium enema outpt, no further intervention recommended -s/p PPI gtt, continue PPI bid Symptomatic Anemia, present on admission. Acute. hemoglobin 6.6, hematocrit 21.9 , symptomatic with increased respiratory distress with mild labored breathing, -clinicaly improving with stable respiratory status, although still not at baseline. - patient Voodoo, declining blood transfusion -s/p iron IV, possible Procrit injection, awaits Iron panel -Dr. Schmitt follow up Dyspnea on exertion, present on admission. Acute. likely due to baseline pleural effusion, chronic diastolic CHF. no s/s of respiratory infection - DuNeb Q4H - Albuterol Q2H PRN -continue lasix, will consider IV dosing if h/h remains stable, - trends BNP Chronic conditions: Chronic Atrial fibrillation - hold Xarelto, Seizure - continue phenytoin (patient recently tried to decrease from current dose, did not tolerate) Chronic diastolic or preserved EF heart failure - as above Hypertension - continue metoprolol, spironolactone Hyperlipidemia - continue atorvastatin Asthma - as above Depression - continue paroxetine Glaucoma - continue Lumigan, Alphagan, Axopt dispo: likely 1-2more days, home with HH RN PT OT dvt ppx: SCD Full Code GI Prophylaxis: Not indicated VTE Prophylaxis: Other (on Xarelto) VTE Mechanical Devices: Intermittant Pneumatic CD Resuscitation Status: CPR: Attempt Resuscitation Time spent 35min Carol Bone MD July 08, 2016 11:46
[2016-07-08] MEDS: PARoxetine 20 mg Tablet PO SCH (13:26)
[2016-07-08] MEDS: Potassium Chloride 20 mEq SR Tablet PO SCH (13:27)
[2016-07-08] MEDS: Brimonidine 0.2% 5 mL Ophthalmic Solution BOTH_EYES SCH ×2 (13:32→22:11)
[2016-07-08] MEDS: Dorzolamide 2% 10 mL Ophthalmic Solution BOTH_EYES SCH ×2 (13:32→22:15)
[2016-07-08] MEDS: Fluticasone 250 mCg Inhaler INHALATION SCH ×2 (13:32→22:13)
--- NOTE | 2016-07-08 13:58 | DRSVH ---
PROCEDURE: X-RAY BARIUM UPPER GI STUDY ([id number]) INDICATIONS: ? PUD/GI bleed COMPARISON: None. 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 No suspicious abdominal calc ifications. Visualized solid organ contours appear normal. Bony structures appear unremarkable. Ex tensive mitral annular calcification is noted. Bibasilar pleural effusions and opacities are again n oted. Esophagus: Exam is limited demonstrating no gross esophageal abnormality. Stomach: Exam is extremely limited as the patient had respiratory difficulties and was unable to lie in a supine or prone position. Within these limits, opacification of the stomach to the gastric antr um appears grossly normal and no large intraluminal filling defects are seen. No extravasation of co ntrast media is seen. The duodenal bulb and duodenal loop are not opacified and cannot be evaluated. The attending physician was personally present in the room during the examination. IMPRESSION: 1. Bibasilar pleural effusions and airspace opacities suggesting pneumonia. 2. Limited evaluation of the esophagus and the stomach as above. Dictated by: Faustino CONTRERAS Interpreted: Claudia Jane MD on 07/08/2016 at 13:55 Transcribed by: CLARITA on 07/08/2016 at 13:57 Approved by: Claudia Jane M.D. on 07/09/2016 at 9:23
--- NOTE | 2016-07-08 16:12 | NUR ---
Resp/fatigue patient sitting up in recliner chair states unable to lie in bed related to resp distress. patient is noted to be using her accessory muscles and dyspnea at rest. patient is 02 dependent at home . Pt off floor had barium swallow study today. Pt returns to floor very fatigued. O2 increased to 4l to get patients resp sat above 84 %.
[2016-07-08] MEDS ORDERED: Ferric Sod Gluc Complex Inj 125 MG in 0.9% Sodium Chloride 100 ML IV ONE (17:55)
[2016-07-08] MEDS: Pantoprazole 40 mg ER24 Tablet PO SCH (19:44)
[2016-07-08] MEDS: Phenytoin 100 mg ER Capsule PO SCH (22:16)
--- NOTE | 2016-07-08 22:36 | PROG NOTE ---
[address] [address] PROGRESS NOTE PATIENT: MARIAM BUENO : 1935 MR#: [id number] ADMIT: 07/06/2016 JOB ID: [id number] DATE: 07/08/2016 DIAGNOSIS: Severe iron-deficiency anemia in a Jehovah Witness, elderly woman. SUBJECTIVE: Today, she feels slightly better, less dyspneic. OBJECTIVE: She is resting comfortably on bedside chair. Awake, alert, oriented x3. Vital signs are all normal. LABORATORY DATA: Hemoglobin improved to 7.0. Retic count is appropriately high at 3.7%. Serum ferritin on initial blood specimen is low-normal at 24, with low transferrin saturation 6%. Serum EPO, B12 and folate are all pending. Direct Eufemia test is negative. IMPRESSION AND RECOMMENDATIONS: Severe iron-deficiency anemia, slightly improved after one dose of IV iron [address] an order for another dose tonight. There has been slight improvement in anemia since admission and by tomorrow there should be probably further improvement. From my point of view, the patient can be discharged home tomorrow. I recommended that she start oral iron supplement once daily, either ferrous sulfate or ferrous gluconate plus vitamin C 500 mg once daily. I will make a follow-up appointment in our clinic as well.
[2016-07-09] VITALS (13 sets, daily range): BP systolic 117–150; BP diastolic 51–69; PULSE 63–85; RESP 16–24; O2SAT 91–99
--- NOTE | 2016-07-09 05:17 | NUR ---
activity Tolerating OOB to recliner chair per her preference. Sleeps in a recliner at home per daughter Shebly's report. Daughter at bedside thru NOC. patient denies pain/discomfort. SOB w/ exertion, o2 via 4lpm via NC. RT following. VS Stable, CTM for changes.
[2016-07-09] MEDS: Albuterol-Ipratropium 3 mL Inhalation Solution NEB SCH ×5 (05:21→19:49)
[2016-07-09] MEDS ORDERED: FERR-74 PO (07:40)
[2016-07-09] MEDS ORDERED: PANT40TA3 PO (07:40)
[2016-07-09] MEDS ORDERED: Ascorbic Acid PO (07:40)
[2016-07-09] MEDS ORDERED: POLY17PO6 PO (07:40)
[2016-07-09 07:56] LABS: BASOPHILS % (AUTO) 0.3 % (0-3); EOSINOPHILS % (AUTO) 0.5 % (0-5); MONOCYTES % (AUTO) 12.1 % (4-12); Mean Corpuscular Hemoglobin 28.9 pg (27.0-35.0); Mean Corpuscular Volume 95.7 fL (81-100); NEUTROPHILS % (AUTO) 74.4 % (40-74); Platelet Count 272 bil/L (150-400)
[2016-07-09] MEDS: Potassium Chloride 20 mEq SR Tablet PO SCH (08:00)
[2016-07-09 08:14] LABS: Vitamin B12 510 pg/mL (211-946)
[2016-07-09] MEDS: Pantoprazole 40 mg ER24 Tablet PO SCH ×2 (09:12→17:48)
[2016-07-09] MEDS: Dorzolamide 2% 10 mL Ophthalmic Solution BOTH_EYES SCH ×2 (09:16→21:21)
[2016-07-09] MEDS: Brimonidine 0.2% 5 mL Ophthalmic Solution BOTH_EYES SCH ×2 (09:16→21:22)
[2016-07-09] MEDS: Fluticasone 250 mCg Inhaler INHALATION SCH ×2 (09:16→21:24)
[2016-07-09] MEDS: PARoxetine 20 mg Tablet PO SCH (09:20)
[2016-07-09] MEDS: Ascorbic Acid 500 mg Tablet PO SCH (09:20)
--- NOTE | 2016-07-09 11:45 | PCM.PNMED ---
Subjective Date of Service July 09, 2016 Subjective pt looked weak, as per daughter, pt was restless, couldn't sleep well, reported that pt was ambulating w/o SOB, still uses mildly accessory muscle this AM, denied SOB remained on 4liters NC, unchanged, uses2-3liters at home h/h mildly trended down, no BM since yesterday, Exam Vital Signs Vital Sign - Last Date Time Temp Pulse Resp B/P Pulse Ox O2 Delivery O2 Flow Rate FiO2 07/09/16 08:53 74 24 99 Nasal Cannula 4.00 07/09/16 06:00 36.7 150/64 Intake and Output 07/08/16 07/08/16 07/09/16 Cumulative From/Thru 15:00 23:00 07:00 07/06/16 20:47 - 07/09/16 06:35 Intake Total 630 ml 640 ml 5087 ml Output Total 620 ml 300 ml 1920 ml Balance 10 ml 340 ml 3167 ml Intake Oral 630 ml 640 ml 2690 ml IV Total 2397 ml Output Urine Total 620 ml 300 ml 1920 ml # Voids 0 # Bowel Movements 1 Exam Elderly frail lady, comfortably laying down on the bed mildly using accessory muscle, speaking in full sentences NAD, comfortably laying down on the bed no JVD, MMM, no LAD RRR, nl s1, s2 no mrg decreased BS at bases, mild crackles, no wheezing S,ND,NT,normoactive BS+ warm, no edema, pulses 2/2 Rt arm [address]ing in place IVs and Medications Medications Reviewed: Medications were reviewed in detail Lab and Diagnostics Result Diagram: 07/09/16 0753 07/09/16 0753 X-Rays, CTs and MRIs Bibasilar pleural effusions, scarring, and possible airspace disease unchanged from previous 07/02/16 View: Portable, 1 view Interpretation / Wet Read by: Wet read ED physician 12-lead ECG Sinus rhythm rate 83 Probable left atrial enlargement Low voltage, precordial leads Time: 21:57 Interpreted by: ED physician Assessment & Plan An 81 year old female with an extensive medical history including seizures, CAD , hypertension, CHF, COPD, and atrial fibrillation on Xarelto s/p cardioversion (05/03/16) presents to the ED via EMS accompanied by her daughters with shortness of breath onset yesterday. Associated symptoms include "hot flashes," pallor, and dyspnea with exertion. The patient denies hematochezia, hematuria, hematemesis, hemoptysis, melena, or other symptoms. She was recently diagnosed with CHF and took 40mg Lasix today. She increased her home O2 from 2L to 3L today. EMS found the patient with a BP of 171/75, a hear presumed GI bleed, present on admission. no active bleeding, likely chronic intermittent bleeding given hx of AVM, barrium swallow 07/08 didn't show any ulcers. -h/h mildly worse today, no active GIB, clinically still remained weak. -appreciate GI input, possible barium enema outpt, no further intervention recommended -s/p PPI gtt, continue PPI bid Symptomatic Anemia, present on admission. Acute. hemoglobin 6.6, hematocrit 21.9 , symptomatic with increased respiratory distress with mild labored breathing, - patient Jew, declining blood transfusion -s/p iron IV, possible Procrit injection, ferritin 160s, -recommended per Dr. Schmitt, iron supplement with vitC, started today Dyspnea on exertion, present on admission. Acute. likely due to baseline pleural effusion despite small size, chronic diastolic CHF. no s/s of respiratory infection so far, euvolemic on exam, cannot entirely exclude PNA. -clinically unchanged with stable respiratory status, although still not at baseline. - DuNeb Q4H, Albuterol Q2H PRN -continue lasix, will consider IV dosing if h/h remains stable, -will repeat CXR, if effusion gets worse, consider pulm consult for thoracentesis -trends fever curve, PCT, low threshold to start abx, but pt remained afebrile, HD stable so far. Chronic conditions: Chronic Atrial fibrillation - hold Xarelto, Seizure - continue phenytoin (patient recently tried to decrease from current dose, did not tolerate) Chronic diastolic or preserved EF heart failure - as above Hypertension - continue metoprolol, spironolactone Hyperlipidemia - continue atorvastatin Asthma - as above Depression - continue paroxetine Glaucoma - continue Lumigan, Alphagan, Axopt dispo: likely 1-2more days, home with HH RN PT OT dvt ppx: SCD Full Code GI Prophylaxis: Not indicated VTE Prophylaxis: Other (on Xarelto) VTE Mechanical Devices: Intermittant Pneumatic CD Resuscitation Status: CPR: Attempt Resuscitation Time spent 35min Carol Bone MD July 09, 2016 11:45
[2016-07-09 12:31] LABS: APPEARANCE,URINE HAZY (CLEAR,HAZY); COLOR,URINE DARK YELLOW (YELLOW); OCCULT BLOOD,URINE TRACE (NEGATIVE); UROBILINOGEN,URINE NORMAL (NORMAL)
--- NOTE | 2016-07-09 13:19 | NUR ---
Respiratory Pt using accessory muscles at rest on 4LNC and has generalized weakness. RT performed NEB treatment with some improvement. CPOx shows 98% at this level, pt request flow be lowered to her home level of 2LNC. After 30 minutes, SpO2 continues to be stable in mid-90s with decreased accessory muscle use. Will continue to monitor her dyspnea closely. Hgb is 6.8 with refusal to transfuse, family educated on O2 saturation levels vs actually oxygen carrying capabilities.
--- NOTE | 2016-07-09 13:23 | DRSVH ---
PROCEDURE: X-RAY CHEST, TWO VIEWS ([id number]) INDICATIONS: hypoxia, persistent effusion TECHNIQUE: 2 views of the chest were acquired. COMPARISON: [facility], CR, XR CHEST 1VW (PORTABLE), 07/06/2016, 22:07. FINDINGS: Surgical changes and devices: None. Lungs and pleura: There are persistent small bilateral pleural effusions with bibasilar consolidatio n or compressive atelectasis. Mediastinum: Mediastinal contours appear unchanged. Heart size is at the upper limits of normal. M itral annular calcification redemonstrated. Bones and chest wall: No suspicious bony lesions. Overlying soft tissues appear unremarkable. IMPRESSION: 1. Persistent small pleural effusions and bibasilar consolidation/atelectasis. Dictated by: Faustino Prater [facility] Interpreted: Jeffry Harvey MD on 07/09/2016 at 13:22 Transcribed by: ARGENIS on 07/09/2016 at 13:23 Approved by: Jeffry Harvey M.D. on 07/09/2016 at 14:39
--- NOTE | 2016-07-09 13:29 | NUR ---
Social Work- Readiness for Discharge Data: EMR reviewed. Pt is on day 3 of hospitalization for GI Bleed, Anemia per H&P. Pt is not medically stable, anticipate 1-2 more days. Pt's HH levels continue to be critically low. Per RN, pt's O2 needs are 2-3L, reduced from 4L O2. Pt is closer to baseline O2 at this time. Pt is open with Marimar PAREDES RN PT OT and has [facility] caregivers. Pt will require resume HH orders at discharge. SW to fax D/C summary and orders to AFSANE[facility] Gil when pt is ready for discharge. Pt will discharge home with Marimar PAREDES RN PT OT, home O2 through [facility], and [facility] caregiving. SW will continue to follow. Assessment: Pt who has [facility] caregiving and who is open with Marimar PAREDES RN PT OT Plan: Pt will require resume HH orders at discharge. SW to fax D/C summary and orders to [facility]FSANE[facility] Gil when pt is ready for discharge. Pt will discharge home with Marimar PAREDES RN PT OT, home O2 through [facility], and [facility] caregiving. SW will continue to follow. GREGORY Nassar
[2016-07-09] MEDS ORDERED: Furosemide 10 mg/mL 4 mL Inj IVPUSH ONE (15:25)
--- NOTE | 2016-07-09 18:19 | DRSVH ---
PROCEDURE: US CHEST/PLEURAL SONOGRAM INDICATIONS: pleural effusion COMPARISON: [facility], CR, XR CHEST 2VW, 07/09/2016, 12:00. FINDINGS: Small to moderate-sized right-sided pleural effusion noted. Small left-sided pleural effu emanuel noted. IMPRESSION: Bilateral pleural effusions as described above. Dictated by: Terrie Venegas MD, PhD on 07/09/2016 at 18:17 Approved by: Terrie Venegas MD, PhD on 07/09/2016 at 18:18
[2016-07-09] MEDS: Phenytoin 100 mg ER Capsule PO SCH (21:24)
[2016-07-10] VITALS (14 sets, daily range): BP systolic 107–145; BP diastolic 47–70; PULSE 66–84; RESP 17–20; O2SAT 91–97
[2016-07-10] MEDS: Albuterol-Ipratropium 3 mL Inhalation Solution NEB SCH ×6 (00:36→20:34)
--- NOTE | 2016-07-10 02:19 | NUR ---
activity - respiratory patient up to bsc with sba. denies dyspnea with activity. lungs are moderately decreased in the bases. 2 liters nc. daughter at bedside. provides supportive care. care ongoing.
[2016-07-10 06:17] LABS: BASOPHILS % (AUTO) 0.2 % (0-3); MONOCYTES % (AUTO) 11.1 % (4-12); Mean Corpuscular Hemoglobin 28.3 pg (27.0-35.0); Mean Corpuscular Volume 94.8 fL (81-100); NEUTROPHILS % (AUTO) 61.3 % (40-74); Platelet Count 266 bil/L (150-400)
[2016-07-10] MEDS: Pantoprazole 40 mg ER24 Tablet PO SCH ×2 (08:28→16:29)
[2016-07-10] MEDS: Potassium Chloride 20 mEq SR Tablet PO SCH (08:28)
[2016-07-10] MEDS: Brimonidine 0.2% 5 mL Ophthalmic Solution BOTH_EYES SCH ×2 (08:29→20:57)
[2016-07-10] MEDS: Dorzolamide 2% 10 mL Ophthalmic Solution BOTH_EYES SCH ×2 (08:29→21:17)
[2016-07-10] MEDS: Fluticasone 250 mCg Inhaler INHALATION SCH ×2 (08:31→21:52)
[2016-07-10] MEDS: PARoxetine 20 mg Tablet PO SCH (08:32)
[2016-07-10] MEDS: Ascorbic Acid 500 mg Tablet PO SCH (08:32)
[2016-07-10] MEDS ORDERED: Furosemide 10 mg/mL 2 mL Inj IVPUSH ONE (08:50)
--- NOTE | 2016-07-10 12:10 | PCM.PNMED ---
Subjective Date of Service July 10, 2016 Subjective pt felt much better after lasix 40mg given last evening. still very dyspneic with minimal exertion in the room per daughter. no black/red stools reported. h/h dropped to 6.5/21.8 Exam Vital Signs Vital Sign - Last Date Time Temp Pulse Resp B/P Pulse Ox O2 Delivery O2 Flow Rate FiO2 07/10/16 08:22 36.6 74 18 145/66 96 Nasal Cannula 3.00 Intake and Output 07/09/16 07/09/16 07/10/16 Cumulative From/Thru 15:00 23:00 07:00 07/06/16 20:47 - 07/10/16 05:05 Intake Total 400 ml 200 ml 5687 ml Output Total 600 ml 450 ml 2970 ml Balance -200 ml -250 ml 2717 ml Intake Oral 400 ml 200 ml 3290 ml IV Total 0 ml 2397 ml Output Urine Total 600 ml 450 ml 2970 ml # Voids 0 # Bowel Movements 1 Exam Elderly frail lady, comfortably laying down on the bed mildly using accessory muscle, speaking in full sentences NAD, comfortably laying down on the bed no JVD, MMM, no LAD RRR, nl s1, s2 no mrg decreased BS at bases, bilateral crackles, no wheezing S,ND,NT,normoactive BS+ warm, no edema, pulses 2/2 IVs and Medications Medications Reviewed: Medications were reviewed in detail Lab and Diagnostics Result Diagram: 07/10/1660407/10/16604 X-Rays, CTs and MRIs Bibasilar pleural effusions, scarring, and possible airspace disease unchanged from previous 07/02/16 View: Portable, 1 view Interpretation / Wet Read by: Wet read ED physician 12-lead ECG Sinus rhythm rate 83 Probable left atrial enlargement Low voltage, precordial leads Time: 21:57 Interpreted by: ED physician Assessment & Plan An 81 year old female with an extensive medical history including seizures, CAD , hypertension, CHF, COPD, and atrial fibrillation on Xarelto s/p cardioversion (05/03/16) presents to the ED via EMS accompanied by her daughters with shortness of breath onset yesterday. Associated symptoms include "hot flashes," pallor, and dyspnea with exertion. The patient denies hematochezia, hematuria, hematemesis, hemoptysis, melena, or other symptoms. She was recently diagnosed with CHF and took 40mg Lasix today. She increased her home O2 from 2L to 3L today. EMS found the patient with a BP of 171/75, a hear presumed GI bleed, present on admission. no active bleeding, likely chronic intermittent bleeding given hx of AVM, barrium swallow 07/08 didn't show any ulcers. -h/h mildly worsened, no active GIB, clinically still remained weak. -appreciate GI input, possible barium enema outpt, no further intervention recommended -s/p PPI gtt, continue PPI bid Symptomatic Anemia, present on admission. Acute. hemoglobin 6.6, hematocrit 21.9 , symptomatic with increased respiratory distress with mild labored breathing, - patient Oriental orthodox, declining blood transfusion -s/p iron IV, possible Procrit injection per oncology, ferritin 160s, -recommended per Dr. Schmitt, iron supplement with vitC, started 07/09 Dyspnea on exertion, present on admission. Acute. likely due to CHF, baseline obstructive lung dz, pleural effusion. no s/s of respiratory infection so far. CXR 07/09 showed interval increase of congestion, effusion(R>L) -clinically improving with diuretics, although still not at baseline. will continue short course of diuresis to see if symptoms improves. -O2 supplement as needed - DuNeb Q4H, Albuterol Q2H PRN -continue lasix, 40mg iv bid. stric i/o, daily wt -appreciate input regarding recurrent effusion, possible diagnostic/ therapeutic throacentesis if indicated -trends fever curve, PCT, pt remained afebrile, HD stable w/o abx. Chronic conditions: Chronic Atrial fibrillation - hold Xarelto, Seizure - continue phenytoin (patient recently tried to decrease from current dose, did not tolerate) Chronic diastolic or preserved EF heart failure - as above Hypertension - continue metoprolol, spironolactone Hyperlipidemia - continue atorvastatin Asthma - as above Depression - continue paroxetine Glaucoma - continue [employer] Axopt dispo: likely 2-3more days, home with HH RN PT OT dvt ppx: SCD Full Code GI Prophylaxis: Not indicated VTE Prophylaxis: Other (on Xarelto) VTE Mechanical Devices: Intermittant Pneumatic CD Resuscitation Status: CPR: Attempt Resuscitation Time spent 35min Carol Bone MD July 10, 2016 12:10
--- NOTE | 2016-07-10 14:26 | CONS ---
[address] [address] CONSULTATION REPORT PATIENT: MARIAM BUENO : 1935 MR#: [id number] ADMIT: 07/06/2016 JOB ID: [id number] DATE OF SERVICE: 07/10/2016 PULMONARY CONSULTATION NOTE: The patient is an 81-year-old woman seen in consultation at the request of Dr. Bone for bilateral pleural effusions. HISTORY OF PRESENT ILLNESS: The patient is an 81-year-old Mu-ism who came into the hospital with many weeks of worsening shortness of breath. She was found to be severely anemic on arrival with a hemoglobin of 6.6, but declined transfusion. At baseline she has known history of diastolic dysfunction with heart failure for which she is followed by Dr. Pascal in Cardiology, as well as asthma. She is on Flovent and nebulizers for her asthma and it has been reasonably well controlled. She also reports a history of having fluid removed from her chest almost seven years ago?. She says she has been trying to lose weight and has lost 10 pounds in the last six months but had gained 3 pounds in the last week or so. She was on furosemide and that was being adjusted to try and diurese her. She denies any chest pain, fevers, chills. She has had some cough today with some phlegm but not prior to that. She has had some sweats also for the last couple of weeks. She denies any hematemesis or hematochezia. She is on home O2 at 2.5 L daily and is at her baseline currently in the hospital. On chest x-ray done in the hospital as well as ultrasound of the chest, she was found to have a [id number] right pleural effusion and a small left pleural effusion and we are asked to see her in consultation regarding that. PAST MEDICAL HISTORY: 1. Seizure disorders following a stroke, on Dilantin. 2. Carotid stenosis. 3. Atrial fibrillation on Xarelto. 4. Diastolic dysfunction. 5. Asthma. SOCIAL HISTORY: A 15 pack year smoking history and quit smoking in 1991. 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 REVIEW OF SYSTEMS: Is positive as mentioned above in HPI. Otherwise negative. PHYSICAL EXAMINATION: Vital signs reviewed. Temperature 36.6, pulse 74, respirations 18, sats 96% on 2 L nasal cannula. BP 145/66. General: Pale elderly woman, sitting upright, breathing comfortably at rest. Speaking full sentences. She is hard of hearing. HEENT: Oral mucosa is moist. No ulcers or thrush. Chest is clear to auscultation anteriorly. She has decreased breath sounds at bilateral lung bases. Heart is regular. Soft systolic murmur heard at the left upper sternal border. Extremities: No cyanosis, clubbing or edema. Skin: No rashes. LABORATORIES: Reviewed. WBC 6.1, hemoglobin 6.5. Chemistry also reviewed and within normal limits. BNP is 1800. Procalcitonin 0.08. Chest x-ray reviewed and shows bilateral pleural effusions small to moderate. She has had bilateral pleural effusions dating back to 2016 but certainly these appear larger now than previously. Echocardiogram done in February of 2016 shows evidence of diastolic dysfunction, severe left atrial dilation, moderate mitral and tricuspid regurgitation. RVSP estimated 52 mm. ASSESSMENT AND RECOMMENDATIONS: 1. Bilateral pleural effusions. 2. Chronic hypoxic respiratory failure on 2.5 L O2 at baseline. 3. Severe anemia due to blood loss. 4. Diastolic dysfunction with decompensated diastolic heart failure. This 81-year-old woman with longstanding well controlled asthma is presenting with worsening shortness of breath, severe anemia likely due to blood loss from a GI source in the setting of known diastolic dysfunction. Most likely etiology of her worsening dyspnea is a combination of anemia and diastolic dysfunction with pleural effusions that seemed relatively symmetric most likely due to decompensated heart failure in the setting of anemia. The question of mesothelioma was brought up because of her history of chronic effusion and distant history of asbestos exposure. I think this would be extremely unusual and rare in this patient. Discussed with Dr. Bone who has been diuresing her with IV furosemide. I agree with this plan. Dr. Howell and the pulmonary team will follow up on the patient on Tuesday. Please get a chest x-ray done Tuesday morning and hold any subcu heparin. We will consider a thoracentesis either by the pulmonary team or ultrasound-guided thoracentesis by Radiology. I recommend that the fluid be sent for protein, LDH, cell count and differential, bacterial culture as well as cytology. Additional testing is probably not required as the 1st step. If the fluid is a transudate, I really do not think we need to worry about malignancy. However, if the fluid is an exudate, we should consider getting a CT of her chest. All of this was discussed with the patient. I will not plan on seeing her tomorrow. I agree with continued diuresis. I will sign out to Dr. Howell who will see the patient on Tuesday.
[2016-07-10] MEDS: Furosemide 10 mg/mL 4 mL Inj IVPUSH SCH (16:30)
--- NOTE | 2016-07-10 17:21 | NUR ---
Resp States her breathing feels "almost normal" today. Sats mid 90s on 2.5 l via nc. Continue IV Lasix as ordered. Unmeasured urine in briefs. Lung sound markedly decreased, but no crackles or wheeze. She does report SOB with activity/getting up to BSC.
--- NOTE | 2016-07-10 19:27 | DRSVH ---
[facility] [address] [place] [address] Echocardiogram Report Name: MARIAM BUENO Study Date: 07/10/2016 Height: 62 in Hospital Exam Location: [facility] Weight: 164 lb Gender: Female BSA: 1.8 m2 : 1935 Age: 81 yrs BP: 124/70 mmHg Reason For Study: BILATERAL PLEURAL EFFUSION Ordering Physician: HOSPITALIST RENETTAerformed By: Renée Pastrana Referring Physician: Dr. Oscar Post Interpretation Summary The left ventricle is normal in size, wall thickness, and systolic function without any focal wall motion abnormalities. The ejection fraction is estimated to be 65-70%. Spectral Doppler of the mitral valve shows a normal E/A wave ratio. The right ventricle is not well visualized. The right ventricle grossly appears normal in size with probable normal systolic function. The right ventricular systolic pressure is estimated at 68 mmHg assuming a right atrial pressure of 8 mm Hg. Compared to the prior echo exam, there has been an increase in the severity of pulmonary hypertension. There is moderate to severe mitral annular calcification. The mean mitral valve pressure gradient is 6 mmHg. There is mild to moderate mitral stenosis. Compared to the prior echo exam, there has been a slight increase in the severity of mitral stenosis. There is moderate mitral regurgitation. There has been no significant change since the previous study. There is mild aortic regurgitation. Compared to the prior echo study, there has been a slight increase in the severity of aortic regurgitation. There is moderate tricuspid regurgitation. Compared to the prior echo exam, there has been a slight decrease in TR severity. There is no pericardial effusion. There are large-sized bilateral pleural effusions noted. Bilateral pleural effusions were present on prior echo study. Procedure: A two-dimensional transthoracic echocardiogram with color flow and Doppler was performed in limited views only. The study quality was technically adequate. Comparison is made with the echocardiogram of 2016. The patient is sitting in a reclining chair for the test. The patient was in sinus during the exam. Left Ventricle: The left ventricle is normal in size, wall thickness, and systolic function without any focal wall motion abnormalities. The ejection fraction is estimated to be 65-70%. Spectral Doppler of the mitral valve shows a normal E/A wave ratio. Right Ventricle: The right ventricle is not well visualized. The right ventricle grossly appears normal in size with probable normal systolic function. Atria: The interatrial septum is intact with no evidence for an atrial septal defect. Mitral Valve: The mitral valve leaflets are mildly calcified. There is moderate to severe mitral annular calcification. The mean mitral valve pressure gradient is 6 mmHg. There is mild to moderate mitral stenosis. Compared to the prior echo exam, there has been an increase in the severity of mitral stenosis. There is moderate mitral regurgitation. There has been no significant change since the previous study. Aortic Valve: The aortic valve is not well visualized. The aortic valve is moderately calcified. There is mild aortic regurgitation. Compared to the prior echo study, there has been an increase in the severity of aortic regurgitation. Tricuspid Valve: The tricuspid valve is not well visualized. The tricuspid valve is not well visualized, but is grossly normal. There is moderate tricuspid regurgitation. Compared to the prior echo exam, there has been a decrease in TR severity. The right ventricular systolic pressure is estimated at 68 mmHg assuming a right atrial pressure of 8 mm Hg. Compared to the prior echo exam, there has been an increase in the severity of pulmonary hypertension. Great Vessels: The IVC is dilated (diameter is greater than 2.1 cm) yet it collapses greater than 50% with a sniff. This suggests a right atrial pressure of 8 mm Hg. Pericardium/ Pleura There is no pericardial effusion. There are large-sized bilateral pleural effusions noted. Bilateral pleural effusions were present on prior echo study. Doppler Measurements & Calculations MV E max gilberto MV E/A: 1.6 TR max gilberto MV V2 mean : 205.9 cm/sec Pulm A Revs Dur : 392.4 cm/sec : 111.9 cm/sec MV A max gilberto TR max PG MV mean PG : 125.4 cm/sec : 61.6 mmHg MV P1/2t: 82.4 msec MV V2 VTI: 56.5 cm MV dec time : 0.28 sec MV P1/2t max gilberto MVA(P1/2t): 2.7 cm2 Reading Physician:ALE
[2016-07-10] MEDS: Phenytoin 100 mg ER Capsule PO SCH (21:54)
[2016-07-11] VITALS (11 sets, daily range): BP systolic 121–161; BP diastolic 61–79; PULSE 57–89; RESP 15–20; O2SAT 94–98
[2016-07-11] MEDS: Albuterol-Ipratropium 3 mL Inhalation Solution NEB SCH ×6 (00:30→20:51)
[2016-07-11 06:12] LABS: Magnesium 1.4 mg/dL (1.6-2.6); Phosphorus 3.2 mg/dL (2.5-4.9)
--- NOTE | 2016-07-11 06:21 | NUR ---
Respiratory/pain/ labs Pt continues to sleep and sit in the recliner because she can not lay flat. Pt c/o shortness of breath with exertion while wearing 2.5L O2 via NC per baseline. Denies pain, chest pain/pressure, and abd pain. Hbg 6.7 per lab. Expected value. care ongoing.
[2016-07-11 06:45] LABS: BASOPHILS % (AUTO) 0.4 % (0-3); EOSINOPHILS % (AUTO) 1.2 % (0-5); MONOCYTES % (AUTO) 10.3 % (4-12); Mean Corpuscular Hemoglobin 28.5 pg (27.0-35.0); Mean Corpuscular Volume 95.3 fL (81-100); NEUTROPHILS % (AUTO) 68.7 % (40-74); Platelet Count 297 bil/L (150-400)
[2016-07-11] MEDS ORDERED: Magnesium Sulf 2 Gm/50mL Water 2 GM in IV Premix 1 EACH IV ONE (07:25)
[2016-07-11] MEDS: Pantoprazole 40 mg ER24 Tablet PO SCH ×2 (08:52→17:03)
[2016-07-11] MEDS: Potassium Chloride 20 mEq SR Tablet PO SCH (08:53)
[2016-07-11] MEDS: Ascorbic Acid 500 mg Tablet PO SCH (08:55)
[2016-07-11] MEDS: PARoxetine 20 mg Tablet PO SCH (08:55)
[2016-07-11] MEDS: Fluticasone 250 mCg Inhaler INHALATION SCH ×2 (08:56→22:12)
[2016-07-11] MEDS: Brimonidine 0.2% 5 mL Ophthalmic Solution BOTH_EYES SCH ×2 (08:57→22:12)
[2016-07-11] MEDS: Dorzolamide 2% 10 mL Ophthalmic Solution BOTH_EYES SCH ×2 (08:57→22:12)
[2016-07-11] MEDS: Furosemide 10 mg/mL 4 mL Inj IVPUSH SCH ×2 (08:58→17:06)
--- NOTE | 2016-07-11 11:06 | PCM.PNMED ---
Subjective Date of Service July 11, 2016 Subjective pt seems to respond diuretics, but still dyspneic, and lightheaded with minimal movement. looked comfortable, afraid of laying down on the bed due to SOB, therefore slept on recliner TTE showed marked pHTN, normal LV function, thoracentesis deferred per Exam Vital Signs Vital Sign - Last Date Time Temp Pulse Resp B/P Pulse Ox O2 Delivery O2 Flow Rate FiO2 07/11/16 07:56 70 07/11/16 07:04 20 96 Nasal Cannula 2.00 07/11/16 06:52 36.9 131/61 Intake and Output 07/10/16 07/10/16 07/11/16 Cumulative From/Thru 15:00 23:00 07:00 07/06/16 20:47 - 07/11/16 06:52 Intake Total 800 ml 850 ml 7337 ml Output Total 1200 ml 1150 ml 5320 ml Balance -400 ml -300 ml 2017 ml Intake Oral 800 ml 850 ml 4940 ml IV Total 2397 ml Output Urine Total 1200 ml 1150 ml 5320 ml # Voids 4 4 # Bowel Movements 3 4 Exam Elderly frail lady, comfortably laying down on the bed not using accessory muscle, speaking in full sentences NAD, comfortably laying down on the bed no JVD, MMM, no LAD RRR, nl s1, s2 no mrg decreased BS at bases, bilateral crackles, no wheezing S,ND,NT,normoactive BS+ warm, no edema, pulses 2/2 IVs and Medications Medications Reviewed: Medications were reviewed in detail Lab and Diagnostics Result Diagram: 07/11/16 0535 07/11/16 0535 X-Rays, CTs and MRIs Bibasilar pleural effusions, scarring, and possible airspace disease unchanged from previous 07/02/16 View: Portable, 1 view Interpretation / Wet Read by: Wet read ED physician 12-lead ECG Sinus rhythm rate 83 Probable left atrial enlargement Low voltage, precordial leads Time: 21:57 Interpreted by: ED physician Assessment & Plan An 81 year old female with an extensive medical history including seizures, CAD , hypertension, CHF, COPD, and atrial fibrillation on Xarelto s/p cardioversion (05/03/16) presents to the ED via EMS accompanied by her daughters with shortness of breath onset yesterday. Associated symptoms include "hot flashes," pallor, and dyspnea with exertion. The patient denies hematochezia, hematuria, hematemesis, hemoptysis, melena, or other symptoms. She was recently diagnosed with CHF and took 40mg Lasix today. She increased her home O2 from 2L to 3L today. EMS found the patient with a BP of 171/75, a hear presumed GI bleed, present on admission. likely chronic intermittent bleeding given hx of AVM. Xarelto was stopped. Patient was on PPI gtt, Patient was consulted by GI, recommended barium swallow 07/08 which didn't show any ulcers. PPI gtt switched to PO bid. Ptient has't had any sign of overt bleeding since admission. no transfusion was tried as pt is Baptism. -h/h overall stable, no active GIB, clinically still remained weak, symptomatic with dizziness, -appreciate GI input, possible barium enema outpt, no further intervention recommended -continue PPI bid Symptomatic Anemia, present on admission. Acute. hemoglobin 6.6, hematocrit 21.9 , symptomatic with increased respiratory distress with mild labored breathing lightheadedness. -patient Baptism, declining blood transfusion -s/p iron IV, possible Procrit injection per oncology, ferritin 160s, -recommended per Dr. Schmitt, iron supplement with vitC, started 07/09 Dyspnea on exertion, present on admission. Acute. 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 CXR 07/09 showed interval increase of congestion , effusion(R>L).Given effusion, dyspnea, Patient was tried with increased diuretics(40po to 40 iv bid), seems to respond well. Pulmonary was consulted given recurrent effusion. TTE 07/10 showed normal EF, no focal WM, but severe pHTN, likely related to underlying obstructive lung dz -clinically improving with diuretics, close to baseline, will continue short course of diuresis to see if symptoms improve. -O2 supplement as needed - DuNeb Q4H, Albuterol Q2H PRN -continue lasix 40mg iv bid. strict i/o, daily wt -appreciate input regarding recurrent effusion, possible diagnostic/ therapeutic throacentesis if indicated tomorrow, will get CXR scheduled for tomorrow. -consider VQ to rule out chronic PE given pHTN although pt was on Xarelto prior to hospitalization -trends fever curve, PCT, pt remained afebrile, HD stable w/o abx. Chronic conditions: Chronic Atrial fibrillation - hold Xarelto, plan will be likely resume later if h/h goes up or aspirin instead after endoscopic eval in outpt. Seizure - continue phenytoin (patient recently tried to decrease from current dose, did not tolerate) Chronic diastolic or preserved EF heart failure - as above Hypertension - continue metoprolol, spironolactone Hyperlipidemia - continue atorvastatin Asthma - as above Depression - continue paroxetine Glaucoma - continue Lumigan, Alphagan, Axopt dispo: likely 1-2more days, home with HH RN PT OT dvt ppx: SCD Full Code GI Prophylaxis: Not indicated VTE Prophylaxis: Other (on Xarelto) VTE Mechanical Devices: Intermittant Pneumatic CD Resuscitation Status: CPR: Attempt Resuscitation Time spent 35min Carol Bone MD July 11, 2016 11:05
--- NOTE | 2016-07-11 12:01 | NUR ---
NAWAF Signed GREGORY Alba
--- NOTE | 2016-07-11 12:16 | NUR ---
Social Work Note: Continued Discharge Planning Data& Assessment: Per MD in morning rounds, pt is not medically ready for discharge at this time. SW met with pt and pt family at bedside to check in and assess for any unmet needs. Pt explained she was feeling more tired today and has not been ambulating out of bed yet during this hospitalization. Pt family states that they are waiting for her "blood levels" to improve before she is ready to ambulate due to dizziness. Pt confirmed plan to discharge home via POV with he daughter and resumed NADIYA caregiving as well as resumed Marimar PT, OT and RN. Pt and pt family denies any other needs at this time. SW to continue to follow if any needs arise. Plan: Anticipated discharge home via POV with daughter and resumed NADIYA caregiving as well as resumed Marimar PAREDES PT, OT and RN. Pt and pt family denies any other needs at this time. SW to continue to follow if any needs arise. GREGORY Alba
--- NOTE | 2016-07-11 18:16 | NUR ---
SOB Pt on 2.5L NC 97% this afternoon. Seems to have improved throughout the day. Pt states that she feels better and is breathing better this afternoon. Lung sounds have improved from distinct crackles and labored breathing to few fine crackles throughout. Supplemental 02 turned down to 2L NC. Care continues
[2016-07-11] MEDS: Phenytoin 100 mg ER Capsule PO SCH (22:13)
[2016-07-12] VITALS (13 sets, daily range): BP systolic 105–127; BP diastolic 43–75; PULSE 64–82; RESP 16–20; O2SAT 93–100
[2016-07-12] MEDS: Albuterol-Ipratropium 3 mL Inhalation Solution NEB SCH ×6 (00:30→20:30)
--- NOTE | 2016-07-12 03:26 | NUR ---
Skin/Breathing Pt sitting upright in recliner as it is easier to breathe being upright rather than laying in the bed. Pt receiving neb tx with inhalers - on 2L NC, sats high 90s. D/t being upright in chair (sitting on pillow for extra cushioning), left upper glute with what appears to have been former skin tear, firm, not quite scab-like, reddened area, remains blanchable at this time. D/t multiple BMs, Mepilex not in place, as it would be soiled with each BM, pt up multiple times throughout night for BM. Pt pleasant, no acute issues, stated that despite having SOB at baseline - states it is not as bad as usual. Care continues.
[2016-07-12 06:32] LABS: Magnesium 1.8 mg/dL (1.6-2.6); Phosphorus 3.7 mg/dL (2.5-4.9)
[2016-07-12] MEDS: Pantoprazole 40 mg ER24 Tablet PO SCH ×2 (06:40→16:45)
[2016-07-12 07:46] LABS: Mean Corpuscular Volume 95.9 fL (81-100); Platelet Count 243 bil/L (150-400)
[2016-07-12 07:47] LABS: BASOPHILS % (AUTO) 0.3 % (0-3); EOSINOPHILS % (AUTO) 1.7 % (0-5); MONOCYTES % (AUTO) 10.3 % (4-12); NEUTROPHILS % (AUTO) 65.1 % (40-74)
[2016-07-12] MEDS: Brimonidine 0.2% 5 mL Ophthalmic Solution BOTH_EYES SCH ×2 (09:16→22:08)
[2016-07-12] MEDS: Dorzolamide 2% 10 mL Ophthalmic Solution BOTH_EYES SCH ×2 (09:17→22:09)
[2016-07-12] MEDS: Potassium Chloride 20 mEq SR Tablet PO SCH (09:17)
[2016-07-12] MEDS: Furosemide 10 mg/mL 4 mL Inj IVPUSH SCH ×2 (09:18→16:45)
[2016-07-12] MEDS: Fluticasone 250 mCg Inhaler INHALATION SCH ×2 (09:18→22:08)
[2016-07-12] MEDS: Ascorbic Acid 500 mg Tablet PO SCH (09:19)
[2016-07-12] MEDS: PARoxetine 20 mg Tablet PO SCH (09:19)
--- NOTE | 2016-07-12 10:01 | DRSVH ---
PROCEDURE: X-RAY CHEST ONE VIEW ([id number]) INDICATIONS: follow up pleural effusion TECHNIQUE: One view of the chest was acquired. COMPARISON: [facility], US, US CHEST PLEURAL, 07/09/2016, 16:51. [facility], ECH, ECHO LTD, 07/10/2016, 13:48. [facility], CR, XR CHEST 1VW, 03/24/2016, 14:10. [facility], CR, XR CHEST 2VW, 07/09/2016, 12:00. FINDINGS: Surgical changes and devices: None. Lungs and pleura: Lung volumes have increased. Persistent small bibasilar pleural effusions and airs pace opacities redemonstrated. Mediastinum: Mediastinal contours appear normal. Heart size is normal. Prominent mitral annular ca lcification redemonstrated. Bones and chest wall: No suspicious bony lesions. Overlying soft tissues appear unremarkable. IMPRESSION: Small effusions and bibasilar airspace opacities redemonstrated. This is compressive atel ectasis from the effusions versus consolidation with effusions. Dictated by: Faustino Prater [facility] Interpreted: Roel Bell MD on 07/12/2016 at 9:59 Transcribed by: JUAN PABLO on 07/12/2016 at 10:00 Approved by: Roel Bell M.D. on 07/12/2016 at 10:17
--- NOTE | 2016-07-12 12:53 | PCM.PNMED ---
Subjective Date of Service July 12, 2016 Subjective Continues to have dyspnea but slightly improved. Hemoglobin 7.1. Repeat chest x-ray shows slight improvement of pleural effusion on diuresis. No need for Thoracentesis per pulm . Exam Vital Signs Vital Sign - Last Date Time Temp Pulse Resp B/P Pulse Ox O2 Delivery O2 Flow Rate FiO2 07/12/16 10:44 36.7 64 18 117/69 96 Nasal Cannula 3.00 Intake and Output 07/11/16 07/11/16 07/12/16 Cumulative From/Thru 15:00 23:00 07:00 07/06/16 20:47 - 07/12/16 06:43 Intake Total 1200 ml 1600 ml 15666 ml Output Total 1595 ml 900 ml 7815 ml Balance -395 ml 700 ml 2322 ml Intake Oral 1100 ml 1600 ml 7640 ml IV Total 100 ml 2497 ml Output Urine Total 1595 ml 900 ml 7815 ml # Voids 4 # Bowel Movements 3 7 Exam Elderly frail lady, in mild respiratory distress NAD, comfortably laying down on the bed no JVD, MMM, no LAD RRR, nl s1, s2 no mrg decreased BS at bases, bilateral crackles, no wheezing S,ND,NT,normoactive BS+ warm, no edema, pulses 2/2 IVs and Medications Medications Reviewed: Medications were reviewed in detail Lab and Diagnostics Result Diagram: 07/12/16 0548 07/12/16 0548 X-Rays, CTs and MRIs Bibasilar pleural effusions, scarring, and possible airspace disease unchanged from previous 07/02/16 View: Portable, 1 view Interpretation / Wet Read by: Wet read ED physician 12-lead ECG Sinus rhythm rate 83 Probable left atrial enlargement Low voltage, precordial leads Time: 21:57 Interpreted by: ED physician Assessment & Plan An 81 year old female with an extensive medical history including seizures, CAD , hypertension, CHF, COPD, and atrial fibrillation on Xarelto s/p cardioversion (05/03/16) presents to the ED via EMS accompanied by her daughters with shortness of breath onset yesterday. Associated symptoms include "hot flashes," pallor, and dyspnea with exertion. The patient denies hematochezia, hematuria, hematemesis, hemoptysis, melena, or other symptoms. She was recently diagnosed with CHF and took 40mg Lasix today. She increased her home O2 from 2L to 3L today. EMS found the patient with a BP of 171/75, a hear # presumed GI bleed, present on admission. likely chronic intermittent bleeding given hx of AVM. Xarelto was stopped. Patient was on PPI gtt, Patient was consulted by GI, recommended barium swallow 07/08 which didn't show any ulcers. PPI gtt switched to PO bid. Ptient has't had any sign of overt bleeding since admission. no transfusion was tried as pt is Orthodoxy. -h/h overall stable, no active GIB, clinically still remained weak, symptomatic with dizziness, -appreciate GI input, possible barium enema outpt, no further intervention recommended -continue PPI bid #Symptomatic Anemia, present on admission. Acute. Initial hemoglobin 6.6, hematocrit 21.9, symptomatic with increased respiratory distress with mild labored breathing lightheadedness. -patient Orthodoxy, declining blood transfusion -s/p iron IV, possible Procrit injection per oncology, ferritin 160s, -recommended per Dr. Schmitt, iron supplement with vitC, started 07/09 -Hemoglobin responding very slowly.Hb 7.1 today #Dyspnea on exertion, present on admission. Acute. 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 CXR 07/09 showed interval increase of congestion , effusion(R>L).Given effusion, dyspnea, Patient was tried with increased diuretics(40po to 40 iv bid), seems to respond well. Pulmonary was consulted given recurrent effusion. TTE 07/10 showed normal EF, no focal WM, but severe pHTN, likely related to underlying obstructive lung dz -clinically improving with diuretics, close to baseline, will continue short course of diuresis to see if symptoms improve. -Repeat chest x-ray shows slight improvement of pleural effusion on diuresis. No need for Thoracentesis per pulm Dr Howell -O2 supplement as needed - DuNeb Q4H, Albuterol Q2H PRN -continue lasix 40mg iv bid. strict i/o, daily wt -will consider VQ to rule out chronic PE if no improvement with diuresis given pHTN although pt was on Xarelto prior to hospitalization -trends fever curve, PCT, pt remained afebrile, HD stable w/o abx. Chronic conditions: #Chronic Atrial fibrillation - hold Xarelto, plan will be likely resume later if h/h goes up or aspirin instead after endoscopic eval in outpt. #Seizure - continue phenytoin (patient recently tried to decrease from current dose, did not tolerate) #Chronic diastolic or preserved EF heart failure - as above #Hypertension - continue metoprolol, spironolactone #Hyperlipidemia - continue atorvastatin #Asthma - as above #Depression - continue paroxetine #Glaucoma - continue [employer] Axopt dispo: likely 1-2more days, home with HH RN PT OT dvt ppx: SCD Full Code GI Prophylaxis: Not indicated VTE Prophylaxis: Other (on Xarelto) VTE Mechanical Devices: Intermittant Pneumatic CD Resuscitation Status: CPR: Attempt Resuscitation Aurelio Reid MD July 12, 2016 12:53
--- NOTE | 2016-07-12 15:37 | NUR ---
Resp Sats mid 90s on baseline 2l nc. States her SOB feels "normal." No s/s dyspnea at rest. Mild SOB with activity. Skin color improved since 2 days ago.
--- NOTE | 2016-07-12 16:53 | PROG NOTE ---
[address] [address] PROGRESS NOTE PATIENT: MARIAM BUENO : 1935 MR#: [id number] ADMIT: 07/06/2016 JOB ID: [id number] DATE: 07/12/2016 PROBLEM: 1. Pleural effusion. 2. Anemia. 3. History of atrial fibrillation, status post cardioversion. SUBJECTIVE: Feeling better. States her breathing is pretty much back to normal. Urinating quite well. Essentially no cough or sputum production. Appetite has been quite good. Describes herself as ravenous. OBJECTIVE: Temperature 36.7, pulse mid 60s. Respiratory rate 16-18, blood pressure 117/69, O2 sat on 2 L is 98%. General appearance: No acute distress. Sitting in a chair at the bedside with legs elevated. Speaking easily. Mental status: Awake and alert. Chest relatively clear throughout both lung monroy. Maybe somewhat diminished at the bases. No crackles. No use of accessory muscles. Heart: Regular rhythm with relatively frequent premature beats. Heart tones seem otherwise normal. Abdomen soft. Nondistended. Nontender. Extremities: No pretibial edema. LABORATORY DATA: Shows a white count of 6600. Hemoglobin stable at 7.1 with a normal differential. Hemoglobin 7.1. Platelet count 243,000, relatively stable. Sodium 138, potassium 3.7, chloride 97, CO2 is 31, BUN 14, creatinine 0.5. Calcium 8.6, phosphorus 3.7. Magnesium 1.8. Albumin 3.1. Total bilirubin, transaminases, and alkaline phos are all normal. Reviewed her previous ultrasound of the chest of July 09, 2016, showing a moderate effusion on the left with a small on the right. Reviewed serial chest x-rays with radiology including today's film. Today's chest x-ray shows a significant decrease in the opacification at both bases consistent with improvement in the pleural effusions. ASSESSMENT: 1. Pleural effusions. The patient's symptoms have essentially resolved. She feels her breathing is back to normal. However, she has been rather sedentary, being confined to the bed here at the hospital. I think it would be helpful to get her a bit more mobile before discharge. Also might serve as a better test for her pulmonary capabilities. 2. Cardiac rhythm sounds a little bit better than atrial fib but not as good as sinus rhythm. Checking the monitor shows PVCs occurring at maybe 9 a minute at times. 3. Pleural effusions. Probably multifactorial resulting from her cardiac status and a significant anemia. Hemoglobin has been in the mid six range, currently just having broken the 7 g/dL barrier at 7.1 g/dL. 4. Since she has symptomatically improved, I do not really see the need to tap the fluid. It is resolving in association with diuresis. If the fluid does not resolve completely or if symptoms return, then we can revisit the situation and proceed with thoracentesis, if felt warranted. Therefore, at this point, I think from a pulmonary standpoint she can go home. Participate in rehabilitation to gain some increases exercise capabilities, though with her significant anemia, this will be a limiting factor for a number of weeks. PLAN: 1. I do not see the need for thoracentesis at this time. 2. If symptoms recur or pleural effusions do not resolve, we can re-evaluate considering thoracentesis. 3. Physical therapy to increase exercise tolerance. 4. Treatment of her anemia. Currently receiving iron. Thank you so much, Dr. Reid, for asking us to see this most engaging individual. Will follow her respiratory status closely along with you.
[2016-07-12] MEDS: Phenytoin 100 mg ER Capsule PO SCH (22:08)
[2016-07-13] VITALS (11 sets, daily range): BP systolic 120–135; BP diastolic 55–84; PULSE 60–91; RESP 16–20; O2SAT 92–97
[2016-07-13] MEDS: Albuterol-Ipratropium 3 mL Inhalation Solution NEB SCH ×7 (00:30→23:43)
--- NOTE | 2016-07-13 05:57 | NUR ---
NOC PT has done great this shift. Pt does not have any dyspnea noted. Lungs are clear and maybe a little decreased in bases. Pt currently on 1L NC as sats were 100% on 2L. PT is up in reclining chair where she sleeps. Denies any pain. Tele has been SR. VS stable. Pt eager for d/c. States she is feeling a lot better. Only trace edema noted to BLE. Will CTM
[2016-07-13 06:23] LABS: BASOPHILS % (AUTO) 0.2 % (0-3); EOSINOPHILS % (AUTO) 1.7 % (0-5); MONOCYTES % (AUTO) 11.2 % (4-12); Mean Corpuscular Volume 96.3 fL (81-100); NEUTROPHILS % (AUTO) 61.3 % (40-74); Platelet Count 271 bil/L (150-400)
[2016-07-13] MEDS: Furosemide 10 mg/mL 4 mL Inj IVPUSH SCH (11:16)
[2016-07-13] MEDS: Ascorbic Acid 500 mg Tablet PO SCH (11:17)
[2016-07-13] MEDS: Pantoprazole 40 mg ER24 Tablet PO SCH ×2 (11:17→16:51)
[2016-07-13] MEDS: Potassium Chloride 20 mEq SR Tablet PO SCH (11:17)
[2016-07-13] MEDS: Fluticasone 250 mCg Inhaler INHALATION SCH ×2 (11:18→20:26)
[2016-07-13] MEDS: Dorzolamide 2% 10 mL Ophthalmic Solution BOTH_EYES SCH ×2 (11:20→20:25)
[2016-07-13] MEDS: PARoxetine 20 mg Tablet PO SCH (11:21)
[2016-07-13] MEDS: Brimonidine 0.2% 5 mL Ophthalmic Solution BOTH_EYES SCH ×2 (11:21→20:25)
--- NOTE | 2016-07-13 15:22 | PCM.PNMED ---
Subjective Date of Service July 13, 2016 Subjective Dyspnea slowly improving with improvement of anemia. Exam Vital Signs Vital Sign - Last Date Time Temp Pulse Resp B/P Pulse Ox O2 Delivery O2 Flow Rate FiO2 07/13/16 14:13 36.6 72 18 135/55 96 Nasal Cannula 2.00 Intake and Output 07/12/16 07/12/16 07/13/16 Cumulative From/Thru 15:00 23:00 07:00 07/06/16 20:47 - 07/13/16 05:54 Intake Total 1400 ml 963 ml 17207 ml Output Total 1800 ml 900 ml 61522 ml Balance -400 ml 63 ml 1985 ml Intake Oral 1400 ml 963 ml 14543 ml IV Total 2497 ml Output Urine Total 1800 ml 900 ml 42060 ml # Voids 4 # Bowel Movements 2 1 10 Exam Elderly frail lady, in mild respiratory distress NAD, comfortably laying down on the bed no JVD, MMM, no LAD RRR, nl s1, s2 no mrg decreased BS at bases, bilateral crackles, no wheezing S,ND,NT,normoactive BS+ warm, no edema, pulses 2/2 IVs and Medications Medications Reviewed: Medications were reviewed in detail Lab and Diagnostics Result Diagram: 07/13/16 0550 07/13/16 0550 X-Rays, CTs and MRIs Bibasilar pleural effusions, scarring, and possible airspace disease unchanged from previous 07/02/16 View: Portable, 1 view Interpretation / Wet Read by: Wet read ED physician 12-lead ECG Sinus rhythm rate 83 Probable left atrial enlargement Low voltage, precordial leads Time: 21:57 Interpreted by: ED physician Assessment & Plan An 81 year old female with an extensive medical history including seizures, CAD , hypertension, CHF, COPD, and atrial fibrillation on Xarelto s/p cardioversion (05/03/16) presents to the ED via EMS accompanied by her daughters with shortness of breath onset yesterday. Associated symptoms include "hot flashes," pallor, and dyspnea with exertion. The patient denies hematochezia, hematuria, hematemesis, hemoptysis, melena, or other symptoms. She was recently diagnosed with CHF and took 40mg Lasix today. She increased her home O2 from 2L to 3L today. EMS found the patient with a BP of 171/75, a hear # presumed GI bleed, present on admission. likely chronic intermittent bleeding given hx of AVM. Xarelto was stopped. Patient was on PPI gtt, Patient was consulted by GI, recommended barium swallow 07/08 which didn't show any ulcers. PPI gtt switched to PO bid. Ptient has't had any sign of overt bleeding since admission. no transfusion was tried as pt is Mu-ism. -h/h overall stable, no active GIB, clinically still remained weak, symptomatic with dizziness, -appreciate GI input, possible barium enema outpt, no further intervention recommended -continue PPI bid #Symptomatic Anemia, present on admission. Acute. Initial hemoglobin 6.6, hematocrit 21.9, symptomatic with increased respiratory distress with mild labored breathing lightheadedness. -patient Mu-ism, declining blood transfusion -s/p iron IV, possible Procrit injection per oncology, ferritin 160s, -recommended per Dr. Schmitt, iron supplement with vitC, started 07/09 -Hemoglobin responding very slowly.Hb 7.1 today #Dyspnea on exertion, present on admission. Acute. 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 CXR 07/09 showed interval increase of congestion , effusion(R>L).Given effusion, dyspnea, Patient was tried with increased diuretics(40po to 40 iv bid), seems to respond well. Pulmonary was consulted given recurrent effusion. TTE 07/10 showed normal EF, no focal WM, but severe pHTN, likely related to underlying obstructive lung dz -clinically improving with diuretics, close to baseline, will continue short course of diuresis to see if symptoms improve. -Repeat chest x-ray shows slight improvement of pleural effusion on diuresis. No need for Thoracentesis per pulm Dr Howell -continue lasix 40mg iv bid. strict i/o, daily wt -will consider VQ to rule out chronic PE if no improvement with diuresis given pHTN although pt was on Xarelto prior to hospitalization # acute on chronic diastolic CHF with bilateral effusion on iv lasix -improving on followup cxr # Urine culture with mixed robson.no evidence of infection. No Antibiotics indicated Chronic conditions: #Chronic Atrial fibrillation - hold Xarelto, plan will be likely resume later if h/h goes up or aspirin instead after endoscopic eval in outpt. #Seizure - continue phenytoin (patient recently tried to decrease from current dose, did not tolerate) #Chronic diastolic or preserved EF heart failure - as above #Hypertension - continue metoprolol, spironolactone #Hyperlipidemia - continue atorvastatin #Asthma - as above #Depression - continue paroxetine #Glaucoma - continue Lumigan, Grupo, Axopt dispo: likely 1-2more days, home with HH RN PT OT dvt ppx: SCD Full Code GI Prophylaxis: Not indicated VTE Prophylaxis: Other (on Xarelto) VTE Mechanical Devices: Intermittant Pneumatic CD Resuscitation Status: CPR: Attempt Resuscitation Aurelio Reid MD July 13, 2016 15:22
--- NOTE | 2016-07-13 17:03 | NUR ---
Activity- Patient has been in the recliner the entire day even when sleeping. She refused to work with PT today, and I tried to get her up to walk to the bathroom or take a few steps in room this afternoon, and again she refused. O2 on at 1 liter nc. No signs of increased shortness of breath. Denies cough. Patient has been incontinent of urine, despite encouragement to use commode.
[2016-07-13] MEDS: Phenytoin 100 mg ER Capsule PO SCH (20:26)
[2016-07-14 00:30] VITALS: BP 101/58; PULSE 66; RESP 16; O2SAT 98
--- NOTE | 2016-07-14 01:53 | NUR ---
Mobility Pt. up with 1 assist and moving well yet tires easily.VSS.Kiran. food and fluids w/o c/o nausea.Lungs with some DBS and faint crackles to the bases.Sats on 2L in the mid to high 90s.Denies pain and sleeping in recliner at this time.Will cont. to monitor.
[2016-07-14] MEDS: Albuterol-Ipratropium 3 mL Inhalation Solution NEB SCH ×3 (04:30→11:36)
[2016-07-14 05:15] VITALS: BP 121/61; PULSE 67; RESP 16; O2SAT 98
[2016-07-14 07:34] VITALS: PULSE 64; RESP 18; O2SAT 98
[2016-07-14 07:35] LABS: BASOPHILS % (AUTO) 0.5 % (0-3); EOSINOPHILS % (AUTO) 2.5 % (0-5); MONOCYTES % (AUTO) 10.1 % (4-12); Mean Corpuscular Hemoglobin 28.7 pg (27.0-35.0); Mean Corpuscular Volume 95.6 fL (81-100); NEUTROPHILS % (AUTO) 61.5 % (40-74); Platelet Count 271 bil/L (150-400)
[2016-07-14] MEDS ORDERED: Furosemide 10 mg/mL 4 mL Inj IVPUSH SCH (08:30)
[2016-07-14 09:39] VITALS: BP 107/58; PULSE 74; RESP 18; O2SAT 98
[2016-07-14] MEDS: Potassium Chloride 20 mEq SR Tablet PO SCH (10:07)
[2016-07-14] MEDS: PARoxetine 20 mg Tablet PO SCH (10:07)
[2016-07-14] MEDS: Pantoprazole 40 mg ER24 Tablet PO SCH (10:08)
[2016-07-14] MEDS: Ascorbic Acid 500 mg Tablet PO SCH (10:08)
[2016-07-14] MEDS: Dorzolamide 2% 10 mL Ophthalmic Solution BOTH_EYES SCH (10:09)
[2016-07-14] MEDS: Brimonidine 0.2% 5 mL Ophthalmic Solution BOTH_EYES SCH (10:09)
[2016-07-14] MEDS: Fluticasone 250 mCg Inhaler INHALATION SCH (10:09)
[2016-07-14 10:56] VITALS: PULSE 67
--- NOTE | 2016-07-14 10:57 | DRSVH ---
PROCEDURE: X-RAY CHEST ONE VIEW, PORTABLE ([id number]) INDICATIONS: pleural effusion followup TECHNIQUE: One view of the chest was acquired. COMPARISON: [facility], CR, XR CHEST 2VW, 07/09/2016, 12:00. [facility], CR, XR CHEST 1VW, 07/12/2016, 9:25. [facility], US, US CHEST PLEURAL, 07/09/2016, 16:51. [facility], CR, XR CHEST 1VW (PORTABLE), 07/06/2016, 22:07. FINDINGS: Surgical changes and devices: None. Lungs and pleura: Small bibasilar pleural effusions not significantly changed from prior examination and bibasilar airspace opacities. Mediastinum: Mediastinal contours appear normal. Heart size is enlarged. Prominent mitral annular calcification redemonstrated. Bones and chest wall: No suspicious bony lesions. Overlying soft tissues appear unremarkable. IMPRESSION: Persistent bibasilar pleural effusions and airspace opacities consistent with compressive atelectasis versus pneumonia. Dictated by: Faustino Prater A Interpreted: Griselda Howell MD on 07/14/2016 at 10:55 Transcribed by: JAXSON on 07/14/2016 at 10:56 Approved by: Griselda Howell M.D. on 07/14/2016 at 17:10
--- NOTE | 2016-07-14 11:20 | NUR ---
DC from PT; ambulate w/Nsg Pt has met all PT goals and is discharged from further PT at this time. Released to ambulate w/Nsg w/FWW 2-3x/day as pt tolerates.
[2016-07-14 11:36] VITALS: PULSE 81; RESP 18; O2SAT 98
--- NOTE | 2016-07-14 12:33 | PCM.DIMED ---
Discharge Instructions Date of Service July 14, 2016 Dates of Hospitalization July 06, 2016 at 23:57 Discharge Diagnosis Discharge Diagnosis # presumed GI bleed, present on admission. likely chronic intermittent bleeding given hx of AVM. in setting of Xarelto use #Symptomatic Anemia, present on admission. Acute. #Dyspnea on exertion, present on admission. Acute. 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 you were found to have severe anemia. Transfusion was suggested but declined due to yarsani reasons. You were given IV iron. Please continue iron tablets and vitamin C as prescribed.Blood thinner xarelto is discontinued. Please continue all other medications results changes. Follow-up Provider: Oscar Post MD Follow-up with PCP in: 1 week Aurelio Reid MD July 14, 2016 12:33
--- NOTE | 2016-07-14 12:43 | PCM.DC.MED ---
Discharge Summary Date of Service July 14, 2016 Dates of Hospitalization Date of Hospital Admission July 06, 2016 at 23:57 Date of Discharge: July 14, 2016 Providers: Admitting Physician: Abran Myers MD Primary Care Physician: Oscar Post MD Attending Physician: Abran Myers MD Diagnosis at Time of Discharge Diagnosis at Time of Discharge # presumed GI bleed, present on admission. likely chronic intermittent bleeding given hx of AVM. in setting of Xarelto use #Symptomatic Anemia, present on admission. Acute. #Dyspnea on exertion, present on admission. Acute. 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 PUD/GI bleed COMPARISON: None. FINDINGS: KUB: Preprocedural cavalry scout film demonstrates a normal bowel gas pattern. No suspicious abdominal calcifications. Visualized solid organ contours appear normal. Bony structures appear unremarkable. Extensive mitral annular calcification is noted. Bibasilar pleural effusions and opacities are again noted. Esophagus: Exam is limited demonstrating no gross esophageal abnormality. Stomach: Exam is extremely limited as the patient had respiratory difficulties and was unable to lie in a supine or prone position. Within these limits, opacification of the stomach to the gastric antrum appears grossly normal and no large intraluminal filling defects are seen. No extravasation of contrast media is seen. The duodenal bulb and duodenal loop are not opacified and cannot be evaluated. The attending physician was personally present in the room during the examination. IMPRESSION: 1. Bibasilar pleural effusions and airspace opacities suggesting pneumonia. 2. Limited evaluation of the esophagus and the stomach as above. Dictated by: Faustino Prater RRA Interpreted: Claudia Jane MD on 07/08/2016 at 13: 55 ECG 12 Lead Sinus rhythm rate 83 Probable left atrial enlargement Low voltage, precordial leads Time: 21:57 Interpreted by: ED physician Brief History per GI consult note 81-year-old female with history of A. fib S/P cardioversion in April currently on Xeralto, CAD, CHF, COPD, and hypertension who presented to the ED via EMS due to ongoing weakness and shortness of breath. Patient states that this is been developing a last couple weeks but got acutely worse 2 days ago. At that time the patient's daughter called EMS but the patient refused to go to the emergency department. The following day the patient again found herself to be very weak and short of breath with hot flashes, and extreme dizziness on standing. Patient states that EMT checked her orthostatics and she was found to be positive at that time. Patient denies any epigastric pain, nausea, vomiting, chest pain, abdominal pain, hematochezia, melena, emesis or hematemesis, or syncope. Patient does state that she is dizzy when she stands up, and she does have shortness of breath. After patient was admitted to the hospital she is given an iron infusion as well as fluids which greatly improved her weakness but has not helped her shortness of breath. Her vitals are stable in the emergency department except for some mild tachycardia of 100. Hemoglobin was obtained found to be 6.6. Today the patient states that she is doing better overall. She is lying in bed and has not been up walking around. She denies any ongoing diarrhea or nausea/ vomiting. She states that her stools have been a little bit darker but formed and not tarry. Patient states last colonoscopy was more than 10 years ago and she also had an EGD in 2012 which records indicate was done by Dr. Green with biopsies. Per report, there were ulcerated nodules in the distal esophagus as well as antral gastritis and superficial ulcerations. Patient had a chest x- ray which shows some basilar consolidations. Her hemoglobin this morning after fluid resuscitation dropped from 6.6 to 6.3. Patient is a [employer] and defers blood transfusion. Hospital Course An 81 year old female with an extensive medical history including seizures, CAD , hypertension, CHF, COPD, and atrial fibrillation on Xarelto s/p cardioversion (05/03/16) presents to the ED via EMS accompanied by her daughters with shortness of breath onset yesterday. Associated symptoms include "hot flashes," pallor, and dyspnea with exertion. The patient denies hematochezia, hematuria, hematemesis, hemoptysis, melena, or other symptoms. She was recently diagnosed with CHF and took 40mg Lasix today. She increased her home O2 from 2L to 3L today. EMS found the patient with a BP of 171/75, # presumed GI bleed, present on admission. likely chronic intermittent bleeding given hx of AVM. Xarelto was stopped indefinitely. Patient was initially on PPI gtt, Patient was seen by GI, recommended barium swallow 07/08 which didn't show any ulcers. PPI gtt switched to PO bid. Patient has't had any sign of overt bleeding since admission. no transfusion was tried as pt is [employer]. -h/h overall stable, no active GIB, clinically still remained weak, symptomatic -appreciate GI input, possible barium enema outpt, no further intervention recommended -continue PPI bid #Symptomatic Anemia, present on admission. Acute. Initial hemoglobin 6.6, hematocrit 21.9, symptomatic with increased respiratory distress with mild labored breathing lightheadedness. -patient [employer], declining blood transfusion -s/p iron IV, possible Procrit injection per oncology, ferritin 160s, -recommended per Dr. Schmitt, iron supplement with vitC, started 07/09 -Hemoglobin responding very slowly.Hb 7.2 today on discharge #Dyspnea on exertion, present on admission. Acute. 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 CXR 07/09 showed interval increase of congestion, effusion(R>L).Given effusion, dyspnea, Patient was tried with increased diuretics(40po to 40 iv bid), seems to respond well. Pulmonary was consulted given recurrent effusion. TTE 07/10 showed normal EF, no focal WM, but severe pHTN, likely related to underlying obstructive lung dz -clinically improving with diuretics, close to baseline, treated with short course of IV diuresis and symptoms improved, transition to home Lasix 40 by mouth daily. -Repeat chest x-ray shows slight improvement of pleural effusion on diuresis. No need for Thoracentesis per pulm Dr Howell #History of Atrial fibrillation - discontinue Xarelto, patient remained in sinus rhythm during the hospitalization. She had cardioversion recently. Advised follow-up with PCP and cardiology. Recommend discontinuing xarelto indefinitely and start baby aspirin in few weeks. # acute on chronic diastolic CHF with bilateral effusion on iv lasix . -Transition to by mouth Lasix -improving on followup cxr # Urine culture with mixed robson.no evidence of infection. No Antibiotics indicated Chronic conditions: #Seizure - continue phenytoin (patient recently tried to decrease from current dose, did not tolerate) #Chronic diastolic or preserved EF heart failure - as above #Hypertension - continue metoprolol, spironolactone #Hyperlipidemia - continue atorvastatin #Asthma - as above #Depression - continue paroxetine #Glaucoma - continue Lumigan, Alphagan, Axopt Full Code Discharge home Condition on discharge stable Exam Vital Signs (Last) Date Time Temp Pulse Resp B/P Pulse Ox O2 Delivery O2 Flow Rate FiO2 07/14/16 11:36 81 18 98 Room Air 07/14/16 11:14 2.00 07/14/16 09:39 36.7 107/58 Exam Elderly frail lady, in mild respiratory distress NAD, comfortably laying down on the bed no JVD, MMM, no LAD RRR, nl s1, s2 no mrg decreased BS at bases, bilateral crackles, no wheezing S,ND,NT,normoactive BS+ warm, no edema, pulses 2/2 Test 07/06/16 21:15 07/08/16 05:55 07/09/16 07:53 07/09/16 12:00 Band Neutrophils % 0% (1-5) Hold Purple Top Tube Received (Received) Prothrombin Time 9.8sec (8.1-12.5) Prothromb Time International Ratio 0.92ratio Hold Blue Top Tube Received (Received) Troponin T 0.010ug/L (0.0-0.011) Hold [place] Top Tube Received (Received) Hold [place] Top Tube Received (Received) Reticulocyte Count,Calculated 3.7% (0.6-2.6) Haptoglobin 180mg/dL (34-200) Iron Level 69ug/dL (35-150) Total Iron Binding Capacity 322ug/dL (250-450) Percent Iron Saturation 21%sat (15-50) Unsaturated Iron Binding 252.8ug/dL Erythropoietin 45.7mIU/mL (2.6-18.5) Ferritin 166ng/mL (13-150) Lactate Dehydrogenase 153U/L (100-190) Pro-B-Type Natriuretic Peptide 1869pg/mL (0-738) Vitamin B12 Level 510pg/mL (211-946) Folate > 19.9ng/mL (>3.0) Procalcitonin 0.08ng/mL (0.00-0.08) Urine Color Dark yellow (YELLOW) Urine Appearance Hazy (CLEAR,HAZY) Urine pH 6.0 (5.0-8.0) Urine Specific [place] 1.020 (1.003-1.035) Urine Protein Tracemg/dL (NEG,TRACE) Urine Glucose (UA) Negativemg/dL (NEGATIVE) Urine Ketones Negativemg/dL (NEGATIVE) Urine Occult Blood Trace (NEGATIVE) Urine Nitrite Negative (NEGATIVE) Urine Bilirubin Negative (NEGATIVE) Urine Urobilinogen Normalmg/dL (NORMAL) Urine Leukocyte Esterase Trace (NEGATIVE) Urine RBC 0-2/hpf (0-2) Urine WBC 0-5/hpf (0-5) Urine Epithelial Cells Occasional/hpf (NONE-MOD) Urine Crystals None seen (NONE SEEN) Urine Bacteria Moderate/hpf (NONE-FEW) Urine Hyaline Casts None/lpf (NONE) Urine Granular Casts None seen (NONE SEEN) Urine Waxy Casts None seen (NONE SEEN) Urine Red Blood Cell Casts None seen (NONE SEEN) Urine White Blood Cell Casts None seen (NONE SEEN) Urine Mucus Present (None Seen) Urine Trichomonas None seen (NONE SEEN) Urine Yeast None (NONE SEEN) Urinalysis Comment None Urine Culture Reflexed Indicated Test 07/12/16 05:48 07/14/16 07:25 Phosphorus Level 3.7mg/dL (2.5-4.9) Magnesium Level 1.8mg/dL (1.6-2.6) White Blood Count 5.7th/mm3 (3.8-10.1) Red Blood Count 2.51mil/mm3 (3.90-5.20) Hemoglobin 7.2g/dL (12.0-15.6) Hematocrit 24.0% (35.0-46.0) Mean Corpuscular Volume 95.6fL (81-100) Mean Corpuscular Hemoglobin 28.7pg (27.0-35.0) Mean Corpuscular Hemoglobin Concent 30.0% (32.0-37.0) Red Cell Distribution Width 18.2% (12.3-15.4) Platelet Count 271bil/L (150-400) Neutrophils (%) (Auto) 61.5% (40-74) Lymphocytes (%) (Auto) 24.7% (14-46) Monocytes (%) (Auto) 10.1% (4-12) Eosinophils (%) (Auto) 2.5% (0-5) Basophils (%) (Auto) 0.5% (0-3) Sodium Level 138mEq/L (134-144) Potassium Level 4.2mEq/L (3.5-5.2) Chloride Level 97mEq/L (97-108) Carbon Dioxide Level 29mmol/L (18-29) Blood Urea Nitrogen 15mg/dL (8-27) Creatinine 0.58mg/dL (0.57-1.00) Estimat Glomerular Filtration Rate 143mL/min (>59) Glucose Level 98mg/dL (60-99) Calcium Level 8.6mg/dL (8.5-10.1) Total Bilirubin 0.2mg/dL (0.0-1.2) Aspartate Amino Transf (AST/SGOT) 11U/L (0-50) Alanine Aminotransferase (ALT/SGPT) 7U/L (0-32) Alkaline Phosphatase 86U/L (25-165) Total Protein 4.9g/dL (6.4-8.4) Albumin 3.0g/dL (3.4-5.0) Discharge Medications Discharge Medications ([Ascorbic Acid]) 500 MG TABLET 500 MG PO DAILY Prescribed by: AMIRAH POLLARD MD Atorvastatin (Lipitor) 20 Mg Tablet 20 MG PO HS (Reported) Bimatoprost (Lumigan) 45 Drop/2.5 Ml Ophsoln 1 DROP OD HS (Reported) Brimonidine Tartrate (Alphagan P) 5 Ml Drops 1 DROP BOTH_EYES BID (Reported) 0.2% Brinzolamide (Azopt 1% Ophthalmic Suspension) 10 Ml Drops.susp 1 DROP OP BID ( Reported) Cyanocobalamin (Vitamin B-12) (B-12) 1,000 Mcg/Ml Drops 1,000 MCG SL QAM ( Reported) Ferrous Sulfate (Feosol) 325 Mg Tablet 325 MG PO TIDWM Prescribed by: AMIRAH POLLARD MD Fluticasone Propionate (Flovent HFA 220 mcg) 12 Gm Aer.w.adap 1 PUFF IH BID ( Reported) Folic Acid (Folic Acid) 1 Mg Tablet 1 MG PO QAM (Reported) Furosemide (Furosemide) 40 Mg Tablet 40 MG PO QAM (Reported) Metoprolol Tartrate (Metoprolol Tartrate) 50 Mg Tablet 25 MG PO BID (Reported) Pantoprazole DR (Pantoprazole DR) 40 Mg Tablet.dr 40 MG PO BIDAC Prescribed by: AMIRAH POLLARD MD Paroxetine (Paroxetine) 40 Mg Tablet 40 MG PO QAM (Reported) Phenytoin Sodium Extended (Phenytoin Sodium Extended) 100 Mg Capsule 300 MG PO HS Prescribed by: STEPHAN ROSENBERG DO Polyethylene Glycol 3350 (Miralax) 17 Gm Powd.pack 17 GM PO DAILY Prescribed by: AMIRAH POLLARD MD Potassium Chloride ER (Potassium Chloride ER) 10 Meq Tablet 20 MEQ PO DAILY TAKE WITH FOOD Prescribed by: AMIRAH POLLARD MD Spironolactone (Spironolactone) 25 Mg Tablet 25 MG PO QAM (Reported) As needed Albuterol HFA (Proair HFA) 8.5 Gm Hfa.aer.ad 2 PUFFS INHALATION Q2H PRN PRN For Shortness of Breath (Reported) Followup Plan Disposition: Home with HOME health for rn, PT, [employer] Discharge Diet: Heart Healthy Discharge Activity: Other (continue physical therapy at home) Patient Instructions You were hospitalized and shortness of breath. you were found to have severe anemia. Transfusion was suggested but declined due to denominational reasons. You were given IV iron. Please continue iron tablets and vitamin C as prescribed.Blood thinner xarelto is discontinued. Please continue all other medications results changes. Follow-up Provider: Oscar Post MD Follow-up with PCP in: 1 week Provider: Tarsha García MD Follow-up in: 2 weeks Mid-level Provider: Lolita Pascal MD Follow-up with Mid-level in: 2 weeks Time spent 40 minutes coordinating discharge copies to: Tarsha García MD; Lolita Pascal MD; WinOscar hooper MD, Melaku MD July 14, 2016 12:43
--- NOTE | 2016-07-14 13:19 | NUR ---
Social Work- Readiness for Discharge Data: EMR reviewed. Pt is on day 8 of hospitalization for GI Bleed, Anemia per H&P. Pt is medically stable to discharge today. PT has d/c pt from service to ambulate with nursing. AURELIO met with pt and daughter Shelby at bedside regarding discharge plan. Pt was asleep at this time. Shelby confirmed that she is pt's ride home. AURELIO notified Brenton Verma at [facility] regarding pt's discharge. AURELIO faxed pt's discharge packet to [facility]. Pt to discharge home with daughter to transport via POV. No additional needs identified. Assessment: Pt who is open with [facility] RN PT OT and has NADIYA. Plan: AURELIO faxed pt's discharge packet to [facility]. Pt to discharge home with daughter to transport via POV. No additional needs identified. AURELIO will continue to follow if needs arise. Vera Roman, [employer]
--- NOTE | 2016-07-14 15:24 | NUR ---
Social Work-Discharge Data: EMR reviewed. Pt is on day 8 of hospitalization for GI Bleed, Anemia per H&P. Pt is medically stable to discharge today. Pt to discharge home with daughter to transport via POV. No additional needs identified. Assessment: Pt who is open with [facility] RN PT OT and has NADIYA. Plan: Pt to discharge home with daughter to transport via POV. No additional needs identified. GREGORY Nassar
--- NOTE | 2016-07-14 16:00 | NUR ---
Discharged Pt. discharged to home with family. Pt. took all he belongings from room 1027 O[facility]. Pt. was given educational material on new prescriptions [facility], pantoprazole, polyethylene glycol 3350 (miralax), and ascorbic acid. I also gave Pt. educational material for the diagnosis of her stay which was GI bleed and Anemia. Pt. was also instructed to follow up with Dr. Post in 1 week. Pt. stated she understood and that her daughter would make the appointment.
== END 2016-07-14 16:06 | disposition home health service (06) | DRG 811 ==
LOC: SED 20:58 → OSC 23:57
PROVIDERS: ADMIT Hospitalist; ATTEND Hospitalist
DX: D50.0 Iron deficiency anemia secondary to blood loss (chronic) (principal); I50.33 Acute on chronic diastolic (congestive) heart failure; J96.11 Chronic respiratory failure with hypoxia; Q27.33 Arteriovenous malformation of digestive system vessel; I48.2 Chronic atrial fibrillation; J45.909 Unspecified asthma, uncomplicated; J44.9 Chronic obstructive pulmonary disease, unspecified; E78.5 Hyperlipidemia, unspecified; I25.10 Atherosclerotic heart disease of native coronary artery without angina pectoris; G40.909 Epilepsy, unspecified, not intractable, without status epilepticus; Z53.1 Procedure and treatment not carried out because of patient's decision for reasons of belief and group pressure; I27.2 Other secondary pulmonary hypertension; I10 Essential (primary) hypertension; Z99.81 Dependence on supplemental oxygen; Z79.51 Long term (current) use of inhaled steroids; I25.2 Old myocardial infarction; Z79.01 Long term (current) use of anticoagulants